=== PATIENT | male | born 1965 | race Caucasian/White ===

== ENCOUNTER 2019-11-14 09:09 | Observation (INO) | payer OTHER, SELFPAY ==
[2019-11-14] VITALS (15 sets, daily range): BP systolic 134–180; BP diastolic 82–140; PULSE 73–160; RESP 18–33; TEMP 36.5–36.7; O2SAT 91–98; BMI 35.5
--- NOTE | 2019-11-14 09:19 | W.ED.ARRPALP ---
HPI - Arrhythmia/Palpitations General: Chief Complaint: Arrhythmia/Palpitations Stated Complaint: POSS A-FIB Time Seen by Provider: 11/14/19 09:18 Source: patient Mode of arrival: ambulatory Limitations: no limitations History of Present Illness: HPI narrative: Patient comes in today for complaints of increased heart rate starting this weekend. Patient 1 month ago was at [facility] and was treated for pneumonia and at that time it was noted he had atrial fib. Patient was started on medication for atrial fib but had stopped taking it after a week due to running out of medicine and not getting a refill. Patient over the last 2 weeks has been on antibiotics again for complaints of congestion and cough. Patient reports this weekend he noted his heart racing again and felt more short of breath this morning. Patient came in for further evaluation. Patient does drink alcohol with his last drink on Thursday, patient was seen on Thursday and started on Levaquin due to his persistent cough. Review of Systems General: Reports: 10 or more systems reviewed and unremarkable except in HPI and below Resp: Reports: shortness of breath PFSH ED PFSH: Social History Smoking and tobacco status: current every day smoker Physical Exam Const: COMMON NORMALS: no apparent distress and oriented x3 GENERAL APPEARANCE: cooperative HENMT: COMMON NORMALS: normocephalic, TM's normal bilaterally and external nose normal HEAD & SCALP: normal to inspection and normocephalic NOSE: external nose normal TYMPANIC MEMBRANE: TM's normal bilaterally MOUTH: oral and palatal mucosa normal THROAT: posterior oropharynx normal Eye: GENERAL EYE: normal appearance of both eyes Neck/C-Spine: COMMON NORMALS: full ROM Lymph: LYMPHATIC: no lymphadenopathy noted Chest: COMMONS NORMALS: inspection of chest normal Resp: COMMON NORMALS: normal respiratory effort EFFORT & INSPECTION: Yes able to speak in complete sentences AUSCULTATION: rales Cardio: RATE: tachycardic GI: COMMON NORMALS: non-tender : COMMON NORMALS: Yes no CVA tenderness BLADDER/KIDNEY EXAM: Yes no CVA tenderness Back/Pelvis: COMMON NORMALS: no CVA tenderness and thoracic and lumbar spine normal to inspection Extremity: COMMON NORMALS: normal to inspection Neuro: COMMON NORMALS: oriented x3 and moves all extremities Psych: COMMON NORMALS: mental status grossly normal and cooperative Skin: COMMON NORMALS: no rashes or lesions noted GENERAL SKIN EXAM: no rashes or lesions noted Course ED course: 924, reviewed patient with Dr. Mock who assumed care of patient. 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
--- NOTE | 2019-11-14 09:25 | ECG_ITS ---
Measurements Intervals [place] Rate: 154 P: MA: 0 QRS: 84 QRSD: 83 T: 28 QT: 266 QTc: 426 ATRIAL FIBRILLATION WITH RAPID VENTRICULAR RESPONSE CRITICAL TEST RESULT Compared to ECG 09/08/2018 12:31:20 Sinus tachycardia no longer present Electronically Signed On 11-15-2019 17:48:37 CDT by Ronny Campos M.D. [id number] f
--- NOTE | 2019-11-14 09:26 | XR_ITS ---
WS: [id number] CHEST XRAY TECHNIQUE: Portable chest. CLINICAL INFORMATION: dyspnea/cough COMPARISON: September 08, 2018 FINDINGS: Heart: Cardiomegaly. Prominent left ventricle. Lungs: Chronic emphysematous changes. No acute pulmonary infiltrates. No focal pneumonia. Bones: Normal visualized bony structures. XR/XR chest 1V portable [id number] IMPRESSION: No acute chest findings
[2019-11-14 10:06] LABS: Basophils % 0.4 %; Eosinophils # 0.1 10^3/uL (0.0-0.8); Eosinophils % 1.9 %; Hemoglobin 16.6 g/dL (11.7-16.6); Lymphocytes # 2.4 10^3/uL (0.8-4.8); Lymphocytes % 32.1 %; Mean Corpuscular HGB Conc 32.5 g/dL (30.0-36.0); Mean Corpuscular Hemoglobin 31.2 pg (28.0-34.0); Mean Corpuscular Volume 95.9 fL (80-94); Mean Platelet Volume 11.2 fL (7.4-10.4); Monocytes % 12.6 %; Neutrophils % 52.6 %; Nucleated Red Blood Cells % 0 %; Platelet Count 129 10^3/cmm (130-400); Red Blood Count 5.32 10^6/uL (4.1-5.3); Red Cell Distribution Width 13.3 % (12.1-15.1); White Blood Count 7.5 10^3/uL (4.0-10.0)
[2019-11-14] MEDS: LORazepam 2 mg/mL INJ 1 mL 1 MG IVP (10:11)
[2019-11-14 10:16] LABS: INR 1.13 (0.8-1.2)
[2019-11-14 10:17] LABS: Partial Thromboplastin Time 26.3 SECONDS (23.9-36.7)
[2019-11-14] MEDS: metoprolol tartrate 50 mg Tablet PO ×2 (10:19→21:06)
[2019-11-14 10:20] LABS: D Dimer 0.62 ug/mIFEU (0-0.59)
[2019-11-14 10:25] LABS: Troponin(5th) Baseline 66 ng/mL (0-15)
[2019-11-14 10:36] LABS: Alanine Aminotransferase 59 U/L (0-41); Alkaline Phosphatase 72 IU/L (40-130); Anion Gap 16.2 (5-19); Aspartate Amino Transferase 50 U/L (0-40); Blood Urea Nitrogen 18 mg/dL (6-20); Calcium 9.8 mg/dL (8.5-10.5); Carbon Dioxide 26 mmol/L (22-29); Chloride 102 mmol/L (98-107); Glomerular Filtration Rate 52.6 mL/min (90-130); Glucose 118 mg/dL (65-115); Magnesium 1.1 mg/dL (1.7-2.3); NT Pro B Type Natriuretic Pept 1823 pg/mL (0-125); Osmolality Calculated 288 mOsm/kg (285-295); Potassium 4.2 mmol/L (3.5-5.1); Sodium 140 mmol/L (136-145); Thyroid Stimulating Hormone 1.01 uIU/mL (0.27-4.20); Total Bilirubin 0.8 mg/dL (0.15-1.2)
--- NOTE | 2019-11-14 10:58 | ED_ITS ---
HPI - Arrhythmia/Palpitations General: Chief Complaint: Arrhythmia/Palpitations Stated Complaint: POSS A-FIB Time Seen by Provider: 11/14/19 09:18 Source: patient Mode of arrival: ambulatory Limitations: no limitations History of Present Illness: HPI narrative: 54-year-old male presents emergency room with complaint of rapid heart rate and elevated blood pressure this started overnight. About a month and a half ago he was hospitalized for pneumonia Rebecca and at time of discharge he was sent home with metoprolol for atrial fibrillation that he had while he was an inpatient. He was on metoprolol 25 twice daily states he is been off that the last couple weeks because he ran out. He also admits to drinking half a pint of whiskey at least 3 times a week. His last drink was 3 days ago. Today when he presented he did not have any chest pain but was mildly short of breath. MD complaint: rapid heart beat, heart racing and atrial fibrillation Onset (ago): hour(s) Duration: constant Severity: moderate Context: occurred during rest Arrhythmia history: atrial fibrillation Associated symptoms: Reports no associated symptoms; Deny nausea or vomiting Review of Systems Const: Denies: fever, chills, body aches, change in appetite, fatigue or malaise ENMT: Denies: throat pain, ear pain, nasal discharge or nasal congestion Card: Denies: chest pain, edema, shortness of breath on exertion or shortness of breath when lying down Resp: Reports: shortness of breath; Denies: productive cough or non-productive cough GI: Denies: abdominal pain, nausea, vomiting, vomiting blood, coffee grounds in vomit, diarrhea, constipation, bloating, blood in stool or black tarry stool : Denies: flank pain, painful urination, urinary frequency or urinary urgency Skin/Breast: Denies: rash or itching PFSH ED PFSH: Medical History (Updated 11/14/19 @ 13:47 by Rayna Cody RN) Alcohol use Atrial fibrillation History of rheumatic fever Hypertension Tobacco abuse Family History (Updated 11/14/19 @ 11:55 by Debora Roy DO) Mother No problems noted. Father No problems noted. Social History Smoking and tobacco status: current every day smoker cigarettes Alcohol intake: current Alcohol intake frequency: few times a week Substance/Drug Use: never Household members: spouse Physical Exam Const: COMMON NORMALS: no apparent distress GENERAL APPEARANCE: cooperative and comfortable ORIENTATION/CONSCIOUSNESS: Yes awake, Yes oriented to person, Yes oriented to place and Yes oriented to time HENMT: COMMON NORMALS: normocephalic, head/scalp atraumatic, hearing grossly normal bilaterally, external ears normal, EAC's normal, TM's normal bilaterally, nasal mucous membranes and turbinates normal, moist oral mucous membranes and oropharynx normal HEAD & SCALP: normocephalic and atraumatic NOSE: nasal mucous membranes and turbinates normal EXTERNAL EAR: Yes external ears normal EXTERNAL AUDITORY CANAL: EAC's normal TYMPANIC MEMBRANE: TM's normal bilaterally Eye: COMMON NORMALS: PERRL, EOMs intact bilaterally, conjunctivae normal and no scleral icterus CONJUNCTIVA: Yes conjunctivae normal PUPIL: Yes PERRL Neck/C-Spine: COMMON NORMALS: full ROM, no lymphadenopathy, supple and no JVD Lymph: LYMPHATIC: no lymphadenopathy noted and no lymphedema noted Resp: COMMON NORMALS: normal respiratory effort, no retractions, no use of accessory muscles and clear to auscultation bilaterally AUSCULTATION: clear to auscultation bilaterally Cardio: COMMON NORMALS: no JVD, regular rate, regular rhythm and no murmurs RATE: regular rate and tachycardic RHYTHM: regular rhythm and abnormal rhythm irregularly irregular GI: COMMON NORMALS: soft to palpation and no hepatosplenomegaly AUSCULTATION: Yes normoactive bowel sounds PALPATION: Yes soft, No tender, No guarding and Yes no hepatosplenomegaly Extremity: COMMON NORMALS: normal to inspection, normal capillary refill, no clubbing, cyanosis or edema, no calf tenderness and no pedal edema Neuro: SENSORIUM/ORIENTATION: Yes oriented to person, Yes oriented to place and Yes oriented to time Skin: COMMON NORMALS: no rashes or lesions noted GENERAL SKIN EXAM: no rashes or lesions noted Course Vital Signs: Vital signs: Vital Signs Temperature 97.7 F 11/15/19 04:00 Pulse Rate 79 11/15/19 04:00 Respiratory Rate 16 11/15/19 04:00 Blood Pressure 184/122 11/15/19 05:03 Pulse Oximetry 93 11/15/19 04:00 MDM - Arrhythmia/Palpitations MDM Narrative: Medical decision making narrative: Patient converted on Cardizem is given p.o. metoprolol he is also very hypertensive. Recommend that he be placed on observation for medication adjustments also a little bit concerned about alcohol withdrawal discussed with the patient he is willing to stop drinking will place him on observation with Dr. Roy Lab Data: Labs: Lab Results 11/14/19 11/14/19 11/14/19 Range/Units 09:55 09:55 09:55 WBC 7.5 (4.0-10.0) 10^3/ uL RBC 5.32 H (4.1-5.3) 10^6/u L Hgb 16.6 (11.7-16.6) g/dL Hct 51.0 (42.0-52.0) % MCV 95.9 H (80-94) fL MCH 31.2 (28.0-34.0) pg MCHC 32.5 (30.0-36.0) g/dL RDW 13.3 (12.1-15.1) % Plt Count 129 L (130-400) 10^3/c mm MPV 11.2 H (7.4-10.4) fL Neut % (Auto) 52.6 % Lymph % (Auto) 32.1 % [place] % (Auto) 12.6 % Eos % (Auto) 1.9 % Baso % (Auto) 0.4 % Neut # (Auto) 4.0 (1.8-7.7) 10^3/u L Lymph # (Auto) 2.4 (0.8-4.8) 10^3/u L [place] # (Auto) 1.0 H (0.2-0.9) 10^3/u L Eos # (Auto) 0.1 (0.0-0.8) 10^3/u L Baso # (Auto) 0.0 (0.0-0.1) 10^3/u L Nucleated RBC % (a uto) 0 % Nucleated RBCs # 0.0 /100WBC PT 14.90 H (10.5-13.3) SECO NDS INR 1.13 (0.8-1.2) APTT 26.3 (23.9-36.7) SECO NDS D-Dimer 0.62 H (0-0.59) ug/mIFE U Sodium 140 (136-145) mmol/L Potassium 4.2 (3.5-5.1) mmol/L Chloride 102 (98-107) mmol/L Carbon Dioxide 26 (22-29) mmol/L Anion Gap 16.2 (5-19) BUN 18 (6-20) mg/dL Creatinine 1.4 H (0.7-1.2) mg/dL GFR Calculation 52.6 L (90-130) mL/min Glucose 118 H (65-115) mg/dL Calculated Osmolal ity 288 (285-295) mOsm/k g Calcium 9.8 (8.5-10.5) mg/dL Magnesium 1.1 L (1.7-2.3) mg/dL Total Bilirubin 0.8 (0.15-1.2) mg/dL AST 50 H (0-40) U/L ALT 59 H (0-41) U/L Alkaline Phosphata se 72 (40-130) IU/L Troponin T Baselin e (0-15) ng/mL NT-Pro-B Natriuret Pep 1823 H (0-125) pg/mL Total Protein 7.0 (6.6-8.7) g/dL Albumin 4.0 (3.5-5.2) g/dL Globulin 3.0 (1.3-4.6) g/dL TSH 1.01 (0.27-4.20) uIU/ mL Salicylates (3-10) mg/dL Acetaminophen (10-30) ug/mL Ethyl Alcohol (0-10) mg/dL 11/14/19 11/14/19 Range/Units 09:55 09:55 WBC (4.0-10.0) 10^3/ uL RBC (4.1-5.3) 10^6/u L Hgb (11.7-16.6) g/dL Hct (42.0-52.0) % MCV (80-94) fL MCH (28.0-34.0) pg MCHC (30.0-36.0) g/dL RDW (12.1-15.1) % Plt Count (130-400) 10^3/c mm MPV (7.4-10.4) fL Neut % (Auto) % Lymph % (Auto) % [place] % (Auto) % Eos % (Auto) % Baso % (Auto) % Neut # (Auto) (1.8-7.7) 10^3/u L Lymph # (Auto) (0.8-4.8) 10^3/u L [place] # (Auto) (0.2-0.9) 10^3/u L Eos # (Auto) (0.0-0.8) 10^3/u L Baso # (Auto) (0.0-0.1) 10^3/u L Nucleated RBC % (a uto) % Nucleated RBCs # /100WBC PT (10.5-13.3) SECO NDS INR (0.8-1.2) APTT (23.9-36.7) SECO NDS D-Dimer (0-0.59) ug/mIFE U Sodium (136-145) mmol/L Potassium (3.5-5.1) mmol/L Chloride (98-107) mmol/L Carbon Dioxide (22-29) mmol/L Anion Gap (5-19) BUN (6-20) mg/dL Creatinine (0.7-1.2) mg/dL GFR Calculation (90-130) mL/min Glucose (65-115) mg/dL Calculated Osmolal ity (285-295) mOsm/k g Calcium (8.5-10.5) mg/dL Magnesium (1.7-2.3) mg/dL Total Bilirubin (0.15-1.2) mg/dL AST (0-40) U/L ALT (0-41) U/L Alkaline Phosphata se (40-130) IU/L Troponin T Baselin e 66 H (0-15) ng/mL NT-Pro-B Natriuret Pep (0-125) pg/mL Total Protein (6.6-8.7) g/dL Albumin (3.5-5.2) g/dL Globulin (1.3-4.6) g/dL TSH (0.27-4.20) uIU/ mL Salicylates < 0.3 L (3-10) mg/dL Acetaminophen < 5.0 L (10-30) ug/mL Ethyl Alcohol < 10 (0-10) mg/dL Discharge Plan Discharge Patient Disposition: Placed in Observation Admit Provider: Debora Roy Clinical Impression: Atrial fibrillation with rapid ventricular response Condition: Stable Referrals: Jewel Mock DO [Emergency Provider] - Discharge Date/Time: 11/14/19 12:37 Coding Level of Care Code ED Set Off Press Operator for Chg Fwd Exam Comprehensive
--- NOTE | 2019-11-14 11:25 | ECG_ITS ---
Measurements Intervals [place] Rate: 81 P: 23 [place]: 137 QRS: 66 QRSD: 86 T: 35 QT: 357 QTc: 416 SINUS RHYTHM WITH OCCASIONAL VENTRICULAR PREMATURE COMPLEXES POSSIBLE LEFT ATRIAL ENLARGEMENT [-0.1mV P WAVE IN V1/V2] MODERATE T-WAVE ABNORMALITY, CONSIDER ANTERIOR ISCHEMIA [-0.1+ mV T WAVE IN V3 V3/V4] Compared to ECG 09/08/2018 12:31:20 Ventricular premature complex(es) now present T-wave abnormality now present Possible ischemia now present Sinus tachycardia no longer present Electronically Signed On 11-15-2019 18:12:44 CDT by Ronny Campos M.D. [id number] [email or web address]
--- NOTE | 2019-11-14 11:50 | P.HP_ITS ---
Providers/Chief Complaint Admitting Physician: Debora Roy DO Primary Care Provider: Dr. Jose Sims Chief Complaint: A-FIB WITH RVR History of Present Illness Filemon Wong is a 54 year old male with a past medical history of atrial fibrillation and hypertension that presented to the emergency department today for palpitations. He reported that the palpitations have been ongoing since July. He stated he was recently hospitalized in September with pneumonia and told that he had atrial fibrillation at that time. He was started on metoprolol and discharged to home. He reported that he was given a week supply of medication but did not have it refilled. Had failed to communicate with his primary care provider that he was diagnosed with atrial fibrillation. Patient presented to the hospital today for atrial fibrillation with RVR, started on a Cardizem drip and converted to sinus rhythm. When further information returned and patient reported that he had been on metoprolol but had not been taking the medication, he denies being placed on any anticoagulation during his previous hospital stay. He reports some cough with mild sputum production, no fevers, no sick contacts. Denies any contact with any persons under investigation, or confirmed positive cases of COVID-19. Patient reported that he has a chronic cough related to tobacco use, previously smoked 1 pack/day is now down to 4 cigarettes/day, denies any hemoptysis. Patient reports recently being started on antibiotics by a nurse practitioner at his primary care provider's office, has not had a recent chest x-ray, was feeling the same at that time but did not have repeat EKG performed. Patient was seen and evaluated in the emergency department noted to have concern for atrial fibrillation with RVR, started on Cardizem drip and converted to sinus rhythm. He was given oral metoprolol and Cardizem rate was decreased. Review of Systems Const: Denies: fever or chills Eyes: Denies: change in vision ENMT: Denies: nasal congestion Card: Reports: palpitations; Denies: chest pain or edema Resp: Reports: productive cough (Chronic); Denies: shortness of breath or coughing up blood GI: Reports: nausea; Denies: abdominal pain, vomiting, diarrhea, constipation, blood in stool or black tarry stool : Denies: painful urination or blood in urine Musc: Denies: extremity pain or muscle cramps Skin/Breast: Denies: rash or new lesion Neuro: Denies: headache or dizziness Psych: Denies: anxiety or depression Endo: Denies: excessive urination or hot flashes Jesus/Lymph: Denies: easy bruising or easy bleeding Medications/Allergies Home Medications Medication Instructions Recorded Confirmed Last Taken Type albuterol sulfate 1 puff INHALATION QID PRN 11/14/19 11/14/19 11/14/19 History albuterol sulfate 2.5 mg INHALATION Q6H PRN 11/14/19 11/14/19 Unknown History levofloxacin 750 mg PO DAILY 11/14/19 11/14/19 11/13/19 History metoprolol tartrate 25 mg PO BID 11/14/19 11/14/19 11/14/19 History Allergies Allergy/AdvReac Type Severity Reaction Status Date / Time Sulfa (Sulfonamide Allergy ALGY-Anaphy Verified 11/14/19 09:21 Antibiotics) laxis PFSH Acute PFSH: Medical History (Updated 11/14/19 @ 13:47 by Rayna Cody RN) Alcohol use Atrial fibrillation History of rheumatic fever Hypertension Tobacco abuse Family History (Updated 11/14/19 @ 11:55 by Debora Roy DO) Mother No problems noted. Father No problems noted. Social History Smoking and tobacco status: current every day smoker cigarettes Alcohol intake: current Alcohol intake frequency: few times a week Substance/Drug Use: never Household members: spouse Supplemental PFSH Information: Patient denies any family history of heart disease, diabetes, stroke. 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) Eye: COMMON NORMALS: PERRL PUPIL: Yes PERRL Neck/C-Spine: COMMON NORMALS: supple GENERAL: Yes normal visual inspection Resp: COMMON NORMALS: normal respiratory effort EFFORT & INSPECTION: Yes a ble to speak in complete sentences AUSCULTATION: clear to auscultation bi laterally, no rhonchi and wheezes expiratory wheezes Cardio: COMMON NORMALS: regular rate, regular rhythm and no murmurs RATE: regular rate RHYTHM: regular rhythm GI: COMMON NORMALS: soft to palpation and non-tender INSPECTION: No abdominal distension AUSCULTATION: Yes normoactive bowel sounds PALPATION: Yes soft : COMMON NORMALS: Yes no CVA tenderness BLADDER/KIDNEY EXAM: Yes no CVA tenderness Back/Pelvis: COMMON NORMALS: no CVA tenderness Extremity: COMMON NORMALS: no clubbing, cyanosis or edema and no calf tenderness Neuro: COMMON NORMALS: oriented x3, CN's II-XII intact bilaterally, moves all extremities and no focal motor deficits SENSORIUM/ORIENTATION: Yes alert, Yes oriented to person, Yes oriented to place and Yes oriented to time SPEECH: speech normal MOTOR EXAM: tremor bialteral upper extremity Psych: COMMON NORMALS: mental status grossly normal and cooperative Skin: COMMON NORMALS: no rashes or lesions noted GENERAL SKIN EXAM: no rashes or lesions noted Data : 11/14/19 09:55 11/14/19 09:55 CXR: I personally reviewed and interpreted this imaging study as follows: Radiologist's impression: FINDINGS: Heart: Cardiomegaly. Prominent left ventricle. Lungs: Chronic emphysematous changes. No acute pulmonary infiltrates. No focal pneumonia. Bones: Normal visualized bony structures. XR/XR chest 1V portable [id number] IMPRESSION: No acute chest findings A&P Assessment and plan (1) Atrial fibrillation with rapid ventricular response: Patient presented with atrial fibrillation with RVR Started on a Cardizem drip and converted to sinus rhythm while in the ED. Patient has not been taking metoprolol that was prescribed from his recent hospital discharge. Given metoprolol 50 mg in the ER, will wean off of Cardizem drip. We will continue with metoprolol 50 mg twice daily We will further evaluate with echocardiogram TSH within normal limits Patient does report alcohol use, reports last drink was Thursday CHADS2 VASc score: 1 due to hypertension, male gender and <64 years of age. Score of 1, 1.3% adjusted stroke risk per year will place on aspirin 81 mg daily at this time. Status: Acute (2) Hypertension: Patient is uncertain of his home medications, increased metoprolol to 50 mg twice daily, will obtain medication list from primary care provider Status: Acute (3) Alcohol use: Patient reports alcohol use, reports last drink was on Thursday, he appears tremulous and appears to be going through alcohol withdrawal, will check alcohol level at this time due to clinical concern for alcohol withdrawal and the concern that patient may drink more than he gives by HPI and social history based on exam findings Status: Acute (4) Tobacco abuse: Strongly encourage cessation, nicotine patch as needed Status: Acute Additional A&P Information Currently under treatment for what appears to be COPD exacerbation: We will continue with Levaquin at this time, hold off on steroids but consider if clinically indicated. Continue with respiratory therapy to assess and treat, oxygen per protocol. Patient reports that he is on 2 L of oxygen by nasal cannula at bedtime Question of underlying chronic kidney disease: Creatinine of 1.4, appears to be improved from prior labs in August at that time 2.3. We will continue with close monitoring Hypomagnesemia: Replace magnesium with a goal >2 DVT prophylaxis: Lovenox Diet: Cardiac CODE STATUS: Full code Attestations Medical Necessity Statement*: Observation placement due to atrial fibrillation with RVR with known atrial fibrillation and is been off of home medications. Expected stay less than 2 midnights Coding Level of Care Code Acute Medical Dosimetrist for [facility] Fwd Exam Comprehensive Diagnoses Atrial fibrillation with rapid ventricular response I48.91 Hypertension I10 Alcohol use Z72.89 Tobacco abuse Z72.0
[2019-11-14 12:36] LABS: Troponin 5 2HR 52.32 ng/mL (0-15)
[2019-11-14] MEDS: magnesium sulfate premix 2 GM/50 ML PIGGYBACK IV (12:37)
--- NOTE | 2019-11-14 12:47 | USCV_ITS ---
Filemon Wong Age: 54 Gender: M : 1965 Exam Date: 11/14/2019 14:49 Ordering Phys: Debora Roy DO Technologist: Vivian Can Exam Location: [facility] – [place] Indication: AFIB, BP: / HR: 85 Rhythm: Sinus Technical Quality: Poor because of body habitus MEASUREMENTS (Male / Female) Normal Values 2D ECHO LV Chamber Size 3.6 cm RV Chamber Size 3.9 cm LVOT Diameter 2.0 cm LA Width 2.6 cm LA Height 4.6 cm RA Width 2.8 cm RA Height 3.1 cm DOPPLER AV Peak Velocity 146.0 cm/s LVOT Peak Velocity 117.0 cm/s AV Area Cont Eq vti 2.3 cm squared AV Area Cont Eq pk 2.6 cm squared MV Area PHT 5.0 cm squared Mitral E to A Ratio 1.4 MV E' Velocity 10.0 cm/s Mitral E to MV E' Ratio 7.7 Mitral E to LV E' Lateral Ratio 7.7 Mitral E to LV E' Septal Ratio 7.8 TR Peak Velocity 212.0 cm/s TR Peak Gradient 17.9 mmHg TV Peak E Velocity 60.0 cm/s Right Atrial Pressure 3.0 mmHg Pulmonary Artery Systolic Pressu 21.0 mmHg FINDINGS Left Ventricle Normal left ventricular size and systolic function, EF 55%. No gross wall motion normalities. The study is of suboptimal quality because of the poor ultrasonic window. Right Ventricle Possibly of normal size Right Atrium Possibly of normal size Left Atrium Possibly of normal size Mitral Valve No gross abnormalities noted Aortic Valve No gross abnormalities noted Tricuspid Valve Trace to mild tricuspid valve regurgitation. Pulmonic Valve Pulmonic valve not well visualized. Pericardium No pericardial effusion Aorta The root appears to be of normal size CONCLUSIONS Normal left ventricular size and systolic function, EF 55%. No gross wall motion normalities. The other cardiac chambers appeared to be of normal size. No significant pericardial effusion. No significant stenotic or regurgitant lesions, based on the color flow Doppler examination Technically difficult study because of the poor ultrasonic window. Dr Ronny Campos MD FACC (Electronically Signed) Final Date: 14 November 2019 18:07 S
[2019-11-14 12:54] LABS: Troponin 5 2HR Delta -13.68 ABS# (0-10)
[2019-11-14] MEDS: aspirin 81 mg EC Tablet PO (14:13)
[2019-11-14] MEDS: multivitamin therapeutic Tablet 1 TAB PO (14:13)
[2019-11-14] MEDS: levoFLOXacin 750 mg Tablet PO (14:13)
[2019-11-14 14:24] LABS: Acetaminophen < 5.0 ug/mL (10-30); Alcohol Level < 10 mg/dL (0-10); Salicylate < 0.3 mg/dL (3-10)
[2019-11-14] MEDS: enoxaparin 40 mg/0.4 mL Syringe SUBCUT (17:46)
[2019-11-14 20:03] LABS: Troponin 5 6HR 57.39 ng/mL (0-15)
[2019-11-14 20:41] LABS: Troponin 5 6HR Delta -8.61 ng/L (0-12)
[2019-11-15] VITALS (12 sets, daily range): BP systolic 150–184; BP diastolic 91–122; PULSE 67–96; RESP 16–22; TEMP 36.5–36.8; O2SAT 90–98
[2019-11-15 00:15] LABS: Magnesium 1.6 mg/dL (1.7-2.3)
--- NOTE | 2019-11-15 00:39 | PC.NURSE ---
Patient arrived to the floor from ED. Patient is alert and oriented and is mildly weak when walking. Patient is not complaining of any pain or shortness of breath. VSS. Patient states he has had increased falls at home in the last couple months. Patient was educated to use his call light when he needs to go to the bathroom and a nurse will help him. Patient has been oriented to his room and has call light within reach.
[2019-11-15 04:10] LABS: Basophils % 0.7 %; Eosinophils # 0.2 10^3/uL (0.0-0.8); Eosinophils % 2.8 %; Hematocrit 45.8 % (42.0-52.0); Hemoglobin 14.9 g/dL (11.7-16.6); Lymphocytes # 2.1 10^3/uL (0.8-4.8); Lymphocytes % 39.2 %; Mean Corpuscular HGB Conc 32.5 g/dL (30.0-36.0); Mean Corpuscular Hemoglobin 31.9 pg (28.0-34.0); Mean Corpuscular Volume 98.1 fL (80-94); Monocytes # 0.9 10^3/uL (0.2-0.9); Monocytes % 16.1 %; Neutrophils # 2.2 10^3/uL (1.8-7.7); Nucleated Red Blood Cells % 0 %; Platelet Count 112 10^3/cmm (130-400); Red Blood Count 4.67 10^6/uL (4.1-5.3); Red Cell Distribution Width 13.6 % (12.1-15.1); White Blood Count 5.4 10^3/uL (4.0-10.0)
[2019-11-15 04:29] LABS: Alanine Aminotransferase 51 U/L (0-41); Albumin Level 3.8 g/dL (3.5-5.2); Alkaline Phosphatase 63 IU/L (40-130); Anion Gap 14.5 (5-19); Aspartate Amino Transferase 54 U/L (0-40); Blood Urea Nitrogen 18 mg/dL (6-20); Calcium 9.4 mg/dL (8.5-10.5); Carbon Dioxide 28 mmol/L (22-29); Chloride 101 mmol/L (98-107); Globulin 2.6 g/dL (1.3-4.6); Glomerular Filtration Rate 57.3 mL/min (90-130); Glucose 110 mg/dL (65-115); Osmolality Calculated 285 mOsm/kg (285-295); Potassium 4.5 mmol/L (3.5-5.1); Sodium 139 mmol/L (136-145); Total Bilirubin 0.7 mg/dL (0.15-1.2); Total Protein 6.4 g/dL (6.6-8.7)
--- NOTE | 2019-11-15 05:04 | PC.NURSE ---
Dr. Escalante notified of blood pressure 184/122.
[2019-11-15] MEDS: aspirin 81 mg EC Tablet PO (08:21)
[2019-11-15] MEDS: levoFLOXacin 750 mg Tablet PO (08:21)
[2019-11-15] MEDS: amlodipine 10 mg Tablet PO (08:21)
[2019-11-15] MEDS: folic acid 1 mg Tablet PO (08:21)
[2019-11-15] MEDS: thiamine 100 mg Tablet PO ×2 (08:21→09:30)
[2019-11-15] MEDS: multivitamin therapeutic Tablet 1 TAB PO ×2 (08:22→09:30)
--- NOTE | 2019-11-15 08:23 | PM.DCS ---
Discharge Providers Date of Admission: 11/14/19 10:50 Date of Discharge: November 15, 2019 Attending Provider at Admission: Debora Roy DO Attending Provider at Discharge: Debora Roy DO Primary Care Provider: Debora Roy DO Diagnoses at Discharge Discharge Diagnosis (1) Atrial fibrillation with rapid ventricular response: Status: Acute (2) Hypertension: Status: Acute (3) Alcohol use: Status: Acute (4) Tobacco abuse: Status: Acute Reason for Visit Reason for Visit: Reason For Visit: A-FIB WITH RVR Hospital Course Discharge Summary: Patient was seen and evaluated in the emergency department noted to have concern for atrial fibrillation with RVR. He reported that he had recently been hospitalized at [facility] in September diagnosed with atrial fibrillation at that time had complete cardiac work-up including cardiac cath and was discharged to home with medication adjustments. He reported that he ran out of the medication, metoprolol, and had not been taking this medication. He reports that he has been having palpitations off and on and this resolved once he converted to sinus rhythm while in the ED. He was started on a Cardizem drip and then after it was noted that he had not been taking the home metoprolol he was given oral metoprolol and weaned off the Cardizem drip. He remained in sinus rhythm and remained asymptomatic. Observed overnight on telemetry with no acute events. On date of discharge she denied any acute symptoms. Discussed with patient plan to continue on his home amlodipine 10 mg daily, continue on metoprolol 50 mg twice daily and to hold on his lisinopril at this time until monitored by his primary care provider to determine if it needs to be restarted. Discussed with patient the risk of stroke related to atrial fibrillation, current chads score is 1 therefore started on low-dose aspirin only at this time. Strongly encouraged tobacco cessation and encourage cessation from alcohol. On date of discharge discussed with patient at bedside and counseled him on tobacco cessation for 3 minutes. Discussed plan for discharge and medication changes and he verbalized understanding and agreed with plan. 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) Eye: COMMON NORMALS: PERRL PUPIL: Yes PERRL Neck/C-Spine: COMMON NORMALS: supple GENERAL: Yes normal visual inspection Resp: COMMON NORMALS: normal respiratory effort EFFORT & INSPECTION: Yes able to speak in complete sentences AUSCULTATION: no rhonchi OTHER: Very faint expiratory wheezing, improved Cardio: COMMON NORMALS: regular rate, regular rhythm and no murmurs RATE: regular rate RHYTHM: regular rhythm GI: COMMON NORMALS: soft to palpation and non-tender INSPECTION: No abdominal distension AUSCULTATION: Yes normoactive bowel sounds PALPATION: Yes soft : COMMON NORMALS: Yes no CVA tenderness BLADDER/KIDNEY EXAM: Yes no CVA tenderness Back/Pelvis: COMMON NORMALS: no CVA tenderness Extremity: COMMON NORMALS: no clubbing, cyanosis or edema and no calf tenderness Neuro: COMMON NORMALS: oriented x3, CN's II-XII intact bilaterally, moves all extremities and no focal motor deficits SENSORIUM/ORIENTATION: Yes alert, Yes oriented to person, Yes oriented to place and Yes oriented to time SPEECH: speech normal MOTOR EXAM: tremor Psych: COMMON NORMALS: mental status grossly normal and cooperative Skin: COMMON NORMALS: no rashes or lesions noted GENERAL SKIN EXAM: no rashes or lesions noted Discharge Data Data Completed and Pending: Completed Studies During Hospitalization Category Date Time Status XR chest 1V mallika ble [id number] Stat Exams 11/14/19 09:26 Completed CV echo complete* [id number] Routine Ultrasound 11/14/19 12:47 Completed Pending at discharge Category Date Time Status Blood Culture Sta t Lab 11/14/19 18:17 Results Labs from last 24 hours 11/15/19 11/15/19 11/14/19 03:40 03:40 18:17 WBC 5.4 RBC 4.67 Hgb 14.9 Hct 45.8 MCV 98.1 H MCH 31.9 MCHC 32.5 RDW 13.6 Plt Count 112 L MPV 11.0 H Neut % (Auto) 41.0 Lymph % (Auto) 39.2 [place] % (Auto) 16.1 Eos % (Auto) 2.8 Baso % (Auto) 0.7 Neut # (Auto) 2.2 Lymph # (Auto) 2.1 [place] # (Auto) 0.9 Eos # (Auto) 0.2 Baso # (Auto) 0.0 Nucleated RBC % (a uto) 0 Nucleated RBCs # 0.0 PT INR APTT D-Dimer Sodium 139 Potassium 4.5 Chloride 101 Carbon Dioxide 28 Anion Gap 14.5 BUN 18 Creatinine 1.3 H GFR Calculation 57.3 L Glucose 110 Calculated Osmolal ity 285 Calcium 9.4 Magnesium 1.6 L Total Bilirubin 0.7 AST 54 H ALT 51 H Alkaline Phosphata se 63 Troponin I 6 Hour Troponin I Hi Sens Del Troponin T Baselin e Troponin T 120 Min [place] Troponin T NT-Pro-B Natriuret Pep Total Protein 6.4 L Albumin 3.8 Globulin 2.6 TSH Salicylates Acetaminophen Ethyl Alcohol 11/14/19 11/14/19 11/14/19 18:17 12:13 09:55 WBC RBC Hgb Hct MCV MCH MCHC RDW Plt Count MPV Neut % (Auto) Lymph % (Auto) [place] % (Auto) Eos % (Auto) Baso % (Auto) Neut # (Auto) Lymph # (Auto) [place] # (Auto) Eos # (Auto) Baso # (Auto) Nucleated RBC % (a uto) Nucleated RBCs # PT INR APTT D-Dimer Sodium Potassium Chloride Carbon Dioxide Anion Gap BUN Creatinine GFR Calculation Glucose Calculated Osmolal ity Calcium Magnesium Total Bilirubin AST ALT Alkaline Phosphata se Troponin I 6 Hour 57.39 H Troponin I Hi Sens Del -8.61 L Troponin T Baselin e Troponin T 120 Min [place] 52.32 H Delta Troponin T -13.68 L NT-Pro-B Natriuret Pep Total Protein Albumin Globulin TSH Salicylates < 0.3 L Acetaminophen < 5.0 L Ethyl Alcohol < 10 11/14/19 11/14/19 11/14/19 09:55 09:55 09:55 WBC 7.5 RBC 5.32 H Hgb 16.6 Hct 51.0 MCV 95.9 H MCH 31.2 MCHC 32.5 RDW 13.3 Plt Count 129 L MPV 11.2 H Neut % (Auto) 52.6 Lymph % (Auto) 32.1 [place] % (Auto) 12.6 Eos % (Auto) 1.9 Baso % (Auto) 0.4 Neut # (Auto) 4.0 Lymph # (Auto) 2.4 [place] # (Auto) 1.0 H Eos # (Auto) 0.1 Baso # (Auto) 0.0 Nucleated RBC % (a uto) 0 Nucleated RBCs # 0.0 PT INR APTT D-Dimer Sodium 140 Potassium 4.2 Chloride 102 Carbon Dioxide 26 Anion Gap 16.2 BUN 18 Creatinine 1.4 H GFR Calculation 52.6 L Glucose 118 H Calculated Osmolal ity 288 Calcium 9.8 Magnesium 1.1 L Total Bilirubin 0.8 AST 50 H ALT 59 H Alkaline Phosphata se 72 Troponin I 6 Hour Troponin I Hi Sens Del Troponin T Baselin e 66 H Troponin T 120 Min [place] Troponin T NT-Pro-B Natriuret Pep 1823 H Total Protein 7.0 Albumin 4.0 Globulin 3.0 TSH 1.01 Salicylates Acetaminophen Ethyl Alcohol 11/14/19 09:55 WBC RBC Hgb Hct MCV MCH MCHC RDW Plt Count MPV Neut % (Auto) Lymph % (Auto) [place] % (Auto) Eos % (Auto) Baso % (Auto) Neut # (Auto) Lymph # (Auto) [place] # (Auto) Eos # (Auto) Baso # (Auto) Nucleated RBC % (a uto) Nucleated RBCs # PT 14.90 H INR 1.13 APTT 26.3 D-Dimer 0.62 H Sodium Potassium Chloride Carbon Dioxide Anion Gap BUN Creatinine GFR Calculation Glucose Calculated Osmolal ity Calcium Magnesium Total Bilirubin AST ALT Alkaline Phosphata se Troponin I 6 Hour Troponin I Hi Sens Del Troponin T Baselin e Troponin T 120 Min [place] Troponin T NT-Pro-B Natriuret Pep Total Protein Albumin Globulin TSH Salicylates Acetaminophen Ethyl Alcohol Vitals: Last Vital Signs Temp 98.0 F 11/15/19 08:00 Pulse 91 11/15/19 08:00 Resp 20 H 11/15/19 08:00 BP 168/119 11/15/19 08:00 Pulse Ox 90 11/15/19 08:00 Discharge Plan Discharge Patient Disposition: Home, Self-Care Condition: Stable Prescriptions: New aspirin 81 mg Tablet,Delayed Release (Dr/Ec) 81 mg PO DAILY 30 Days Qty: 30 RF: 0 metoprolol tartrate 50 mg Tablet 50 mg PO Q12H 30 Days Qty: 60 RF: 0 folic acid 1 mg Tablet 1 mg PO DAILY 3 Days Qty: 30 RF: 0 thiamine mononitrate (vit B1) [Vitamin B-1 (mononitrate)] 100 mg Tablet 100 mg PO DAILY 30 Days Qty: 30 RF: 0 Thera 400 mcg Tablet 1 tab PO DAILY 30 Days Qty: 30 RF: 0 Continued albuterol sulfate 2.5 mg /3 mL (0.083 %) solution for nebulization 2.5 mg inhalation Q6H PRN (Reason: Shortness Of Breath) RF: 0 levofloxacin 750 mg tablet 750 mg PO DAILY RF: 0 albuterol sulfate 90 mcg/actuation Hfa Aerosol Inhaler 1 puff INHALATION QID PRN (Reason: Shortness Of Breath) RF: 0 amlodipine 10 mg tablet 10 mg PO DAILY RF: 0 buspirone 10 mg tablet 10 mg PO BID RF: 0 albuterol sulfate 2.5 mg /3 mL (0.083 %) solution for nebulization 2.5 mg inhalation Q4H PRN (Reason: Shortness Of Breath Or Wheezing) RF: 0 Held lisinopril 20 mg tablet 20 mg PO BID RF: 0 Hold Instructions: Resume on 11/18/19. Hold until next appointment with Primary care provider. Resume at that time if they feel it is appropriate based on your blood pressure readings Discontinued metoprolol tartrate 25 mg Tablet 25 mg PO BID RF: 0 Discharge Orders: Discharge Order (Routine); Ordered 11/15/19 Ordered By: Debora Roy Referrals: Jose Sims MD [Staff Physician] - 1-3 days (Follow up with PCP by Thursday of this week to have hospital follow up and recheck of BP and HR) Discharge Diet: Cardiac Discharge Activity: Increase activity as tolerated and Return to work/school after cleared by PCP/Specialist Activity Restrictions/Additional Instructions: You were started back on metoprolol 50 mg, take this twice daily. You have been supplied with a 30-day prescription, this will need to be continued by your primary care provider as indicated in the future. Please do not return to work until cleared by your primary care provider. Recommend follow-up by the end of this week. Check your blood pressure each morning after resting for approximately 15 minutes and keep a blood pressure log to provide to your primary care provider Diagnosed with atrial fibrillation, improved with medication called metoprolol as noted above. Atrial fibrillation does place you at an increased risk of stroke, based on your elevated blood pressure you are at a low risk category at this time however would recommend continuing on aspirin 81 mg daily. Strongly encouraged tobacco cessation Strongly encourage alcohol cessation You were previously on 2 blood pressure medications amlodipine 10 mg daily and lisinopril 20 mg twice daily. Continue amlodipine 10 mg daily along with the metoprolol as noted above. Hold on the lisinopril until you follow-up with your primary care provider later this week to determine if it needs to be continued in combination with metoprolol and amlodipine. Do not wish for your blood pressures to decrease too much with the addition of the medication. Continue with your antibiotic coverage as previously prescribed, your chest x-ray does not show any acute pneumonia, continue with breathing treatments as needed. If you continue to have chest pain or shortness of breath please present to the emergency department. 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
[2019-11-15] MEDS: metoprolol tartrate 50 mg Tablet PO (11:35)
--- NOTE | 2019-11-15 11:47 | PC.CHAP ---
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 strapper visit [] Patient/Family/Request visit [] Outpatient visit [] Follow-up visit [] Physician referral [] Code/Alert [x] Routine visit [] Staff referral [] Actively dying [] Patient sleeping [] Family support [] [] Out of room [] Palliative care [] [x] Receiving care in room [] Pre-surgical visit [] Trauma [] Long length of stay [] ICU visit [] Other: Relational/Emotional Strength [x] Patient feels connected with others/family/visitors/staff [] Distress [] Loneliness/isolation [] Abandonment Spirituality of Patient [x] Person of Meg [] Attends Buddhism of their Meg [x] Believes in Prayer [] Reads Bible or Anabaptism materials [] There are Spiritual issues to be addressed Packaging Assembler Interventions [x] Prayer [x] Active listening [x] Non-anxious presence [x] Spiritual/emotional support [] Crisis/trauma care [x] Spiritual counseling [] Bereavement support [] Provided bereavement packet [] Provided Bible/devotional materials [] Provided toy/stuffed animal, coloring book to patient or family member [] Provided Communion [] Anointing/[place] [] Salvation [x] Completed spiritual assessment [] Other: Impact on Illness or Injury [] Angry [] Fearful [] Anxious [] Often cries [] Exhaustion [] Unable to work [] Unable to attend anabaptism [] Unable to walk/stand [] Unable to read [] Unable to drive [] Unable to eat/drink [] Unable to sleep [] Unable to be with family [] Patient intubated [] Other: Summary Feeling good going today Time spent with patient 10 mns
[2019-11-15] MEDS: lisinopril 20 mg Tablet PO (12:27)
== END 2019-11-15 14:35 | disposition home or self-care (01) ==
LOC: ER 11:02 → MEDSURG 11:41
PROVIDERS: Nurse Practitioner Family; Admitting Provider Family Medicine; Emergency Provider Family Medicine; Family Provider Family Medicine; PCP Family Medicine; Visit Provider Family Medicine
DX: I48.91 Unspecified atrial fibrillation (principal); I10 Essential (primary) hypertension; Z72.89 Other problems related to lifestyle; F17.210 Nicotine dependence, cigarettes, uncomplicated; E83.42 Hypomagnesemia
CPT/HCPCS: 12345; 36415; 71045; 80053; 80307; 83735; 83880; 84443; 84484; 85025; 85378; 85610; 85730; 87040; 93005; 93306; 94640; 96365; 96366; 96372; 96375; 99283; 99285; G0378; J1650; J2060; J3411; J3475; J3490; J7611

== ENCOUNTER 2020-04-29 18:05 | Inpatient (IN) | payer SELFPAY ==
[2020-04-29] VITALS (42 sets, daily range): BP systolic 80–160; BP diastolic 49–111; PULSE 98–134; RESP 13–34; TEMP 37.1; O2SAT 48–100; BMI 41.8
--- NOTE | 2020-04-29 18:09 | XRR_ITS ---
PROCEDURE INFORMATION: Exam: XR Chest, 1 View Exam date and time: 04/29/2020 6:11 PM Age: 54 years old Clinical indication: Shortness of breath; Additional info: SOB TECHNIQUE: Imaging protocol: XR of the chest Views: 1 view. COMPARISON: No relevant prior studies available. FINDINGS: Lungs: There are pulmonary parenchymal calcifications consistent with remote granulomatous organism exposure. Pleural space: Unremarkable. No pleural effusion. No pneumothorax. Heart/Mediastinum: Unremarkable. No cardiomegaly. Bones/joints: There are degenerative changes in the thoracic spine and across the acromioclavicular joints. Soft tissues: Heart size not optimally evaluated with a single AP view of the chest. XR/XR chest 1V portable [id number] IMPRESSION: No evidence for acute cardiopulmonary disease.
--- NOTE | 2020-04-29 18:09 | CTR_ITS ---
PROCEDURE INFORMATION: Exam: CT Angiography Chest With Contrast Exam date and time: 04/29/2020 6:13 PM Age: 54 years old Clinical indication: Dyspnea; Additional info: SOB TECHNIQUE: Imaging protocol: Computed tomographic angiography of the chest with intravenous contrast. 3D rendering (Not supervised by radiologist): MIP and/or 3D reconstructed images were created by the technologist. Radiation optimization: All CT scans at this facility use at least one of these dose optimization techniques: automated exposure control; mA and/or kV adjustment per patient size (includes targeted exams where dose is matched to clinical indication); or iterative reconstruction. Contrast material: OMNI 350; Contrast volume: 95 ml; Contrast route: INTRAVENOUS (IV); COMPARISON: CR (CHEST, ) 04/29/2020 6:14 PM RADIATION DOSE METRICS: Total DLP (mGy-cm): 1246.13 FINDINGS: Pulmonary arteries: Normal. No pulmonary emboli. Aorta: Unremarkable. No aortic aneurysm. No aortic dissection. Lungs: There are pulmonary parenchymal calcifications consistent with remote granulomatous organism exposure. There are streaky opacities at the lung bases and anteromedial aspect of the right middle lobe most consistent with scarring and/or atelectasis. Pneumonia cannot be excluded. Pleural space: Unremarkable. No pneumothorax. No pleural effusion. Heart: Unremarkable. No cardiomegaly. No pericardial effusion. Lymph nodes: Unremarkable. No enlarged lymph nodes. Diaphragm: There is elevation of the right hemidiaphragm. Gallbladder and bile ducts: The gallbladder is contracted. Bones/joints: Unremarkable. No acute fracture. Soft tissues: Unremarkable. Other findings: 2.3 cm sebaceous cyst midline upper thoracic region. CT/CT angio chest PE protcl [id number] IMPRESSION: 1. There are streaky opacities at the lung bases and anteromedial aspect of the right middle lobe most consistent with scarring and/or atelectasis. Pneumonia cannot be excluded. 2. The gallbladder is contracted. This may be due to a postprandial state versus chronic cholecystitis. If there is clinical concern for gallbladder disease, ultrasound of the right upper quadrant with the patient in a fasting state for a minimum of 6 hours is recommended. Radiation Dose CTDIVOL = (mGy): DLP = 1246.13 (mGy-cm)
--- NOTE | 2020-04-29 18:10 | ECG_ITS ---
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 Measurements Intervals [place] Rate: 109 P: 45 NH: 132 QRS: 108 QRSD: 92 T: 16 QT: 303 QTc: 408 Interpretive Statements SINUS TACHYCARDIA POSSIBLE LEFT ATRIAL ENLARGEMENT [-0.1mV P WAVE IN V1/V2] INCOMPLETE RIGHT BUNDLE BRANCH BLOCK [90+ ms QRS DURATION, TERMINAL R IN V1/V2, 40+ ms S IN I/aVL/V4/V5/V6] POSSIBLE RIGHT VENTRICULAR HYPERTROPHY [SOME/ALL OF: PROMINENT R IN V1, LATE TRANSITION, RAD, BHUMI, SSS] POSSIBLE ANTERIOR MYOCARDIAL INFARCTION , PROBABLY OLD [30 ms Q WAVE IN V3/V4, OR R < 0.2 mV IN V4] Compared to ECG 11/14/2019 12:23:07 Incomplete right bundle-branch block now present Myocardial infarct finding now present Ventricular premature complex(es) no longer present Possible ischemia no longer present Electronically Signed On 04-29-2020 20:10:32 CDT by Yoel Woodward M.D. [email or web address]
[2020-04-29 18:17] LABS: Basophils # 0.1 10^3/uL (0.0-0.1); Basophils % 0.5 %; Eosinophils % 0.4 %; Hematocrit 50.9 % (42.0-52.0); Hemoglobin 15.1 g/dL (11.7-16.6); Lymphocytes # 1.9 10^3/uL (0.8-4.8); Lymphocytes % 19.9 %; Mean Corpuscular HGB Conc 29.7 g/dL (30.0-36.0); Mean Corpuscular Hemoglobin 31.1 pg (28.0-34.0); Mean Corpuscular Volume 104.9 fL (80-94); Mean Platelet Volume 11.1 fL (7.4-10.4); Monocytes % 10.5 %; Neutrophils # 6.59 10^3/uL (1.8-7.7); Neutrophils % 68.3 %; Nucleated Red Blood Cells % 0.2 %; Platelet Count 229 10^3/cmm (130-400); Red Blood Count 4.85 10^6/uL (4.1-5.3); Red Cell Distribution Width 14.1 % (12.1-15.1); White Blood Count 9.7 10^3/uL (4.0-10.0)
[2020-04-29 18:30] LABS: Lactic Sepsis W/Reflex 2.4 mmol/L (0.5-2.2)
--- NOTE | 2020-04-29 18:33 | W.ED.SOB ---
HPI - SOB/Dyspnea General: Chief Complaint: Shortness of Breath/Dyspnea Stated Complaint: RESP DISTRESS Time Seen by Provider: 04/29/20 18:09 History of Present Illness: HPI Narrative: 54-year-old male with a history of lung disease presents with chest discomfort and severe shortness of breath. He says he has been sick since July, when he was hospitalized and not home, but that he became acutely incredibly short of breath 3 days or so ago. He was seen, had a COVID test, which was negative, and placed on Levaquin I believe. He has breathing treatments at home. None of these do seem to help. He presented by car in triage with a room air sat of 43%. He was awake and talking but confused. MD elicited complaint: shortness of breath Pertinent past history: COPD Onset (ago): day(s) Context: recent illness Timing: constant Severity: severe Exacerbating factors: exertion Relieving factors: nothing Known history of: COPD Associated symptoms: Reports chest congestion, chest pain, cough and diaphoresis; Deny dizziness, fever(s), nausea, rash or vomiting Treatment prior to arrival: none Review of Systems Const: Reports: diaphoresis; Denies: fever(s) Eyes: Denies: change in vision ENMT: Denies: odynophagia, swelling of lips/tongue or sinus pain Card: Reports: chest pain Resp: Reports: chest congestion GI: Denies: nausea or vomiting : Denies: difficulty urinating or hematuria Musc: Denies: neck pain or joint warmth Skin/Breast: Denies: rash or erythema Neuro: Denies: dizziness Psych: Denies: anxiety FORMERLY [facility], [facility] ED PFSH: Medical History (Updated 04/30/20 @ 02:01 by Luis Avalos DO) Alcohol use Aortic stenosis mild on echo at [facility] 09/2019, JOSE 1.6 cm2 Atrial fibrillation COPD (chronic obstructive pulmonary disease) with chronic hypercapnea with baseline pCO2 in the 60s History of bleeding peptic ulcer (~01/2017) from [facility] [place] Records History of rheumatic fever Hypertension Tobacco abuse Surgical History No pertinent past surgical history Family History Mother No problems noted. Father No problems noted. Social History Smoking and tobacco status: current every day smoker cigarettes Alcohol intake: current Alcohol intake frequency: few times a week Household members: spouse Physical Exam Const: GENERAL APPEARANCE: lethargic, ill appearing and diaphoretic ORIENTATION/CONSCIOUSNESS: Yes oriented to person, Yes oriented to place, Yes oriented to time and Yes lethargic HENMT: COMMON NORMALS: normocephalic, external ears normal and Normal external nose present HEAD & SCALP: normocephalic FACE & SINUS: normal facial exam NOSE: Normal external nose present and No nasal discharge present EXTERNAL EAR: Yes external ears normal Eye: COMMON NORMALS: Equal, round and reactive pupils present, EOMs intact bilaterally and conjunctivae normal EYELID: eyelids normal CONJUNCTIVA: Yes conjunctivae normal PUPIL: Yes Equal, round and reactive pupils present Neck/C-Spine: GENERAL: No tracheal deviation Chest: COMMONS NORMALS: normal inspection of the chest CHEST: No tenderness Resp: EFFORT & INSPECTION: No able to speak in complete sentences, No tachypneic, Yes respiratory distress, Yes decreased respiratory effort, No retractions, Yes uses accessory muscles and No tracheal deviation AUSCULTATION: no rhonchi, no wheezes and diminished lung sounds Cardio: COMMON NORMALS: regular rhythm RATE: tachycardic RHYTHM: regular rhythm HEART SOUNDS: no murmurs PERIPHERAL PULSES: radial pulses present GI: INSPECTION: No abdominal distension AUSCULTATION: No Hyperactive bowel sounds present and No Hypoactive bowel sounds present PALPATION: No Guarding due to palpation present (GI) and No Rigid due to palpation PERCUSSION: no dullness to percussion and no tympanic to percussion Neuro: SENSORIUM/ORIENTATION: Yes oriented to person, Yes oriented to place, Yes oriented to time and Yes lethargic Skin: COMMON NORMALS: no rashes or lesions noted GENERAL SKIN EXAM: no rashes or lesions noted Procedures Intubation Time out performed: No sedative: Etomidate Mg Given: 20 paralytic: Rocuronium Mg Given: 80 Laryngoscope: Luis Alberto ET Tube Size: 8 ET Tube Uncuffed: No Tube Secured Depth (cm): 25 Tube Secured Location: lips Tube Placement Confirmation: visualized tube passing through cords, equal breath sounds bilaterally and confirmation by capnometry Patient Tolerated Procedure: well and no complications Intubation Complications: none Course Consultations: Consultation #1: mu Vital Signs: Vital signs: Vital Signs Temperature 98.7 F 04/29/20 18:15 Pulse Rate 81 04/30/20 01:47 Respiratory Rate 14 04/30/20 01:47 Blood Pressure 117/68 04/30/20 01:47 Pulse Oximetry 98 04/30/20 01:47 MDM - SOB/Dyspnea MDM Narrative: Medical decision making narrative: 54-year-old male with a history of lung disease. He presents with a history of 3 to 4 days of worsening respiratory status. On arrival, he had a room air sat in the 40s. He does not use oxygen at home usually. He was tachycardic, and mildly hypertensive. He was placed on BiPAP on arrival, as he was still awake and talking. Despite the fact that he remained awake and oriented, his respiratory status continued to decline, with a decreasing pH, and increasing PCO2. He was intubated without complication. Next blood gas after being placed on the ventilator is pending. His potassium is 5.9. He did not have QRS widening. He did not have peak T waves. He is been given fluid without potassium. His BUN and creatinine are both elevated. His d-dimer was quite high, but CTA did not show pulmonary embolus. His COVID-19 rapid antigen was negative. He does have bilateral atelectasis versus infiltrate. His first troponin was elevated at 155, but did not elevate further. Because of continued hypoxia despite being on the ventilator, repeat blood gas was obtained, showing improvement in PCO2. Settings were changed. He is doing better now. His heart rate is 82, saturation is 97%. Sinus rhythm on the monitor. Normal blood pressure. He is sedated with fentanyl and propofol he is received Rocephin and Zithromax for the infiltrates. His potassium came up to some degree on his next blood gas, at 6.6. Because of this, insulin, glucose, and calcium gluconate were given. He has a COVID PCR pending. He will go to the ICU. Lab Data: Labs: Lab Results 04/29/20 04/29/20 04/29/20 Range/Units 18:02 18:02 18:02 WBC 9.7 (4.0-10.0) 10^3/ uL RBC 4.85 (4.1-5.3) 10^6/u L Hgb 15.1 (11.7-16.6) g/dL Hct 50.9 (42.0-52.0) % MCV 104.9 H (80-94) fL MCH 31.1 (28.0-34.0) pg MCHC 29.7 L (30.0-36.0) g/dL RDW 14.1 (12.1-15.1) % Plt Count 229 (130-400) 10^3/c mm MPV 11.1 H (7.4-10.4) fL Neut % (Auto) 68.3 % Lymph % (Auto) 19.9 % Norton % (Auto) 10.5 % Eos % (Auto) 0.4 % Baso % (Auto) 0.5 % Neut # (Auto) 6.59 (1.8-7.7) 10^3/u L Lymph # (Auto) 1.9 (0.8-4.8) 10^3/u L Norton # (Auto) 1.0 H (0.2-0.9) 10^3/u L Eos # (Auto) 0.0 (0.0-0.8) 10^3/u L Baso # (Auto) 0.1 (0.0-0.1) 10^3/u L Nucleated RBC % (a uto) 0.2 % Nucleated RBCs # 0.0 /100WBC PT (12.1-14.9) SECO NDS INR (0.8-1.2) APTT (23.9-36.7) SECO NDS Fibrinogen (174-498) mg/dL D-Dimer (0-0.59) ug/mIFE U Specimen Type Sample Site ABG pH (7.35-7.45) ABG pCO2 (35-45) mmHg ABG pO2 (80.0-100.0) mmH g ABG HCO3 (22-26) mmol/L ABG Base Excess (-2.0-2.0) mmol/ L James Test Hematocrit (42-52) % Hgb O2 Saturation (95-100) % Carboxyhemoglobin (0.4-20.1) %THgb Methemoglobin (0.4-1.5) % Total Hemoglobin (14-18) g/dL O2 Delivery Device FiO2 % Woods Superintendent ID Sodium 135 L (136-145) mmol/L Potassium 5.9 H (3.5-5.1) mmol/L Chloride 94 L (98-107) mmol/L Carbon Dioxide 28 (22-29) mmol/L Anion Gap 18.9 (5-19) BUN 51 H (6-20) mg/dL Creatinine 1.9 H (0.7-1.2) mg/dL GFR Calculation 37.0 L (90-130) mL/min Glucose 134 H (65-115) mg/dL Calculated Osmolal ity 296 H (285-295) mOsm/k g Lactic Acid 2.4 H (0.5-2.2) mmol/L Lactic Acid (Sepsi s) (0.5-2.2) mmol/L Calcium 9.3 (8.5-10.5) mg/dL Magnesium 2.2 (1.7-2.3) mg/dL Total Bilirubin 0.3 (0.15-1.2) mg/dL AST 49 H (0-40) U/L ALT 58 H (0-41) U/L Alkaline Phosphata se 87 (40-130) IU/L Lactate Dehydrogen ase (135-225) U/L Creatine Kinase (39-308) U/L Troponin T Baselin e (0-15) ng/L Troponin T 120 Min [place] (0-15) ng/L Delta Troponin T (0-10) ABS# C-Reactive Protein 45.3 H (0.0-4.9) mg/L NT-Pro-B Natriuret Pep 1930 H (0-125) pg/mL Total Protein 7.2 (6.6-8.7) g/dL Albumin 4.2 (3.5-5.2) g/dL Globulin 3.0 (1.3-4.6) g/dL Procalcitonin 0.48 (0-0.5) ng/mL Ethyl Alcohol (0-10) mg/dL SARS-CoV-2 Ag (Rap id) (Negative) 04/29/20 04/29/20 04/29/20 Range/Units 18:02 18:02 18:02 WBC (4.0-10.0) 10^3/ uL RBC (4.1-5.3) 10^6/u L Hgb (11.7-16.6) g/dL Hct (42.0-52.0) % MCV (80-94) fL MCH (28.0-34.0) pg MCHC (30.0-36.0) g/dL RDW (12.1-15.1) % Plt Count (130-400) 10^3/c mm MPV (7.4-10.4) fL Neut % (Auto) % Lymph % (Auto) % Norton % (Auto) % Eos % (Auto) % Baso % (Auto) % Neut # (Auto) (1.8-7.7) 10^3/u L Lymph # (Auto) (0.8-4.8) 10^3/u L Norton # (Auto) (0.2-0.9) 10^3/u L Eos # (Auto) (0.0-0.8) 10^3/u L Baso # (Auto) (0.0-0.1) 10^3/u L Nucleated RBC % (a uto) % Nucleated RBCs # /100WBC PT (12.1-14.9) SECO NDS INR (0.8-1.2) APTT (23.9-36.7) SECO NDS Fibrinogen 504 H (174-498) mg/dL D-Dimer 1.90 H (0-0.59) ug/mIFE U Specimen Type Sample Site ABG pH (7.35-7.45) ABG pCO2 (35-45) mmHg ABG pO2 (80.0-100.0) mmH g ABG HCO3 (22-26) mmol/L ABG Base Excess (-2.0-2.0) mmol/ L James Test Hematocrit (42-52) % Hgb O2 Saturation (95-100) % Carboxyhemoglobin (0.4-20.1) %THgb Methemoglobin (0.4-1.5) % Total Hemoglobin (14-18) g/dL O2 Delivery Device FiO2 % Woods Superintendent ID Sodium (136-145) mmol/L Potassium (3.5-5.1) mmol/L Chloride (98-107) mmol/L Carbon Dioxide (22-29) mmol/L Anion Gap (5-19) BUN (6-20) mg/dL Creatinine (0.7-1.2) mg/dL GFR Calculation (90-130) mL/min Glucose (65-115) mg/dL Calculated Osmolal ity (285-295) mOsm/k g Lactic Acid (0.5-2.2) mmol/L Lactic Acid (Sepsi s) (0.5-2.2) mmol/L Calcium (8.5-10.5) mg/dL Magnesium (1.7-2.3) mg/dL Total Bilirubin (0.15-1.2) mg/dL AST (0-40) U/L ALT (0-41) U/L Alkaline Phosphata se (40-130) IU/L Lactate Dehydrogen ase (135-225) U/L Creatine Kinase (39-308) U/L Troponin T Baselin e 155 H* (0-15) ng/L Troponin T 120 Min [place] (0-15) ng/L Delta Troponin T (0-10) ABS# C-Reactive Protein (0.0-4.9) mg/L NT-Pro-B Natriuret Pep (0-125) pg/mL Total Protein (6.6-8.7) g/dL Albumin (3.5-5.2) g/dL Globulin (1.3-4.6) g/dL Procalcitonin (0-0.5) ng/mL Ethyl Alcohol 35 H (0-10) mg/dL SARS-CoV-2 Ag (Rap id) (Negative) 04/29/20 04/29/20 04/29/20 Range/Units 18:40 19:40 20:13 WBC (4.0-10.0) 10^3/ uL RBC (4.1-5.3) 10^6/u L Hgb (11.7-16.6) g/dL Hct (42.0-52.0) % MCV (80-94) fL MCH (28.0-34.0) pg MCHC (30.0-36.0) g/dL RDW (12.1-15.1) % Plt Count (130-400) 10^3/c mm MPV (7.4-10.4) fL Neut % (Auto) % Lymph % (Auto) % Norton % (Auto) % Eos % (Auto) % Baso % (Auto) % Neut # (Auto) (1.8-7.7) 10^3/u L Lymph # (Auto) (0.8-4.8) 10^3/u L Norton # (Auto) (0.2-0.9) 10^3/u L Eos # (Auto) (0.0-0.8) 10^3/u L Baso # (Auto) (0.0-0.1) 10^3/u L Nucleated RBC % (a uto) % Nucleated RBCs # /100WBC PT (12.1-14.9) SECO NDS INR (0.8-1.2) APTT (23.9-36.7) SECO NDS Fibrinogen (174-498) mg/dL D-Dimer (0-0.59) ug/mIFE U Specimen Type Arterial Sample Site Radial, right ABG pH 7.18 L* (7.35-7.45) ABG pCO2 89.6 H* (35-45) mmHg ABG pO2 84.7 (80.0-100.0) mmH g ABG HCO3 33.4 H (22-26) mmol/L ABG Base Excess 1.5 (-2.0-2.0) mmol/ L James Test Pos Hematocrit 48.3 (42-52) % Hgb O2 Saturation 90.6 L (95-100) % Carboxyhemoglobin 3.6 (0.4-20.1) %THgb Methemoglobin 0.6 (0.4-1.5) % Total Hemoglobin 15.8 (14-18) g/dL O2 Delivery Device Bipap FiO2 60.0 % Woods Superintendent ID ellpe Sodium (136-145) mmol/L Potassium (3.5-5.1) mmol/L Chloride (98-107) mmol/L Carbon Dioxide (22-29) mmol/L Anion Gap (5-19) BUN (6-20) mg/dL Creatinine (0.7-1.2) mg/dL GFR Calculation (90-130) mL/min Glucose (65-115) mg/dL Calculated Osmolal ity (285-295) mOsm/k g Lactic Acid (0.5-2.2) mmol/L Lactic Acid (Sepsi s) (0.5-2.2) mmol/L Calcium (8.5-10.5) mg/dL Magnesium (1.7-2.3) mg/dL Total Bilirubin (0.15-1.2) mg/dL AST (0-40) U/L ALT (0-41) U/L Alkaline Phosphata se (40-130) IU/L Lactate Dehydrogen ase (135-225) U/L Creatine Kinase (39-308) U/L Troponin T Baselin e (0-15) ng/L Troponin T 120 Min [place] 116.5 H (0-15) ng/L Delta Troponin T -38.5 L (0-10) ABS# C-Reactive Protein (0.0-4.9) mg/L NT-Pro-B Natriuret Pep (0-125) pg/mL Total Protein (6.6-8.7) g/dL Albumin (3.5-5.2) g/dL Globulin (1.3-4.6) g/dL Procalcitonin (0-0.5) ng/mL Ethyl Alcohol (0-10) mg/dL SARS-CoV-2 Ag (Rap id) Negative (Negative) 04/29/20 04/29/20 04/29/20 Range/Units 20:13 23:10 23:55 WBC (4.0-10.0) 10^3/ uL RBC (4.1-5.3) 10^6/u L Hgb (11.7-16.6) g/dL Hct (42.0-52.0) % MCV (80-94) fL MCH (28.0-34.0) pg MCHC (30.0-36.0) g/dL RDW (12.1-15.1) % Plt Count (130-400) 10^3/c mm MPV (7.4-10.4) fL Neut % (Auto) % Lymph % (Auto) % Norton % (Auto) % Eos % (Auto) % Baso % (Auto) % Neut # (Auto) (1.8-7.7) 10^3/u L Lymph # (Auto) (0.8-4.8) 10^3/u L Norton # (Auto) (0.2-0.9) 10^3/u L Eos # (Auto) (0.0-0.8) 10^3/u L Baso # (Auto) (0.0-0.1) 10^3/u L Nucleated RBC % (a uto) % Nucleated RBCs # /100WBC PT 14.70 (12.1-14.9) SECO NDS INR 1.11 (0.8-1.2) APTT 27.7 (23.9-36.7) SECO NDS Fibrinogen (174-498) mg/dL D-Dimer (0-0.59) ug/mIFE U Specimen Type Arterial Sample Site Radial, left ABG pH 7.26 L (7.35-7.45) ABG pCO2 66.2 H* (35-45) mmHg ABG pO2 88.4 (80.0-100.0) mmH g ABG HCO3 29.8 H (22-26) mmol/L ABG Base Excess 0.7 (-2.0-2.0) mmol/ L James Test Pos Hematocrit 48.0 (42-52) % Hgb O2 Saturation (95-100) % Carboxyhemoglobin (0.4-20.1) %THgb Methemoglobin (0.4-1.5) % Total Hemoglobin (14-18) g/dL O2 Delivery Device Vent FiO2 100.0 % Woods Superintendent ID ellpe Sodium (136-145) mmol/L Potassium (3.5-5.1) mmol/L Chloride (98-107) mmol/L Carbon Dioxide (22-29) mmol/L Anion Gap (5-19) BUN (6-20) mg/dL Creatinine (0.7-1.2) mg/dL GFR Calculation (90-130) mL/min Glucose (65-115) mg/dL Calculated Osmolal ity (285-295) mOsm/k g Lactic Acid (0.5-2.2) mmol/L Lactic Acid (Sepsi s) 1.2 (0.5-2.2) mmol/L Calcium (8.5-10.5) mg/dL Magnesium (1.7-2.3) mg/dL Total Bilirubin (0.15-1.2) mg/dL AST (0-40) U/L ALT (0-41) U/L Alkaline Phosphata se (40-130) IU/L Lactate Dehydrogen ase (135-225) U/L Creatine Kinase (39-308) U/L Troponin T Baselin e (0-15) ng/L Troponin T 120 Min [place] (0-15) ng/L Delta Troponin T (0-10) ABS# C-Reactive Protein (0.0-4.9) mg/L NT-Pro-B Natriuret Pep (0-125) pg/mL Total Protein (6.6-8.7) g/dL Albumin (3.5-5.2) g/dL Globulin (1.3-4.6) g/dL Procalcitonin (0-0.5) ng/mL Ethyl Alcohol (0-10) mg/dL SARS-CoV-2 Ag (Rap id) (Negative) 04/29/20 Range/Units 23:55 WBC (4.0-10.0) 10^3/ uL RBC (4.1-5.3) 10^6/u L Hgb (11.7-16.6) g/dL Hct (42.0-52.0) % MCV (80-94) fL MCH (28.0-34.0) pg MCHC (30.0-36.0) g/dL RDW (12.1-15.1) % Plt Count (130-400) 10^3/c mm MPV (7.4-10.4) fL Neut % (Auto) % Lymph % (Auto) % Norton % (Auto) % Eos % (Auto) % Baso % (Auto) % Neut # (Auto) (1.8-7.7) 10^3/u L Lymph # (Auto) (0.8-4.8) 10^3/u L Norton # (Auto) (0.2-0.9) 10^3/u L Eos # (Auto) (0.0-0.8) 10^3/u L Baso # (Auto) (0.0-0.1) 10^3/u L Nucleated RBC % (a uto) % Nucleated RBCs # /100WBC PT (12.1-14.9) SECO NDS INR (0.8-1.2) APTT (23.9-36.7) SECO NDS Fibrinogen (174-498) mg/dL D-Dimer (0-0.59) ug/mIFE U Specimen Type Sample Site ABG pH (7.35-7.45) ABG pCO2 (35-45) mmHg ABG pO2 (80.0-100.0) mmH g ABG HCO3 (22-26) mmol/L ABG Base Excess (-2.0-2.0) mmol/ L James Test Hematocrit (42-52) % Hgb O2 Saturation (95-100) % Carboxyhemoglobin (0.4-20.1) %THgb Methemoglobin (0.4-1.5) % Total Hemoglobin (14-18) g/dL O2 Delivery Device FiO2 % Woods Superintendent ID Sodium (136-145) mmol/L Potassium (3.5-5.1) mmol/L Chloride (98-107) mmol/L Carbon Dioxide (22-29) mmol/L Anion Gap (5-19) BUN (6-20) mg/dL Creatinine (0.7-1.2) mg/dL GFR Calculation (90-130) mL/min Glucose (65-115) mg/dL Calculated Osmolal ity (285-295) mOsm/k g Lactic Acid (0.5-2.2) mmol/L Lactic Acid (Sepsi s) (0.5-2.2) mmol/L Calcium (8.5-10.5) mg/dL Magnesium 2.4 H (1.7-2.3) mg/dL Total Bilirubin (0.15-1.2) mg/dL AST (0-40) U/L ALT (0-41) U/L Alkaline Phosphata se (40-130) IU/L Lactate Dehydrogen ase 240 H (135-225) U/L Creatine Kinase 247 (39-308) U/L Troponin T Baselin e (0-15) ng/L Troponin T 120 Min [place] (0-15) ng/L Delta Troponin T (0-10) ABS# C-Reactive Protein (0.0-4.9) mg/L NT-Pro-B Natriuret Pep (0-125) pg/mL Total Protein (6.6-8.7) g/dL Albumin (3.5-5.2) g/dL Globulin (1.3-4.6) g/dL Procalcitonin (0-0.5) ng/mL Ethyl Alcohol (0-10) mg/dL SARS-CoV-2 Ag (Rap id) (Negative) Critical Care Time Critical Care Time: Critical Care Time: Yes Total Critical Care Time: 50 Attestation: This case had a high probability of a clinically significant, sudden, or life threatening deterioration of this patient's condition which required my full and direct attention, intervention and personal management. Discharge Plan Discharge Patient Disposition: Admitted As Inpatient Admit Provider: Alva Escalante Clinical Impression: Respiratory failure Qualifiers: Chronicity: acute Respiratory failure complication: hypoxia and hypercapnia Qualified Code(s): J96.01 - Acute respiratory failure with hypoxia Condition: Stable Interventions: ED Discharge Assessment Last Done: 04/30/20 01:47 ED Charges Last Done: 04/30/20 01:47 Coding Level of Care Code ED Bracelet Former for Maring Fwd Exam Comprehensive
[2020-04-29 18:34] LABS: Troponin(5th) Baseline 155 ng/L (0-15)
[2020-04-29 18:41] LABS: NT Pro B Type Natriuretic Pept 1930 pg/mL (0-125); Procalcitonin 0.48 ng/mL (0-0.5)
[2020-04-29 18:52] LABS: Alanine Aminotransferase 58 U/L (0-41); Albumin Level 4.2 g/dL (3.5-5.2); Alkaline Phosphatase 87 IU/L (40-130); Anion Gap 18.9 (5-19); Aspartate Amino Transferase 49 U/L (0-40); Blood Urea Nitrogen 51 mg/dL (6-20); C Reactive Protein 45.3 mg/L (0.0-4.9); Calcium 9.3 mg/dL (8.5-10.5); Carbon Dioxide 28 mmol/L (22-29); Chloride 94 mmol/L (98-107); Glucose 134 mg/dL (65-115); Magnesium 2.2 mg/dL (1.7-2.3); Osmolality Calculated 296 mOsm/kg (285-295); Potassium 5.9 mmol/L (3.5-5.1); Sodium 135 mmol/L (136-145); Total Bilirubin 0.3 mg/dL (0.15-1.2); Total Protein 7.2 g/dL (6.6-8.7)
[2020-04-29 19:03] LABS: Fibrinogen 504 mg/dL (174-498)
[2020-04-29 19:15] LABS: Alcohol Level 35 mg/dL (0-10)
[2020-04-29 19:25] LABS: SARS Covid-2 Antigen Negative (Negative)
[2020-04-29 19:45] LABS: Arterial Blood Gas Hematocrit 48.3 % (42-52); Base Excess ABG 1.5 mmol/L (-2.0-2.0); Blood Gas Allen Test Pos; Blood Gas Sample Site Radial, right; Blood Gas Sample Type Arterial; Carboxyhemoglobin 3.6 %THgb (0.4-20.1); HCO3 ABG 33.4 mmol/L (22-26); HGB O2 Sat 90.6 % (95-100); Methemoglobin 0.6 % (0.4-1.5); Oxygen Device BIPAP; PO2 ABG 84.7 mmHg (80.0-100.0); Total Hemoglobin 15.8 g/dL (14-18)
[2020-04-29 19:46] LABS: ABG PCO2 89.6 mmHg (35-45); ABG PH Result 7.18 (7.35-7.45)
[2020-04-29] MEDS: iodixanol 320 mg/mL 100mL Btl IV (19:51)
[2020-04-29 20:00] LABS: Reflex Lactate Order REFLEX LACTIC ORDERD
--- NOTE | 2020-04-29 20:10 | ECG_ITS ---
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 Measurements Intervals [place] Rate: 102 P: 46 CA: 138 QRS: 112 QRSD: 87 T: 9 QT: 312 QTc: 407 Interpretive Statements SINUS TACHYCARDIA LEFT ATRIAL ENLARGEMENT [-0.15mV P WAVE IN V1/V2] POSSIBLE RIGHT VENTRICULAR HYPERTROPHY [SOME/ALL OF: PROMINENT R IN V1, LATE TRANSITION, RAD, BHUMI, SSS] POSSIBLE ANTERIOR MYOCARDIAL INFARCTION , OF INDETERMINATE AGE [30 ms Q WAVE IN V3/V4, OR R < 0.2 mV IN V4] Compared to ECG 04/29/2020 18:04:55 Incomplete right bundle-branch block no longer present Myocardial infarct finding still present Electronically Signed On 04-30-2020 17:44:05 CDT by Yoel Woodward M.D. [id number]
[2020-04-29 20:49] LABS: Lactic Acid level (Lactate) 1.2 mmol/L (0.5-2.2)
[2020-04-29 20:53] LABS: Troponin 5 2HR 116.5 ng/L (0-15)
[2020-04-29] MEDS: cefTRIAXone 1,000 MG in sodium chloride 0.9% (plus) 50 ML 100 MG IV (21:03)
[2020-04-29] MEDS: rocuronium 10 mg/mL INJ 5mL 80 MG IV (21:20)
[2020-04-29] MEDS: midazolam 1 mg/mL INJ 2 mL 4 MG IVP (21:24)
--- NOTE | 2020-04-29 21:30 | XRR_ITS ---
PROCEDURE INFORMATION: Exam: XR Chest, 1 View Exam date and time: 04/29/2020 9:50 PM Age: 54 years old Clinical indication: Device placement; Other: Et and og placement; Additional info: Post intubation TECHNIQUE: Imaging protocol: XR of the chest Views: 1 view. COMPARISON: CR (CHEST, ) 04/29/2020 6:14 PM FINDINGS: Tubes, catheters and devices: Tip of the ET tube projects 2.5 cm superior to the nereida. The tip of the OG tube is not visualized. The distal fenestration of the OG tube is positioned in the left upper quadrant in the expected location of the stomach fundus. Lungs: Streaky densities at the lung bases are most consistent with scarring and/or atelectasis. Pleural space: Unremarkable. No pleural effusion. No pneumothorax. Heart/Mediastinum: Unremarkable. No cardiomegaly. Bones/joints: Unremarkable. XR/XR chest 1V [id number] IMPRESSION: 1. Tip of the ET tube projects 2.5 cm superior to the nereida. 2. The tip of the OG tube is not visualized. The distal fenestration of the OG tube is positioned in the left upper quadrant in the expected location of the stomach fundus.
[2020-04-29] MEDS: propofol 1,000 MG/100 ML INJ 4.1 MG IV (21:31)
[2020-04-29] MEDS: sodium chloride 0.9% 1,000 ML 999 ML IV (21:46)
[2020-04-29] MEDS: vecuronium 10 mg SDV IVP (22:16)
[2020-04-29] MEDS: azithromycin 500 MG in sodium chloride 0.9% 250 ML 250 MG IV (22:29)
--- NOTE | 2020-04-29 22:34 | PC.NURSE ---
D/t patient's ABG results the patient required intubation. Dr. Avalos, RT x 2, RN x 4 were present in the patient's room. Patient was medicated per the MAR. Xray confirmed placement of the 8 Bulgarian tube, 26 2 mouth. A 14 andorran OG was placed and confirmed via Xray. A 16 Bulgarian hernandez was placed, with positive urine return. Patient's HR was tachycardic, hypoxic, and became Hypertensive. Dr. Avalos notified immediately. Medication adjustments were made. Respiratory called for suctioning of the Vent. Patient's VS became stable at that point.
--- NOTE | 2020-04-29 23:07 | XR_ITS ---
WS: [id number] Portable AP semiupright chest, 04/29/2020, 2350 hours Clinical Data: hypoxia Comparison: Portable chest, 04/29/2020, 2139 hours Findings: The endotracheal tube remains above the nereida. The nasogastric tube probably ends within t he stomach. The pulmonary vascularity is not increased. No pneumonia or pneumothorax is seen. The hea rt is normal. Monitor leads on the chest wall. The aortic arch shows calcification and tortuosity. XR/XR chest 1V [id number] Impression: Satisfactory position of nasogastric tube and endotracheal tube.
--- NOTE | 2020-04-29 23:13 | PC.NURSE ---
Patient's O2 sat dropped to 83%. Dr. Avalos notified and respiratory called. Patient was suctioned with minimal effect. Vent settings were adjusted. Patient's O2 remains at 98-99% at this time. Will continue to monitor.
[2020-04-29 23:14] LABS: ABG PCO2 66.2 mmHg (35-45); ABG PH Result 7.26 (7.35-7.45); Base Excess ABG 0.7 mmol/L (-2.0-2.0); Blood Gas Allen Test Pos; Blood Gas Sample Site Radial, left; Blood Gas Sample Type Arterial; HCO3 ABG 29.8 mmol/L (22-26); Oxygen Device VENT; PO2 ABG 88.4 mmHg (80.0-100.0)
[2020-04-29] MEDS: insulin regular-human 100 units/1 mL 10 UNIT IVP (23:45)
--- NOTE | 2020-04-29 23:55 | P.HP_ITS ---
Providers/Chief Complaint Admitting Physician: Ava Primary Care Provider: Jose Sims MD Chief Complaint: RESP DISTRESS History of Present Illness Filemon Wong is a 54 year old male who presented to the emergency room with chief complaint of difficulty breathing. History is not able to be obtained from him as he ended up being intubated in the emergency room due to hypoxemia and persistent respiratory acidosis despite attempts at BiPAP therapy. Patient was documented as having an oxygen saturation of 43% in triage after presenting by private vehicle. He was treated with steroids, breathing treatment and oxygen therapy, ultimately BiPAP therapy after ABG was evaluated. No repeat ABG showed no improvement leading to intubation. According to the ER physician patient has had several days of being much more short of breath. This was associated with some chest discomfort as well. He stated that he had not felt well since earlier in the year. He was hospitalized at [place] in September. He had an acute COPD exacerbation. He was hospitalized here in October and had some chest pain and was found to have atrial fibrillation with rapid ventricular response that was transient in nature. There was some indication that he has been tested for COVID and received some outpatient antibiotics. Rapid COVID antigen in the emergency room was negative. Not too long after intubation despite being on 100% FiO2, patient's oxygen saturations continued to drop into the mid to low 80s. He was transiently paralyzed with some improvement but has continued to require 100% FiO2. He is being admitted for further evaluation and treatment. Records are obtained from review of previous available records, obtain records from [place] and the ER records tonight Review of Systems General: Reports: ROS unobtainable due to endotracheal tube Medications/Allergies Home Medications Medication Instructions Recorded Confirmed Last Taken Type albuterol sulfate 1 puff INHALATION QID PRN 11/14/19 11/14/19 11/14/19 History albuterol sulfate 2.5 mg INHALATION Q6H PRN 11/14/19 11/14/19 Unknown History levofloxacin 750 mg PO DAILY 11/14/19 11/14/19 11/13/19 History albuterol sulfate 2.5 mg INHALATION Q4H PRN 11/15/19 11/15/19 Unknown History amlodipine 10 mg PO DAILY 11/15/19 11/15/19 11/14/19 History buspirone 10 mg PO BID 11/15/19 11/15/19 Unknown History lisinopril 20 mg PO BID 11/15/19 11/15/19 Unknown History Allergies Allergy/AdvReac Type Severity Reaction Status Date / Time Sulfa (Sulfonamide Allergy ALGY-Anaphy Verified 11/14/19 09:21 Antibiotics) laxis PFSH Acute PFSH: Medical History (Updated 04/30/20 @ 06:37 by Alva Escalante MD) Alcohol use Aortic stenosis mild on echo at [place] 09/2019, JOSE 1.6 cm2 Atrial fibrillation Paroxysmal COPD (chronic obstructive pulmonary disease) with chronic hypercapnea with baseline pCO2 in the 60s History of bleeding peptic ulcer (~01/2017) from [place] Records History of rheumatic fever Hypertension Tobacco abuse Surgical History No pertinent past surgical history Family History Mother No problems noted. Father No problems noted. Social History Smoking and tobacco status: current every day smoker cigarettes Alcohol intake: current Alcohol intake frequency: few times a week Household members: spouse Supplemental PFSH Information: Secondary to currently being intubated and sed ated, unable to verify any past medical surgical family or social history. Information above has been previously obtained. Vitals/I&O/Wt Last Vital Signs Temp 98.7 F 04/29/20 18:15 Pulse 99 04/29/20 22:54 Resp 16 04/29/20 22:54 BP 149/80 04/29/20 22:54 Pulse Ox 93 04/29/20 22:54 04/29/20 04/29/20 04/30/20 14:59 22:59 06:59 Intake Total 50 / 50 Balance 50 / 50 Weight last 48 hrs Weight 136.078 kg Physical Exam Const: OTHER: Sedate, intubated HENMT: OTHER: Normocephalic atraumatic, face is flushed, slightly bulbous nose, mucous membranes are moist Eye: OTHER: Pupils equally round and reactive to light sclera injected Neck/C-Spine: OTHER: Large but supple Resp: OTHER: Clear to auscultation bilaterally, no rales, rhonchi or wheezes noted. Chest expansion is equal bilaterally Cardio: OTHER: Regular rhythm, no gallops or rubs, murmur noted GI: OTHER: Abdomen soft, rotund, positive bowel sounds : OTHER: Normal external genitalia with Vinson catheter in place Extremity: NARRATIVE EXTREMITY EXAM: Trace pitting edema, no clubbing no cyanosis, feet are warm Neuro: OTHER: Face symmetric, reflexes are equal in both upper extremities Skin: OTHER: Large bruise to left upper thigh, skin is dry, brisk capillary refill, no mottling Urinary Catheter Management^: Vinson: Cath Placed During This Visit: yes Urinary Catheter Date of Insertion: 04/29/20 Urinary Catheter Time of Insertion: 21:35 Data : 04/30/20 03:10 04/30/20 03:10 Other Labs: Laboratory Last Values WBC 9.7 10^3/uL (4.0-10.0) 04/29/20 18:02 RBC 4.85 10^6/uL (4.1-5.3) 04/29/20 18: Hgb 15.1 g/dL (11.7-16.6) 04/29/20 18: Hct 50.9 % (42.0-52.0) 04/29/20 18:02 MCV 104.9 fL (80-94) H 04/29/20 18:02 MCH 31.1 pg (28.0-34.0) 04/29/20 18:02 MCHC 29.7 g/dL (30.0-36.0) L 04/29/20 18:02 RDW 14.1 % (12.1-15.1) 04/29/20 18:02 Plt Count 229 10^3/cmm (130-400) 04/29/20 18:02 MPV 11.1 fL (7.4-10.4) H 04/29/20 18:02 Neut % (Auto) 68.3 % 04/29/20 18: Lymph % (Auto) 19.9 % 04/29/20 18:02 Bureau % (Auto) 10.5 % 04/29/20 18:02 Eos % (Auto) 0.4 % 04/29/20 18:02 Baso % (Auto) 0.5 % 04/29/20 18: Neut # (Auto) 6.59 10^3/uL (1.8-7.7) 04/29/20 18:02 Lymph # (Auto) 1.9 10^3/uL (0.8-4.8) 04/29/20 18:02 Bureau # (Auto) 1.0 10^3/uL (0.2-0.9) H 04/29/20 18:02 Eos # (Auto) 0.0 10^3/uL (0.0-0.8) 04/29/20 18:02 Baso # (Auto) 0.1 10^3/uL (0.0-0.1) 04/29/20 18:02 Nucleated RBC % (auto) 0.2 % 04/29/20 18:02 Nucleated RBCs # 0.0 /100WBC 04/29/20 18:02 Fibrinogen 504 mg/dL (174-498) H 04/29/20 18:02 D-Dimer 1.90 ug/mIFEU (0-0.59) H 04/29/20 18:02 Specimen Type Arterial 04/29/20 23:10 Sample Site Radial, left 04/29/20 23:10 ABG pH 7.26 (7.35-7.45) L 04/29/20 23:10 ABG pCO2 66.2 mmHg (35-45) H* 04/29/20 23:10 ABG pO2 88.4 mmHg (80.0-100.0) 04/29/20 23:10 ABG HCO3 29.8 mmol/L (22-26) H 04/29/20 23:10 ABG Base Excess 0.7 mmol/L (-2.0-2.0) 04/29/20 23:10 James Test Pos 04/29/20 23:10 Hematocrit 48.0 % (42-52) 04/29/20 23:10 Hgb O2 Saturation 90.6 % (95-100) L 04/29/20 19:40 Carboxyhemoglobin 3.6 %THgb (0.4-20.1) 04/29/20 19:40 Methemoglobin 0.6 % (0.4-1.5) 04/29/20 19:40 Total Hemoglobin 15.8 g/dL (14-18) 04/29/20 19:40 O2 Delivery Device Vent 04/29/20 23:10 FiO2 100.0 % 04/29/20 23:10 Lining Presser ID [email or web address] 04/29/20 23:10 Sodium 135 mmol/L (136-145) L 04/29/20 18:02 Potassium 5.9 mmol/L (3.5-5.1) H 04/29/20 18:02 Chloride 94 mmol/L (98-107) L 04/29/20 18:02 Carbon Dioxide 28 mmol/L (22-29) 04/29/20 18:02 Anion Gap 18.9 (5-19) 04/29/20 18:02 BUN 51 mg/dL (6-20) H 04/29/20 18:02 Creatinine 1.9 mg/dL (0.7-1.2) H 04/29/20 18:02 GFR Calculation 37.0 mL/min (90-130) L 04/29/20 18:02 Glucose 134 mg/dL (65-115) H 04/29/20 18:02 Calculated Osmolality 296 mOsm/kg (285-295) H 04/29/20 18:02 Lactic Acid 2.4 mmol/L (0.5-2.2) H 04/29/20 18:02 Lactic Acid (Sepsis) 1.2 mmol/L (0.5-2.2) 04/29/20 20:13 Calcium 9.3 mg/dL (8.5-10.5) 04/29/20 18:02 Magnesium 2.2 mg/dL (1.7-2.3) 04/29/20 18:02 Total Bilirubin 0.3 mg/dL (0.15-1.2) 04/29/20 18:02 AST 49 U/L (0-40) H 04/29/20 18:02 ALT 58 U/L (0-41) H 04/29/20 18:02 Alkaline Phosphatase 87 IU/L (40-130) 04/29/20 18:02 Troponin T Baseline 155 ng/L (0-15) H* 04/29/20 18:02 Troponin T 120 Minute 116.5 ng/L (0-15) H 04/29/20 20:13 Delta Troponin T -38.5 ABS# (0-10) L 04/29/20 20:13 C-Reactive Protein 45.3 mg/L (0.0-4.9) H 04/29/20 18:02 NT-Pro-B Natriuret Pep 1930 pg/mL (0-125) H 04/29/20 18:02 Total Protein 7.2 g/dL (6.6-8.7) 04/29/20 18:02 Albumin 4.2 g/dL (3.5-5.2) 04/29/20 18:02 Globulin 3.0 g/dL (1.3-4.6) 04/29/20 18:02 Procalcitonin 0.48 ng/mL (0-0.5) 04/29/20 18:02 Ethyl Alcohol 35 mg/dL (0-10) H 04/29/20 18:02 SARS-CoV-2 Ag (Rapid) Negative (Negative) 04/29/20 18:40 Micro: Microbiology 04/29/20 20:30 Blood Culture - Preliminary Blood SPECIMEN COLLECTED 04/29/20 18:02 Blood Culture - Preliminary Blood SPECIMEN COLLECTED CTA Chest: Radiologist's impression: FINDINGS: Pulmonary arteries: Normal. No pulmonary emboli. Aorta: Unremarkable. No aortic aneurysm. No aortic dissection. Lungs: There are pulmonary parenchymal calcifications consistent with remote granulomatous organism exposure. There are streaky opacities at the lung bases and anteromedial aspect of the right middle lobe most consistent with scarring and/or atelectasis. Pneumonia cannot be excluded. Pleural space: Unremarkable. No pneumothorax. No pleural effusion. Heart: Unremarkable. No cardiomegaly. No pericardial effusion. Lymph nodes: Unremarkable. No enlarged lymph nodes. Diaphragm: There is elevation of the right hemidiaphragm. Gallbladder and bile ducts: The gallbladder is contracted. Bones/joints: Unremarkable. No acute fracture. Soft tissues: Unremarkable. Other findings: 2.3 cm sebaceous cyst midline upper thoracic region. CT/CT angio chest PE protcl [id number] IMPRESSION: 1. There are streaky opacities at the lung bases and anteromedial aspect of the right middle lobe most consistent with scarring and/or atelectasis. Pneumonia cannot be excluded. 2. The gallbladder is contracted. This may be due to a postprandial state versus chronic cholecystitis. If there is clinical concern for gallbladder disease, ultrasound of the right upper quadrant with the patient in a fasting state for a minimum of 6 hours is recommended. A&P Assessment and plan (1) Acute respiratory failure with hypoxia and hypercapnia: Exact etiology of presentation tonight is not clear to me. He ultimately required intubation in the emergency room. Work-up in the emergency room invo lves CTA of the chest which not demonstrate any evidence of pulmonary emboli or significant pulmonary markings. Findings in the lower lobes might be associated with pneumonia but I have found evidence of similar abnormalities in the past as well. Additionally procalcitonin was normal. Patient does have COPD according to some available old records and I have found information that he has some ba seline hypercapnia and hypoxia with previous ABG from another facility showing approximately 7.39/60/50 at baseline. Not really demonstrating significant wheezing on examination by me or per the ER doctor. Obstructive sleep apnea component cannot be ruled out but to my knowledge he has never had a sleep study. Paperwork from that same outside facility indicated aortic stenosis on echocardiogram. It is possible that the aortic stenosis is getting more symptomatic. Patient complained of chest pain and severe shortness of breath. He indicated that he has been having trouble for quite some time. I believe he still smokes and alcohol level was positive suggesting ongoing alcohol use. He had profound hypoxemia initially with saturations into the 70s, improved with oxygen therapy but was found to evidence of acidosis on ABG. BiPAP was started though patient had clinical worsening. After intubation he was requiring 100% FiO2 and occasionally not maintaining appropriate saturations. There is no evidence of ventilator obstruction or improper set up, no significant peak pressures, no evidence of auto peeping. He was transiently paralyzed in the emergency room with only minimal improvement. He did not receive large volume of fluids in the emergency room. He had rapid COVID antigen testing in the emergency room which was negative but given the degree of hypoxemia, COVID infection does have to be considered as well. Status: Acute (2) Mixed acid base balance disorder: Status: Acute (3) Acute kidney injury: Status: Acute (4) Hyperkalemia: Status: Acute (5) COPD (chronic obstructive pulmonary disease): Status: Chronic Qualifiers: COPD type: COPD with acute exacerbation Qualified Code(s): J44.1 - Chronic obstructive pulmonary disease with (acute) exacerbation (6) Aortic stenosis: Status: Chronic Qualifiers: Cardiac valve disease etiology: rheumatic Qualified Code(s): I06.0 - R heumatic aortic stenosis (7) Alcohol use: Status: Chronic (8) Elevated troponin: Suspect type II process currently, does not have a known history of coronary artery disease Status: Acute Additional A&P Information Has had atrial fibrillation in the past during a respiratory illness Transient elevation in lactic acidosis which I believe is due to hypoxemia Elevation in several inflammatory markers of currently unclear significance adam menezes concerned about possibility of COVID Inpatient admission ICU care Send COVID PCR Isolation Continue ventilatory support currently Wean oxygen as able Pulmonary toilet We will go on and give dexamethasone empirically Breathing treatments Antibiotics currently with levaquin for suspected infection Check echocardiogram Continue serial cardiac enzymes Check coagulation studies Repeat ABG Patient received insulin, D50, calcium gluconate in the emergency room as well as IV fluids, twelve-lead EKG done Repeat potassium and hold any potassium containing or nephrotoxic medications Check urinalysis Vinson catheter for close monitoring of urine output Banana bag, monitor for signs of alcohol withdrawal PPI for GI prophylaxis Lovenox for DVT prophylaxis Sliding scale insulin due to hyperglycemia Supportive care otherwise Monitor response to treatment and overall condition and adjust treatment accordingly Full code Attestations Medical Necessity Statement*: Anticipate stay greater than 2 midnights in a patient who is required intubation and respiratory support along with hyperkalemia and acute kidney injury. Plans are as indicated. He is requiring ICU level care presently. Coding Level of Care Code Acute Sponge Packer for tammy Stephenson Diagnoses Acute respiratory failure with hypoxia and hypercapnia J96.01; J96.02 Mixed acid base balance disorder E87.4 Acute kidney injury N17.9 Hyperkalemia E87.5 COPD (chronic obstructive pulmonary disease) J44.1 COPD type: COPD with acute exacerbation Aortic stenosis I06.0 Cardiac valve disease etiology: rheumatic Alcohol use Z72.89 Elevated troponin R79.89
[2020-04-30] VITALS (111 sets, daily range): BP systolic 89–129; BP diastolic 53–85; PULSE 76–104; RESP 14–30; TEMP 36.9–37.6; O2SAT 88–99
[2020-04-30] MEDS: sodium chloride 0.9% 1,000 ML 200 ML IV (00:02)
--- NOTE | 2020-04-30 00:10 | ECG_ITS ---
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 Measurements Intervals [place] Rate: 103 P: 22 [place]: 135 QRS: 114 QRSD: 97 T: 19 QT: 309 QTc: 405 Interpretive Statements SINUS TACHYCARDIA POSSIBLE LEFT ATRIAL ENLARGEMENT [-0.1mV P WAVE IN V1/V2] POSSIBLE RIGHT VENTRICULAR HYPERTROPHY [SOME/ALL OF: PROMINENT R IN V1, LATE TRANSITION, RAD, BHUMI, SSS] POSSIBLE ANTERIOR MYOCARDIAL INFARCTION , OF INDETERMINATE AGE [30 ms Q WAVE IN V3/V4, OR R < 0.2 mV IN V4] Compared to ECG 04/29/2020 20:16:56 No significant changes Electronically Signed On 04-30-2020 17:44:26 CDT by Yoel Woodward M.D. [id number]
[2020-04-30] MEDS: calcium gluconate 0.1 gm/mL 10% SDV 10mL 1 GM IVP ×2 (00:22→05:29)
[2020-04-30] MEDS: dextrose 50% syringe 50 mL IVP ×2 (00:22→05:29)
[2020-04-30 00:30] LABS: INR 1.11 (0.8-1.2)
[2020-04-30 00:31] LABS: Partial Thromboplastin Time 27.7 SECONDS (23.9-36.7)
[2020-04-30 00:36] LABS: Creatine Phosphokinase 247 U/L (39-308); Magnesium 2.4 mg/dL (1.7-2.3)
[2020-04-30 00:37] LABS: Lactate Dehydrogenase 240 U/L (135-225)
--- NOTE | 2020-04-30 01:45 | USCV_ITS ---
Filemon Wong Age: 54 Gender: M : 1965 Exam Date: 04/30/2020 06:46 Ordering Phys: Alva Escalante MD Technologist: Shiraz Dougherty [place]am Location[place] [facility] [place] [facility] [place] Indication: ACUTE RESP FAILURE BP: 132 / 78 HR: 82 Rhythm: Sinus Technical Quality: Adequate MEASUREMENTS (Male / Female) Normal Values 2D ECHO LVOT Diameter 2.0 cm LA Diameter 3.4 cm LA Width 4.1 cm LA Height 5.7 cm RA Width 3.4 cm RA Height 5.4 cm Aorta at Sinotubular Diameter 1.3 cm M-MODE LV Diastolic Diameter MM 4.3 cm 4.2 - 5.9 / 3.9 - 5.3 cm LV Systolic Diameter MM 3.0 cm LV Ejection Fraction MM Teich 55.6 % IVS Diastolic Thickness MM 1.4 cm 0.6 - 1.0 / 0.6 - 0.9 cm IVS Systolic Thickness MM 1.7 cm LVPW Diastolic Thickness MM 1.4 cm 0.6 - 1.0 / 0.6 - 0.9 cm LVPW Systolic Thickness MM 1.7 cm RV Diastolic Diameter MM 4.2 cm Aortic Annulus Diameter 3.9 cm LA Ao Ratio MM 1.0 MV E Point Septal Separation 1.1 cm DOPPLER AV Peak Velocity 127.0 cm/s LVOT Peak Velocity 78.0 cm/s AV Area Cont Eq vti 2.4 cm squared AV Area Cont Eq pk 2.0 cm squared MV Area PHT 5.0 cm squared Mitral E to A Ratio 1.0 MV E' Velocity 30.5 cm/s Mitral E to MV E' Ratio 6.6 Mitral E to LV E' Lateral Ratio 6.4 Mitral E to LV E' Septal Ratio 6.8 TR Peak Velocity 229.3 cm/s TR Peak Gradient 21.0 mmHg TV Peak E Velocity 105.0 cm/s Right Atrial Pressure 3.0 mmHg Pulmonary Artery Systolic Pressu 24.0 mmHg FINDINGS Left Ventricle LV appears to be of normal size and ejection fraction. Segmental wall motion analysis difficult because of the poor ultrasonic window. Right Ventricle Right ventricle appears to be mildly dilated. Possibly normal ejection fraction. Right Atrium Possibly of normal size. Left Atrium Possibly of normal size Mitral Valve The morphology could not be elicited well. No gross abnormalities noted Aortic Valve The morphology could not be elicited well. No gross abnormalities noted Tricuspid Valve Tricuspid valve not well visualized. Pulmonic Valve Pulmonic valve not well visualized. Pericardium No pericardial effusion. Aorta Normal aortic annulus size. CONCLUSIONS LV appears to be of normal size and ejection fraction. Segmental wall motion analysis difficult because of the poor ultrasonic window. Right ventricle appears to be mildly dilated with possibly normal ejection fraction. No obvious chamber abnormalities noted. Aortic and mitral valve leaflets could not be visualized well. No gross abnormalities noted Technically difficult study because of the poor ultrasonic window. Dr Ronny Campos MD FACC (Electronically Signed) Final Date: 30 April 2020 09:51 S
--- NOTE | 2020-04-30 02:15 | PC.NURSE ---
287o ICU 5 via stretcher from ER. Moved to ICU bed with assist x 5. Placed on panel monitor, sat monitor and BP cuff. RT at bedside to monitor vent. Placed in hospital gown. Bed scale weight 287.7. Temp 98.8 AX.
[2020-04-30] MEDS: ipratropium-albuterol 3 mL Neb INHALATION ×4 (02:43→20:33)
[2020-04-30] MEDS: budesonide 0.5 mg/2 mL Neb INHALATION (02:43)
[2020-04-30] MEDS: folic acid 1 MG, multivitamin inj 10 ML, thiamine 100 MG in sodium chloride 0.9% 1,000 ML 252.8 MG IV (02:53)
--- NOTE | 2020-04-30 03:26 | PC.NURSE ---
Labs drawn by
--- NOTE | 2020-04-30 04:00 | XR_ITS ---
WS: [id number] Portable AP supine chest, 04/30/2020 Clinical Data: hypoxemia Comparison: Portable chest, yesterday Findings: The nasogastric tube and endotracheal tube remain in good position. No nodules, masses or e ffusions are seen. The heart is normal. The pulmonary vascularity is not increased. No pneumonia or p neumothorax is seen. The patient has a poor inspiratory effort. Monitor leads are on the chest wall. XR/XR chest 1V portable [id number] Impression: 1. Poor inspiratory effort. 2. No change in position of endotracheal tube and nasogastric tube.
[2020-04-30 04:12] LABS: Basophils % 0.1 %; Eosinophils % 0.1 %; Hematocrit 49.7 % (42.0-52.0); Hemoglobin 14.9 g/dL (11.7-16.6); Lymphocytes # 0.8 10^3/uL (0.8-4.8); Lymphocytes % 11.1 %; Mean Corpuscular Hemoglobin 31.5 pg (28.0-34.0); Mean Corpuscular Volume 105.1 fL (80-94); Mean Platelet Volume 11.5 fL (7.4-10.4); Monocytes # 0.1 10^3/uL (0.2-0.9); Monocytes % 1.8 %; Neutrophils # 5.89 10^3/uL (1.8-7.7); Neutrophils % 86.2 %; Nucleated Red Blood Cells % 0.3 %; Platelet Count 204 10^3/cmm (130-400); Red Blood Count 4.73 10^6/uL (4.1-5.3); Red Cell Distribution Width 14.3 % (12.1-15.1); White Blood Count 6.8 10^3/uL (4.0-10.0)
[2020-04-30 04:36] LABS: Alanine Aminotransferase 43 U/L (0-41); Albumin Level 3.4 g/dL (3.5-5.2); Alkaline Phosphatase 74 IU/L (40-130); Anion Gap 14.8 (5-19); Aspartate Amino Transferase 33 U/L (0-40); Blood Urea Nitrogen 50 mg/dL (6-20); Calcium 8.8 mg/dL (8.5-10.5); Carbon Dioxide 25 mmol/L (22-29); Chloride 99 mmol/L (98-107); Globulin 3.4 g/dL (1.3-4.6); Glomerular Filtration Rate 45.1 mL/min (90-130); Glucose 142 mg/dL (65-115); Magnesium 2.3 mg/dL (1.7-2.3); Osmolality Calculated 290 mOsm/kg (285-295); Sodium 132 mmol/L (136-145); Total Bilirubin 0.3 mg/dL (0.15-1.2); Total Protein 6.8 g/dL (6.6-8.7)
[2020-04-30 04:47] LABS: Potassium 6.8 mmol/L (3.5-5.1)
--- NOTE | 2020-04-30 04:55 | ECG_ITS ---
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 Measurements Intervals [place] Rate: 81 P: 36 [place]: 133 QRS: 102 QRSD: 98 T: 34 QT: 341 QTc: 398 Interpretive Statements SINUS RHYTHM POSSIBLE LEFT ATRIAL ENLARGEMENT [-0.1mV P WAVE IN V1/V2] POSSIBLE ANTERIOR MYOCARDIAL INFARCTION [30 ms Q WAVE IN V3/V4, OR R < 0.2 mV IN V4], OF INDETERMINATE AGE Compared to ECG 04/29/2020 23:43:20 Sinus tachycardia no longer present Myocardial infarct finding still present Electronically Signed On 04-30-2020 17:27:52 CDT by Yoel Woodward M.D. [email or web address] [email or web address]'s [id number]
[2020-04-30 05:15] LABS: Add Urine Microscopic? NO
[2020-04-30] MEDS: propofol 1,000 MG/100 ML INJ 20.4 MG IV ×3 (05:20→11:09)
[2020-04-30 05:25] LABS: Bilirubin Urine 1+ (Negative); Blood Urine Neg (Negative); Glucose Urine UA Norm (Normal); Ketones Urine 1+ (Negative); Leukocyte Esterase Urine Negative (Negative); Nitrate Urine Negative (Negative); Protein Urine Neg (Negative); Specific Gravity, Urine 1.015 (1.005-1.030); Urine Appearance Clear (CLEAR); Urine Color Yellow (Yellow); Urobilinogen Urine Norm (Negative); pH Urine 5 (5-7)
[2020-04-30 05:31] LABS: ABG PCO2 47.9 mmHg (35-45); ABG PH Result 7.37 (7.35-7.45); Arterial Blood Gas Hematocrit 47.5 % (42-52); Base Excess ABG 1.8 mmol/L (-2.0-2.0); Blood Gas Allen Test Pos; Blood Gas Operator Identificat JB; Blood Gas Sample Site Radial, right; Blood Gas Sample Type Arterial; Blood Gas Tidal Volume 0.55; HCO3 ABG 27.9 mmol/L (22-26); Oxygen Device VENT; PO2 ABG 83.3 mmHg (80.0-100.0)
[2020-04-30] MEDS: insulin regular-human 10 UNIT in SYRINGE 1 EACH IVP (05:31)
--- NOTE | 2020-04-30 05:45 | PC.NURSE ---
EKG done by RT
--- NOTE | 2020-04-30 07:10 | PM.CONSULT ---
Providers/Reason For Consult Consulting Physican/Specialty*: jose oneill md/ telenephrology Reason for Consult*: frankie, ckd stage 3, hyperkalemia Attending Physician: Alva Escalante MD Primary Care Provider: Jose Sims MD History of Present Illness History of Present Illness Filemon Wong is a 54 year old male admitted for SOB- intubated. found w/ cr 1.9 and k 5.9- given ivf and intubated for resp acidosis- repeat k 6.8 and cr 1.6- renal clled to consult. history includes a fib, htn, aortic stenosis- mild, q of recent covid-19 in ER- pt underwent CTA and neg PE Review of Systems General: Reports: ROS unobtainable due to medical condition Narrative: per notes sob- currently intubated Meds/Allergies Home Medications and Allergies Home Medications Medication Instructions Recorded Confirmed Last Taken Type albuterol sulfate 1 puff INHALATION QID PRN 11/14/19 11/14/19 11/14/19 History albuterol sulfate 2.5 mg INHALATION Q6H PRN 11/14/19 11/14/19 Unknown History levofloxacin 750 mg PO DAILY 11/14/19 11/14/19 11/13/19 History albuterol sulfate 2.5 mg INHALATION Q4H PRN 11/15/19 11/15/19 Unknown History amlodipine 10 mg PO DAILY 11/15/19 11/15/19 11/14/19 History buspirone 10 mg PO BID 11/15/19 11/15/19 Unknown History lisinopril 20 mg PO BID 11/15/19 11/15/19 Unknown History Allergies Allergy/AdvReac Type Severity Reaction Status Date / Time Sulfa (Sulfonamide Allergy ALGY-Anaphy Verified 11/14/19 09:21 Antibiotics) laxis Current Medications Current Medications Generic Name Dose Route Start Last Admin Trade Name Freq PRN Reason Stop Dose Admin Albuterol/Ipratropium 3 ml 04/30/20 03:00 04/30/20 02:43 Duoneb INHALATION 3 ml Q6H.RESPIRATORY DANDRE Administration Dexamethasone 6 mg 04/30/20 01:45 04/30/20 07:09 Decadron IVP Not Given Q24H DANDRE Enoxaparin Sodium 40 mg 04/30/20 01:45 04/30/20 07:09 Lovenox SUBCUT Not Given Q24H DANDRE Propofol 1,000 mg in 100 mls @ 0 mls/hr 04/29/20 21:15 04/30/20 05:20 Diprivan IV 25 mcg/kg/min .Q0M DANDRE 20.4 mls/hr Administration Protocol Per Protocol Fentanyl 1,000 mcg/ Sodium 100 mls @ 0 mls/hr 04/29/20 21:30 04/30/20 05:34 Chloride IV 75 mcg/hr .Q0M DANDRE 7.5 mls/hr Titration Protocol Per Protocol PFSH Acute PFSH: Medical History (Updated 04/30/20 @ 06:37 by Alva Escalante MD) Alcohol use Aortic stenosis mild on echo at [facility] 09/2019, JOSE 1.6 cm2 Atrial fibrillation Paroxysmal COPD (chronic obstructive pulmonary disease) with chronic hypercapnea with baseline pCO2 in the 60s History of bleeding peptic ulcer (~01/2017) from [facility] Records History of rheumatic fever Hypertension Tobacco abuse Surgical History No pertinent past surgical history Family History Mother No problems noted. Father No problems noted. Social History Smoking and tobacco status: current every day smoker cigarettes Alcohol intake: current Alcohol intake frequency: few times a week Household members: spouse Vitals/I&O/Wt Last Vital Signs Temp 98.8 F 04/30/20 04:45 Pulse 86 04/30/20 06:15 Resp 14 04/30/20 06:00 BP 103/68 04/30/20 05:15 Pulse Ox 92 04/30/20 06:15 04/29/20 04/30/20 04/30/20 22:59 06:59 14:59 Intake Total 50 / 50 1440.500 / 1490.500 Output Total 650 / 650 Balance 50 / 50 790.500 / 840.500 Weight last 48 hrs Weight 130.499 kg Weight 136.078 kg Physical Exam Narrative: EXAM NARRATIVE: intubated- AV/ fio2=50%, tv 550, rr 14, peep 10 heent- nc/at neck supple lung poor ir movement, crackles heart HSM, RRR abd soft ext 1+ b/l leg edema sedated Urinary Catheter Management^: Vinson: Cath Placed During This Visit: yes Urinary Catheter Date of Insertion: 04/29/20 Urinary Catheter Time of Insertion: 21:35 Data Micro: Micro: Microbiology 04/29/20 20:30 Blood Culture - Pr eliminary Blood SPECIMEN [facility] SPENSER 04/29/20 18:02 Blood Culture - Pr eliminary Blood SPECIMEN [facility] SPENSER A&P Additional A&P Information 54 yr old man COPD, p a fib. pt here w/ resp distress, frankie, hyperkalemia, resp acidosis 1. CKD- best cr was 1.3- had episodes- cr upto 2.7- stage not clear yet 2. frankie- likely prerenal and greer-i -renal us u/a noted- no significant proteinuri or hematuria -check serologies- gievn reps distress and renal disease -d/c lisinopril q if was on nsaid at home- please find out -check urine lytes 3. hyperkalemia- d/c lisinopril -repeat chemistries -tele 4. hypontremia- check ur lytes -check tsh check cortisol -likely prerenal, frankie, and pulm process 5. monitor hypermagnesemia 6. abx per medicine 7. resp cidosis- should cont to improve w/ vent Consult Attestations Medical Necessity Statement: vdrf, resp acidosis, frankie, hyperkalemia Time Spent in Patient Care: Greater than 35 minutes Coding Level of Care Code Acute Fixed Route Bus Operator for Rocio Stephenson
[2020-04-30] MEDS: sodium chloride 0.9% 1,000 ML 75 ML IV (07:13)
[2020-04-30] MEDS: levofloxacin-dextrose 5 % 750 MG/150 ML PREMIX 100 MG IV (07:13)
--- NOTE | 2020-04-30 07:20 | US_ITS ---
WS: [id number] RENAL ULTRASOUND REASON FOR EXAM: kidney failure TECHNIQUE: Grayscale and Doppler ultrasound examination of the kidneys. FINDINGS: Right kidney: Right kidney measures 10.6 cm x 5.7 cm x 5.0 cm. No renal mass, calculus, or hydronephr osis is identified. Normal renal cortex and echogenicity. Left kidney: Left kidney measures 11.4 cm x 5.6 cm x 5.4 cm. No mass, calculus, or hydronephrosis is identified. Normal renal cortex and echogenicity. No adjacent retroperitoneal abnormality is identified. US/US renal BI* [id number] IMPRESSION: No significant renal abnormality.
[2020-04-30 07:34] LABS: Glucose Point of Care 176 mg/dL (70-110)
[2020-04-30] MEDS: thiamine 100 mg Tablet PO (08:17)
[2020-04-30] MEDS: folic acid 1 mg Tablet PO (08:17)
[2020-04-30] MEDS: lactobacillus 1 Tablet 1 TAB PO ×2 (08:17→18:15)
[2020-04-30] MEDS: docusate sodium 100 mg Capsule PO ×2 (08:17→18:15)
[2020-04-30] MEDS: pantoprazole 40 mg SDV IVP (08:17)
--- NOTE | 2020-04-30 08:35 | PC.RESP ---
SMOKING CESSATION AND PULMONARY REHAB INFORMATION SENT TO PATIENT.
[2020-04-30 08:58] LABS: Alanine Aminotransferase 38 U/L (0-41); Albumin Level 3.3 g/dL (3.5-5.2); Alkaline Phosphatase 67 IU/L (40-130); Anion Gap 11.8 (5-19); Aspartate Amino Transferase 29 U/L (0-40); Blood Urea Nitrogen 48 mg/dL (6-20); Calcium 8.7 mg/dL (8.5-10.5); Carbon Dioxide 25 mmol/L (22-29); Chloride 102 mmol/L (98-107); Creatine Phosphokinase 120 U/L (39-308); Glomerular Filtration Rate 57.3 mL/min (90-130); Glucose 181 mg/dL (65-115); Osmolality Calculated 293 mOsm/kg (285-295); Potassium 5.8 mmol/L (3.5-5.1); Sodium 133 mmol/L (136-145); Thyroid Stimulating Hormone 0.53 uIU/mL (0.27-4.20); Total Bilirubin 0.3 mg/dL (0.15-1.2); Total Protein 6.3 g/dL (6.6-8.7)
[2020-04-30 10:56] LABS: Potassium, Radom Urine 27 mmol/L
[2020-04-30 11:00] LABS: Urine Random Chloride 12 mmol/L; Urine Random Sodium < 10 mmol/L
[2020-04-30] MEDS: acetaminophen 325 mg Tablet 650 MG PO (13:40)
[2020-04-30] MEDS: propofol 1,000 MG/100 ML INJ 32.7 MG IV ×3 (13:41→21:00)
[2020-04-30 14:10] LABS: Troponin T (5th) Once 57 ng/L (0-15)
--- NOTE | 2020-04-30 14:17 | PC.NURSE ---
call to nurse at approx. 1230 Verbal order from to clamp chest tube at this time. will come see patient after he is done with clinic and drain more fluid off of patient. Informed patient of this and granddaughter. Per patient, she is not up for visitors today. Granddaughter notified.
[2020-04-30] MEDS: LORazepam 2 mg/mL INJ 1 mL 1 MG IVP (14:56)
--- NOTE | 2020-04-30 16:08 | PC.NURSE ---
call to doctor Patient has increased oral secretions. patient responsive to stimuli while suctioning mouth and ett. nurse noted visible shaking in upper extremities and sweat beads on patients forehead. temperature checked, 99.0 axillary. Call to physician to get verbal order for CIWA protocol. verbal order to give patient 1MG ativan IV ONCE. and continue to monitor.
--- NOTE | 2020-04-30 16:17 | PC.NURSE ---
Update to called and spoke with nurse. Updated on vital sings, recent shaking noted, and COVID send out swab. Per , patient drink approximately 2 pints of vodka a day. Since getting sick last week, has not drank as much but is still drinking.
[2020-04-30 17:07] LABS: Glucose Point of Care 126 mg/dL (70-110)
[2020-04-30 17:07] LABS: Glucose Point of Care 111 mg/dL (70-110)
--- NOTE | 2020-04-30 18:45 | PC.NURSE ---
Received report on patient from Olya LANGSTON. Assumed care at this time.
[2020-04-30 19:42] LABS: Alanine Aminotransferase 31 U/L (0-41); Albumin Level 3.1 g/dL (3.5-5.2); Alkaline Phosphatase 63 IU/L (40-130); Anion Gap 14.9 (5-19); Aspartate Amino Transferase 28 U/L (0-40); Blood Urea Nitrogen 48 mg/dL (6-20); Calcium 9.4 mg/dL (8.5-10.5); Carbon Dioxide 23 mmol/L (22-29); Chloride 102 mmol/L (98-107); Globulin 3.1 g/dL (1.3-4.6); Glomerular Filtration Rate 48.6 mL/min (90-130); Glucose 155 mg/dL (65-115); Osmolality Calculated 294 mOsm/kg (285-295); Potassium 5.9 mmol/L (3.5-5.1); Sodium 134 mmol/L (136-145); Total Bilirubin 0.3 mg/dL (0.15-1.2); Total Protein 6.2 g/dL (6.6-8.7)
--- NOTE | 2020-04-30 19:51 | P.PN_ITS ---
Subjective Subjective: Interval history: He is intubated, sedated, earlier at night reportedly was restless. Continues on sedation currently. Prescription with RN during the day today noted to have some tremors/possible twitching. Prescription did not appear like seizure-like activity, although reported by his that he does drink probably about 2 bottles of liquor per day. Withdrawal is highly likely. His symptoms responded to Ativan. He is on propofol for sedation. CIWA protocol started for severe withdrawal. Vitals/I&O/Wt Last Vital Signs Temp 98.6 F 04/30/20 18:00 Pulse 84 04/30/20 18:00 Resp 14 04/30/20 18:00 BP 98/70 04/30/20 18:00 Pulse Ox 95 04/30/20 18:00 04/30/20 04/30/20 04/30/20 06:59 14:59 22:59 Intake Total 1440.500 / 1490.500 351.295 / 351.295 198.25 / 549.545 Output Total 650 / 650 1200 / 1200 500 / 1700 Balance 790.500 / 840.500 -848.705 / -848.705 -301.75 / -1150.455 Weight last 48 hrs Weight 130.499 kg Weight 136.078 kg Physical Exam Const: COMMON NORMALS: no acute distress and patient oriented x3 OTHER: Tremor on examination he is calm, although does occasionally shudder her like is startled/having a bad dream. HENMT: COMMON NORMALS: oropharynx normal Neck/C-Spine: COMMON NORMALS: no JVD Resp: COMMON NORMALS: normal respiratory effort and clear to auscultation bilaterally AUSCULTATION: clear to auscultation bilaterally Cardio: COMMON NORMALS: no JVD, regular rhythm, S1 normal heart sound present, S2 normal heart sound present and No murmurs present (Cardio) RHYTHM: regular rhythm HEART SOUNDS: S1 normal heart sound present and S2 normal heart sound present GI: COMMON NORMALS: Normal to inspection, nondistended, normoactive bowel sounds present, Soft to palpation and non-tender PALPATION: Yes Soft to palpation Extremity: COMMON NORMALS: no joint enlargement GENERAL: Yes edema (3+ bilateral below the knees.) Neuro: COMMON NORMALS: patient oriented x3 and moves all extremities Skin: COMMON NORMALS: no rashes or lesions noted GENERAL SKIN EXAM: no rashes or lesions noted Urinary Catheter Management^: Vinson: Cath Placed During This Visit: yes Reason for Continuing Indwelling Catheter: Accurate Measurement of Urinary Output in Critically Ill Patients Urinary Catheter Date of Insertion: 04/29/20 Urinary Catheter Time of Insertion: 21:35 Data : 04/30/20 03:10 04/30/20 18:50 Micro: Microbiology 04/29/20 18:02 Blood Culture - Preliminary Blood NEGATIVE TO DATE 04/29/20 20:30 Blood Culture - Preliminary Blood SPECIMEN COLLECTED A&P Assessment and plan (1) Acute respiratory failure with hypoxia and hypercapnia: Last night requiring FiO2 up to 100%. This did improve and eventually weaned down to 50 and 40%. Restless overnight. Continue sedation appears to be having severe withdrawal and per report of his does drink about 2 bottles of liquor per day. Cannot exclude aspiration, although chest x-ray without infiltrates. Poor inspiratory effort. Reported since, but are thin. For now new Levaquin for possibility of pneumonia. Does have lower extremity edema. BNP elevated on presentation, although in the setting of acute kidney injury. Troponin was elevated, but down to 57 today. Echocardiogram with poor ultrasonic window, LV appears to be normal size and ejection fraction. Right ventricle mildly dilated, possibly normal EF. Pending COVID-19 PCR. Rapid negative. Smoking. History of COPD. Possible LOPEZ. Status: Acute (2) Mixed acid base balance disorder: Respiratory acidosis with improvement. Status: Acute (3) Acute kidney injury: With improvement. Hyperkalemia with improvement. Monitor MAXX. Renal function. Blood pressures. Status: Acute (4) Hyperkalemia: Up as high as 6.8 this morning, but with improvement through the day, down to 5.9. HOld BERENICE inhibitor. Status: Acute (5) COPD (chronic obstructive pulmonary disease): No significant wheezing. Perhaps minimally managed lung sounds but otherwise did not hear rhonchi. Continue Decadron. DuoNeb. Levaquin. 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 Very restless. Requiring sedation. Started on CIWA protocol with Ativan, vitamin supplementation. Reassess mental status. Monitor. Status: Chronic (8) Elevated troponin: Suspect type II process currently, does not have a known history of coronary artery disease Suspected secondary to hypoxic respiratory for current presentation. Improvement in oxygenation troponin down to 57. Different from additional nonemergent evaluation for underlying coronary disease. Status: Acute Additional A&P Information Has had atrial fibrillation in the past during a respiratory illness Transient elevation in lactic acidosis suspect due to hypoxemia Elevation in several inflammatory markers of currently unclear significance though concerned about possibility of COVID Attestations Medical Necessity Statement*: Continue admission for assessment management of acute respite failure with hypoxia, pneumonia, acute kidney injury, hyperkalemia, severe alcohol withdrawal. Coding Level of Care Code Acute Karate Black Belt for [facility] Diagnoses Acute respiratory failure with hypoxia and hypercapnia J96.01; J96.02 Mixed acid base balance disorder E87.4 Acute kidney injury N17.9 Hyperkalemia E87.5 COPD (chronic obstructive pulmonary disease) J44.1 COPD type: COPD with acute exacerbation Aortic stenosis I06.0 Cardiac valve disease etiology: rheumatic Alcohol use Z72.89 Elevated troponin R79.89
[2020-04-30 21:14] LABS: Glucose Point of Care 133 mg/dL (70-110)
[2020-04-30] MEDS: LORazepam 2 mg/mL INJ 1 mL IVP (21:15)
[2020-04-30 21:48] LABS: Coronavirus Lab Test PTC Negative
[2020-05-01] VITALS (36 sets, daily range): BP systolic 80–128; BP diastolic 30–80; PULSE 67–118; RESP 14–17; TEMP 36.7–37.6; O2SAT 92–98
[2020-05-01] MEDS: propofol 1,000 MG/100 ML INJ 32.7 MG IV ×4 (00:07→12:41)
[2020-05-01] MEDS: dexamethasone 4 mg/mL INJ 6 MG IVP (01:27)
[2020-05-01] MEDS: enoxaparin 40 mg/0.4 mL Syringe SUBCUT (01:27)
[2020-05-01] MEDS: LORazepam 2 mg/mL INJ 1 mL IVP ×4 (01:52→22:15)
[2020-05-01] MEDS: ipratropium-albuterol 3 mL Neb INHALATION ×4 (03:10→20:00)
[2020-05-01 04:27] LABS: ABG PH Result 7.38 (7.35-7.45); Arterial Blood Gas Hematocrit 49.1 % (42-52); Base Excess ABG 1.6 mmol/L (-2.0-2.0); Blood Gas Allen Test Pos; Blood Gas Sample Site Radial, left; HCO3 ABG 27.3 mmol/L (22-26)
[2020-05-01 04:28] LABS: Blood Gas Tidal Volume 0.55; Oxygen Device VENT
[2020-05-01 04:55] LABS: Basophils % 0.1 %; Hematocrit 50.5 % (42.0-52.0); Hemoglobin 15.2 g/dL (11.7-16.6); Lymphocytes # 0.9 10^3/uL (0.8-4.8); Lymphocytes % 7.6 %; Mean Corpuscular HGB Conc 30.1 g/dL (30.0-36.0); Mean Corpuscular Hemoglobin 30.8 pg (28.0-34.0); Mean Corpuscular Volume 102.2 fL (80-94); Mean Platelet Volume 11.5 fL (7.4-10.4); Monocytes # 0.8 10^3/uL (0.2-0.9); Monocytes % 7.2 %; Neutrophils # 9.47 10^3/uL (1.8-7.7); Neutrophils % 84.6 %; Nucleated Red Blood Cells % 0 %; Platelet Count 221 10^3/cmm (130-400); Red Blood Count 4.94 10^6/uL (4.1-5.3); Red Cell Distribution Width 14.3 % (12.1-15.1); White Blood Count 11.2 10^3/uL (4.0-10.0)
[2020-05-01 05:23] LABS: Alanine Aminotransferase 33 U/L (0-41); Albumin Level 3.3 g/dL (3.5-5.2); Alkaline Phosphatase 67 IU/L (40-130); Anion Gap 17.6 (5-19); Aspartate Amino Transferase 38 U/L (0-40); Blood Urea Nitrogen 46 mg/dL (6-20); Calcium 9.9 mg/dL (8.5-10.5); Carbon Dioxide 23 mmol/L (22-29); Chloride 103 mmol/L (98-107); Globulin 3.2 g/dL (1.3-4.6); Glomerular Filtration Rate 52.6 mL/min (90-130); Glucose 146 mg/dL (65-115); Magnesium 2.3 mg/dL (1.7-2.3); Osmolality Calculated 301 mOsm/kg (285-295); Phosphorus 3.5 mg/dL (2.5-4.5); Potassium 5.6 mmol/L (3.5-5.1); Sodium 138 mmol/L (136-145); Total Bilirubin 0.3 mg/dL (0.15-1.2); Total Protein 6.5 g/dL (6.6-8.7)
[2020-05-01] MEDS: propofol 1,000 MG/100 ML INJ 24.5 MG IV (05:30)
--- NOTE | 2020-05-01 06:00 | XR_ITS ---
WS: [id number] CHEST XRAY TECHNIQUE: Portable chest. CLINICAL INFORMATION: Hypoxia COMPARISON: April 30, 2020 FINDINGS: Endotracheal tube with tip above the nereida. Enteric tube with tip below the diaphragm. Heart: Cardiomegaly. Lungs: Mild pulmonary vascular congestion. Shallow inspiration. Slightly left basilar atelectasis. Bones: Normal visualized bony structures. XR/XR chest 1V portable [id number] IMPRESSION: 1. Shallow inspiration. 2. Endotracheal tube with tip above the nereida. Enteric tube with tip below th e diaphragm. 3. No other significant changes.
[2020-05-01] MEDS: levofloxacin-dextrose 5 % 750 MG/150 ML PREMIX 100 MG IV (06:28)
--- NOTE | 2020-05-01 07:08 | P.PN_ITS ---
Subjective Subjective: Interval history: remains intubated. no pressers, not verbal Medications: Reviewed: Yes Medication Review Details: Current Medications Acetaminophen (Tylenol) 650 mg PO Q6H PRN PRN Reason: MILD PAIN Last Admin: 04/30/20 13:40 Dose: 650 mg Documented by: Albuterol/Ipratropium (Duoneb) 3 ml INHALATION Q6H.RESPIRATORY DANDRE Last Admin: 05/01/20 03:10 Dose: 3 ml Documented by: Dexamethasone (Decadron) 6 mg IVP Q24H DANDRE Last Admin: 05/01/20 01:27 Dose: 6 mg Documented by: Dextrose (D50w) 25 ml IVP ONCE PRN; Protocol PRN Reason: hypoglycemia protocol Dextrose (D50w) 50 ml IVP PRN PRN; Protocol PRN Reason: hypoglycemia protocol Docusate Sodium (Colace) 100 mg PO BID [facility] Last Admin: 04/30/20 18:15 Dose: 100 mg Documented by: Enoxaparin Sodium (Lovenox) 40 mg SUBCUT Q24H DANDRE Last Admin: 05/01/20 01:27 Dose: 40 mg Documented by: Folic Acid (Folic Acid) 1 mg PO DAILY DANDRE Last Admin: 04/30/20 08:17 Dose: 1 mg Documented by: Glucagon (Glucagen) 1 mg IM ONCE PRN; Protocol PRN Reason: Adult Acute Hypoglycemia Prot. Propofol (Diprivan) 1,000 mg in 100 mls @ 0 mls/hr IV .Q0M DANDRE; Protocol Last Admin: 05/01/20 05:30 Dose: 30 mcg/kg/min, 24.5 mls/hr Documented by: Fentanyl 1,000 mcg/ Sodium (Chloride) 100 mls @ 0 mls/hr IV .Q0M DANDRE; Protocol Last Admin: 04/30/20 18:40 Dose: 75 mcg/hr, 7.5 mls/hr Documented by: Dextrose (D5w) 500 mls @ 100 mls/hr IV ONCE PRN; Protocol PRN Reason: Adult Acute Hypoglycemia Prot Levofloxacin/Dextrose (Levaquin-D5w) 750 mg in 150 mls @ 100 mls/hr IV Q24H DANDRE; Protocol Last Admin: 05/01/20 06:28 Dose: 100 mls/hr Documented by: Insulin Aspart (Novolog) 0 unit SUBCUT BEDTIME DANDRE; Protocol Last Admin: 04/30/20 21:18 Dose: Not Given Documented by: Insulin Aspart (Novolog) 0 unit SUBCUT TIDWM [facility]; Protocol Last Admin: 04/30/20 17:07 Dose: Not Given Documented by: Lactobacillus Acidophilus (Floranex) 1 tab PO BID [facility] Last Admin: 04/30/20 18:15 Dose: 1 tab Documented by: Lorazepam (Ativan) 2 mg IM Q4H PRN; Protocol PRN Reason: ALCOWD Lorazepam (Ativan) 2 mg IVP PRN PRN; Protocol PRN Reason: WITHDRAWAL Last Admin: 05/01/20 01:52 Dose: 2 mg Documented by: Lorazepam (Ativan) 2 mg PO Q4H PRN; Protocol PRN Reason: WITHDRAWAL Metoprolol Tartrate (Metoprolol Tartrate) 5 mg IV Q4H PRN PRN Reason: HR staying > 120 if SBP >110 Multivitamins/Minerals (Thera M Plus) 1 tab PO DAILY [facility] Last Admin: 04/30/20 08:17 Dose: 1 tab Documented by: Pantoprazole Sodium (Protonix) 40 mg IVP DAILY [facility] Last Admin: 04/30/20 08:17 Dose: 40 mg Documented by: Thiamine Mononitrate (Vitamin B-1) 100 mg PO DAILY [facility] Last Admin: 04/30/20 08:17 Dose: 100 mg Documented by: Vitals/I&O/Wt Last Vital Signs Temp 98.0 F 05/01/20 05:00 Pulse 74 05/01/20 06:00 Resp 14 05/01/20 05:46 BP 110/72 05/01/20 06:00 Pulse Ox 96 05/01/20 06:00 04/30/20 05/01/20 05/01/20 22:59 06:59 14:59 Intake Total 275.095 / 626.390 276.035 / 902.425 Output Total 500 / 1700 825 / 2525 Balance -224.905 / -1073.610 -548.965 / -1622.575 Weight last 48 hrs Weight 132.903 kg Weight 130.499 kg Weight 136.078 kg Physical Exam Narrative: EXAM NARRATIVE: intubated- AV/ fio2=40%, tv 550, rr 14, peep 10 heent- nc/at neck supple lung - b/l crackles heart HSM, RRR abd soft ext 1+ b/l leg edema sedated Urinary Catheter Management^: Vinson: Cath Placed During This Visit: yes Reason for Continuing Indwelling Catheter: Accurate Measurement of Urinary Output in Critically Ill Patients Urinary Catheter Date of Insertion: 04/29/20 Urinary Catheter Time of Insertion: 21:35 Data : 05/01/20 04:50 05/01/20 04:50 Micro: Microbiology 04/29/20 20:30 Blood Culture - Preliminary Blood NEGATIVE TO DATE 04/29/20 18:02 Blood Culture - Preliminary Blood NEGATIVE TO DATE A&P Additional A&P Information 54 yr old man COPD, p a fib. pt here w/ resp distress, frankie, hyperkalemia, resp acidosis 1. CKD- best cr was 1.3- had episodes- cr upto 2.7- stage not clear yet 2. frankie- likely prerenal and greer-i -renal us- rt 10.6 cm, left 11.4 cm. no hydronephrosis u/a noted- no significant proteinuria or hematuria -check serologies- given resp distress and renal disease -d/c lisinopril q if was on nsaid at home- please find out -low ur na c/w prerenal - cr improving -d/c ivf 3. hyperkalemia- d/c lisinopril -repeat chemistries -telemetry -dm can contribute 4. hypontremia- low ur na -normal tsh -improvedl -likely prerenal, frankie, and pulm process 5. abx per medicine -consider dec dose w/ ckd stage 3 6. serologies pending 7. resp cidosis- vent management per medicine - fio2 40% -lasix 8. lft's improved 9. dm control Attestations Medical Necessity Statement*: vdrf, dm, pna, ckd stage 3, hyperkalemia Time Spent in Patient Care: 16 - 35 minutes Coding Level of Care Code Acute Windows Systems Admin for Rocio Stephenson
[2020-05-01] MEDS: pantoprazole 40 mg SDV IVP (07:29)
[2020-05-01] MEDS: FUROsemide 10 mg/mL SDV 4mL 40 MG IVP (07:29)
[2020-05-01] MEDS: thiamine 100 mg Tablet PO (07:30)
[2020-05-01] MEDS: lactobacillus 1 Tablet 1 TAB PO ×2 (07:30→17:33)
[2020-05-01] MEDS: docusate sodium 100 mg Capsule PO ×2 (07:31→17:33)
[2020-05-01] MEDS: folic acid 1 mg Tablet PO (07:31)
[2020-05-01 08:24] LABS: Glucose Point of Care 149 mg/dL (70-110)
--- NOTE | 2020-05-01 08:25 | PM.PN ---
Subjective Subjective: Interval history: Overnight concern for some repetitive movements with him moving his arms and hands off the bed surface up and down. This is reproducible. At the time of my visit he is resting with his eyes closed. When his name is called opens his eyes and at that time starts having some tremors/shaking-like activity in both arms, lifting off slightly off the bed surface. Appears anxious. During this time when asked to squeeze his hands does so on both sides. Then when falls back asleep less than half a minute later the shaking stops. Vitals/I&O/Wt Last Vital Signs Temp 98.0 F 05/01/20 05:00 Pulse 77 05/01/20 07:36 Resp 14 05/01/20 07:36 BP 110/72 05/01/20 06:00 Pulse Ox 96 05/01/20 07:36 04/30/20 05/01/20 05/01/20 22:59 06:59 14:59 Intake Total 275.095 / 626.390 276.035 / 902.425 55.942 / 55.942 Output Total 500 / 1700 825 / 2525 Balance -224.905 / -1073.610 -548.965 / -1622.575 55.942 / 55.942 Weight last 48 hrs Weight 132.903 kg Weight 130.499 kg Weight 136.078 kg Physical Exam Const: COMMON NORMALS: no acute distress OTHER: Arousable, but becomes anxious/restless with tremor/shakes in both arms. HENMT: COMMON NORMALS: oropharynx normal Neck/C-Spine: COMMON NORMALS: no JVD Resp: COMMON NORMALS: normal respiratory effort and clear to auscultation bilaterally AUSCULTATION: clear to auscultation bilaterally Cardio: COMMON NORMALS: no JVD, regular rhythm, S1 normal heart sound present, S2 normal heart sound present and No murmurs present (Cardio) RHYTHM: regular rhythm HEART SOUNDS: S1 normal heart sound present and S2 normal heart sound present GI: COMMON NORMALS: Normal to inspection, nondistended, normoactive bowel sounds present, Soft to palpation and non-tender PALPATION: Yes Soft to palpation Extremity: COMMON NORMALS: no joint enlargement GENERAL: Yes edema (3+ bilateral below the knees.) Neuro: COMMON NORMALS: moves all extremities Skin: COMMON NORMALS: no rashes or lesions noted GENERAL SKIN EXAM: no rashes or lesions noted Urinary Catheter Management^: Vinson: Cath Placed During This Visit: yes Reason for Continuing Indwelling Catheter: Accurate Measurement of Urinary Output in Critically Ill Patients Urinary Catheter Date of Insertion: 04/29/20 Urinary Catheter Time of Insertion: 21:35 Data : 05/01/20 04:50 05/01/20 04:50 Micro: Microbiology 04/29/20 20:30 Blood Culture - Preliminary Blood NEGATIVE TO DATE 04/29/20 18:02 Blood Culture - Preliminary Blood NEGATIVE TO DATE A&P Assessment and plan (1) Acute encephalopathy: Secondary to severe alcohol drawl. He is a very drinker at baseline. Continue Ativan as needed per [facility] protocol. To help control episodes of restlessness/agitation at this time continue with IV sedation. We will try to see if he may become more arousable later in the day, if possible to wean may consider transition from fentanyl drip to Precedex. Status: Acute (2) Acute respiratory failure with hypoxia and hypercapnia: FiO2 down at 40%. PEEP 10. Restless overnight. Continue sedation appears to be having severe withdrawal and per report of his does drink about 2 bottles of liquor per day. Cannot exclude aspiration, although chest x-ray without infiltrates. Poor inspiratory effort. Reported since, but are thin. For now new Levaquin for possibility of pneumonia. Does have lower extremity edema. BNP elevated on presentation, although in the setting of acute kidney injury. Troponin was elevated, but down to 57. Echocardiogram with poor ultrasonic window, LV appears to be normal size and ejection fraction. Right ventricle mildly dilated, possibly normal EF. Negative COVID-19 PCR. Rapid negative. Other conditions include smoking. History of COPD. Possible LOPEZ. Status: Acute (3) Mixed acid base balance disorder: Respiratory acidosis with improvement. Status: Acute (4) Acute kidney injury: JIMMY on CKD. With improvement. Hyperkalemia with improvement. Additional desiccation for renal pulmonary syndrome as per nephrology. Appreciate consultation. Monitor MAXX. Renal function. Blood pressures. Status: Acute (5) Hyperkalemia: Potassium improved. Continue to monitor. Hold BERENICE inhibitor. Status: Acute (6) COPD (chronic obstructive pulmonary disease): No significant wheezing. Minimally decreased lung sounds but otherwise did not hear rhonchi. Continue Decadron. DuoNeb. Levaquin. 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 Anxious, restless. Requiring sedation. For now continuation and IV sedatives. Started on CIWA protocol with Ativan, vitamin supplementation. Reassess mental status. Monitor. Episodes of shaking/tremor appears to be secondary to anxiety/restlessness as they are reproducible, and during the episode he is following commands. Status: Chronic (9) Elevated troponin: Suspect type II process currently, does not have a known history of coronary artery disease Suspected secondary to hypoxic respiratory for current presentation. Improvement in oxygenation troponin down to 57. Different from additional nonemergent evaluation for underlying coronary disease. Status: Acute Additional A&P Information Has had atrial fibrillation in the past during a respiratory illness Transient elevation in lactic acidosis suspect due to hypoxemia Elevation in several inflammatory markers: Pending additional investigation for autoimmune conditions Attestations Medical Necessity Statement*: Continue admission for assessment management of severe alcohol withdrawal, acute encephalopathy, acute respiratory failure, acute kidney injury. 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
[2020-05-01 10:17] LABS: Chloride 99 mmol/L (98-107)
[2020-05-01 11:10] LABS: Alanine Aminotransferase 37 U/L (0-41); Alkaline Phosphatase 62 IU/L (40-130); Aspartate Amino Transferase 47 U/L (0-40); Blood Urea Nitrogen 46 mg/dL (6-20); Calcium 9.7 mg/dL (8.5-10.5); Carbon Dioxide 20 mmol/L (22-29); Glomerular Filtration Rate 48.6 mL/min (90-130); Glucose 155 mg/dL (65-115); Total Bilirubin 0.3 mg/dL (0.15-1.2); Total Protein 6.6 g/dL (6.6-8.7)
[2020-05-01 11:59] LABS: Glucose Point of Care 141 mg/dL (70-110)
[2020-05-01 12:43] LABS: Anti-streptolysin O 128 IU/mL (<200)
[2020-05-01 12:56] LABS: Albumin Level 3.2 g/dL (3.5-5.2); Anion Gap 24.7 (5-19); Globulin 3.4 g/dL (1.3-4.6); Osmolality Calculated 301 mOsm/kg (285-295); Potassium 5.7 mmol/L (3.5-5.1); Sodium 138 mmol/L (136-145)
[2020-05-01 13:22] LABS: Blood Gas Operator Identificat Anonymous; Blood Gas Sample Type CalVer
[2020-05-01 13:34] LABS: ABG PCO2 37.3 mmHg (35-45)
[2020-05-01 14:17] LABS: Alanine Aminotransferase 37 U/L (0-41); Albumin Level 3.5 g/dL (3.5-5.2); Alkaline Phosphatase 69 IU/L (40-130); Blood Urea Nitrogen 47 mg/dL (6-20); Calcium 9.8 mg/dL (8.5-10.5); Carbon Dioxide 23 mmol/L (22-29); Chloride 102 mmol/L (98-107); Glomerular Filtration Rate 48.6 mL/min (90-130); Glucose 123 mg/dL (65-115); Osmolality Calculated 298 mOsm/kg (285-295); Sodium 137 mmol/L (136-145); Total Bilirubin 0.3 mg/dL (0.15-1.2); Total Protein 6.5 g/dL (6.6-8.7)
[2020-05-01 14:29] LABS: Anion Gap 18.1 (5-19); Aspartate Amino Transferase 51 U/L (0-40); Potassium 6.1 mmol/L (3.5-5.1)
[2020-05-01 14:41] LABS: Anti-Nuclear Antibody Screen NEGATIVE (NEGATIVE)
--- NOTE | 2020-05-01 14:44 | PC.NURSE ---
weaned sedation, patient has vigorous generalized shakes. Sedation back up, 2 mg IVP ativan given as well. Shaking subsided, patient resting comfortably.
[2020-05-01] MEDS: metoprolol tartrate 1 mg/1 mL SDV 5 mL 5 MG IV (15:37)
--- NOTE | 2020-05-01 16:08 | PC.NURSE ---
, Kelli, at bedside. Talking to workers' compensation mediator, Bernard.
[2020-05-01] MEDS: propofol 1,000 MG/100 ML INJ 40.8 MG IV ×3 (16:18→21:18)
--- NOTE | 2020-05-01 19:21 | PM.MISC ---
Miscellaneous Note Purpose of Documentation: EEG Note: ORDERING PHYSICIAN: Dr. Dunlap. REASON FOR STUDY: Tremulous with alcohol withdrawal and respiratory failure. STUDY: This was a 21 channel digital electroencephalogram performed using the 10-20 international system of electrode placement. This study was performed at the bedside in the intensive care unit. The patient is on multiple sedatives for alcohol withdrawal protocol. The patient was unresponsive. Photic stimulation was performed. FINDINGS: The background was of low voltage with mixed low voltage fast activity. Minimal slowing was seen and looks like Sweat artifact or other artifact. Some type of intravenous pump or electrical artifact was seen in the frontotemporal leads intermittently. There was nothing about this EEG that would suggest ongoing epileptic activity. There was no focal slowing. Photic stimulation did not produce any significant response in the occipital leads. IMPRESSION: Abnormal EEG because of diffuse low voltage background. This is nonspecific and can be associated with chronic alcohol use, previous head injury, metabolic encephalopathy or may be a normal variant. This patient was unresponsive but there was no sign of occult epileptiform activity to explain the unresponsive state. Duration of EE.1
[2020-05-01 20:03] LABS: Alanine Aminotransferase 34 U/L (0-41); Albumin Level 3.2 g/dL (3.5-5.2); Alkaline Phosphatase 56 IU/L (40-130); Anion Gap 14.2 (5-19); Aspartate Amino Transferase 44 U/L (0-40); Blood Urea Nitrogen 50 mg/dL (6-20); Calcium 9.3 mg/dL (8.5-10.5); Carbon Dioxide 24 mmol/L (22-29); Chloride 99 mmol/L (98-107); Globulin 2.8 g/dL (1.3-4.6); Glomerular Filtration Rate 52.6 mL/min (90-130); Glucose 112 mg/dL (65-115); Osmolality Calculated 288 mOsm/kg (285-295); Potassium 5.2 mmol/L (3.5-5.1); Sodium 132 mmol/L (136-145); Total Bilirubin 0.3 mg/dL (0.15-1.2)
[2020-05-02] VITALS (39 sets, daily range): BP systolic 100–136; BP diastolic 62–84; PULSE 63–93; RESP 14–16; TEMP 36.5–36.8; O2SAT 89–98
[2020-05-02] MEDS: propofol 1,000 MG/100 ML INJ 32.7 MG IV ×5 (00:05→23:27)
[2020-05-02] MEDS: dexamethasone 4 mg/mL INJ 6 MG IVP (01:49)
[2020-05-02] MEDS: enoxaparin 40 mg/0.4 mL Syringe SUBCUT (01:55)
[2020-05-02] MEDS: ipratropium-albuterol 3 mL Neb INHALATION ×4 (02:16→20:17)
[2020-05-02] MEDS: LORazepam 2 mg/mL INJ 1 mL IM (04:49)
[2020-05-02 06:01] LABS: Basophils % 0.1 %; Hematocrit 48.3 % (42.0-52.0); Hemoglobin 14.7 g/dL (11.7-16.6); Lymphocytes # 0.8 10^3/uL (0.8-4.8); Lymphocytes % 9.5 %; Mean Corpuscular HGB Conc 30.4 g/dL (30.0-36.0); Mean Corpuscular Hemoglobin 30.8 pg (28.0-34.0); Mean Corpuscular Volume 101.3 fL (80-94); Monocytes # 0.6 10^3/uL (0.2-0.9); Neutrophils # 7.33 10^3/uL (1.8-7.7); Neutrophils % 82.9 %; Nucleated Red Blood Cells % 0 %; Platelet Count 198 10^3/cmm (130-400); Red Blood Count 4.77 10^6/uL (4.1-5.3); Red Cell Distribution Width 14.4 % (12.1-15.1); White Blood Count 8.8 10^3/uL (4.0-10.0)
[2020-05-02] MEDS: LORazepam 2 mg/mL INJ 1 mL IVP ×4 (06:02→13:39)
[2020-05-02] MEDS: levofloxacin-dextrose 5 % 750 MG/150 ML PREMIX 100 MG IV (06:30)
[2020-05-02 06:53] LABS: Alanine Aminotransferase 47 U/L (0-41); Albumin Level 3.4 g/dL (3.5-5.2); Alkaline Phosphatase 63 IU/L (40-130); Anion Gap 16.2 (5-19); Aspartate Amino Transferase 63 U/L (0-40); Blood Urea Nitrogen 48 mg/dL (6-20); Calcium 9.6 mg/dL (8.5-10.5); Carbon Dioxide 25 mmol/L (22-29); Chloride 103 mmol/L (98-107); Creatinine Clr Calc Pharmacy 90.1294; Globulin 3.2 g/dL (1.3-4.6); Glomerular Filtration Rate 57.3 mL/min (90-130); Glucose 113 mg/dL (65-115); Osmolality Calculated 301 mOsm/kg (285-295); Phosphorus 5.3 mg/dL (2.5-4.5); Potassium 5.2 mmol/L (3.5-5.1); Sodium 139 mmol/L (136-145); Total Bilirubin 0.4 mg/dL (0.15-1.2); Total Protein 6.6 g/dL (6.6-8.7)
--- NOTE | 2020-05-02 06:57 | PM.PN ---
Subjective Subjective: Interval history: sedated on propofol, fentanyl, and ativn- intubated- unable to obtain a ROS. Medications: Reviewed: Yes Medication Review Details: Current Medications Acetaminophen (Tylenol) 650 mg PO Q6H PRN PRN Reason: MILD PAIN Last Admin: 04/30/20 13:40 Dose: 650 mg Documented by: Albuterol/Ipratropium (Duoneb) 3 ml INHALATION Q6H.RESPIRATORY DANDRE Last Admin: 05/02/20 02:16 Dose: 3 ml Documented by: Dexamethasone (Decadron) 6 mg IVP Q24H DANDRE Last Admin: 05/02/20 01:49 Dose: 6 mg Documented by: Dextrose (D50w) 25 ml IVP ONCE PRN; Protocol PRN Reason: hypoglycemia protocol Dextrose (D50w) 50 ml IVP PRN PRN; Protocol PRN Reason: hypoglycemia protocol Docusate Sodium (Colace) 100 mg PO BID [facility] Last Admin: 05/01/20 17:33 Dose: 100 mg Documented by: Enoxaparin Sodium (Lovenox) 40 mg SUBCUT Q24H DANDRE Last Admin: 05/02/20 01:55 Dose: 40 mg Documented by: Folic Acid (Folic Acid) 1 mg PO DAILY [facility] Last Admin: 05/01/20 07:31 Dose: 1 mg Documented by: Glucagon (Glucagen) 1 mg IM ONCE PRN; Protocol PRN Reason: Adult Acute Hypoglycemia Prot. Propofol (Diprivan) 1,000 mg in 100 mls @ 0 mls/hr IV .Q0M DANDRE; Protocol Last Admin: 05/02/20 06:05 Dose: 40 mcg/kg/min, 32.7 mls/hr Documented by: Fentanyl 1,000 mcg/ Sodium (Chloride) 100 mls @ 0 mls/hr IV .Q0M DANDRE; Protocol Last Admin: 05/02/20 00:05 Dose: 75 mcg/hr, 7.5 mls/hr Documented by: Dextrose (D5w) 500 mls @ 100 mls/hr IV ONCE PRN; Protocol PRN Reason: Adult Acute Hypoglycemia Prot Levofloxacin/Dextrose (Levaquin-D5w) 750 mg in 150 mls @ 100 mls/hr IV Q24H DANDRE; Protocol Last Admin: 05/02/20 06:30 Dose: 100 mls/hr Documented by: Insulin Aspart (Novolog) 0 unit SUBCUT BEDTIME [facility]; Protocol Last Admin: 05/01/20 21:15 Dose: Not Given Documented by: Insulin Aspart (Novolog) 0 unit SUBCUT TIDWM [facility]; Protocol Last Admin: 05/01/20 17:27 Dose: Not Given Documented by: Lactobacillus Acidophilus (Floranex) 1 tab PO BID [facility] Last Admin: 05/01/20 17:33 Dose: 1 tab Documented by: Lorazepam (Ativan) 2 mg IM Q4H PRN; Protocol PRN Reason: ALCOWD Last Admin: 05/02/20 04:49 Dose: 2 mg Documented by: Lorazepam (Ativan) 2 mg IVP PRN PRN; Protocol PRN Reason: WITHDRAWAL Last Admin: 05/02/20 06:02 Dose: 2 mg Documented by: Lorazepam (Ativan) 2 mg PO Q4H PRN; Protocol PRN Reason: WITHDRAWAL Metoprolol Tartrate (Metoprolol Tartrate) 5 mg IV Q4H PRN PRN Reason: HR staying > 120 if SBP >110 Last Admin: 05/01/20 15:37 Dose: 5 mg Documented by: Multivitamins/Minerals (Thera M Plus) 1 tab PO DAILY [facility] Last Admin: 05/01/20 07:30 Dose: 1 tab Documented by: Pantoprazole Sodium (Protonix) 40 mg IVP DAILY [facility] Last Admin: 05/01/20 07:29 Dose: 40 mg Documented by: Thiamine Mononitrate (Vitamin B-1) 100 mg PO DAILY [facility] Last Admin: 05/01/20 07:30 Dose: 100 mg Documented by: Vitals/I&O/Wt Last Vital Signs Temp 99.4 F 05/01/20 19:00 Pulse 82 05/02/20 06:00 Resp 14 05/02/20 04:35 BP 121/79 05/02/20 06:00 Pulse Ox 94 05/02/20 06:00 05/01/20 05/01/20 05/02/20 14:59 22:59 06:59 Intake Total 526.381 / 526.381 269.994 / 796.375 346.820 / 1143.195 Output Total 850 / 850 600 / 1450 950 / 2400 Balance -323.619 / -323.619 -330.006 / -653.625 -603.180 / -1256.805 Weight last 48 hrs Weight 135.171 kg Weight 132.903 kg Physical Exam Narrative: EXAM NARRATIVE: intubated- AV/ fio2=35%, tv 550, rr 14, peep 10 heent- nc/at neck supple lung - b/l diminished bases, otherwise clear heart HSM, RRR abd soft ext 1+ b/l leg edema sedated Urinary Catheter Management^: Vinson: Cath Placed During This Visit: yes Reason for Continuing Indwelling Catheter: Accurate Measurement of Urinary Output in Critically Ill Patients Urinary Catheter Date of Insertion: 04/29/20 Urinary Catheter Time of Insertion: 21:35 Data : 05/02/20 05:20 05/02/20 05:20 A&P Additional A&P Information 54 yr old man COPD, p a fib. pt here w/ resp distress, frankie, hyperkalemia, resp acidosis 1. CKD- best cr was 1.3- had episodes- cr upto 2.7- stage 3 2. frankie- likely prerenal and greer-i -renal us- rt 10.6 cm, left 11.4 cm. no hydronephrosis u/a noted- no significant proteinuria or hematuria -check serologies- given resp distress and renal disease -d/c lisinopril q if was on nsaid at home- please find out -low ur na c/w prerenal - cr improving -monitor uop and chem 7 3. hyperkalemia- d/c lisinopril -repeat chemistries -telemetry -dm can contribute 4. hypontremia- low ur na -normal tsh -improved -likely prerenal, frankie, and pulm process 5. abx per medicine -consider dec dose w/ ckd stage 3 6. serologies pending- shayne neg, ASO neg. unlikely vasculitis- based on ua 7. resp acidosis- vent management per medicine - fio2 40% -lasix 8. lft's improved 9. dm control 10. 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
--- NOTE | 2020-05-02 08:51 | P.PN_ITS ---
Subjective Subjective: Interval history: Appears calm with sedation. No abnormal movements. Vitals/I&O/Wt Last Vital Signs Temp 99.4 F 05/01/20 19:00 Pulse 82 05/02/20 06:00 Resp 14 05/02/20 07:28 BP 121/79 05/02/20 06:00 Pulse Ox 94 05/02/20 06:00 05/01/20 05/02/20 05/02/20 22:59 06:59 14:59 Intake Total 269.994 / 796.375 346.820 / 1143.195 Output Total 600 / 1450 950 / 2400 Balance -330.006 / -653.625 -603.180 / -1256.805 Weight last 48 hrs Weight 135.171 kg Weight 132.903 kg Physical Exam Const: COMMON NORMALS: no acute distress OTHER: Arousable, but becomes anxi ous/restless with tremor/shakes in both arms. HENMT: COMMON NORMALS: oropharynx normal Neck/C-Spine: COMMON NORMALS: no JVD Resp: COMMON NORMALS: normal respiratory effort and clear to auscultation bilaterally AUSCULTATION: clear to auscultation bilaterally Cardio: COMMON NORMALS: no JVD, regular rhythm, S1 normal heart sound present, S2 normal heart sound present and No murmurs present (Cardio) RHYTHM: regular rhythm HEART SOUNDS: S1 normal heart sound present and S2 normal heart sound present GI: COMMON NORMALS: Normal to inspection, nondistended, normoactive bowel sounds present, Soft to palpation and non-tender PALPATION: Yes Soft to palpation Extremity: COMMON NORMALS: no joint enlargement GENERAL: Yes edema (2+ bilateral below the knees.) Neuro: COMMON NORMALS: moves all extremities Skin: COMMON NORMALS: no rashes or lesions noted GENERAL SKIN EXAM: no rashes or lesions noted Urinary Catheter Management^: Vinson: Cath Placed During This Visit: yes Reason for Continuing Indwelling Catheter: Accurate Measurement of Urinary Output in Critically Ill Patients Urinary Catheter Date of Insertion: 04/29/20 Urinary Catheter Time of Insertion: 21:35 Data : 05/02/20 05:20 05/02/20 05:20 A&P Assessment and plan (1) Acute encephalopathy: EEG done yesterday without suggestion of seizure. Overnight attempted again to wean sedation, but becoming very restless, so it had to be restarted. Secondary to severe alcohol withdrawal. He is a heavy drinker at baseline. At this time continue supportive care, sedation and fusion, reassessments of mental status. Continue Ativan as needed per CIWA protocol. To help control episodes of restlessness/agitation at this time continue with IV sedation. Discussed with his . Status: Acute (2) Acute respiratory failure with hypoxia and hypercapnia: This appears to be gradually improving. FiO2 down at 35%. PEEP 10. For now new Levaquin for pneumonia. Does have lower extremity edema. Mild RV dilation is noted on echocardiogram. Discussed with his . This may be responsible for the peripheral edema we are seeing. This appears to be decreasing. Urine output is good. BNP elevated on presentation, although in the setting of acute kidney injury. Troponin was elevated, but down to 57. Echocardiogram with poor ultrasonic window, LV appears to be normal size and ejection fraction. Right ventricle mildly dilated, possibly normal EF. Discussed with his cannot exclude that does not have some underlying coronary disease, and would benefit from nonemergent stress test assessment after he recovers. We will add a low-dose aspirin. Hold off on statin due to transaminitis. Hold off on beta-subhash for now due to soft blood pressures. Negative COVID-19 PCR. Rapid negative. Other conditions include smoking. History of COPD. Possible LOPEZ. Status: Acute (3) Mixed acid base balance disorder: Respiratory acidosis with improvement. Status: Acute (4) Acute kidney injury: JIMMY on CKD. With improvement. Some persistent hyperkalemia with improvement. Additional evaluation for renal pulmonary syndrome as per nephrology. Appreciate consultation. Monitor I&O. Renal function. Blood pressures. Status: Acute (5) Hyperkalemia: Potassium improved. Continue to monitor. Hold BERENICE inhibitor. Status: Acute (6) COPD (chronic obstructive pulmonary disease): No significant wheezing. Minimally decreased lung sounds but otherwise did not hear rhonchi. Continue Decadron. DuoNeb. Levaquin. 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 For now continuation and IV sedatives. Started on CIWA protocol with Ativan, vitamin supplementation. Reassess mental status. Monitor. Episodes of shaking/tremor appears to be secondary to anxiety/restlessness as they are reproducible, and during the episode he is following commands. Status: Chronic (9) Elevated troponin: Suspect type II process currently, does not have a known history of coronary artery disease Suspected secondary to hypoxic respiratory for current presentation. I mprovement in oxygenation troponin down to 57. Would benefit from additional nonemergent evaluation for underlying coronary disease. Status: Acute Additional A&P Information Has had atrial fibrillation in the past during a respiratory illness Transient elevation in lactic acidosis suspect due to hypoxemia Elevation in several inflammatory markers: Pending additional investigation for autoimmune conditions. ALISA is negative. Attestations Medical Necessity Statement*: Continue admission for assessment management of persistent encephalopathy, severe alcohol withdrawal, respiratory failure, in a setting of renal failure, other comorbidities. 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
[2020-05-02] MEDS: pantoprazole 40 mg SDV IVP (09:08)
[2020-05-02] MEDS: lactobacillus 1 Tablet 1 TAB PO ×2 (09:09→19:02)
[2020-05-02] MEDS: thiamine 100 mg Tablet PO (09:09)
[2020-05-02] MEDS: folic acid 1 mg Tablet PO (09:09)
[2020-05-02] MEDS: docusate sodium 100 mg Capsule PO ×2 (09:09→19:02)
[2020-05-02] MEDS: aspirin 81 mg Chew Tablet PO (09:30)
[2020-05-02] MEDS: propofol 1,000 MG/100 ML INJ 40.8 MG IV ×2 (11:56→20:54)
[2020-05-02] MEDS: propofol 1,000 MG/100 ML INJ 49 MG IV ×3 (14:29→18:46)
[2020-05-02 19:59] LABS: Glucose Point of Care 105 mg/dL (70-110)
[2020-05-02 19:59] LABS: Glucose Point of Care 123 mg/dL (70-110)
[2020-05-02 19:59] LABS: Glucose Point of Care 96 mg/dL (70-110)
[2020-05-02 20:11] LABS: Glucose Point of Care 113 mg/dL (70-110)
[2020-05-02 20:11] LABS: Glucose Point of Care 117 mg/dL (70-110)
[2020-05-02 21:17] LABS: Glucose Point of Care 91 mg/dL (70-110)
[2020-05-03] VITALS (42 sets, daily range): BP systolic 117–184; BP diastolic 74–119; PULSE 67–98; RESP 14–26; TEMP 36.8–37.1; O2SAT 90–97
[2020-05-03] MEDS: dexamethasone 4 mg/mL INJ 6 MG IVP (01:21)
[2020-05-03] MEDS: enoxaparin 40 mg/0.4 mL Syringe SUBCUT (01:21)
[2020-05-03] MEDS: propofol 1,000 MG/100 ML INJ 32.7 MG IV ×4 (01:40→17:57)
[2020-05-03] MEDS: LORazepam 2 mg/mL INJ 1 mL IVP ×5 (01:41→22:56)
[2020-05-03] MEDS: ipratropium-albuterol 3 mL Neb INHALATION ×4 (03:20→20:00)
[2020-05-03 03:53] LABS: ABG PCO2 48.9 mmHg (35-45); ABG PH Result 7.38 (7.35-7.45); Arterial Blood Gas Hematocrit 46.9 % (42-52); Base Excess ABG 2.4 mmol/L (-2.0-2.0); Blood Gas Allen Test Pos; Blood Gas Sample Site Radial, left; Blood Gas Sample Type Arterial; HCO3 ABG 28.6 mmol/L (22-26); Oxygen Device VENT; PO2 ABG 69.7 mmHg (80.0-100.0)
[2020-05-03 04:28] LABS: Basophils % 0.1 %; Hematocrit 47.3 % (42.0-52.0); Hemoglobin 14.7 g/dL (11.7-16.6); Lymphocytes # 0.6 10^3/uL (0.8-4.8); Lymphocytes % 6.7 %; Mean Corpuscular HGB Conc 31.1 g/dL (30.0-36.0); Mean Corpuscular Hemoglobin 30.8 pg (28.0-34.0); Mean Platelet Volume 11.5 fL (7.4-10.4); Monocytes # 0.8 10^3/uL (0.2-0.9); Monocytes % 8.3 %; Neutrophils # 7.63 10^3/uL (1.8-7.7); Neutrophils % 84.6 %; Nucleated Red Blood Cells % 0 %; Platelet Count 206 10^3/cmm (130-400); Red Blood Count 4.78 10^6/uL (4.1-5.3); Red Cell Distribution Width 14.3 % (12.1-15.1)
[2020-05-03 05:07] LABS: Alanine Aminotransferase 57 U/L (0-41); Albumin Level 3.3 g/dL (3.5-5.2); Alkaline Phosphatase 59 IU/L (40-130); Anion Gap 12.8 (5-19); Aspartate Amino Transferase 67 U/L (0-40); Blood Urea Nitrogen 38 mg/dL (6-20); Calcium 9.5 mg/dL (8.5-10.5); Carbon Dioxide 25 mmol/L (22-29); Chloride 105 mmol/L (98-107); Globulin 3.3 g/dL (1.3-4.6); Glomerular Filtration Rate 77.6 mL/min (90-130); Glucose 101 mg/dL (65-115); Magnesium 1.9 mg/dL (1.7-2.3); Osmolality Calculated 295 mOsm/kg (285-295); Phosphorus 4.8 mg/dL (2.5-4.5); Potassium 4.8 mmol/L (3.5-5.1); Sodium 138 mmol/L (136-145); Total Bilirubin 0.6 mg/dL (0.15-1.2); Total Protein 6.6 g/dL (6.6-8.7)
[2020-05-03] MEDS: levofloxacin-dextrose 5 % 750 MG/150 ML PREMIX 100 MG IV (06:06)
--- NOTE | 2020-05-03 08:23 | CT_ITS ---
WS: [id number] CT HEAD TECHNIQUE: Noncontrast CT of the head obtained from the skullbase to the vertex. CLINICAL INFORMATION: AMS, alcohol withdrawal COMPARISON: None. DLP: 767.[address] scans at [facility] use at least one of these dose optimization techniques: automat ed exposure control; mA and/or kV adjustment per patient size (includes targeted exams where dose is matched to clinical indication); or iterative reconstruction. FINDINGS: No evidence of intracranial hemorrhage or mass effect. Ventricular system and basal cisterns are guajardo nt. Mild small vessel changes with mild parenchymal volume loss. Endotracheal tube. Bilateral mastoid effusions. Mild mucosal thickening in the ethmoid air cells. Fluid in the posterior nasopharynx. No extra-axial fluid collections. No evidence of mass or mass effect. Normal goetz-white differentiation. Paranasal sinuses and mastoid air cells are well aerated. .Normal visualized soft tissues. CT/CT head wo con* [id number] IMPRESSION: 1. No evidence of intracranial hemorrhage or mass effect. 2. Mild small vessel changes with mild parenchymal volume loss. 3. Bilateral mastoid effusions. Endotracheal tube. 4. No acute intracranial findings.
--- NOTE | 2020-05-03 08:30 | PM.PN ---
Subjective Subjective: Interval history: Still getting restless with attempts to wean sedation. Vitals/I&O/Wt Last Vital Signs Temp 97.7 F 05/02/20 19:00 Pulse 78 05/03/20 06:30 Resp 14 05/03/20 07:37 BP 132/78 05/03/20 06:30 Pulse Ox 96 05/03/20 06:30 05/02/20 05/03/20 05/03/20 22:59 06:59 14:59 Intake Total 349.567 / 893.839 312.560 / 1206.399 Output Total 1900 / 3100 600 / 3700 Balance -1550.433 / -2206.161 -287.440 / -2493.601 Weight last 48 hrs Weight 132.08 kg Weight 135.171 kg Physical Exam Const: COMMON NORMALS: no acute distress OTHER: Intubated, sedated. HENMT: COMMON NORMALS: oropharynx normal Neck/C-Spine: COMMON NORMALS: no JVD Resp: COMMON NORMALS: normal respiratory effort and clear to auscultation bilaterally AUSCULTATION: clear to auscultation bilaterally OTHER: Minimally diminished air entry. No rhonchi, wheezing, crackles. Cardio: COMMON NORMALS: no JVD, regular rhythm, S1 normal heart sound present, S2 normal heart sound present and No murmurs present (Cardio) RHYTHM: regular rhythm HEART SOUNDS: S1 normal heart sound present and S2 normal heart sound present GI: COMMON NORMALS: Normal to inspection, nondistended, normoactive bowel sounds present, Soft to palpation and non-tender PALPATION: Yes Soft to palpation Extremity: COMMON NORMALS: no joint enlargement GENERAL: Yes edema (Improving 2+ only below the ankles currently) Neuro: COMMON NORMALS: moves all extremities Skin: COMMON NORMALS: no rashes or lesions noted GENERAL SKIN EXAM: no rashes or lesions noted Urinary Catheter Management^: Vinson: Cath Placed During This Visit: yes Reason for Continuing Indwelling Catheter: Accurate Measurement of Urinary Output in Critically Ill Patients Urinary Catheter Date of Insertion: 04/29/20 Urinary Catheter Time of Insertion: 21:35 Data : 05/03/20 03:40 05/03/20 03:40 A&P Assessment and plan (1) Acute encephalopathy: Continues to become restless and tight sedation is weaned. With history alcoholism, encephalopathy will assess CT head. We will go ahead and for now continue Versed, titrated triglyceride level. Continue fentanyl. Due to difficulties with IV access will request placement of PICC line. EEG without suggestion of seizure. Secondary to severe alcohol withdrawal. He is a heavy drinker at baseline. Continue to reassess mental status, attempt to wean sedation. Continue Ativan as needed per [facility] protocol. Thiamine, folic acid, multivitamins. Taper down Decadron dose. Add trophic tube feeds. Status: Acute (2) Acute respiratory failure with hypoxia and hypercapnia: This appears to be gradually improving. FiO2 down at 45%. PEEP 10. For now continue Levaquin for pneumonia. Does have lower extremity edema. Mild RV dilation is noted on echocardiogram. Discussed with his . This may be responsible for the peripheral edema we are seeing. This appears to be decreasing. Urine output is good. BNP elevated on presentation, although in the setting of acute kidney injury. Troponin was elevated, but down to 57. Echocardiogram with poor ultrasonic window, LV appears to be normal size and ejection fraction. Right ventricle mildly dilated, possibly normal EF. Discussed with his cannot exclude that does not have some underlying coronary disease, and would benefit from nonemergent stress test assessment after he recovers. Low-dose aspirin. Hold off on statin due to transaminitis. Hold off on beta-subhash for now due to soft blood pressures. Negative COVID-19 PCR. Rapid negative. Other conditions include smoking. History of COPD. Possible LOPEZ. Status: Acute (3) Mixed acid base balance disorder: Respiratory acidosis with improvement. Status: Acute (4) Acute kidney injury: JIMMY on CKD resolving. Additional evaluation for renal pulmonary syndrome as per nephrology. Appreciate consultation. Monitor I&O. Renal function. Blood pressures. Status: Acute (5) Hyperkalemia: Potassium improved. Continue to monitor. Hold BERENICE inhibitor. Status: Acute (6) COPD (chronic obstructive pulmonary disease): Somewhat diminished air entry, but otherwise clear to auscultation. Decrease Decadron. DuoNeb. Levaquin. 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 Status: Chronic (9) Elevated troponin: Suspect type II process currently, does not have a known history of coronary artery disease Suspected secondary to hypoxic respiratory for current presentation. Improvement in oxygenation troponin down to 57. Would benefit from additional nonemergent evaluation for underlying coronary disease. Status: Acute Additional A&P Information Has had atrial fibrillation in the past during a respiratory illness Transient elevation in lactic acidosis suspect due to hypoxemia Elevation in several inflammatory markers: Pending additional investigation for autoimmune conditions. ALISA is negative. Attestations Medical Necessity Statement*: Continue admission for assessment and management of acute encephalopathy, severe alcohol withdrawal, mechanical ventilatory support and supportive care, treatment of pneumonia. Coding Level of Care Code Acute Motor Vehicle Licence Examiner for [facility] Fwd Diagnoses Acute encephalopathy G93.40 Acute respiratory failure with hypoxia and hypercapnia J96.01; J96.02 Mixed acid base balance disorder E87.4 Acute kidney injury N17.9 Hyperkalemia E87.5 COPD (chronic obstructive pulmonary disease) J44.1 COPD type: COPD with acute exacerbation Aortic stenosis I06.0 Cardiac valve disease etiology: rheumatic Alcohol use Z72.89 Elevated troponin R79.89
[2020-05-03 08:31] LABS: Glucose Point of Care 117 mg/dL (70-110)
[2020-05-03 08:49] LABS: Triglycerides 110 mg/dL (0-150)
[2020-05-03] MEDS: thiamine 100 mg Tablet PO (11:14)
[2020-05-03] MEDS: pantoprazole 40 mg SDV IVP (11:14)
[2020-05-03] MEDS: lactobacillus 1 Tablet 1 TAB PO ×2 (11:14→17:56)
[2020-05-03] MEDS: folic acid 1 mg Tablet PO (11:15)
[2020-05-03] MEDS: docusate sodium 100 mg Capsule PO ×2 (11:15→17:57)
[2020-05-03] MEDS: aspirin 81 mg Chew Tablet PO (11:16)
[2020-05-03] MEDS: propofol 1,000 MG/100 ML INJ 24.5 MG IV ×2 (11:24→14:52)
[2020-05-03 12:35] LABS: Glucose Point of Care 92 mg/dL (70-110)
--- NOTE | 2020-05-03 14:36 | PC.NURSE ---
UNSUCCESSFUL FOR PICC. PRIMARY NURSE NOTIFIED.
[2020-05-03] MEDS: LORazepam 2 mg/mL INJ 1 mL IM (14:50)
[2020-05-03 18:02] LABS: Glucose Point of Care 87 mg/dL (70-110)
--- NOTE | 2020-05-03 19:45 | PC.NURSE ---
Shift Summary: Pt remains intubated. Pt tremors become significantly increased with stimulation. Pt responds to pain. Pt sweats , fan provided, CIWAs done as ordered, unable to score correctly as pt is intubated and on sedation. Fentanyl infusing, Propofol and Versed infusing. IVs are iffy, needs frequent dress changes due to the sweating and tremors. Unable to access for PICC today, then left IV came out. Able to obtain another IV after several attempts, poor blood return but flushes easily. Dr Robertson notified of failed PICC attempt and poor IVs, no new orders. Tube feeding, Pulmocare started at 20ml/hr. Urine output 1575 dark yellow urine. , Kelli Wong, came to visit today.
[2020-05-03] MEDS: propofol 1,000 MG/100 ML INJ 40.8 MG IV ×2 (20:24→23:06)
[2020-05-03] MEDS: metoprolol tartrate 1 mg/1 mL SDV 5 mL 5 MG IV (22:57)
[2020-05-03] MEDS: haloperidol inj 5 mg/mL INJ 1 mL 4 MG IM (23:36)
[2020-05-04] VITALS (73 sets, daily range): BP systolic 121–200; BP diastolic 73–165; PULSE 57–130; RESP 14–18; TEMP 36.7–37.6; O2SAT 89–96; BMI 40.0
[2020-05-04] MEDS: enoxaparin 40 mg/0.4 mL Syringe SUBCUT (01:01)
[2020-05-04] MEDS: dexamethasone 4 mg/mL INJ 3 MG IVP (01:01)
[2020-05-04] MEDS: propofol 1,000 MG/100 ML INJ 40.8 MG IV (01:51)
[2020-05-04] MEDS: ipratropium-albuterol 3 mL Neb INHALATION ×5 (02:23→20:06)
[2020-05-04] MEDS: labetalol 5 mg/mL SDV 20mL 20 MG IVP (03:09)
[2020-05-04] MEDS: propofol 1,000 MG/100 ML INJ 32.7 MG IV ×4 (04:40→22:26)
[2020-05-04 05:14] LABS: Basophils % 0.1 %; Eosinophils % 0.3 %; Hematocrit 46.9 % (42.0-52.0); Hemoglobin 14.4 g/dL (11.7-16.6); Lymphocytes # 0.7 10^3/uL (0.8-4.8); Lymphocytes % 8.9 %; Mean Corpuscular HGB Conc 30.7 g/dL (30.0-36.0); Mean Corpuscular Hemoglobin 30.8 pg (28.0-34.0); Mean Corpuscular Volume 100.4 fL (80-94); Mean Platelet Volume 11.4 fL (7.4-10.4); Monocytes % 12.9 %; Neutrophils # 6.18 10^3/uL (1.8-7.7); Neutrophils % 77.5 %; Nucleated Red Blood Cells % 0 %; Platelet Count 210 10^3/cmm (130-400); Red Blood Count 4.67 10^6/uL (4.1-5.3); Red Cell Distribution Width 14.6 % (12.1-15.1)
[2020-05-04 05:28] LABS: Blood Gas Tidal Volume 0.55
[2020-05-04 05:45] LABS: Alanine Aminotransferase 111 U/L (0-41); Albumin Level 3.4 g/dL (3.5-5.2); Alkaline Phosphatase 54 IU/L (40-130); Anion Gap 13.2 (5-19); Aspartate Amino Transferase 121 U/L (0-40); Blood Urea Nitrogen 35 mg/dL (6-20); Calcium 9.6 mg/dL (8.5-10.5); Carbon Dioxide 26 mmol/L (22-29); Chloride 105 mmol/L (98-107); Globulin 3.1 g/dL (1.3-4.6); Glomerular Filtration Rate 100.4 mL/min (90-130); Glucose 106 mg/dL (65-115); Osmolality Calculated 298 mOsm/kg (285-295); Phosphorus 3.9 mg/dL (2.5-4.5); Potassium 4.2 mmol/L (3.5-5.1); Sodium 140 mmol/L (136-145); Total Bilirubin 0.8 mg/dL (0.15-1.2); Total Protein 6.5 g/dL (6.6-8.7)
[2020-05-04] MEDS: levofloxacin-dextrose 5 % 750 MG/150 ML PREMIX 100 MG IV (06:18)
[2020-05-04 07:54] LABS: Glucose Point of Care 107 mg/dL (70-110)
--- NOTE | 2020-05-04 08:58 | PC.RESP ---
Dr. arteaga. no SBT today
[2020-05-04] MEDS: thiamine 100 mg Tablet PO (09:17)
[2020-05-04] MEDS: folic acid 1 mg Tablet PO (09:17)
[2020-05-04] MEDS: pantoprazole 40 mg SDV IVP (09:17)
[2020-05-04] MEDS: docusate sodium 100 mg Capsule PO (09:17)
[2020-05-04 09:28] LABS: Hepatitis A Antibody IgM Non-Reactive (Nonreactive); Hepatitis B Core IgM Non-Reactive (Nonreactive); Hepatitis B Surface Antigen Non-Reactive (Nonreactive); Hepatitis C Virus Antibody Non-Reactive (Nonreactive)
--- NOTE | 2020-05-04 10:27 | PM.PN ---
Subjective Subjective: Interval history: He is intubated, sedated. Overnight again reportedly becoming restless. No tremors or seizure-like activity during my visit. Vitals/I&O/Wt Last Vital Signs Temp 98.1 F 05/04/20 07:45 Pulse 65 05/04/20 08:25 Resp 14 05/04/20 09:23 BP 134/93 05/04/20 08:15 Pulse Ox 95 05/04/20 08:17 05/03/20 05/04/20 05/04/20 22:59 06:59 14:59 Intake Total 4966.856 / 5475.256 200 / 5675.256 100 / 100 Output Total 1050 / 1050 Balance 4966.856 / 5475.256 -850 / 4625.256 100 / 100 Weight last 48 hrs Weight 130.317 kg Weight 132.08 kg Physical Exam Const: COMMON NORMALS: no acute distress OTHER: Intubated, sedated. HENMT: COMMON NORMALS: oropharynx normal Eye: COMMON NORMALS: Equal, round and reactive pupils present PUPIL: Yes Equal, round and reactive pupils present Neck/C-Spine: COMMON NORMALS: no JVD Resp: COMMON NORMALS: normal respiratory effort and clear to auscultation bilaterally AUSCULTATION: clear to auscultation bilaterally OTHER: Minimally diminished air entry. Cardio: COMMON NORMALS: no JVD, regular rhythm, S1 normal heart sound present, S2 normal heart sound present and No murmurs present (Cardio) RHYTHM: regular rhythm HEART SOUNDS: S1 normal heart sound present and S2 normal heart sound present GI: COMMON NORMALS: Normal to inspection, nondistended, normoactive bowel sounds present, Soft to palpation and non-tender PALPATION: Yes Soft to palpation Extremity: COMMON NORMALS: no joint enlargement GENERAL: Yes edema (Improving 2+ only below the ankles currently) Neuro: COMMON NORMALS: moves all extremities Skin: COMMON NORMALS: no rashes or lesions noted GENERAL SKIN EXAM: no rashes or lesions noted Urinary Catheter Management^: Vinson: Cath Placed During This Visit: yes Reason for Continuing Indwelling Catheter: Accurate Measurement of Urinary Output in Critically Ill Patients Urinary Catheter Date of Insertion: 04/29/20 Urinary Catheter Time of Insertion: 21:35 Data : 05/04/20 04:22 05/04/20 04:22 A&P Assessment and plan (1) Acute encephalopathy: CT head without bleeding. With noted bilateral mastoid effusions, also mild mucosal thickening in ethmoid air cells, fluid in posterior nasopharynx. does report he has had chronic sinusitis for a while. I do not see erythema, swelling on examination over mastoid processes. Doubt that there is an with infection, however, given persistent encephalopathy we will see if we can obtain a LP. Continues to become restless and tight sedation is weaned. With history alcoholism, encephalopathy will assess CT head. We will go ahead and for now continue Versed, titrated triglyceride level. Continue fentanyl. Due to difficulties with IV access, requested placement of PICC line. EEG without suggestion of seizure. Secondary to severe alcohol withdrawal. He is a heavy drinker at baseline. Continue to reassess mental status, attempt to wean sedation. Continue Ativan as needed per [facility] protocol. Thiamine, folic acid, multivitamins. Taper down Decadron dose if tolerating. Tolerating trophic tube feeds. Status: Acute (2) Acute respiratory failure with hypoxia and hypercapnia: Air entry somewhat diminished. Will increase neb frequency to every 4 hours. Otherwise does sound clear today. Continue Decadron at 3 mg for now as attempting to wean in case steroids contributing to encephalopathy. For now continue Levaquin for pneumonia. Improving lower extremity edema. Mild RV dilation is noted on echocardiogram. Discussed with his . This may be responsible for the peripheral edema we are seeing. This appears to be decreasing. Urine output is good. BNP elevated on presentation, although in the setting of acute kidney injury. Troponin was elevated, but down to 57. Echocardiogram with poor ultrasonic window, LV appears to be normal size and ejection fraction. Right ventricle mildly dilated, possibly normal EF. Discussed with his cannot exclude that does not have some underlying coronary disease, and would benefit from nonemergent stress test assessment after he recovers. Low-dose aspirin. Hold off on statin due to transaminitis. Heart rate low this morning. Received labetalol overnight. If heart rate improves add scheduled beta-subhash. Other conditions include smoking. History of COPD. Possible LOPEZ. Negative COVID-19 PCR. Rapid negative. While in ER was under care off RN who later tested positive for COVID-19. Per report all appropriate for PE was worn. Monitor for recurrence of any symptoms. This was discussed yesterday with his . She understands the risks to him, and also to her in case he contracted illness, however, prefers to continue visitation with a mask and precautions. She understands that the chance is small but not 0 of potentially herself being exposed through him resulting in either disability or . Status: Acute (3) Mixed acid base balance disorder: Respiratory acidosis with improvement. Status: Acute (4) Acute kidney injury: JIMMY on CKD resolving. ALISA negative. ASO negative. Monitor I&O. Renal function. Blood pressures. Status: Acute (5) Hyperkalemia: Potassium improved. Continue to monitor. Hold BERENICE inhibitor. Status: Acute (6) COPD (chronic obstructive pulmonary disease): Yesterday was having increased secretions, today sounds clear to me. Somewhat diminished air entry. Increase neb frequency to every 4 hours. Decrease Decadron. DuoNeb. Levaquin. 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 Status: Chronic (9) Elevated troponin: Suspect type II process currently, does not have a known history of coronary artery disease Suspected secondary to hypoxic respiratory for current presentation. Improvement in oxygenation troponin down to 57. Would benefit from additional nonemergent evaluation for underlying coronary disease. Status: Acute Additional A&P Information Has had atrial fibrillation in the past during a respiratory illness Transient elevation in lactic acidosis suspect due to hypoxemia Elevation in several inflammatory markers: Pending ANCA. ALISA is negative. ASO negative. Attestations Medical Necessity Statement*: Continue admission for cyst management of acute encephalopathy, severe alcohol withdrawal. Support with sedatives, mechanical ventilation. Coding Level of Care Code Acute Furnace Combination Analyst for [facility] Fwd Exam Comprehensive Diagnoses Acute encephalopathy G93.40 Acute respiratory failure with hypoxia and hypercapnia J96.01; J96.02 Mixed acid base balance disorder E87.4 Acute kidney injury N17.9 Hyperkalemia E87.5 COPD (chronic obstructive pulmonary disease) J44.1 COPD type: COPD with acute exacerbation Aortic stenosis I06.0 Cardiac valve disease etiology: rheumatic Alcohol use Z72.89 Elevated troponin R79.89
[2020-05-04 11:37] LABS: Glucose Point of Care 98 mg/dL (70-110)
[2020-05-04] MEDS: propofol 1,000 MG/100 ML INJ 16.3 MG IV (13:46)
--- NOTE | 2020-05-04 14:56 | PM.OP ---
Operative Report Date of procedure: May 04, 2020 INDICATION: Altered mental status rule out meningitis PROCEDURE ASSOCIATE [employer]: Oren Lucas MD CONSENT: Consent was obtained from prior to the procedure. Indications, risks, and benefits were explained at length. PROCEDURE SUMMARY: A time-out was performed. My hands were washed immediately prior to the procedure. I wore a surgical cap, mask with protective eyewear, sterile gown and sterile gloves throughout the procedure. The patient was placed in the _ position with help from the nursing staff. The area was cleansed and draped in usual sterile fashion using betadine scrub. Anesthesia was achieved with 1% lidocaine. A 20-gauge 3.5-inch spinal needle was placed in the L4-L5 lumbar interspace. Dry tap could not see the fluid. The patient had no immediate complications and tolerated the procedure well. Estimated blood loss was 5 cc.
[2020-05-04 17:31] LABS: Glucose Point of Care 69 mg/dL (70-110)
[2020-05-04] MEDS: dextrose 50% syringe 50 mL IVP (17:36)
[2020-05-04 17:43] LABS: ABG PCO2 43.1 mmHg (35-45); ABG PH Result 7.43 (7.35-7.45); Base Excess ABG 3.7 mmol/L (-2.0-2.0); Blood Gas Allen Test Pos; Blood Gas Tidal Volume 0.55; HCO3 ABG 28.6 mmol/L (22-26); Oxygen Device VENT; PO2 ABG 61.8 mmHg (80.0-100.0)
[2020-05-04] MEDS: propofol 1,000 MG/100 ML INJ 24.5 MG IV (17:43)
[2020-05-04 17:44] LABS: Arterial Blood Gas Hematocrit 45.7 % (42-52); Blood Gas Sample Site Radial, right; Blood Gas Sample Type Arterial
[2020-05-04 18:05] LABS: Glucose Point of Care 90 mg/dL (70-110)
[2020-05-04] MEDS: LORazepam 2 mg/mL INJ 1 mL IVP (18:59)
--- NOTE | 2020-05-04 20:01 | PC.NURSE ---
Sedation Pt awake, high respiratory rate on ventilator. Needing more adequate sedation. pt is maxed on versed, and fentanyl, and currently weaning off propofol as preferred by Dr. Robertson. Dr. Crook notified by phone and gave updates on sedation status and seizure today and received orders for haldol 4mg IV X 1.
[2020-05-04] MEDS: haloperidol inj 5 mg/mL INJ 1 mL 4 MG IVP (20:16)
[2020-05-04] MEDS: LORazepam 2 mg/mL INJ 1 mL IM (21:14)
[2020-05-04] MEDS: haloperidol inj 5 mg/mL INJ 1 mL 4 MG IM (21:38)
[2020-05-04 22:02] LABS: Glucose Point of Care 72 mg/dL (70-110)
[2020-05-04 22:02] LABS: Glucose Point of Care 87 mg/dL (70-110)
--- NOTE | 2020-05-04 22:35 | XRR_ITS ---
PROCEDURE INFORMATION: Exam: XR Chest, 1 View Exam date and time: 05/04/2020 10:47 PM Age: 54 years old Clinical indication: Device placement; Other: Central line placement; Patient HX: Et, og, central line TECHNIQUE: Imaging protocol: XR of the chest Views: 1 view. COMPARISON: CR XR chest 1V portable [id number] 05/01/2020 4:34 AM FINDINGS: Lungs: There is left basilar opacity compatible with airspace consolidation and/or atelectasis increasing compared to the prior exam. Pleural space: There is a small left pleural effusion. No pneumothorax. Heart/Mediastinum: There is an ET tube with tip at the clavicular heads, orogastric tube with tip in the stomach and a left subclavian central line with tip in the right atrium. The heart is enlarged. Bones/joints: No acute abnormality. XR/XR chest 1V portable [id number] IMPRESSION: 1. There is an ET tube with tip at the clavicular heads, orogastric tube with tip in the stomach and a left subclavian central line with tip in the right atrium. 2. There is left basilar opacity compatible with airspace consolidation and/or atelectasis increasing compared to the prior exam.
--- NOTE | 2020-05-04 22:53 | P.CONIM_ITS ---
Providers/Reason For Consult Consulting Physican/Specialty*: Dr Crook Reason for Consult*: Central venous access for IV therapy Attending Physician: Gregorio Robertson Primary Care Provider: Jose Sims MD History of Present Illness History of Present Illness Filemon Wong is a 54 year old male who is currently intubated for acute encephalopathy and has been agitated. Patient has a history of alcoholism. A PICC line was attempted earlier and was unsuccessful and multiple attempts by the nursing staff in ICU were unsuccessful in gaining adequate IV access and I was consulted for placement of central line. Review of Systems General: Reports: ROS unobtainable due to endotracheal tube Meds/Allergies Home Medications and Allergies Home Medications Medication Instructions Recorded Confirmed Last Taken Type albuterol sulfate 1 puff INHALATION QID PRN 11/14/19 11/14/19 11/14/19 History albuterol sulfate 2.5 mg INHALATION Q6H PRN 11/14/19 11/14/19 Unknown History levofloxacin 750 mg PO DAILY 11/14/19 11/14/19 11/13/19 History albuterol sulfate 2.5 mg INHALATION Q4H PRN 11/15/19 11/15/19 Unknown History amlodipine 10 mg PO DAILY 11/15/19 11/15/19 11/14/19 History buspirone 10 mg PO BID 11/15/19 11/15/19 Unknown History lisinopril 20 mg PO BID 11/15/19 11/15/19 Unknown History Allergies Allergy/AdvReac Type Severity Reaction Status Date / Time Sulfa (Sulfonamide Allergy ALGY-Anaphy Verified 11/14/19 09:21 Antibiotics) laxis Current Medications Current Medications Generic Name Dose Route Start Last Admin Trade Name Freq PRN Reason Stop Dose Admin Acetaminophen 650 mg 04/30/20 01:45 04/30/20 13:40 Tylenol PO 650 mg Q6H PRN Administration MILD PAIN Albuterol/Ipratropium 3 ml 05/04/20 12:00 05/04/20 20:06 Duoneb INHALATION 3 ml Q4H.RESPIRATORY DANDRE Administration Aspirin 81 mg 05/02/20 09:15 05/04/20 10:11 Aspirin Chewable PO Not Given DAILY DANDRE Dexamethasone 3 mg 05/04/20 01:30 05/04/20 01:01 Decadron IVP 3 mg Q24H DANDRE Administration Dextrose 50 ml 04/30/20 01:45 05/04/20 17:36 D50w IVP 50 ml PRN PRN Administration hypoglycemia protocol Protocol Docusate Sodium 100 mg 04/30/20 09:00 05/04/20 18:30 Colace PO Not Given BID DANDRE Enoxaparin Sodium 40 mg 04/30/20 01:45 05/04/20 01:01 Lovenox SUBCUT 40 mg Q24H DANDRE Administration Folic Acid 1 mg 04/30/20 09:00 05/04/20 09:17 Folic Acid PO 1 mg DAILY DANDRE Administration Propofol 1,000 mg in 100 mls @ 0 mls/hr 04/29/20 21:15 05/04/20 22:26 Diprivan IV 40 mcg/kg/min .Q0M DANDRE 32.7 mls/hr Administration Protocol Per Protocol Levofloxacin/Dextrose 750 mg in 150 mls @ 100 mls/hr 05/02/20 07:00 05/04/20 20:45 Levaquin-D5w IV Infused Q24H DANDRE Infusion Protocol Midazolam HCl 100 mg/ Sodium 100 mls @ 0 mls/hr 05/02/20 13:30 05/04/20 17:53 Chloride IV Infused .Q0M DANDRE Titration Protocol Per Protocol Fentanyl 1,000 mcg/ Sodium 100 mls @ 0 mls/hr 05/04/20 04:00 05/04/20 18:41 Chloride IV 100 mcg/hr .Q0M DANDRE 10 mls/hr Administration Protocol Per Protocol Insulin Aspart 0 unit 04/30/20 21:00 05/04/20 20:45 Novolog SUBCUT Not Given BEDTIME DANDRE Protocol Insulin Aspart 0 unit 04/30/20 08:00 05/04/20 17:30 Novolog SUBCUT Not Given TIDWM DANDRE Protocol Lactobacillus Acidophilus 1 tab 04/30/20 09:00 05/04/20 18:30 Floranex PO Not Given BID DANDRE Lorazepam 2 mg 04/30/20 14:51 05/04/20 21:14 Ativan IM 2 mg Q4H PRN Administration ALCOWD Protocol Lorazepam 2 mg 04/30/20 14:51 05/04/20 18:59 Ativan IVP 2 mg PRN PRN Administration WITHDRAWAL Protocol Metoprolol Tartrate 5 mg 04/30/20 01:45 05/03/20 22:57 Metoprolol Tartrate IV 5 mg Q4H PRN Administration HR staying > 120 if SBP >110 Multivitamins/Minerals 1 tab 04/30/20 09:00 05/04/20 10:11 Thera M Plus PO Not Given DAILY DANDRE Pantoprazole Sodium 40 mg 04/30/20 09:00 05/04/20 09:17 Protonix IVP 40 mg DAILY DANDRE Administration Thiamine Mononitrate 100 mg 04/30/20 09:00 05/04/20 09:17 Vitamin B-1 PO 100 mg DAILY DANDRE Administration PFSH Acute PFSH: Medical History Alcohol use Aortic stenosis mild on echo at [place] 09/2019, JOSE 1.6 cm2 Atrial fibrillation Paroxysmal COPD (chronic obstructive pulmonary disease) with chronic hypercapnea with baseline pCO2 in the 60s History of bleeding peptic ulcer (~01/2017) from [place] Records History of rheumatic fever Hypertension Tobacco abuse Surgical History No pertinent past surgical history Family History Mother No problems noted. Father No problems noted. Social History Smoking and tobacco status: current every day smoker cigarettes Alcohol intake: current Alcohol intake frequency: few times a week Household members: spouse Vitals/I&O/Wt Last Vital Signs Temp 98.1 F 05/04/20 15:15 Pulse 96 05/04/20 20:07 Resp 15 05/04/20 20:07 BP 164/120 05/04/20 20:00 Pulse Ox 92 05/04/20 20:07 05/04/20 05/04/20 05/04/20 06:59 14:59 22:59 Intake Total 200 / 5675.256 280.645 / 804.734 524.089 / 804.734 Output Total 1050 / 1050 800 / 1100 300 / 1100 Balance -850 / 4625.256 -519.355 / -295.266 224.089 / -295.266 Weight last 48 hrs Weight 287 lb 4.8 oz Weight 291 lb 3 oz Physical Exam Narrative: EXAM NARRATIVE: HEENT: Normocephalic Eye: Sclera /conjunctiva normal Respiratory and chest: Intubated on the ventilator Cardiovascular: Normal S1 and S2 heart sounds Abdomen: Soft to palpation Skin: Intact, no lesions appreciated on gross exam Urinary Catheter Management^: Vinson: Cath Placed During This Visit: yes Reason for Continuing Indwelling Catheter: Accurate Measurement of Urinary Output in Critically Ill Patients Urinary Catheter Date of Insertion: 04/29/20 Urinary Catheter Time of Insertion: 21:35 Data Micro: Micro: Microbiology 04/29/20 20:30 Blood Culture - Fi nal Blood NO GROWTH AFTER 5 DAYS 04/29/20 18:02 Blood Culture - Fi nal Blood NO GROWTH AFTER 5 DAYS A&P Assessment and plan (1) Acute encephalopathy: 53-year-old gentleman with acute encephalopathy intubated with currently agitated and required central venous access for IV therapy Plan for central venous access today Status: Acute Coding Level of Care Code Acute Business Objects Report Developer for [facility] Diagnoses Acute encephalopathy G93.40
--- NOTE | 2020-05-04 22:56 | P.PCN_ITS ---
Procedure/Consent Time out: Time Out Performed: Yes Consent: Consent for Procedure: Emergency procedure Procedure Narrative: Preoperative diagnosis: Poor IV access requiring central venous access for TPN and IV therapy Preoperative diagnosis: Poor IV access requiring central venous access for TPN and IV therapy Procedure: Placement of 7 [place] triple-lumen catheter in the left subclavian vein Anesthesia: Local Surgeon: Dr. Almeida Description of procedure: The patient's right chest was prepped and draped in a sterile manner. 10 mL of 1% lidocaine was infiltrated under the subclavian vein on the left side at the site of planned entry. An introducer needle was used to access the right subclavian vein, a guidewire passed through the introducer needle and the needle was removed. Using 11 blade, a skin incision was made at the guidewire entry site. Dilator was passed over the guidewire and a 7 [place] triple-lumen central venous catheter was passed over the guidewire and the guidewire was removed. The catheter was sutured to the skin at 20 cm. All 3 ports fahad blood and flushed easily. Postprocedure chest x-ray confirmed good position of the catheter. Acute Procedures Epistaxis Control: Time out performed: Yes
--- NOTE | 2020-05-04 23:28 | PC.NURSE ---
Event information Pt has had orders for a PICC line since 05-03-20. It is unclear exactly why the line was not placed before now. It was attempted, but unsuccessful. Pt has had two IVs that were questionable. At about 2130, the IV in the right AC began leaking and came out. 15 minutes later, the IV in the left AC also went bad. Ultrasound was used to attempt to get IV access. It was unsuccessful. Dr. Crook was notified of the intubated pt having no IV access. Kelvin bobo was also notified. Kelvin bobo stated ER physician was unable to come put in a central line because of a full ED. Dr. Crook told nurse to contact anesthesia receptionist nurse. First call did not answer the phone. Second call stated someone would be in . Anesthesia later called, and stated a central line was recommended.Dr. Crook contacted Dr. Almeida who agreed to come place a central line. Pt's next of kin (his ) was called. Nurse was unable to get in touch with pt's . Central line placed. Xray confirmed placement.
[2020-05-05] VITALS (76 sets, daily range): BP systolic 100–222; BP diastolic 65–129; PULSE 68–99; RESP 14–18; TEMP -12.1–38.3; O2SAT 81–97; BMI 40.0
[2020-05-05] MEDS: enoxaparin 40 mg/0.4 mL Syringe SUBCUT (01:12)
[2020-05-05] MEDS: dexamethasone 4 mg/mL INJ 3 MG IVP (01:12)
[2020-05-05] MEDS: propofol 1,000 MG/100 ML INJ 24.5 MG IV ×5 (02:01→17:58)
[2020-05-05] MEDS: ipratropium-albuterol 3 mL Neb INHALATION ×5 (03:49→20:52)
[2020-05-05] MEDS: FUROsemide 10 mg/mL SDV 4mL 40 MG IVP (04:57)
[2020-05-05 05:35] LABS: Basophils % 0.1 %; Eosinophils % 0.3 %; Hematocrit 46.1 % (42.0-52.0); Hemoglobin 13.9 g/dL (11.7-16.6); Lymphocytes # 1.3 10^3/uL (0.8-4.8); Lymphocytes % 10.6 %; Mean Corpuscular HGB Conc 30.2 g/dL (30.0-36.0); Mean Corpuscular Hemoglobin 30.4 pg (28.0-34.0); Mean Corpuscular Volume 100.9 fL (80-94); Mean Platelet Volume 11.2 fL (7.4-10.4); Monocytes # 1.3 10^3/uL (0.2-0.9); Monocytes % 10.9 %; Neutrophils # 9.31 10^3/uL (1.8-7.7); Neutrophils % 77.6 %; Nucleated Red Blood Cells % 0 %; Platelet Count 200 10^3/cmm (130-400); Red Blood Count 4.57 10^6/uL (4.1-5.3); Red Cell Distribution Width 14.7 % (12.1-15.1)
[2020-05-05 06:11] LABS: Alanine Aminotransferase 144 U/L (0-41); Albumin Level 3.2 g/dL (3.5-5.2); Alkaline Phosphatase 58 IU/L (40-130); Anion Gap 14.7 (5-19); Aspartate Amino Transferase 123 U/L (0-40); Blood Urea Nitrogen 33 mg/dL (6-20); Calcium 9.9 mg/dL (8.5-10.5); Carbon Dioxide 26 mmol/L (22-29); Chloride 103 mmol/L (98-107); Glomerular Filtration Rate 69.5 mL/min (90-130); Glucose 121 mg/dL (65-115); Osmolality Calculated 297 mOsm/kg (285-295); Potassium 4.7 mmol/L (3.5-5.1); Sodium 139 mmol/L (136-145); Total Bilirubin 0.6 mg/dL (0.15-1.2); Total Protein 6.2 g/dL (6.6-8.7)
[2020-05-05 06:18] LABS: NT Pro B Type Natriuretic Pept 433 pg/mL (0-125)
[2020-05-05] MEDS: levofloxacin-dextrose 5 % 750 MG/150 ML PREMIX 10 MG IV (06:33)
[2020-05-05 08:05] LABS: Glucose Point of Care 121 mg/dL (70-110)
--- NOTE | 2020-05-05 08:41 | XRR_ITS ---
PROCEDURE INFORMATION: Exam: XR Chest, 1 View Exam date and time: 05/05/2020 7:55 AM Age: 54 years old Clinical indication: Device placement; Ett placement (vent status); Shortness of breath; Additional info: SOB TECHNIQUE: Imaging protocol: XR of the chest Views: 1 view. COMPARISON: CR XR chest 1V portable [id number] 05/04/2020 10:33 PM FINDINGS: Tubes, catheters and devices: A nasogastric tube and left subclavian catheter projects in satisfactory position. An endotracheal tube is present with the tip at the T1-2 level. Lungs: The left base is opacified consistent with airspace consolidation or atelectasis. This has not changed since previous study. Mild atelectasis is present in the medial right base which is stable. Pleural space: There is a left pleural effusion. No pneumothorax is seen. Heart/Mediastinum: Unremarkable. No cardiomegaly. Bones/joints: Unremarkable. XR/XR chest 1V portable [id number] IMPRESSION: 1. The tip of the endotracheal tube is present at the T1-2 level. 2. Stable left basilar consolidation/atelectasis and pleural effusion.
[2020-05-05] MEDS: folic acid 1 mg Tablet PO (09:27)
[2020-05-05] MEDS: aspirin 81 mg Chew Tablet PO (09:27)
[2020-05-05] MEDS: pantoprazole 40 mg SDV IVP (09:27)
[2020-05-05] MEDS: docusate sodium 100 mg Capsule PO (09:27)
[2020-05-05] MEDS: thiamine 100 mg Tablet PO (09:27)
[2020-05-05 11:19] LABS: Glucose Point of Care 100 mg/dL (70-110)
--- NOTE | 2020-05-05 12:18 | PM.PN ---
Subjective Subjective: Interval history: Intubated, sedated. Vitals/I&O/Wt Last Vital Signs Temp 98.6 F 05/05/20 11:26 Pulse 69 05/05/20 11:19 Resp 18 05/05/20 11:18 BP 111/69 05/05/20 10:00 Pulse Ox 94 05/05/20 11:18 05/04/20 05/05/20 05/05/20 22:59 06:59 14:59 Intake Total 524.089 / 804.734 335.308 / 1140.042 255.400 / 255.400 Output Total 800 / 1600 400 / 2000 1650 / 1650 Balance -275.911 / -795.266 -64.692 / -859.958 -1394.600 / -1394.600 Weight last 48 hrs Weight 130.136 kg Weight 130.317 kg Physical Exam Const: COMMON NORMALS: no acute distress OTHER: Intubated, sedated. HENMT: COMMON NORMALS: oropharynx normal Eye: COMMON NORMALS: Equal, round and reactive pupils present PUPIL: Yes Equal, round and reactive pupils present Neck/C-Spine: COMMON NORMALS: no JVD Resp: COMMON NORMALS: normal respiratory effort and clear to auscultation bilaterally AUSCULTATION: clear to auscultation bilaterally OTHER: Minimally diminished air entry. Cardio: COMMON NORMALS: no JVD, regular rhythm, S1 normal heart sound present, S2 normal heart sound present and No murmurs present (Cardio) RHYTHM: regular rhythm HEART SOUNDS: S1 normal heart sound present and S2 normal heart sound present GI: COMMON NORMALS: Normal to inspection, nondistended, normoactive bowel sounds present, Soft to palpation and non-tender PALPATION: Yes Soft to palpation Extremity: COMMON NORMALS: no joint enlargement GENERAL: Yes edema (Improving 2+ only below the ankles currently) Neuro: COMMON NORMALS: moves all extremities Skin: COMMON NORMALS: no rashes or lesions noted GENERAL SKIN EXAM: no rashes or lesions noted Urinary Catheter Management^: Vinson: Cath Placed During This Visit: yes Reason for Continuing Indwelling Catheter: Accurate Measurement of Urinary Output in Critically Ill Patients Urinary Catheter Date of Insertion: 04/29/20 Urinary Catheter Time of Insertion: 21:35 Data : 05/05/20 04:54 05/05/20 04:54 Micro: Microbiology 10/04/20 20:30 Blood Culture - Final Blood NO GROWTH AFTER 5 DAYS 04/29/20 18:02 Blood Culture - Final Blood NO GROWTH AFTER 5 DAYS A&P Assessment and plan (1) Acute encephalopathy: Persistent, secondary to severe alcohol withdrawal. He has not been doing well with weaning sedation. Currently on propofol, fentanyl, Versed. Liver parameters did increase little bit, cannot tell a from injury secondary alcohol, or some of the medications. We will try to add Precedex, try to wean down propofol if possible. Triglyceride levels were okay. Per discussion with door to door sales representative we are trying also with some additional doses with phenobarbital as adjunctive therapy for severe alcohol withdrawal. Repeat [address] head without bleeding. With noted bilateral mastoid effusions, also mild mucosal thickening in ethmoid air cells, fluid in posterior nasopharynx. does report he has had chronic sinusitis for a while. I do not see erythema, swelling on examination over mastoid processes. Doubt that there is an with infection. LP unfortunately could not be obtained bedside due to body habitus. IR declined to attempt due to similar reasons. Continues to become restless and tight sedation is weaned. With history alcoholism, encephalopathy will assess CT head. We will go ahead and for now continue Versed, titrated triglyceride level. Continue fentanyl. Due to difficulties with IV access, requested placement of PICC line, but could not be obtained. Central line placed 05/04. EEG without suggestion of seizure. Secondary to severe alcohol withdrawal. He is a heavy drinker at baseline. Continue to reassess mental status, attempt to wean sedation. Continue Ativan as needed per CIWA protocol. Thiamine, folic acid, multivitamins. Decreased Decadron. Taper dose as tolerating. Tolerating tube feeds. Goal 60 ml/h. Prophy lovenox. Status: Acute (2) Acute respiratory failure with hypoxia and hypercapnia: Overnight oxygenation slightly worse. FiO2 up to 60. PEEP 8. Hold off on decraesing decadron further for now. Received a dose of lasix. In negative balance. FiO2 somewhat better down to 50%. For now continue Levaquin for pneumonia. Also left lower lung infiltrate noted on chest x-ray. WBC count up to 12. Monitor condition, if improvement stalls, or worsening will broaden antibiotic regimen. Sputum cultures. Improving lower extremity edema. Mild RV dilation is noted on echocardiogram. Discussed with his . This may be responsible for the peripheral edema we are seeing. This appears to be decreasing. Urine output is good. BNP elevated on presentation, although in the setting of acute kidney injury. Troponin was elevated, but down to 57. Echocardiogram with poor ultrasonic window, LV appears to be normal size and ejection fraction. Right ventricle mildly dilated, possibly normal EF. Discussed with his cannot exclude that does not have some underlying coronary disease, and would benefit from nonemergent stress test assessment after he recovers. Low-dose aspirin. Hold off on statin due to transaminitis. Heart rate low this morning. Received labetalol overnight. If heart rate improves add scheduled beta-subhash. Other conditions include smoking. History of COPD. Possible LOPEZ. Negative COVID-19 PCR. Rapid negative. While in ER was under care off RN who later tested positive for COVID-19. Per report all appropriate for PE was worn. Monitor for recurrence of any symptoms. This was discussed yesterday with his . She understands the risks to him, and also to her in case he contracted illness, however, prefers to continue visitation with a mask and precautions. Given progression of infiltrate on chest x-ray will assess rapid COVID-19 test. Status: Acute (3) Mixed acid base balance disorder: Respiratory acidosis with improvement. Status: Acute (4) Acute kidney injury: JIMMY on CKD resolving. ALISA negative. ASO negative. Monitor I&O. Renal function. Blood pressures. Status: Acute (5) Hyperkalemia: Potassium improved. Continue to monitor. Hold BERENICE inhibitor. Status: Acute (6) COPD (chronic obstructive pulmonary disease): Continue Levaquin, hold off on further decreasing Decadron for now due to worsening and hypoxia, continue nebs. Sputum culture. 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 Status: Chronic (9) Elevated troponin: Suspect type II process currently, does not have a known history of coronary artery disease Suspected secondary to hypoxic respiratory for current presentation. Improvement in oxygenation troponin down to 57. Would benefit from additional nonemergent evaluation for underlying coronary disease. Status: Acute Additional A&P Information Has had atrial fibrillation in the past during a respiratory illness Transient elevation in lactic acidosis suspect due to hypoxemia Elevation in several inflammatory markers: Pending ANCA. ALISA is negative. ASO negative. Attestations Medical Necessity Statement*: Continue admission for assessment and management of severe alcohol withdrawal with acute encephalopathy requiring IV sedation, mechanical ventilatory support. 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
[2020-05-05] MEDS: dexmedetomidine 400 MCG in sodium chloride 0.9% (100 ml) 100 ML IV (13:14)
[2020-05-05] MEDS: PHENobarbital 130 mg/mL SDV 1 mL IV (14:08)
[2020-05-05 14:15] LABS: SARS Covid-2 Antigen Negative (Negative)
--- NOTE | 2020-05-05 14:54 | PC.RESP ---
no SBT done per . NSG.
[2020-05-05] MEDS: LORazepam 2 mg/mL INJ 1 mL IVP ×2 (15:38→22:35)
[2020-05-05] MEDS: labetalol 5 mg/mL SDV 20mL 20 MG IVP (16:37)
[2020-05-05] MEDS: labetalol 5 mg/mL SDV 20mL 40 MG IVP (17:29)
[2020-05-05] MEDS: labetalol 5 mg/mL SDV 20mL 80 MG IVP (17:58)
[2020-05-05] MEDS: nicardipine 20 MG/200 ML PREMIX 50 MG IV ×2 (20:04→22:54)
[2020-05-05] MEDS: piperacillin-tazobactam 3.375 GM in sodium chloride 0.9% (plus) 50 ML IV (20:05)
[2020-05-05] MEDS: acetaminophen 325 mg Tablet 650 MG PO (20:33)
[2020-05-05] MEDS: haloperidol inj 5 mg/mL INJ 1 mL 4 MG IVP (21:53)
--- NOTE | 2020-05-05 22:38 | PC.NURSE ---
VERSED DOSE ORDER CHANGE Dr. Crook contacted about pt being maxed out on precedex, fentanyl, and versed. Dr. Robertson ordered propofol to be d/c based on AST/ALT. Dr. Crook changed versed max to 8. said to bump to 6 to start with and a new max of 8.
[2020-05-05] MEDS: dexmedetomidine 400 MCG in sodium chloride 0.9% (100 ml) 100 ML 16.9 MCG IV (22:58)
[2020-05-06] VITALS (92 sets, daily range): BP systolic 124–174; BP diastolic 79–102; PULSE 66–98; RESP 14–16; TEMP 36.5–37.4; O2SAT 87–96; BMI 39.3
[2020-05-06] MEDS: enoxaparin 40 mg/0.4 mL Syringe SUBCUT (00:53)
[2020-05-06] MEDS: dexamethasone 4 mg/mL INJ 3 MG IVP (00:53)
[2020-05-06] MEDS: ipratropium-albuterol 3 mL Neb INHALATION ×5 (00:59→20:04)
[2020-05-06] MEDS: haloperidol inj 5 mg/mL INJ 1 mL 2 MG IVP ×3 (01:02→17:12)
[2020-05-06] MEDS: nicardipine 20 MG/200 ML PREMIX 50 MG IV ×5 (02:47→17:57)
[2020-05-06] MEDS: OLANZapine 10 mg VIAL IM (02:59)
[2020-05-06] MEDS: dexmedetomidine 400 MCG in sodium chloride 0.9% (100 ml) 100 ML 23.7 MCG IV ×2 (03:39→13:48)
[2020-05-06] MEDS: piperacillin-tazobactam 3.375 GM in sodium chloride 0.9% (plus) 50 ML IV ×3 (03:39→19:55)
[2020-05-06 03:42] LABS: ABG PCO2 49.7 mmHg (35-45); ABG PH Result 7.37 (7.35-7.45); Alveolar-Arterial Oxygen Gradi 74.6 mmHg (5-10); Arterial Blood Gas Hematocrit 47.9 % (42-52); Blood Gas Allen Test Pos; Blood Gas Sample Site Radial, right; Blood Gas Sample Type Arterial; Carboxyhemoglobin 1.3 %THgb (0.4-20.1); HCO3 ABG 28.4 mmol/L (22-26); HGB O2 Sat 92.7 % (95-100); Ionized Calcium Level - ABG 1.3 mmol/L (1.1-1.4); Methemoglobin 0.6 % (0.4-1.5); Oxygen Device VENT; Oxygen Saturation ABG 94.6; PO2 ABG 74.5 mmHg (80.0-100.0); Potassium Level - ABG 4.1 mmol/L (3.5-5.0); Total Hemoglobin 15.6 g/dL (14-18)
[2020-05-06 04:13] LABS: Glucose Point of Care 120 mg/dL (70-110)
[2020-05-06 04:13] LABS: Glucose Point of Care 104 mg/dL (70-110)
[2020-05-06 05:34] LABS: Basophils % 0.3 %; Eosinophils # 0.1 10^3/uL (0.0-0.8); Eosinophils % 1.2 %; Hematocrit 50.5 % (42.0-52.0); Hemoglobin 15.1 g/dL (11.7-16.6); Lymphocytes # 0.9 10^3/uL (0.8-4.8); Mean Corpuscular HGB Conc 29.9 g/dL (30.0-36.0); Mean Corpuscular Hemoglobin 30.1 pg (28.0-34.0); Mean Corpuscular Volume 100.8 fL (80-94); Mean Platelet Volume 11.6 fL (7.4-10.4); Monocytes # 1.1 10^3/uL (0.2-0.9); Monocytes % 9.5 %; Neutrophils # 9.19 10^3/uL (1.8-7.7); Neutrophils % 80.4 %; Nucleated Red Blood Cells % 0 %; Platelet Count 208 10^3/cmm (130-400); Red Blood Count 5.01 10^6/uL (4.1-5.3); Red Cell Distribution Width 14.6 % (12.1-15.1); White Blood Count 11.5 10^3/uL (4.0-10.0)
[2020-05-06 05:55] LABS: Alanine Aminotransferase 121 U/L (0-41); Albumin Level 3.4 g/dL (3.5-5.2); Alkaline Phosphatase 65 IU/L (40-130); Aspartate Amino Transferase 85 U/L (0-40); Blood Urea Nitrogen 31 mg/dL (6-20); Calcium 9.6 mg/dL (8.5-10.5); Carbon Dioxide 26 mmol/L (22-29); Chloride 103 mmol/L (98-107); Globulin 3.4 g/dL (1.3-4.6); Glomerular Filtration Rate 100.4 mL/min (90-130); Glucose 135 mg/dL (65-115); Osmolality Calculated 299 mOsm/kg (285-295); Sodium 140 mmol/L (136-145); Total Bilirubin 0.7 mg/dL (0.15-1.2); Total Protein 6.8 g/dL (6.6-8.7)
[2020-05-06] MEDS: levofloxacin-dextrose 5 % 750 MG/150 ML PREMIX 100 MG IV (06:09)
--- NOTE | 2020-05-06 06:32 | XRR_ITS ---
PROCEDURE INFORMATION: Exam: XR Chest, 1 View Exam date and time: 05/06/2020 6:34 AM Age: 54 years old Clinical indication: Shortness of breath; Additional info: SOB TECHNIQUE: Imaging protocol: XR of the chest Views: 1 view. COMPARISON: CT chest abd pel w con* 05/06/2020 9:55 AM FINDINGS: Tubes, catheters and devices: An endotracheal tube and nasogastric tube projects in satisfactory position. A central venous catheter projects on the SVC. Lungs: The left lung base is opacified which is consistent with lower lobe atelectasis and pleural effusion. There is subsegmental atelectasis in the medial right lung base. The pulmonary findings are similar to old examination. Pleural space: Unremarkable. No pleural effusion. No pneumothorax. Heart/Mediastinum: Unremarkable. No cardiomegaly. Bones/joints: Unremarkable. XR/XR chest 1V portable [id number] IMPRESSION: 1. Satisfactory endotracheal tube position. 2. Left lower lobe atelectasis and subsegmental right basilar atelectasis unchanged.
--- NOTE | 2020-05-06 06:36 | CTR_ITS ---
PROCEDURE INFORMATION: Exam: CT Chest With Contrast Exam date and time: 05/06/2020 7:34 AM Age: 54 years old Clinical indication: Bloating; Shortness of breath; Additional info: Hypoxic respiratory failure R/O pe TECHNIQUE: Imaging protocol: Computed tomography of the chest with intravenous contrast. Radiation optimization: All CT scans at this facility use at least one of these dose optimization techniques: automated exposure control; mA and/or kV adjustment per patient size (includes targeted exams where dose is matched to clinical indication); or iterative reconstruction. Contrast material: OMNI 350; Contrast volume: 95 ml; Contrast route: INTRAVENOUS (IV); COMPARISON: No relevant prior studies available. RADIATION DOSE METRICS: Total DLP (mGy-cm): 3206.01 FINDINGS: Tubes, catheters and devices: A nasogastric tube is present in the stomach. An endotracheal tube and central venous catheter are present in satisfactory position. A nasogastric tube is present in the stomach Lungs: There is bilateral lower lobe atelectasis greater on the left side. Pleural space: Small bilateral pleural effusions are present. There is no pneumothorax. Heart: Unremarkable. No cardiomegaly. No pericardial effusion. Aorta: Unremarkable. No aortic aneurysm. Lymph nodes: Unremarkable. No enlarged lymph nodes. Bones/joints: DJD is present in the spine with joint space narrowing sclerosis and osteophyte formation. Soft tissues: Unremarkable. Other findings: There is a 2 cm sebaceous cyst near the midline of the back. IMPRESSION: 1. Prominent bibasilar atelectasis. 2. Small bilateral pleural effusions. PROCEDURE INFORMATION: Exam: CT Abdomen And Pelvis With Contrast Exam date and time: 05/06/2020 7:34 AM Age: 54 years old Clinical indication: Bloating; Shortness of breath; Additional info: Hypoxic respiratory failure R/O pe TECHNIQUE: Imaging protocol: Computed tomography of the abdomen and pelvis with intravenous contrast. Radiation optimization: All CT scans at this facility use at least one of these dose optimization techniques: automated exposure control; mA and/or kV adjustment per patient size (includes targeted exams where dose is matched to clinical indication); or iterative reconstruction. Contrast material: OMNI 350; Contrast volume: 95 ml; Contrast route: INTRAVENOUS (IV); COMPARISON: No relevant prior studies available. RADIATION DOSE METRICS: Total DLP (mGy-cm): 3206.01 FINDINGS: Tubes, catheters and devices: A nasogastric tube is present in the stomach. A Vinson catheter is present in the urinary bladder. Liver: There is a tiny less than 1 cm benign cyst in the right lobe of the liver. Otherwise the liver is unremarkable. Gallbladder and bile ducts: Normal. No calcified stones. No ductal dilation. Pancreas: Normal. No ductal dilation. Spleen: Normal. No splenomegaly. Adrenals: Normal. No mass. Kidneys and ureters: Normal. No hydronephrosis. Stomach and bowel: Unremarkable. No obstruction. No mucosal thickening. Appendix: No evidence of appendicitis. Intraperitoneal space: Unremarkable. No free air. No significant fluid collection. Vasculature: Unremarkable. No abdominal aortic aneurysm. Lymph nodes: Unremarkable. No enlarged lymph nodes. Urinary bladder: The bladder is collapsed around a Vinson catheter.. Reproductive: Unremarkable as visualized. Bones/joints: DJD is present in the spine with joint space narrowing sclerosis and osteophyte formation. Soft tissues: Unremarkable. CT/CT chest abd pel w con* IMPRESSION: 1. No acute abnormalities are seen in the abdomen and pelvis. Radiation Dose CTDIVOL = (mGy): DLP = 3206.01~3206.01 (mGy-cm)
--- NOTE | 2020-05-06 06:56 | CTR_ITS ---
PROCEDURE INFORMATION: Exam: CT Head Without Contrast Exam date and time: 05/06/2020 7:34 AM Age: 54 years old Clinical indication: Altered mental status/memory loss; Additional info: AMS TECHNIQUE: Imaging protocol: Computed tomography of the head without contrast. Radiation optimization: All CT scans at this facility use at least one of these dose optimization techniques: automated exposure control; mA and/or kV adjustment per patient size (includes targeted exams where dose is matched to clinical indication); or iterative reconstruction. COMPARISON: No relevant prior studies available. RADIATION DOSE METRICS: Total DLP (mGy-cm): 871.79 FINDINGS: Brain: Normal. No hemorrhage. Unremarkable white matter. No mass effect. Cerebral ventricles: No ventriculomegaly. Bones/joints: Unremarkable. No acute fracture. Paranasal sinuses: There is scattered mucosal thickening in the paranasal sinuses. Mastoid air cells: Fluid is present in the mastoid air cells greater on the left side. Soft tissues: Unremarkable. CT/CT head wo con* [id number] IMPRESSION: No acute abnormalities are seen in the brain. Radiation Dose CTDIVOL = (mGy): DLP = 871.79 (mGy-cm)
[2020-05-06] MEDS: iohexol 350 mg/mL 100 mL Btl IV (10:09)
[2020-05-06] MEDS: pantoprazole 40 mg SDV IVP (10:32)
--- NOTE | 2020-05-06 11:49 | P.PN_ITS ---
Subjective Subjective: Interval history: Intubated, sedated. Prescription with RN overnight he was actually although still restless, answering some questions to the nighttime nursing staff. This appears to be a change in good direction. Overnight also difficulties with oxygenation. Vitals/I&O/Wt Last Vital Signs Temp 97.9 F 05/06/20 08:00 Pulse 70 05/06/20 08:50 Resp 14 05/06/20 11:11 BP 146/85 05/06/20 08:45 Pulse Ox 93 05/06/20 08:45 05/05/20 05/06/20 05/06/20 22:59 06:59 14:59 Intake Total 1035.023 / 1344.233 633.170 / 1977.403 642.5 / 642.5 Output Total 400 / 2700 1950 / 4650 Balance 635.023 / -1355.767 -1316.830 / -2672.597 642.5 / 642.5 Weight last 48 hrs Weight 127.913 kg Weight 130.136 kg Physical Exam Const: COMMON NORMALS: no acute distress OTHER: Intubated, sedated. HENMT: COMMON NORMALS: oropharynx normal Eye: COMMON NORMALS: Equal, round and reactive pupils present PUPIL: Yes Eq ual, round and reactive pupils present Neck/C-Spine: COMMON NORMALS: no JVD Resp: COMMON NORMALS: normal respiratory effort and clear to auscultation bilaterally AUSCULTATION: clear to auscultation bilaterally OTHER: Diminished air entry. Cardio: COMMON NORMALS: no JVD, regular rhythm, S1 normal heart sound present, S2 normal heart sound present and No murmurs present (Cardio) RHYTHM: regular rhythm HEART SOUNDS: S1 normal heart sound present and S2 normal heart sound present GI: COMMON NORMALS: Normal to inspection, nondistended, normoactive bowel sounds present, Soft to palpation and non-tender PALPATION: Yes Soft to palpation Extremity: COMMON NORMALS: no joint enlargement GENERAL: Yes edema (Improving 2+ only below the ankles currently) Neuro: COMMON NORMALS: moves all extremities Skin: COMMON NORMALS: no rashes or lesions noted GENERAL SKIN EXAM: no rashes or lesions noted Urinary Catheter Management^: Vinson: Cath Placed During This Visit: yes Reason for Continuing Indwelling Catheter: Accurate Measurement of Urinary Output in Critically Ill Patients Urinary Catheter Date of Insertion: 04/29/20 Urinary Catheter Time of Insertion: 21:35 Data : 05/06/20 03:48 05/06/20 03:48 Micro: Microbiology 05/05/20 13:25 Gram Stain - Final Sputum - Endotracheal Tube Aspirate A&P Assessment and plan (1) Acute encephalopathy: Appears to have some improvement in mental status as was reported answering few questions overnight. Propofol had been weaned off. Subsequently restless again, so sedation was resumed. This is a good sign. Would attempt to avoid propofol. Triglycerides were okay, however, would rather avoid any risk of propofol infusion syndrome. Blood pressures are better, but still continues on nicardipine drip for now. No overnight difficulties with oxygenation. Some residuals noted with tube feedings, so these were held overnight. Abdominal thought to be distended by nursing staff this morning, was evaluated by CT abdomen pelvis to exclude possible obstruction or other issue, with CT AP without acute abnormality. Resume tube feeds at trophic feeds, and will slowly escalate again depending on how he tolerates. Persistent, secondary to severe alcohol withdrawal. He has not been doing well with weaning sedation. Currently on propofol, fentanyl, Versed. Liver parameters did increase little bit, cannot tell a from injury secondary alcohol, or some of the medications. Triglyceride levels were okay. Yesterday discussed with organ tuner electronic at [facility], recommended against transfer, continuation with broadened antibiotics, focus sedation on Versed, Precedex, fentanyl. Recommended also intensifying his steroid regimen somewhat with Solu- Medrol. Yesterday we also repeated phenobarbital dose. Continue to wean sedation daily reassess mental status. CT head without bleeding. With noted bilateral mastoid effusions, also mild mucosal thickening in ethmoid air cells, fluid in posterior nasopharynx. does report he has had chronic sinusitis for a while. I do not see erythema, swelling on examination over mastoid processes. Doubt that there is an with infection. LP unfortunately could not be obtained bedside due to body habitus. IR declined to attempt due to similar reasons. Cleaning Manager or at [facility] recommended to only broaden antibiotics at this time. EEG without suggestion of seizure. Central line placed 05/04. He is a heavy drinker at baseline. Continue Ativan as needed per [facility] protocol. Thiamine, folic acid, multivitamins. Prophy lovenox. Attempted to reach again for update but no answer. Status: Acute (2) Acute respiratory failure with hypoxia and hypercapnia: Overnight FiO2 up to 100%. PEEP is only at 8. Not exactly sure why, but I am being told concern was to avoid unilateral lung or overexpansion. I do not see a large unilateral effusion. He has some bilateral lower lobe atelectasis somewhat greater atelectasis on the left side. Will increase PEEP gradually see how he responds. Try to wean down FiO2. Requested check plateau pressure. Consider pulmonology consultation on Thursday once they are back. We recheck rapid COVID-19 test due to earlier exposure and this was negative. Antibiotic regimen broadened as recommended per organ tuner electronic at [facility]. We will also change steroids to Solu-Medrol every 12 hours as has persistently diminished air entry. Previously fluid overload, but not particularly swollen currently with overall improvement in edema, weight appears to be closer to his dry weight back in October. Monitor MAXX, volume status this may need some intermittent Lasix still due to all the infusions he is receiving. Troponin was elevated, but down to 57. Suspected due to demand ischemia. Echocardiogram with poor ultrasonic window, LV appears to be normal size and ejection fraction. Right ventricle mildly dilated, possibly normal EF. May have underlying coronary disease, and would benefit from nonemergent stress test assessment after he recovers. Low-dose aspirin. Hold off on statin due to transaminitis. Hold off on beta-subhash while requiring Precedex. Consider addition when weaning. Other conditions include smoking. History of COPD. Possible LOPEZ. Negative COVID-19 PCR. Rapid negative. While in ER was under care off RN who later tested positive for COVID-19. Per report all appropriate for PE was worn. Monitor for recurrence of any symptoms. This was discussed yesterday with his . She understands the risks to him, and also to her in case he contracted illness, however, prefers to continue visitation with a mask and precautions. Status: Acute (3) Mixed acid base balance disorder: Improved. Status: Acute (4) Acute kidney injury: JIMMY on CKD resolving. ALISA negative. ASO negative. Monitor I&O. Renal function. Blood pressures. Status: Acute (5) Hyperkalemia: Potassium improved. Continue to monitor. Hold BERENICE inhibitor. Status: Acute (6) COPD (chronic obstructive pulmonary disease): Continue Levaquin, hold off on further decreasing Decadron for now due to worsening and hypoxia, continue nebs. Sputum culture. 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 Status: Chronic (9) Elevated troponin: Suspect type II process currently, does not have a known history of coron di artery disease Suspected secondary to hypoxic respiratory for current presentation. Improvement in oxygenation troponin down to 57. Would benefit from additional nonemergent evaluation for underlying coronary disease. Status: Acute Additional A&P Information Has had atrial fibrillation in the past during a respiratory illness Transient elevation in lactic acidosis suspect due to hypoxemia Elevation in several inflammatory markers: Pending ANCA. ALISA is negative. ASO negative. Attestations Medical Necessity Statement*: Continue admission for assessment management of respiratory failure, acute encephalopathy with severe alcohol withdrawal, requiring IV sedation and mechanical ventilatory support. Coding Level of Care Code Acute Nail Sticker for [facility] Fwd Diagnoses Acute encephalopathy G93.40 Acute respiratory failure with hypoxia and hypercapnia J96.01; J96.02 Mixed acid base balance disorder E87.4 Acute kidney injury N17.9 Hyperkalemia E87.5 COPD (chronic obstructive pulmonary disease) J44.1 COPD type: COPD with acute exacerbation Aortic stenosis I06.0 Cardiac valve disease etiology: rheumatic Alcohol use Z72.89 Elevated troponin R79.89
[2020-05-06] MEDS: LORazepam 2 mg/mL INJ 1 mL IVP ×2 (15:16→20:31)
[2020-05-06] MEDS: PHENobarbital 130 mg/mL SDV 1 mL IV (15:43)
[2020-05-06 16:55] LABS: Glucose Point of Care 137 mg/dL (70-110)
[2020-05-06 16:55] LABS: Glucose Point of Care 152 mg/dL (70-110)
[2020-05-06 20:24] LABS: Glucose Point of Care 149 mg/dL (70-110)
[2020-05-06 20:52] LABS: Glucose Point of Care 133 mg/dL (70-110)
[2020-05-06] MEDS: nicardipine 20 MG/200 ML PREMIX 75 MG IV (22:05)
[2020-05-06] MEDS: nicardipine 20 MG/200 ML PREMIX 125 MG IV (23:51)
[2020-05-07] VITALS (110 sets, daily range): BP systolic 119–174; BP diastolic 67–116; PULSE 62–96; RESP 4–14; TEMP 36.7–37; O2SAT 89–100
[2020-05-07] MEDS: ipratropium-albuterol 3 mL Neb INHALATION ×7 (00:55→23:15)
[2020-05-07] MEDS: enoxaparin 40 mg/0.4 mL Syringe SUBCUT (01:05)
[2020-05-07] MEDS: dexmedetomidine 400 MCG in sodium chloride 0.9% (100 ml) 100 ML 23.7 MCG IV ×3 (01:39→10:04)
[2020-05-07] MEDS: LORazepam 2 mg/mL INJ 1 mL IM (04:01)
[2020-05-07] MEDS: piperacillin-tazobactam 3.375 GM in sodium chloride 0.9% (plus) 50 ML IV ×3 (04:01→19:47)
[2020-05-07 05:03] LABS: Basophils % 0.1 %; Hematocrit 48.3 % (42.0-52.0); Lymphocytes # 0.6 10^3/uL (0.8-4.8); Lymphocytes % 4.9 %; Mean Corpuscular HGB Conc 31.1 g/dL (30.0-36.0); Mean Corpuscular Hemoglobin 29.9 pg (28.0-34.0); Mean Corpuscular Volume 96.4 fL (80-94); Mean Platelet Volume 11.8 fL (7.4-10.4); Monocytes # 0.6 10^3/uL (0.2-0.9); Monocytes % 4.5 %; Neutrophils # 11.37 10^3/uL (1.8-7.7); Neutrophils % 89.6 %; Nucleated Red Blood Cells % 0 %; Platelet Count 228 10^3/cmm (130-400); Red Blood Count 5.01 10^6/uL (4.1-5.3); Red Cell Distribution Width 14.6 % (12.1-15.1); White Blood Count 12.7 10^3/uL (4.0-10.0)
[2020-05-07 05:16] LABS: Alanine Aminotransferase 78 U/L (0-41); Albumin Level 3.3 g/dL (3.5-5.2); Alkaline Phosphatase 61 IU/L (40-130); Anion Gap 17.2 (5-19); Aspartate Amino Transferase 34 U/L (0-40); Blood Urea Nitrogen 28 mg/dL (6-20); Calcium 9.8 mg/dL (8.5-10.5); Carbon Dioxide 23 mmol/L (22-29); Chloride 106 mmol/L (98-107); Globulin 3.4 g/dL (1.3-4.6); Glomerular Filtration Rate 100.4 mL/min (90-130); Glucose 157 mg/dL (65-115); Magnesium 1.9 mg/dL (1.7-2.3); Osmolality Calculated 303 mOsm/kg (285-295); Potassium 4.2 mmol/L (3.5-5.1); Sodium 142 mmol/L (136-145); Total Bilirubin 0.6 mg/dL (0.15-1.2); Total Protein 6.7 g/dL (6.6-8.7)
[2020-05-07 05:43] LABS: ABG PCO2 33.7 mmHg (35-45); ABG PH Result 7.48 (7.35-7.45); Base Excess ABG 2.3 mmol/L (-2.0-2.0); Blood Gas Sample Type Arterial; Blood Gas Tidal Volume 0.55; HCO3 ABG 25.2 mmol/L (22-26); Oxygen Device VENT; PO2 ABG 78.3 mmHg (80.0-100.0)
--- NOTE | 2020-05-07 06:00 | XR_ITS ---
WS: [id number] PORTABLE CHEST HISTORY: Hypoxia COMPARISON: 05/06/2020 Endotracheal tube ends 5 cm above the nereida. Nasogastric tube in good position with the tip below th e GE junction. Left-sided central line is along the LEFT side of the spine which is probably due to r otation. Central line was in good position on the CT from 05/06/2020. Lung volumes are decreased. Dense consolidation and obscuration of the diaphragm on the LEFT. Subsegm ental areas of atelectasis at the RIGHT lung base. Small LEFT pleural effusion. Cardiac size: Mildly enlarged cardiac silhouette. Mediastinum/Aorta: Atherosclerosis aorta. No osseous abnormality seen. XR/XR chest 1V portable [id number] IMPRESSION: 1. Endotracheal tube ends 5 cm above the nereida. 2. Nasogastric tube in good position. 3. Dense consolidation at the LEFT lung base probably combination of pneumonia , atelectasis and fluid. 4. Decreased lung volumes.
[2020-05-07 07:24] LABS: Glucose Point of Care 142 mg/dL (70-110)
[2020-05-07] MEDS: levofloxacin-dextrose 5 % 750 MG/150 ML PREMIX 100 MG IV (07:42)
[2020-05-07] MEDS: lactobacillus 1 Tablet 1 TAB PO (08:57)
[2020-05-07] MEDS: aspirin 81 mg Chew Tablet PO (08:57)
[2020-05-07] MEDS: thiamine 100 mg Tablet PO (08:57)
[2020-05-07] MEDS: pantoprazole 40 mg SDV IVP (08:57)
[2020-05-07] MEDS: folic acid 1 mg Tablet PO (08:57)
[2020-05-07] MEDS: docusate sodium 100 mg Capsule PO ×2 (08:57→17:44)
[2020-05-07] MEDS: LORazepam 2 mg/mL INJ 1 mL IVP (09:15)
--- NOTE | 2020-05-07 10:14 | PC.CHAP ---
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 shuttle car operator visit [] Patient/Family/Request visit [] Outpatient visit [] Follow-up visit [] Physician referral [] Code/Alert [] Routine visit [] Staff referral [] Actively dying [] Patient sleeping [] Family support [] [] Out of room [] Palliative care [] [] Receiving care in room [] Pre-surgical visit [] Trauma [] Long length of stay [] ICU visit [x] Other: ventilator Relational/Emotional Strength [] Patient feels connected with others/family/visitors/staff [] Distress [] Loneliness/isolation [] Abandonment Spirituality of Patient [] Person of Meg [] Attends Protestant of their Meg [] Believes in Prayer [] Reads Bible or Holiness materials [] There are Spiritual issues to be addressed Mediation Commissioner Interventions [x] Prayer [] Active listening [] Non-anxious presence [] Spiritual/emotional support [] Crisis/trauma care [] Spiritual counseling [] Bereavement support [] Provided bereavement packet [] Provided Bible/devotional materials [] Provided toy/stuffed animal, coloring book to patient or family member [] Provided Communion [] Anointing/[place] [] Salvation [x] Completed spiritual assessment [] Other: Impact on Illness or Injury [] Angry [] Fearful [] Anxious [] Often cries [] Exhaustion [] Unable to work [] Unable to attend holiness [] Unable to walk/stand [] Unable to read [] Unable to drive [] Unable to eat/drink [] Unable to sleep [] Unable to be with family [] Patient intubated [] Other: Summary Time spent with patient
[2020-05-07 11:23] LABS: Glucose Point of Care 132 mg/dL (70-110)
[2020-05-07] MEDS: nicardipine 20 MG/200 ML PREMIX 50 MG IV ×2 (11:27→16:32)
--- NOTE | 2020-05-07 11:27 | PM.PN ---
Subjective Subjective: Interval history: No acute overnight events. Leukocytosis of 12.7. Patient remains intubated and sedated currently on Precedex, Versed and fentanyl. Intermittently patient does wake up and needs doses of Ativan as well. Continues to require high FiO2 requirements of 80%. Medications: Reviewed: Yes Vitals/I&O/Wt Last Vital Signs Temp 98.6 F 05/07/20 07:00 Pulse 64 05/07/20 11:19 Resp 14 05/07/20 11:26 BP 128/68 05/07/20 10:00 Pulse Ox 96 05/07/20 11:19 05/06/20 05/07/20 05/07/20 22:59 06:59 14:59 Intake Total 938.167 / 2059.000 750.661 / 2809.661 106.083 / 106.083 Output Total 2100 / 3750 1150 / 4900 Balance -1161.833 / -1691.000 -399.339 / -2090.339 106.083 / 106.083 Weight last 48 hrs Weight 127.063 kg Weight 127.913 kg Physical Exam Narrative: EXAM NARRATIVE: GEN: Intubated, sedated CVS: S1S2 N RS: Reduced air entry right lower lobe Abd: Soft, nt/nd , bs+ PRESTRESSED CONCRETE LABORER: Unable to assess as intubated and sedated. Urinary Catheter Management^: Vinson: Cath Placed During This Visit: yes Reason for Continuing Indwelling Catheter: Accurate Measurement of Urinary Output in Critically Ill Patients Urinary Catheter Date of Insertion: 04/29/20 Urinary Catheter Time of Insertion: 21:35 Data : 05/07/20 03:47 05/07/20 03:47 Micro: Microbiology 05/05/20 13:25 Gram Stain - Final Sputum - Endotracheal Tube Aspirate Sputum Culture - Final A&P Assessment and plan (1) Acute respiratory failure with hypoxia and hypercapnia: Status: Acute (2) Delirium tremens: Status: Acute (3) Right lower lobe pneumonia: Status: Acute Qualifiers: Pneumonia type: aspiration pneumonia Aspiration pneumonia type: due to gastric secretions Qualified Code(s): J69.0 - Pneumonitis due to inhalation of food and vomit (4) COPD (chronic obstructive pulmonary disease): Status: Chronic Qualifiers: COPD type: COPD with acute exacerbation Qualified Code(s): J44.1 - Chronic obstructive pulmonary disease with (acute) exacerbation (5) Tobacco abuse: Status: Chronic (6) Hypertension: Status: Chronic Qualifiers: Hypertension type: essential hypertension Qualified Code(s): I10 - Essential (primary) hypertension (7) Acute encephalopathy: Status: Acute (8) Acute kidney injury: Status: Acute Additional A&P Information 54-year-old male brought to the emergency room on April 29 with chief complaint of dyspnea, found to have hypoxic hypercapnic respiratory failure on admission, failed BiPAP and admitted to be quickly intubated in the ER. He has remained intubated ever since. Hospital course is notable for delirium tremens for which she is currently getting treatment, need for high FiO2 requirements while remaining intubated and interval development of a right lower lobe pneumonia likely secondary to aspiration. #Alcohol withdrawal with delirium tremens. Patient is currently intubated and sedated with Precedex, Versed and fentanyl and intermittently requiring doses of Ativan. CT head on 05/06 without any acute intracranial abnormalities. Check serum ammonia levels, could potentially have hepatic encephalopathy contributing as well. Continue thiamine for possibility of Wernicke encephalopathy #Acute hypoxic and hypercapnic respiratory failure, likely to be multifactorial related to delirium tremens, underlying COPD, and interval development of right lower lobe pneumonia. CTA of the chest upon admission did not show any evidence of PE or pneumonia. Repeat CT of the chest from 05/06 did show interval development of a right lower lobe pneumonia which may be related to aspiration. Patient is currently on antibiotic coverage with Zosyn, levaquin and vancomycin Trach aspirate cx with normal respiratory amandeep, no MRSA identified. Discontinue Levaquin and vancomycin. Continue Zosyn for now. Aim for 5 days on the latter. Continue duo nebs every 4 hours scheduled. Optimize sedation. Critical care consult today to help with extubation and optimize sedation. Add nicotine patch COVID-19 PCR negative. #COPD, continue nebulization with DuoNeb as above. Hold off on any steroids for now. #Troponin elevation likely related to demand ischemia. #Aortic stenosis, last JOSE 1.6 cm? Full code DVT prophylaxis Lovenox Attestations Medical Necessity Statement*: Ongoing need for mechanical ventilation for acute respiratory failure, delirium tremens Coding Level of Care Code Acute Video Editing Internship for [facility] Diagnoses Acute respiratory failure with hypoxia and hypercapnia J96.01; J96.02 Delirium tremens F10.231 Right lower lobe pneumonia J69.0 Pneumonia type: aspiration pneumonia Aspiration pneumonia type: due to gastric secretions COPD (chronic obstructive pulmonary disease) J44.1 COPD type: COPD with acute exacerbation Tobacco abuse Z72.0 Hypertension I10 Hypertension type: essential hypertension Acute encephalopathy G93.40 Acute kidney injury N17.9
--- NOTE | 2020-05-07 12:38 | P.CONIM_ITS ---
Providers/Reason For Consult Consulting Physican/Specialty*: Pulmonary critical care medicine Reason for Consult*: Hypoxic respiratory failure requiring intubation in the setting of alcohol withdrawal Attending Physician: Maren Szymanski MD Primary Care Provider: Jose Sims MD History of Present Illness History of Present Illness Filemon Wong is a 54 year old male who presented to the hospital on April 29 with shortness of breath. According to the record, the patient was intubated in the emergency department. The patient was also noted to have desaturation on 100% oxygen post intubation. His initial arterial blood gas was 7.18, PCO2 of 90 and PO2 of 84 on BiPAP 60% o xygen. His alcohol level was 35 when initially presented to the hospital. The initial arterial blood gas is consistent with acute hypercapnic respiratory failure. The patient had a CT angiogram of the chest on admission which was negative for any pulmonary embolism. Since then the patient has remained intubated. Currently the patient is on Versed, fentanyl, Precedex. The patient has an extensive history of drinking. The patient has not had a bowel movement since he presented to the hospital. The patient was seen and examined today. He is heavily sedated. Not responsive at this point. The patient is on volume control mechanical ventilation. He had a CT scan of chest abdomen and pelvis on May 06 which revealed right lower lobe consolidation, left lower lobe atelectasis with bilateral small pleural effusion. No significant pulmonary infiltrate other than this was noted. His blood work today reveals mild leukocytosis. The patient was on Solu-Medrol. Arterial blood gas today reveals mild alkalosis. Electrolytes are normal. Chest x-ray obtained today showed small lung volumes with mediastinal shift to the left Review of Systems Narrative: Unable to obtain due to clinical condition Meds/Allergies Home Medications and Allergies Home Medications Medication Instructions Recorded Confirmed Last Taken Type albuterol sulfate 1 puff INHALATION QID PRN 11/14/19 11/14/19 11/14/19 History albuterol sulfate 2.5 mg INHALATION Q6H PRN 11/14/19 11/14/19 Unknown History levofloxacin 750 mg PO DAILY 11/14/19 11/14/19 11/13/19 History albuterol sulfate 2.5 mg INHALATION Q4H PRN 11/15/19 11/15/19 Unknown History amlodipine 10 mg PO DAILY 11/15/19 11/15/19 11/14/19 History buspirone 10 mg PO BID 11/15/19 11/15/19 Unknown History lisinopril 20 mg PO BID 11/15/19 11/15/19 Unknown History Allergies Allergy/AdvReac Type Severity Reaction Status Date / Time Sulfa (Sulfonamide Allergy ALGY-Anaphy Verified 11/14/19 09:21 Antibiotics) laxis Current Medications Current Medications Generic Name Dose Route Start Last Admin Trade Name Freq PRN Reason Stop Dose Admin Acetaminophen 650 mg 04/30/20 01:45 05/05/20 20:33 Tylenol PO 650 mg Q6H PRN Administration MILD PAIN Albuterol/Ipratropium 3 ml 05/04/20 12:00 05/07/20 08:27 Duoneb INHALATION 3 ml Q4H.RESPIRATORY DANDRE Administration Aspirin 81 mg 05/02/20 09:15 05/07/20 08:57 Aspirin Chewable PO 81 mg DAILY DANDRE Administration Dextrose 50 ml 04/30/20 01:45 05/04/20 17:36 D50w IVP 50 ml PRN PRN Administration hypoglycemia protocol Protocol Docusate Sodium 100 mg 04/30/20 09:00 05/07/20 08:57 Colace PO 100 mg BID DANDRE Administration Enoxaparin Sodium 40 mg 04/30/20 01:45 05/07/20 01:05 Lovenox SUBCUT 40 mg Q24H DANDRE Administration Folic Acid 1 mg 04/30/20 09:00 05/07/20 08:57 Folic Acid PO 1 mg DAILY DANDRE Administration Propofol 1,000 mg in 100 mls @ 0 mls/hr 04/29/20 21:15 05/05/20 22:08 Diprivan IV Infused .Q0M DANDRE Titration Protocol Per Protocol Levofloxacin/Dextrose 750 mg in 150 mls @ 100 mls/hr 05/02/20 07:00 05/07/20 11:39 Levaquin-D5w IV Infused Q24H DANDRE Infusion Protocol Fentanyl 1,000 mcg/ Sodium 100 mls @ 0 mls/hr 05/04/20 04:00 05/07/20 01:47 Chloride IV 100 mcg/hr .Q0M DANDRE 10 mls/hr Administration Protocol Per Protocol Dexmedetomidine HCl 400 mcg/ 104 mls @ 0 mls/hr 05/05/20 12:30 05/07/20 10:04 Sodium Chloride IV 0.7 mcg/kg/hr .Q0M DANDRE 23.7 mls/hr Administration Protocol Per Protocol Vancomycin HCl 1,500 mg/ 250 mls @ 166.667 mls/hr 05/05/20 20:30 05/07/20 11:39 Sodium Chloride IV Infused Q12H DANDRE Infusion Protocol As Directed Piperacillin Sod/Tazobactam 50 mls @ 12.5 mls/hr 05/05/20 20:00 05/07/20 11:35 Sod 3.375 gm/ Sodium Chloride IV 12.5 mls/hr Q8H DANDRE Administration Protocol As Directed Nicardipine/Sodium Chloride 20 mg in 200 mls @ 0 mls/hr 05/07/20 11:30 05/07/20 11:39 Cardene IV 10 mg/hr .Q0M DANDRE 100 mls/hr Titration Protocol Per Protocol Insulin Aspart 0 unit 04/30/20 21:00 05/06/20 20:34 Novolog SUBCUT Not Given BEDTIME DANDRE Protocol Insulin Aspart 0 unit 04/30/20 08:00 05/07/20 11:31 Novolog SUBCUT Not Given TIDWM DANDRE Protocol Lactobacillus Acidophilus 1 tab 04/30/20 09:00 05/07/20 08:57 Floranex PO 1 tab BID DANDRE Administration Lorazepam 2 mg 04/30/20 14:51 05/07/20 04:01 Ativan IM 2 mg Q4H PRN Administration ALCOWD Protocol Lorazepam 2 mg 04/30/20 14:51 05/07/20 09:15 Ativan IVP 2 mg PRN PRN Administration WITHDRAWAL Protocol Metoprolol Tartrate 5 mg 04/30/20 01:45 05/03/20 22:57 Metoprolol Tartrate IV 5 mg Q4H PRN Administration HR staying > 120 if SBP >110 Multivitamins/Minerals 1 tab 04/30/20 09:00 05/07/20 08:57 Thera M Plus PO 1 tab DAILY DANDRE Administration Pantoprazole Sodium 40 mg 04/30/20 09:00 05/07/20 08:57 Protonix IVP 40 mg DAILY DADNRE Administration Thiamine Mononitrate 100 mg 04/30/20 09:00 05/07/20 08:57 Vitamin B-1 PO 100 mg DAILY DANDRE Administration PFSH Acute PFSH: Medical History Alcohol use Aortic stenosis mild on echo at [place] 09/2019, JOSE 1.6 cm2 Atrial fibrillation Paroxysmal COPD (chronic obstructive pulmonary disease) with chronic hypercapnea with baseline pCO2 in the 60s History of bleeding peptic ulcer (~01/2017) from [place] Records History of rheumatic fever Hypertension Tobacco abuse Surgical History No pertinent past surgical history Family History Mother No problems noted. Father No problems noted. Social History Smoking and tobacco status: current every day smoker cigarettes Alcohol intake: current Alcohol intake frequency: few times a week Household members: spouse Vitals/I&O/Wt Last Vital Signs Temp 98.6 F 05/07/20 07:00 Pulse 64 05/07/20 11:19 Resp 14 05/07/20 11:26 BP 128/68 05/07/20 10:00 Pulse Ox 96 05/07/20 11:19 05/06/20 05/07/20 05/07/20 22:59 06:59 14:59 Intake Total 938.167 / 2059.000 750.661 / 2809.661 1264.000 / 1264.000 Output Total 2100 / 3750 1150 / 4900 Balance -1161.833 / -1691.000 -399.339 / -2090.339 1264.000 / 1264.000 Weight last 48 hrs Weight 280 lb 2 oz Weight 282 lb Physical Exam Narrative: EXAM NARRATIVE: General: The patient is intubated and sedated HEENT: Bilateral myopic pupil Neck: No JVD Respiratory: Auscultation: Reduced breath sound bilaterally at the posterior bases, occasional crackles Cardiovascular: Regular rate and rhythm, S1-S2 present, no murmur, no peripheral edema. Abdomen: Soft, distended, positive bowel sound Skin: No rash Neuro: Unable to assess due to sedation, the patient moves his extremities spontaneously. Urinary Catheter Management^: Vinson: Cath Placed During This Visit: yes Reason for Continuing Indwelling Catheter: Accurate Measurement of Urinary Output in Critically Ill Patients Urinary Catheter Date of Insertion: 04/29/20 Urinary Catheter Time of Insertion: 21:35 Data Micro: Micro: Microbiology 05/05/20 13:25 Gram Stain - Final Sputum - Endotrac heal Tube Aspirate Sputum Culture - F inal Other Data: Attestation for Other Data: I personally reviewed and interpreted the following: Other data: Reviewed the patient laboratory, microbiologic and radiologic data. Please see the HPI for details A&P Assessment and plan (1) Delirium tremens: The patient has a significant history of alcohol abuse. His encephalopathy is likely secondary to delirium tremens. Currently he is sedated with Versed, fentanyl and Precedex. I am going to start the patient on lorazepam drip which is longer acting than Versed. I am also starting the patient on chlordiazepoxide orally. The dose of Precedex can be increased up to 1.5. After that, the sedation needs to be titrated for the patient to be breathing comfortably. The patient needs enteral nutrition. He did not have any bowel movement since he came in. The patient would benefit from either lactulose or MiraLAX through the NG tube and once he has bowel movement he can be started on tube feed. Status: Acute (2) Acute respiratory failure with hypoxia: The patient likely has right lower lobe pneumonia, possibly from aspiratio n. Currently he is broadly covered with antibiotic which can be de-escalated. There is no evidence of MRSA infection. Based on the CT scan obtained on the the patient predominantly has left lo wer lobe atelectasis which is contributing to his hypoxia. I have put the patient on 10 of PEEP and titrate the oxygen down to 55%. Once his mental status improves, I believe the patient will be extubated without much difficulty. 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
[2020-05-07] MEDS: chlordiazePOXIDE 25 mg Capsule 50 MG PO ×2 (13:51→17:44)
[2020-05-07] MEDS: nicardipine 20 MG/200 ML PREMIX 75 MG IV (14:23)
[2020-05-07] MEDS: dexmedetomidine 400 MCG in sodium chloride 0.9% (100 ml) 100 ML 33.8 MCG IV (14:23)
[2020-05-07] MEDS: lactulose oral liq 20 gm/30 mL UDC PO ×2 (14:27→19:49)
[2020-05-07 16:34] LABS: Ammonia 29 umol/L (16-60)
[2020-05-07 16:51] LABS: Glucose Point of Care 149 mg/dL (70-110)
[2020-05-07] MEDS: dexmedetomidine 400 MCG in sodium chloride 0.9% (100 ml) 100 ML 50.8 MCG IV ×2 (17:18→19:48)
--- NOTE | 2020-05-07 18:27 | PC.NURSE ---
Belongings Pt's requested to take home belongs. took home clothes, wallet, medications, etc.
[2020-05-07 19:36] LABS: Procalcitonin 0.15 ng/mL (0-0.5)
[2020-05-07 20:10] LABS: Glucose Point of Care 144 mg/dL (70-110)
[2020-05-07 20:47] LABS: ANCA Interp Negative (Negative)
[2020-05-08] VITALS (91 sets, daily range): BP systolic 131–153; BP diastolic 76–91; PULSE 63–79; RESP 10–14; TEMP 36.7–36.8; O2SAT 91–96
[2020-05-08] MEDS: nicardipine 20 MG/200 ML PREMIX 50 MG IV (00:36)
[2020-05-08] MEDS: dexmedetomidine 400 MCG in sodium chloride 0.9% (100 ml) 100 ML 33.8 MCG IV ×3 (00:37→12:04)
[2020-05-08] MEDS: chlordiazePOXIDE 25 mg Capsule 50 MG PO ×4 (00:37→18:52)
[2020-05-08] MEDS: lactulose oral liq 20 gm/30 mL UDC PO ×4 (01:53→20:11)
[2020-05-08] MEDS: enoxaparin 40 mg/0.4 mL Syringe SUBCUT (01:54)
[2020-05-08 03:33] LABS: Basophils % 0.1 %; Hematocrit 48.8 % (42.0-52.0); Lymphocytes # 0.8 10^3/uL (0.8-4.8); Lymphocytes % 6.6 %; Mean Corpuscular HGB Conc 30.7 g/dL (30.0-36.0); Mean Corpuscular Hemoglobin 30.4 pg (28.0-34.0); Mean Platelet Volume 11.4 fL (7.4-10.4); Neutrophils # 10.68 10^3/uL (1.8-7.7); Neutrophils % 84.4 %; Nucleated Red Blood Cells % 0 %; Platelet Count 236 10^3/cmm (130-400); Red Blood Count 4.93 10^6/uL (4.1-5.3); Red Cell Distribution Width 14.8 % (12.1-15.1); White Blood Count 12.6 10^3/uL (4.0-10.0)
[2020-05-08 04:07] LABS: Alanine Aminotransferase 59 U/L (0-41); Albumin Level 3.1 g/dL (3.5-5.2); Alkaline Phosphatase 61 IU/L (40-130); Anion Gap 16.2 (5-19); Aspartate Amino Transferase 24 U/L (0-40); Blood Urea Nitrogen 33 mg/dL (6-20); Calcium 9.8 mg/dL (8.5-10.5); Carbon Dioxide 21 mmol/L (22-29); Chloride 110 mmol/L (98-107); Globulin 3.5 g/dL (1.3-4.6); Glomerular Filtration Rate 87.6 mL/min (90-130); Glucose 156 mg/dL (65-115); Osmolality Calculated 306 mOsm/kg (285-295); Potassium 4.2 mmol/L (3.5-5.1); Sodium 143 mmol/L (136-145); Total Bilirubin 0.6 mg/dL (0.15-1.2); Total Protein 6.6 g/dL (6.6-8.7)
[2020-05-08] MEDS: ipratropium-albuterol 3 mL Neb INHALATION ×5 (04:15→19:47)
[2020-05-08] MEDS: piperacillin-tazobactam 3.375 GM in sodium chloride 0.9% (plus) 50 ML IV ×3 (04:31→20:11)
[2020-05-08] MEDS: nicardipine 20 MG/200 ML PREMIX 30 MG IV ×2 (05:26→05:53)
[2020-05-08] MEDS: dexmedetomidine 400 MCG in sodium chloride 0.9% (100 ml) 100 ML 40.6 MCG IV ×2 (05:52→08:32)
[2020-05-08] MEDS: aspirin 81 mg Chew Tablet PO (08:31)
[2020-05-08] MEDS: docusate sodium 100 mg Capsule PO ×2 (08:31→18:53)
[2020-05-08] MEDS: pantoprazole 40 mg SDV IVP (08:31)
[2020-05-08] MEDS: nicotine 14 mg Patch 1 PATCH TRANSDERMA (08:31)
[2020-05-08] MEDS: folic acid 1 mg Tablet PO (08:31)
[2020-05-08] MEDS: thiamine 100 mg Tablet PO (08:31)
--- NOTE | 2020-05-08 08:35 | PC.CHAP ---
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 field crew chief visit [] Patient/Family/Request visit [] Outpatient visit [] Follow-up visit [] Physician referral [] Code/Alert [] Routine visit [] Staff referral [] Actively dying [] Patient sleeping [] Family support [] [] Out of room [] Palliative care [] [] Receiving care in room [] Pre-surgical visit [] Trauma [] Long length of stay [] ICU visit [x] Other: ventilator Relational/Emotional Strength [] Patient feels connected with others/family/visitors/staff [] Distress [] Loneliness/isolation [] Abandonment Spirituality of Patient [] Person of Meg [] Attends Bahai of their Meg [] Believes in Prayer [] Reads Bible or Advent materials [] There are Spiritual issues to be addressed 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 [x] Prayer [] Active listening [] Non-anxious presence [] Spiritual/emotional support [] Crisis/trauma care [] Spiritual counseling [] Bereavement support [] Provided bereavement packet [] Provided Bible/devotional materials [] Provided toy/stuffed animal, coloring book to patient or family member [] Provided Communion [] Anointing/Matthews [] Salvation [x] Completed spiritual assessment [] Other: Impact on Illness or Injury [] Angry [] Fearful [] Anxious [] Often cries [] Exhaustion [] Unable to work [] Unable to attend yarsanism [] Unable to walk/stand [] Unable to read [] Unable to drive [] Unable to eat/drink [] Unable to sleep [] Unable to be with family [] Patient intubated [] Other: Summary Time spent with patient
[2020-05-08 09:38] LABS: Glucose Point of Care 113 mg/dL (70-110)
[2020-05-08 11:14] LABS: Glucose Point of Care 115 mg/dL (70-110)
[2020-05-08] MEDS: nicardipine 20 MG/200 ML PREMIX 25 MG IV (12:20)
--- NOTE | 2020-05-08 15:23 | PM.PN ---
Subjective Subjective: Interval history: continues to be intubated and sedated requiring fentanyl, ativan and precedex, continues on nicardipine drip. Fi02 weaned down to 45% today Medications: Reviewed: Yes Medication Review Details: Current Medications Acetaminophen (Tylenol) 650 mg PO Q6H PRN PRN Reason: MILD PAIN Last Admin: 04/30/20 13:40 Dose: 650 mg Documented by: Albuterol/Ipratropium (Duoneb) 3 ml INHALATION Q6H.RESPIRATORY DANDRE Last Admin: 05/02/20 02:16 Dose: 3 ml Documented by: Dexamethasone (Decadron) 6 mg IVP Q24H DANDRE Last Admin: 05/02/20 01:49 Dose: 6 mg Documented by: Dextrose (D50w) 25 ml IVP ONCE PRN; Protocol PRN Reason: hypoglycemia protocol Dextrose (D50w) 50 ml IVP PRN PRN; Protocol PRN Reason: hypoglycemia protocol Docusate Sodium (Colace) 100 mg PO BID [facility] Last Admin: 05/01/20 17:33 Dose: 100 mg Documented by: Enoxaparin Sodium (Lovenox) 40 mg SUBCUT Q24H DANDRE Last Admin: 05/02/20 01:55 Dose: 40 mg Documented by: Folic Acid (Folic Acid) 1 mg PO DAILY DANDRE Last Admin: 05/01/20 07:31 Dose: 1 mg Documented by: Glucagon (Glucagen) 1 mg IM ONCE PRN; Protocol PRN Reason: Adult Acute Hypoglycemia Prot. Propofol (Diprivan) 1,000 mg in 100 mls @ 0 mls/hr IV .Q0M DANDRE; Protocol Last Admin: 05/02/20 06:05 Dose: 40 mcg/kg/min, 32.7 mls/hr Documented by: Fentanyl 1,000 mcg/ Sodium (Chloride) 100 mls @ 0 mls/hr IV .Q0M DANDRE; Protocol Last Admin: 05/02/20 00:05 Dose: 75 mcg/hr, 7.5 mls/hr Documented by: Dextrose (D5w) 500 mls @ 100 mls/hr IV ONCE PRN; Protocol PRN Reason: Adult Acute Hypoglycemia Prot Levofloxacin/Dextrose (Levaquin-D5w) 750 mg in 150 mls @ 100 mls/hr IV Q24H DANDRE; Protocol Last Admin: 05/02/20 06:30 Dose: 100 mls/hr Documented by: Insulin Aspart (Novolog) 0 unit SUBCUT BEDTIME [facility]; Protocol Last Admin: 05/01/20 21:15 Dose: Not Given Documented by: Insulin Aspart (Novolog) 0 unit SUBCUT TIDWM [facility]; Protocol Last Admin: 05/01/20 17:27 Dose: Not Given Documented by: Lactobacillus Acidophilus (Floranex) 1 tab PO BID [facility] Last Admin: 05/01/20 17:33 Dose: 1 tab Documented by: Lorazepam (Ativan) 2 mg IM Q4H PRN; Protocol PRN Reason: ALCOWD Last Admin: 05/02/20 04:49 Dose: 2 mg Documented by: Lorazepam (Ativan) 2 mg IVP PRN PRN; Protocol PRN Reason: WITHDRAWAL Last Admin: 05/02/20 06:02 Dose: 2 mg Documented by: Lorazepam (Ativan) 2 mg PO Q4H PRN; Protocol PRN Reason: WITHDRAWAL Metoprolol Tartrate (Metoprolol Tartrate) 5 mg IV Q4H PRN PRN Reason: HR staying > 120 if SBP >110 Last Admin: 05/01/20 15:37 Dose: 5 mg Documented by: Multivitamins/Minerals (Thera M Plus) 1 tab PO DAILY [facility] Last Admin: 05/01/20 07:30 Dose: 1 tab Documented by: Pantoprazole Sodium (Protonix) 40 mg IVP DAILY [facility] Last Admin: 05/01/20 07:29 Dose: 40 mg Documented by: Thiamine Mononitrate (Vitamin B-1) 100 mg PO DAILY [facility] Last Admin: 05/01/20 07:30 Dose: 100 mg Documented by: Vitals/I&O/Wt Last Vital Signs Temp 98.2 F 05/08/20 00:00 Pulse 72 05/08/20 13:30 Resp 10 L 05/08/20 13:35 BP 147/85 05/08/20 13:30 Pulse Ox 91 05/08/20 13:30 05/08/20 05/08/20 05/08/20 06:59 14:59 22:59 Intake Total 639.870 / 3365.353 706.406 / 706.406 Output Total 1000 / 2100 Balance -360.130 / 1265.353 706.406 / 706.406 Weight last 48 hrs Weight 127.006 kg Weight 127.063 kg Physical Exam Narrative: EXAM NARRATIVE: GEN: Intubated, sedated CVS: S1S2 N RS: Reduced air entry right lower lobe Abd: Soft, nt/nd , bs+ 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 Urinary Catheter Management^: Vinson: Cath Placed During This Visit: yes Reason for Continuing Indwelling Catheter: Accurate Measurement of Urinary Output in Critically Ill Patients Urinary Catheter Date of Insertion: 04/29/20 Urinary Catheter Time of Insertion: 21:35 Data : 05/08/20 03:00 05/08/20 03:00 Micro: Microbiology 05/05/20 13:25 Gram Stain - Final Sputum - Endotracheal Tube Aspirate Sputum Culture - Final A&P Assessment and plan (1) Acute respiratory failure with hypoxia and hypercapnia: Status: Acute (2) Delirium tremens: Status: Acute (3) Right lower lobe pneumonia: Status: Acute Qualifiers: Pneumonia type: aspiration pneumonia Aspiration pneumonia type: due to gastric secretions Qualified Code(s): J69.0 - Pneumonitis due to inhalation of food and vomit (4) COPD (chronic obstructive pulmonary disease): Status: Chronic Qualifiers: COPD type: COPD with acute exacerbation Qualified Code(s): J44.1 - Chronic obstructive pulmonary disease with (acute) exacerbation (5) Tobacco abuse: Status: Chronic (6) Hypertension: Status: Chronic Qualifiers: Hypertension type: essential hypertension Qualified Code(s): I10 - Essential (primary) hypertension (7) Acute encephalopathy: Status: Acute (8) Acute kidney injury: Status: Acute Additional A&P Information 54-year-old male brought to the emergency room on April 29 with chief complaint of dyspnea, found to have hypoxic hypercapnic respiratory failure on admission, failed BiPAP and admitted to be quickly intubated in the ER. He has remained intubated ever since. Hospital course is notable for delirium tremens for which she is currently getting treatment, need for high FiO2 requirements while remaining intubated and interval development of a right lower lobe pneumonia likely secondary to aspiration. #Alcohol withdrawal with delirium tremens. Patient is currently intubated and sedated with Precedex, ativan drip and fentanyl . CT head on 05/06 without any acute intracranial abnormalities. Ammonia normal Continue thiamine for possibility of Wernicke encephalopathy #Acute hypoxic and hypercapnic respiratory failure, likely to be multifactorial related to delirium tremens, underlying COPD, and interval development of right lower lobe pneumonia. CTA of the chest upon admission did not show any evidence of PE or pneumonia. Repeat CT of the chest from 05/06 did show interval development of a right lower lobe pneumonia which may be related to aspiration. Patient is currently on antibiotic coverage with Zosyn. Aim for 5 days on the latter. Continue duo nebs every 4 hours scheduled. Optimize sedation. Critical care consult today to help with extubation and optimize sedation. Appreciate recommendations COVID-19 PCR negative. #COPD, continue nebulization with DuoNeb as above. Hold off on any steroids for now. #Troponin elevation likely related to demand ischemia. #Aortic stenosis, last JOSE 1.6 cm? 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
[2020-05-08] MEDS: dexmedetomidine 400 MCG in sodium chloride 0.9% (100 ml) 100 ML 27.1 MCG IV (16:01)
--- NOTE | 2020-05-08 17:36 | PM.PN ---
Subjective Subjective: Interval history: The patient was seen and examined. He is comfortably sedated with Ativan, fentanyl and Precedex. His oxygen requirement has come down to 40%. Patient is on de-escalating antibiotic therapy at this point. Medications: Reviewed: Yes Vitals/I&O/Wt Last Vital Signs Temp 98.2 F 05/08/20 00:00 Pulse 67 05/08/20 16:00 Resp 10 L 05/08/20 16:00 BP 136/81 05/08/20 16:00 Pulse Ox 93 05/08/20 16:00 05/08/20 05/08/20 05/08/20 06:59 14:59 22:59 Intake Total 639.870 / 3365.353 706.406 / 706.406 138.799 / 845.205 Output Total 1000 / 2100 1350 / 1350 Balance -360.130 / 1265.353 706.406 / 706.406 -1211.201 / -504.795 Weight last 48 hrs Weight 280 lb Weight 280 lb 2 oz Physical Exam Narrative: EXAM NARRATIVE: General: The patient is intubated and sedated HEENT: Bilateral myopic pupil Neck: No JVD Respiratory: Auscultation: Reduced breath sound bilaterally at the posterior bases, occasional crackles Cardiovascular: Regular rate and rhythm, S1-S2 present, no murmur, no peripheral edema. Abdomen: Soft, distended, positive bowel sound Skin: No rash Neuro: Unable to assess due to sedation Urinary Catheter Management^: Vinson: Cath Placed During This Visit: yes Reason for Continuing Indwelling Catheter: Accurate Measurement of Urinary Output in Critically Ill Patients Urinary Catheter Date of Insertion: 04/29/20 Urinary Catheter Time of Insertion: 21:35 Data : 05/08/20 03:00 05/08/20 03:00 Attestation for Other Data: I personally reviewed and interpreted the following: Other data: I have reviewed the patient laboratory, radiologic and microbiologic data. A&P Assessment and plan (1) Delirium tremens: The patient is comfortable with the current sedation protocol however he is too sedated. The recommendation is going to be cutting down the dose of Ativan and fentanyl. The patient has been receiving chlordiazepoxide which should be helping him with the delirium tremens as well. Status: Acute (2) Acute respiratory failure with hypoxia: Once the patient is more awake and responsive he can be put on pressure support ventilation. If the mental status is better I expect to extubate him in the near future. Status: Acute (3) Right lower lobe pneumonia: The patient is receiving antibiotic therapy. I will evaluate the patient and hoping to extubate him in the next 48 hours. Status: Acute Qualifiers: Pneumonia type: aspiration pneumonia Aspiration pneumonia type: due to gastric secretions Qualified Code(s): J69.0 - Pneumonitis due to inhalation of food and vomit Attestations Medical Necessity Statement*: Will defer to the primary team Coding Level of Care Code Acute Director Of Digital Technology for [facility] Fwd Diagnoses Delirium tremens F10.231 Acute respiratory failure with hypoxia J96.01 Right lower lobe pneumonia J69.0 Pneumonia type: aspiration pneumonia Aspiration pneumonia type: due to gastric secretions
[2020-05-08 17:43] LABS: Glucose Point of Care 112 mg/dL (70-110)
[2020-05-08] MEDS: dexmedetomidine 400 MCG in sodium chloride 0.9% (100 ml) 100 ML 23.7 MCG IV (20:10)
[2020-05-08 20:11] LABS: Glucose Point of Care 99 mg/dL (70-110)
[2020-05-09] VITALS (36 sets, daily range): BP systolic 104–156; BP diastolic 78–111; PULSE 59–108; RESP 11–27; TEMP 36.7–37.8; O2SAT 81–99; BMI 39.0
[2020-05-09] MEDS: dexmedetomidine 400 MCG in sodium chloride 0.9% (100 ml) 100 ML 23.7 MCG IV ×3 (01:00→12:22)
[2020-05-09] MEDS: lactulose oral liq 20 gm/30 mL UDC PO ×4 (03:04→19:42)
[2020-05-09] MEDS: piperacillin-tazobactam 3.375 GM in sodium chloride 0.9% (plus) 50 ML IV ×3 (03:04→19:42)
[2020-05-09] MEDS: enoxaparin 40 mg/0.4 mL Syringe SUBCUT (03:04)
[2020-05-09] MEDS: chlordiazePOXIDE 25 mg Capsule 50 MG PO ×3 (03:05→12:06)
[2020-05-09 03:41] LABS: Basophils % 0.1 %; Eosinophils % 0.4 %; Hematocrit 49.9 % (42.0-52.0); Hemoglobin 14.8 g/dL (11.7-16.6); Lymphocytes # 1.9 10^3/uL (0.8-4.8); Lymphocytes % 20.1 %; Mean Corpuscular HGB Conc 29.7 g/dL (30.0-36.0); Mean Corpuscular Hemoglobin 29.8 pg (28.0-34.0); Mean Corpuscular Volume 100.6 fL (80-94); Mean Platelet Volume 11.2 fL (7.4-10.4); Monocytes # 1.5 10^3/uL (0.2-0.9); Monocytes % 16.1 %; Neutrophils # 5.99 10^3/uL (1.8-7.7); Neutrophils % 62.6 %; Nucleated Red Blood Cells % 0 %; Platelet Count 221 10^3/cmm (130-400); Red Blood Count 4.96 10^6/uL (4.1-5.3); Red Cell Distribution Width 14.8 % (12.1-15.1); White Blood Count 9.6 10^3/uL (4.0-10.0)
[2020-05-09 04:05] LABS: Alanine Aminotransferase 93 U/L (0-41); Albumin Level 3.2 g/dL (3.5-5.2); Alkaline Phosphatase 59 IU/L (40-130); Anion Gap 13.9 (5-19); Aspartate Amino Transferase 61 U/L (0-40); Blood Urea Nitrogen 34 mg/dL (6-20); Calcium 9.7 mg/dL (8.5-10.5); Carbon Dioxide 23 mmol/L (22-29); Chloride 113 mmol/L (98-107); Globulin 3.1 g/dL (1.3-4.6); Glomerular Filtration Rate 100.4 mL/min (90-130); Glucose 106 mg/dL (65-115); Osmolality Calculated 310 mOsm/kg (285-295); Potassium 3.9 mmol/L (3.5-5.1); Sodium 146 mmol/L (136-145); Total Bilirubin 0.9 mg/dL (0.15-1.2); Total Protein 6.3 g/dL (6.6-8.7)
[2020-05-09 05:03] LABS: ABG PCO2 38.3 mmHg (35-45); Arterial Blood Gas Hematocrit 48.1 % (42-52); Base Excess ABG -0.9 mmol/L (-2.0-2.0); Blood Gas Allen Test Pos; Blood Gas Operator Identificat Anonymous; Blood Gas Sample Site Radial, right; Blood Gas Sample Type Arterial; HCO3 ABG 23.7 mmol/L (22-26); Oxygen Device VENT; PO2 ABG 63.3 mmHg (80.0-100.0)
[2020-05-09] MEDS: ipratropium-albuterol 3 mL Neb INHALATION ×7 (05:16→23:20)
[2020-05-09] MEDS: thiamine 100 mg Tablet PO (09:22)
[2020-05-09] MEDS: pantoprazole 40 mg SDV IVP (09:22)
[2020-05-09] MEDS: docusate sodium 100 mg Capsule PO ×2 (09:22→17:30)
[2020-05-09] MEDS: aspirin 81 mg Chew Tablet PO (09:22)
[2020-05-09] MEDS: folic acid 1 mg Tablet PO (09:22)
[2020-05-09] MEDS: nicotine 14 mg Patch 1 PATCH TRANSDERMA (09:23)
--- NOTE | 2020-05-09 10:15 | PC.NURSE ---
Dr Szymanski, at bedside, turn off Ativan ggt and decrease Fentanyl. Keep Precedex infusing. We will try to wean and extubate.
[2020-05-09 12:17] LABS: Glucose Point of Care 87 mg/dL (70-110)
--- NOTE | 2020-05-09 12:23 | P.PN_ITS ---
Subjective Subjective: Interval history: no acute overnight events, remains intubated and sedated. plans for stopping ativamn today and vent weaning. This am with fi02 at 30%, ABG with p02 66. On attmpting to turn in bed, episodsi desaturation noted down to 80s. Medications: Reviewed: Yes Vitals/I&O/Wt Last Vital Signs Temp 99.2 F 05/09/20 12:00 Pulse 81 05/09/20 12:00 Resp 12 05/09/20 12:00 BP 137/97 05/09/20 12:00 Pulse Ox 88 L 05/09/20 12:00 05/08/20 05/09/20 05/09/20 22:59 06:59 14:59 Intake Total 302.019 / 1058.842 425.934 / 1484.776 351.684 / 351.684 Output Total 1350 / 1350 1200 / 2550 Balance -1047.981 / -291.158 -774.066 / -1065.224 351.684 / 351.684 Weight last 48 hrs Weight 127.006 kg Weight 127.006 kg Physical Exam Narrative: EXAM NARRATIVE: GEN: Follows commands when sedation is weaned. 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: no focal neuro deficits Urinary Catheter Management^: Vinson: Cath Placed During This Visit: yes Reason for Continuing Indwelling Catheter: Accurate Measurement of Urinary Output in Critically Ill Patients Urinary Catheter Date of Insertion: 04/29/20 Urinary Catheter Time of Insertion: 21:35 Data : 05/09/20 03:00 05/09/20 03:00 A&P Assessment and plan (1) Acute respiratory failure with hypoxia and hypercapnia: Status: Acute (2) Delirium tremens: Status: Acute (3) Right lower lobe pneumonia: Status: Acute Qualifiers: Pneumonia type: aspiration pneumonia Aspiration pneumonia type: due to gastric secretions Qualified Code(s): J69.0 - Pneumonitis due to inhalation of food and vomit (4) COPD (chronic obstructive pulmonary disease): Status: Chronic Qualifiers: COPD type: COPD with acute exacerbation Qualified Code(s): J44.1 - Chronic obstructive pulmonary disease with (acute) exacerbation (5) Tobacco abuse: Status: Chronic (6) Hypertension: Status: Chronic Qualifiers: Hypertension type: essential hypertension Qualified Code(s): I10 - Essential (primary) hypertension (7) Acute encephalopathy: Status: Acute (8) Acute kidney injury: Status: Acute Additional A&P Information 54-year-old male brought to the emergency room on April 29 with chief complaint of dyspnea, found to have hypoxic hypercapnic respiratory failure on admission, failed BiPAP and admitted to be quickly intubated in the ER. He has remained intubated ever since. Hospital course is notable for delirium tremens for which she is currently getting treatment, need for high FiO2 requirements while remaining intubated and interval development of a right lower lobe pneumonia likely secondary to aspiration. #Alcohol withdrawal with delirium tremens. Patient is currently intubated and sedated with Precedex, ativan drip and fentanyl . weaning trial today, drop sedation, stop ativan, trial of pressure support CT head on 05/06 without any acute intracranial abnormalities. Ammonia normal Continue thiamine for possibility of Wernicke encephalopathy #Acute hypoxic and hypercapnic respiratory failure, likely to be multifactorial related to delirium tremens, underlying COPD, and interval development of right lower lobe pneumonia. echocardiogram withotu acute abnormalities. normal LVEF CTA of the chest upon admission did not show any evidence of PE or pneumonia. Repeat CT of the chest from 05/06 did show interval development of a right lower lobe pneumonia which may be related to aspiration. Patient is currently on antibiotic coverage with Zosyn. Aim for 5 days on the latter. Continue duo nebs every 4 hours scheduled. Optimize sedation. appreciate critical care recommendations COVID-19 PCR negative. #COPD, continue nebulization with DuoNeb as above. Hold off on any steroids for now. #Troponin elevation likely related to demand ischemia. #Aortic stenosis, last JOSE 1.6 cm? Full code DVT prophylaxis Lovenox Attestations Medical Necessity Statement*: remains intubated, sedated needing vent support, attempting weaning Coding Level of Care Code Acute Admissions Manager Rn for [facility] Diagnoses Acute respiratory failure with hypoxia and hypercapnia J96.01; J96.02 Delirium tremens F10.231 Right lower lobe pneumonia J69.0 Pneumonia type: aspiration pneumonia Aspiration pneumonia type: due to gastric secretions COPD (chronic obstructive pulmonary disease) J44.1 COPD type: COPD with acute exacerbation Tobacco abuse Z72.0 Hypertension I10 Hypertension type: essential hypertension Acute encephalopathy G93.40 Acute kidney injury N17.9
--- NOTE | 2020-05-09 16:31 | P.PN_ITS ---
Subjective Subjective: Interval history: The patient was seen and examined. The patient was sedated comfortably however he was arousable and followed commands. This morning the patient was tried on pressure support ventilation however he had episodes of desaturation and currently the patient is on volume control mechanical ventilation. The patient is currently on 50 mcg of fentanyl and 0.8 of Precedex. The Ativan was discontinued. Apparently, the patient did not have any episode of bowel movement since he was hospitalized even though he has been has been receiving lactulose. The patient has developed overall puffiness. Medications: Reviewed: Yes Vitals/I&O/Wt Last Vital Signs Temp 100 F H 05/09/20 14:00 Pulse 84 05/09/20 16:00 Resp 14 05/09/20 15:44 BP 130/88 05/09/20 16:00 Pulse Ox 95 05/09/20 16:00 05/09/20 05/09/20 05/09/20 06:59 14:59 22:59 Intake Total 425.934 / 1484.776 351.684 / 351.684 Output Total 1200 / 2550 Balance -774.066 / -1065.224 351.684 / 351.684 Weight last 48 hrs Weight 280 lb Weight 280 lb Physical Exam Narrative: EXAM NARRATIVE: General: The patient is intubated and sedated. He is arousable and following commands HEENT: Bilateral myopic pupil Neck: No JVD Respiratory: Auscultation: Reduced breath sound bilaterally at the posterior bases, occasional crackles Cardiovascular: Regular rate and rhythm, S1-S2 present, no murmur, mild peripheral edema Abdomen: Soft, distended, positive bowel sound Skin: No rash Neuro: The patient is following commands and moving all extremities Urinary Catheter Management^: Vinson: Cath Placed During This Visit: yes Reason for Continuing Indwelling Catheter: Accurate Measurement of Urinary Output in Critically Ill Patients Urinary Catheter Date of Insertion: 04/29/20 Urinary Catheter Time of Insertion: 21:35 Data : 05/09/20 03:00 05/09/20 03:00 Attestation for Other Data: I personally reviewed and interpreted the following: Other data: I have reviewed the patient's laboratory microbiologic and radiologic data. The white blood cell count is coming down. The patient has borderline hyponatremia. A&P Assessment and plan (1) Delirium tremens: There is remarkable improvement of the mental status of the patient. Currently he is only on 50 mcg of fentanyl and 0.8 Precedex. We are going to cut down the fentanyl further and try to maintain the patient with the Precedex only. I have also cut down the dose of Librium. Status: Acute (2) Acute respiratory failure with hypoxia: Once the patient is able to initiate breaths I think the patient can be on pressure support ventilation. It would be okay if he is requiring 40% of oxygen. I do not foresee any oxygenation problem following extubation. The patient will likely be ready for extubation tomorrow. Status: Acute (3) Right lower lobe pneumonia: The patient is improving with antibiotic therapy. I am hoping to extubate the patient tomorrow. 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
[2020-05-09] MEDS: Fleet Enema 133 mL Enema PR (17:31)
[2020-05-09] MEDS: FUROsemide 10 mg/mL SDV 10mL 40 MG IVP (17:31)
[2020-05-09 17:32] LABS: Glucose Point of Care 70 mg/dL (70-110)
[2020-05-09 17:53] LABS: Glucose Point of Care 71 mg/dL (70-110)
--- NOTE | 2020-05-09 18:07 | PC.NURSE ---
Addendum entered by Dawn Breen RN 05/09/20 19:25: Fentanyl and Ativan infusions are currently stopped but still hanging, with extra bags hanging but not spiked. Informed oncoming nurses, Orlando and Ilya. Original Note: Extubation planned for tomorrow per Dr. Gilbert. Tube feeds restarted per physician at ordered rate. Goal is to wean down sedation to where pt is on Precedex only. Fentanyl weaned off this afternoon, and Ativan infusion off since this nurse presumed care of this patient at around 13:30; Precedex currently infusing at 0.5mcg/kg/min. Pt lightly sedated but is following commands. Short periods of restlessness in bed observed, which so far resolves spontaneously. Fleet enema given x1 and Lasix 40mg IV given x1 per orders. No BM as of yet. Family updated at bedside; all questions answered.
--- NOTE | 2020-05-09 19:11 | PC.NURSE ---
CIWA score 2, unable to complete full assessment due to intubation and sedation
[2020-05-09 19:39] LABS: Glucose Point of Care 70 mg/dL (70-110)
[2020-05-09] MEDS: chlordiazePOXIDE 25 mg Capsule PO (19:42)
[2020-05-09] MEDS: LORazepam 2 mg/mL INJ 1 mL IM (20:05)
--- NOTE | 2020-05-09 20:17 | PC.NURSE ---
restless and fidgeting, PRN IV Ativan administered, ax temp 100.1 ice packs applied to auxiliary and groin
--- NOTE | 2020-05-09 21:08 | PC.NURSE ---
Addendum entered by Orlando Randall RN 05/09/20 21:10: Verified that 77ml of Ativan wasted. Other full bag that was not spiked sent back to [facility] with 100ml Ativan. Original Note: Wasted 77 ml IV Ativan from IV bag due to DC order
[2020-05-09] MEDS: LORazepam 2 mg/mL INJ 1 mL IVP (23:35)
[2020-05-10] VITALS (33 sets, daily range): BP systolic 105–179; BP diastolic 65–103; PULSE 65–141; RESP 13–35; TEMP 37–37.9; O2SAT 90–100
[2020-05-10] MEDS: dexmedetomidine 400 MCG in sodium chloride 0.9% (100 ml) 100 ML 23.7 MCG IV ×2 (00:23→05:32)
[2020-05-10] MEDS: enoxaparin 40 mg/0.4 mL Syringe SUBCUT (01:49)
[2020-05-10] MEDS: chlordiazePOXIDE 25 mg Capsule PO ×3 (02:51→13:58)
[2020-05-10] MEDS: lactulose oral liq 20 gm/30 mL UDC PO (02:51)
[2020-05-10] MEDS: ipratropium-albuterol 3 mL Neb INHALATION ×6 (03:20→23:33)
[2020-05-10] MEDS: piperacillin-tazobactam 3.375 GM in sodium chloride 0.9% (plus) 50 ML IV ×3 (04:10→19:28)
[2020-05-10] MEDS: LORazepam 2 mg/mL INJ 1 mL IVP (04:25)
--- NOTE | 2020-05-10 04:49 | PC.NURSE ---
Addendum entered by Orlando Randall RN 05/10/20 04:53: Verified 5ml IV fentanyl wasted. Remaining full bag 100ml fentanyl sent to [facility] in Pharmacy. Original Note: Wasted 5ml of IV Fentanyl which was DC, remaining full 100 ml bag of Fentanyl sent with Bo from in pt pharmacy
[2020-05-10] MEDS: dextrose 50% syringe 50 mL IVP (07:17)
[2020-05-10 07:39] LABS: Glucose Point of Care 69 mg/dL (70-110)
[2020-05-10] MEDS: thiamine 100 mg Tablet PO (09:47)
[2020-05-10] MEDS: folic acid 1 mg Tablet PO (09:47)
[2020-05-10] MEDS: pantoprazole 40 mg SDV IVP (09:47)
[2020-05-10] MEDS: aspirin 81 mg Chew Tablet PO (09:47)
[2020-05-10] MEDS: nicotine 14 mg Patch 1 PATCH TRANSDERMA (09:48)
[2020-05-10] MEDS: dextrose 50% syringe 50 mL 25 ML IVP (10:54)
[2020-05-10 10:56] LABS: Glucose Point of Care 66 mg/dL (70-110)
[2020-05-10 10:56] LABS: Glucose Point of Care 68 mg/dL (70-110)
--- NOTE | 2020-05-10 11:10 | PC.NURSE ---
Patient alert, following commands, precedex at 0.1 mcg/kg/hr (3.3 ml/hr) no other sedation. Patient ready for extubation.
--- NOTE | 2020-05-10 11:50 | PC.NURSE ---
Extubated at 1121 Patient awake but confused not following safety commands, trying to get out of bed. Reoriented patient to current situation, place, location, length of stay, and current safety concerns. Patient desaturated to low 80s, nasal canula applied. Patient placed then placed on BiPap per Dr. Szymanski verbal order. Restraints left on due to safety concerns (central line, needing bipap on). Patient now resting in bed, moves all extremities equally, no verbal response yet but does mouth words.
[2020-05-10] MEDS: metoprolol tartrate 1 mg/1 mL SDV 5 mL 5 MG IV ×2 (12:10→15:18)
[2020-05-10] MEDS: dextrose 5% 1,000 ML 50 ML IV (12:10)
[2020-05-10 13:15] LABS: Glucose Point of Care 53 mg/dL (70-110)
--- NOTE | 2020-05-10 13:45 | PC.NURSE ---
called and updated on status (extubated). No further questions. Will visit during visiting hours.
--- NOTE | 2020-05-10 14:13 | P.PN_ITS ---
Subjective Subjective: Interval history: No acute overnight events. All sedation was weaned off this morning and patient was successfully extubated to BiPAP. Off of BiPAP he still has episodes of desaturation down to the 70s with currently doing well if he keeps the machine on. Mental status appears to be improving, however patient is somnolent. This could be related to the extended Ativan infusion that he received few days prior to extubation. T max 100.2F . Hypoglycemic overnight. Multiple episodes of diarrhea for which lactulose was held. Medications: Reviewed: Yes Vitals/I&O/Wt Last Vital Signs Temp 98.6 F 05/10/20 14:00 Pulse 121 H 05/10/20 14:00 Resp 28 H 05/10/20 14:00 BP 179/103 05/10/20 14:00 Pulse Ox 95 05/10/20 14:00 05/09/20 05/10/20 05/10/20 22:59 06:59 14:59 Intake Total 185.166 / 536.850 154 / 690.850 204.000 / 204.000 Output Total 750 / 750 1250 / 2000 500 / 500 Balance -564.834 / -213.150 -1096 / -1309.150 -296.000 / -296.000 Weight last 48 hrs Weight 121.608 kg Weight 127.006 kg Physical Exam Narrative: EXAM NARRATIVE: GEN: somnolent however able to follow simple commands HEENT: Seen after extubation on Bipap CVS: S1S2 N RS: CTA B/L Abd: Soft, nt/nd , bs+ 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 neuro 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, moves all extremities in bed Urinary Catheter Management^: Vinson: Cath Placed During This Visit: yes Reason for Continuing Indwelling Catheter: Accurate Measurement of Urinary Output in Critically Ill Patients Urinary Catheter Date of Insertion: 04/29/20 Urinary Catheter Time of Insertion: 21:35 Data : 05/09/20 03:00 05/09/20 03:00 A&P Assessment and plan (1) Acute respiratory failure with hypoxia and hypercapnia: Status: Acute (2) Delirium tremens: Status: Acute (3) Right lower lobe pneumonia: Status: Acute Qualifiers: Pneumonia type: aspiration pneumonia Aspiration pneumonia type: due to gastric secretions Qualified Code(s): J69.0 - Pneumonitis due to inhalation of food and vomit (4) COPD (chronic obstructive pulmonary disease): Status: Chronic Qualifiers: COPD type: COPD with acute exacerbation Qualified Code(s): J44.1 - Chronic obstructive pulmonary disease with (acute) exacerbation (5) Tobacco abuse: Status: Chronic (6) Hypertension: Status: Chronic Qualifiers: Hypertension type: essential hypertension Qualified Code(s): I10 - Essential (primary) hypertension (7) Acute encephalopathy: Status: Acute (8) Acute kidney injury: Status: Acute Additional A&P Information 54-year-old male brought to the emergency room on April 29 with chief complaint of dyspnea, found to have hypoxic hypercapnic respiratory failure on admission, failed BiPAP and admitted to be quickly intubated in the ER. He has remained intubated ever since. Hospital course is notable for delirium tremens for which she is currently getting treatment, need for high FiO2 requirements while remaining intubated and interval development of a right lower lobe pneumonia likely secondary to aspiration. Now devloping fever up to 100.4F # fever check blood cx, CXR to follow up on evolution, d/c Vinson catheter Continue zosyn, if worsening pneumonia, will add vancomycin #Alcohol withdrawal with delirium tremens. Extubated this afternoon to Bipap, tolerating so far CT head on 05/06 without any acute intracranial abnormalities. Ammonia normal Continue thiamine for possibility of Wernicke encephalopathy #Acute hypoxic and hypercapnic respiratory failure, likely to be multifactorial related to delirium tremens, underlying COPD, and interval development of right lower lobe pneumonia. echocardiogram withotu acute abnormalities. normal LVEF. S/p lasix yesetrday # hypoglycemia, s/ D50 x 2 today, hold all insulin , start D5 at 50 cc/hr # CTA of the chest upon admission did not show any evidence of PE or pneumonia. Repeat CT of the chest from 05/06 did show interval development of a right lower lobe pneumonia which may be related to aspiration. Patient is currently on antibiotic coverage with Zosyn. Aim for 5 days on the latter. Continue duo nebs every 4 hours scheduled. Optimize sedation. Appreciate critical care recommendations COVID-19 PCR negative. #COPD, continue nebulization with DuoNeb as above. Hold off on any steroids for now. #Troponin elevation likely related to demand ischemia. #Aortic stenosis, last JOSE 1.6 cm? Full code DVT prophylaxis Lovenox Attestations Medical Necessity Statement*: extubated today to bipap, monitor resp status closely Coding Level of Care Code Acute Tissue Recovery Technician for [facility] Diagnoses Acute respiratory failure with hypoxia and hypercapnia J96.01; J96.02 Delirium tremens F10.231 Right lower lobe pneumonia J69.0 Pneumonia type: aspiration pneumonia Aspiration pneumonia type: due to gastric secretions COPD (chronic obstructive pulmonary disease) J44.1 COPD type: COPD with acute exacerbation Tobacco abuse Z72.0 Hypertension I10 Hypertension type: essential hypertension Acute encephalopathy G93.40 Acute kidney injury N17.9
--- NOTE | 2020-05-10 14:17 | XR_ITS ---
WS: [id number] Portable AP upright chest, 05/10/2020 Clinical Data: follow up on pneumonia Comparison study: Portable chest 05/07/2020. Findings: The endotracheal tube has been removed. The left central venous catheter remains in positio n ending in the superior vena cava. There is atelectasis at the right cardiophrenic angle. There is a telectasis and/or consolidation in the retrocardiac region along with a left pleural effusion. Heart is enlarged. XR/XR chest 1V portable [id number] Impression: 1. Removal of endotracheal tube. 2. Cardiomegaly. 3. Left pleural effusion and/or consolidation and atelectasis in the retrocardi ac region.
[2020-05-10] MEDS: amlodipine 5 mg Tablet PO (14:34)
[2020-05-10] MEDS: metoprolol succinate ER (24 HR) 25 mg Tablet PO (14:34)
--- NOTE | 2020-05-10 15:27 | PC.NURSE ---
Bipap [facility], did well for a few hours, but placed back on Bipap due to sats in low 90s and HR 140s.
[2020-05-10 16:03] LABS: Glucose Point of Care 68 mg/dL (70-110)
[2020-05-10] MEDS: dexmedetomidine 400 MCG in sodium chloride 0.9% (100 ml) 100 ML 13.5 MCG IV (17:37)
[2020-05-10] MEDS: dextrose 10% 1,000 ML 75 ML IV (19:29)
[2020-05-10 20:06] LABS: Glucose Point of Care 69 mg/dL (70-110)
[2020-05-10 20:13] LABS: Glucose Point of Care 95 mg/dL (70-110)
--- NOTE | 2020-05-10 20:59 | PC.NURSE ---
NEW ORDERS: MD Stephon phoned to update on decreased reported BG numbers. Verbal orders for D10 to begin admin at 75mL/hr, and to pause D5NS. Orders for accu check assessment changed to Q3HR. If pt able to tolerate PO fluids on swallow assessment, a liquid diet can be given with aspiration precautions taken into consideration. To address pt's continued agitation, v/o given to raise precedex to 1.4mcg/min as needed PRN. (See MAR flowsheet) V/O to hold Librium dose
[2020-05-10] MEDS: dexmedetomidine 400 MCG in sodium chloride 0.9% (100 ml) 100 ML 30.5 MCG IV (22:21)
--- NOTE | 2020-05-10 23:18 | PC.NURSE ---
New Orders: V/O from MD Maicol-physician call center operations manager for placement of Indwelling Hernandez. Patient continent, and had not had an incidence of voiding since removal of previous hernandez catheter at 1430 05/10. Bladder scanner was used, with 600mL of urine inside of bladder found. Notified physician call center operations manager, and received V/O for Hernandez to be placed. A total of 625mL dark elda urine out immediately with placement of hernandez catheter. Pt tolerated well.
[2020-05-10 23:21] LABS: Glucose Point of Care 106 mg/dL (70-110)
[2020-05-11] VITALS (64 sets, daily range): BP systolic 115–171; BP diastolic 76–115; PULSE 59–129; RESP 13–38; TEMP 36.7–36.8; O2SAT 89–100
[2020-05-11 00:28] LABS: Glucose Point of Care 92 mg/dL (70-110)
--- NOTE | 2020-05-11 00:50 | PC.NURSE ---
Bipap removed and patient placed on 5L NC. Performed swallow assessment. Patient was able to safely swallow small amounts of water when slowly given, with minimal coughing noted. Nurse asked patient if he was in any pain, to which he responded by shaking head no . Patient has some emotional instances to which he begins sobbing and attempting to take off leads/BP. He has been unable to verbalize any sort of response since shift began, but can answer yes/no questions by responding with nodding his head accordingly. Bipap was placed back on patient after about 15 mins of it being removed. Patient dropped from about 95% to 89-90% when on 5L NC, and returned to 94% with Bipap placement.
[2020-05-11] MEDS: dexmedetomidine 400 MCG in sodium chloride 0.9% (100 ml) 100 ML 30.5 MCG IV (01:54)
[2020-05-11] MEDS: enoxaparin 40 mg/0.4 mL Syringe SUBCUT (01:54)
[2020-05-11 03:22] LABS: Glucose Point of Care 124 mg/dL (70-110)
[2020-05-11 03:49] LABS: Basophils % 0.4 %; Eosinophils # 0.3 10^3/uL (0.0-0.8); Eosinophils % 3.8 %; Hematocrit 45.9 % (42.0-52.0); Hemoglobin 13.5 g/dL (11.7-16.6); Lymphocytes # 1.7 10^3/uL (0.8-4.8); Lymphocytes % 21.1 %; Mean Corpuscular HGB Conc 29.4 g/dL (30.0-36.0); Mean Corpuscular Hemoglobin 30.4 pg (28.0-34.0); Mean Corpuscular Volume 103.4 fL (80-94); Mean Platelet Volume 11.9 fL (7.4-10.4); Monocytes % 11.7 %; Neutrophils # 5.15 10^3/uL (1.8-7.7); Neutrophils % 62.4 %; Nucleated Red Blood Cells % 0 %; Platelet Count 177 10^3/cmm (130-400); Red Blood Count 4.44 10^6/uL (4.1-5.3); Red Cell Distribution Width 14.6 % (12.1-15.1); White Blood Count 8.2 10^3/uL (4.0-10.0)
[2020-05-11] MEDS: piperacillin-tazobactam 3.375 GM in sodium chloride 0.9% (plus) 50 ML IV ×3 (04:18→19:35)
[2020-05-11 04:25] LABS: Alanine Aminotransferase 111 U/L (0-41); Albumin Level 3.1 g/dL (3.5-5.2); Alkaline Phosphatase 58 IU/L (40-130); Anion Gap 11.5 (5-19); Aspartate Amino Transferase 52 U/L (0-40); Blood Urea Nitrogen 19 mg/dL (6-20); Calcium 9.4 mg/dL (8.5-10.5); Carbon Dioxide 24 mmol/L (22-29); Chloride 108 mmol/L (98-107); Globulin 3.1 g/dL (1.3-4.6); Glomerular Filtration Rate 117.1 mL/min (90-130); Glucose 163 mg/dL (65-115); Osmolality Calculated 296 mOsm/kg (285-295); Potassium 3.5 mmol/L (3.5-5.1); Sodium 140 mmol/L (136-145); Total Bilirubin 0.9 mg/dL (0.15-1.2); Total Protein 6.2 g/dL (6.6-8.7)
[2020-05-11] MEDS: ipratropium-albuterol 3 mL Neb INHALATION ×5 (05:09→20:02)
[2020-05-11 06:36] LABS: Glucose Point of Care 108 mg/dL (70-110)
[2020-05-11] MEDS: dexmedetomidine 400 MCG in sodium chloride 0.9% (100 ml) 100 ML 16.9 MCG IV (06:47)
--- NOTE | 2020-05-11 06:54 | PC.NURSE ---
Shift Summary: Patient now resting more comfortably. Titrated pt precedex down this AM. See mar flowsheet for precedex titrations. 975 u/o Precedex 0.5mcg/min D10 75mL/hr Zosyn 12.5mL/hr Most recent BG taken at 0600 was 106. Report given to margarita melgar RN.
[2020-05-11] MEDS: dextrose 10% 1,000 ML 75 ML IV ×2 (08:22→21:02)
[2020-05-11 08:24] LABS: Glucose Point of Care 108 mg/dL (70-110)
[2020-05-11] MEDS: pantoprazole 40 mg SDV IVP (09:22)
[2020-05-11] MEDS: nicotine 14 mg Patch 1 PATCH TRANSDERMA (09:22)
--- NOTE | 2020-05-11 10:05 | USCV_ITS ---
Filemon Wong Age: 54 Gender: M : 1965 Exam Date: 05/11/2020 11:37 Ordering Phys: Maren Szymanski MD Technologist: Filiberto Rosa [place] [facility] [place]: LEG, SWELLING, FEVER PROCEDURES: Venous duplex imaging was performed in bilateral lower extremities. The following venous structures were evaluated: common femoral vein, profunda vein, proximal portion of the greater saphenous vein, superficial femoral vein, and the popliteal vein. In addition, the posterior tibial and peroneal trunk were evaluated. Serial compression, augmentation maneuvers, and spectral Doppler flow evaluation were performed. FINDINGS: Normal 2-D Doppler and augmentation and compressibility throughout the lower extremity venous structures. Additional imaging through the proximal calf veins also reveals no thrombus. Limited evaluation of the greater saphenous vein is patent with no thrombus. CONCLUSIONS No DVT bilateral lower extremities. Dr. Cyn Harris DO (Electronically Signed) Final Date: 11 May 2020 13:18 S
--- NOTE | 2020-05-11 11:25 | PM.PN ---
Subjective Subjective: Interval history: Extubated yesterday. Remained on bipap for most of the day yesetrday, now intermittent, more awakee and alert today, attempting to participate in conversation, however still weak. Librium has been placed on hold to minimize sedation, precedex being weaned down now. Temperature curve better, no new chamnges on CXR, however poor imaging due to patient positioning,. Yesterday evening patient was very agitated, this am seems to be a bit better. Swallow eval perfromed- to start Gi Soft today. remained hypoglycemic until last evening for which he was started on d10 infusion with improvement in blood sugars. Starting PT/OT today. Appears significantly deconditioined. Medications: Reviewed: Yes Vitals/I&O/Wt Last Vital Signs Temp 98.1 F 05/11/20 07:00 Pulse 90 05/11/20 11:24 Resp 31 H 05/11/20 11:24 BP 136/91 05/11/20 07:00 Pulse Ox 94 05/11/20 11:24 05/10/20 05/11/20 05/11/20 22:59 06:59 14:59 Intake Total 527.333 / 731.333 383.000 / 0008.113 7224.25 / 1016.25 Output Total 625 / 1125 350 / 1475 Balance -97.667 / -393.667 33.000 / -109.191 0667.25 / 1016.25 Weight last 48 hrs Weight 123.349 kg Weight 121.608 kg Physical Exam Narrative: EXAM NARRATIVE: GEN: Awake, alert and oriented, however significantly deconditioned from critical illness. CVS: S1S2 N RS: CTA B/L anteriorly. Abd: Soft, nt/nd , bs+ [employer] SUPPORT: no focal neuro deficits, moves B/L upper and lower extremities while in bed Urinary Catheter Management^: Vinson: Cath Placed During This Visit: yes, but has since been removed by the nurse Reason for Continuing Indwelling Catheter: Accurate Measurement of Urinary Output in Critically Ill Patients Urinary Catheter Date of Insertion: 05/10/20 Urinary Catheter Time of Insertion: 23:28 Date Urinary Catheter Removed: 05/10/20 Time Urinary Catheter Discontinued: 14:30 Data : 05/11/20 03:06 05/11/20 03:06 Micro: Microbiology 05/10/20 16:50 Blood Culture - Preliminary Blood SPECIMEN COLLECTED 05/10/20 14:45 Blood Culture - Preliminary Blood SPECIMEN COLLECTED A&P Assessment and plan (1) Acute respiratory failure with hypoxia and hypercapnia: Status: Acute (2) Delirium tremens: Status: Acute (3) Right lower lobe pneumonia: Status: Acute Qualifiers: Pneumonia type: aspiration pneumonia Aspiration pneumonia type: due to gastric secretions Qualified Code(s): J69.0 - Pneumonitis due to inhalation of food and vomit (4) COPD (chronic obstructive pulmonary disease): Status: Chronic Qualifiers: COPD type: COPD with acute exacerbation Qualified Code(s): J44.1 - Chronic obstructive pulmonary disease with (acute) exacerbation (5) Tobacco abuse: Status: Chronic (6) Hypertension: Status: Chronic Qualifiers: Hypertension type: essential hypertension Qualified Code(s): I10 - Essential (primary) hypertension (7) Acute encephalopathy: Status: Acute (8) Acute kidney injury: Status: Acute Additional A&P Information 54-year-old male brought to the emergency room on April 29 with chief complaint of dyspnea, found to have hypoxic hypercapnic respiratory failure on admission, failed BiPAP and admitted to be quickly intubated in the ER. Extubated on 05/10. Hospital course is notable for delirium tremens, hypoxic hypercapneic respiratory failure,interval development of a right lower lobe pneumonia likely secondary to aspiration and critical illness myopathy. # fever Temperature curve improving No apparent worsening of lung infiltrates Currently on zosyn since 05/05, will complete 7 day course for aspiration pnuemonia today and then stop #Alcohol withdrawal with delirium tremens. Extubated yesetrday evening, intermittently needs bipap to maintain 02 saturation Add incentive spirometer Overall appears to be deconditioined with poor inspiratory effort and hypoventilation from pneumonia, atelactasis, obbesity and deconditioing. CT head on 05/06 without any acute intracranial abnormalities. Ammonia normal Continue thiamine for possibility of Wernicke encephalopathy holding Librium and ativan to minimize sedation, attempting to wean down precedex, phil use haldol prn for agittaion instead #Acute hypoxic and hypercapnic respiratory failure, likely to be multifactorial related to delirium tremens, underlying COPD, and interval development of right lower lobe pneumonia. echocardiogram withotu acute abnormalities. normal LVEF. # hypoglycemia, continue d10 for now until consistently able to tolerate po intake. Started on Gi soft diet today # CTA of the chest upon admission did not show any evidence of PE or pneumonia. Repeat CT of the chest from 05/06 did show interval development of a right lower lobe pneumonia which may be related to aspiration. Patient is currently on antibiotic coverage with Zosyn. Aim for 7 days on the latter. Continue duo nebs every 4 hours scheduled. Appreciate critical care recommendations COVID-19 PCR negative. #COPD, continue nebulization with DuoNeb as above. Hold off on any steroids for now. #Troponin elevation likely related to demand ischemia. #Aortic stenosis, last JOSE 1.6 cm? 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
[2020-05-11 12:39] LABS: Glucose Point of Care 84 mg/dL (70-110)
[2020-05-11 15:21] LABS: Glucose Point of Care 97 mg/dL (70-110)
[2020-05-11] MEDS: haloperidol inj 5 mg/mL INJ 1 mL IVP (15:48)
[2020-05-11 16:59] LABS: Glucose Point of Care 94 mg/dL (70-110)
[2020-05-11] MEDS: docusate sodium 100 mg Capsule PO (17:40)
[2020-05-11] MEDS: dexmedetomidine 400 MCG in sodium chloride 0.9% (100 ml) 100 ML IV (17:40)
--- NOTE | 2020-05-11 18:52 | PC.NURSE ---
Pt did fairly well today. He is oriented to self and location only. His voice is very hoarse and quiet, so it is very difficult to understand what he is saying. He still requires BiPAP treatment, but was able to take several breaks from the mask (usually 30-60min at a time) throughout the day with a nasal cannula at 5L/min. He is still confused, and this afternoon was having active visual hallucinations. He frequently scoots himself down in bed and dangles his legs over the side. He pulls on his hernandez catheter at times. He received a full bed bath and bed change today; no BM during this shift. He did well with speech therapy and was advanced to a GI soft diet. He was spoon fed some bites of mashed potatoes and sips of water at dinner time, and did not display any signs of aspiration. Physical Therapy assisted pt to sit on the side of the bed. Pt required assistance with sitting upright, but otherwise did well. He is very uncoordinated with his hand movements. Unable to wean the Precedex infusion today due to increased restlessness as the infusion rate was decreased; Dr. Szymanski authorized the Precedex infusion to be reordered. Pt has scored as high as 15 on the CIWA scale this afternoon; physician informed, and she entered more PRN orders.
[2020-05-11] MEDS: LORazepam 2 mg/mL INJ 1 mL 1 MG IVP (19:36)
[2020-05-11 20:16] LABS: Glucose Point of Care 111 mg/dL (70-110)
[2020-05-11 23:14] LABS: Glucose Point of Care 95 mg/dL (70-110)
[2020-05-11] MEDS: OLANZapine 5 mg ODT 2.5 MG PO (23:39)
[2020-05-12] VITALS (92 sets, daily range): BP systolic 95–163; BP diastolic 67–99; PULSE 62–128; RESP 17–49; TEMP 36.6–36.8; O2SAT 86–98; BMI 37.0
[2020-05-12] MEDS: ipratropium-albuterol 3 mL Neb INHALATION ×7 (00:22→23:57)
[2020-05-12] MEDS: enoxaparin 40 mg/0.4 mL Syringe SUBCUT (00:46)
[2020-05-12] MEDS: ziprasidone 20 mg/mL SDV 10 MG IM (00:54)
[2020-05-12] MEDS: dexmedetomidine 400 MCG in sodium chloride 0.9% (100 ml) 100 ML 32.1 MCG IV (01:38)
[2020-05-12] MEDS: haloperidol inj 5 mg/mL INJ 1 mL IM (01:49)
[2020-05-12 03:00] LABS: Glucose Point of Care 130 mg/dL (70-110)
[2020-05-12] MEDS: piperacillin-tazobactam 3.375 GM in sodium chloride 0.9% (plus) 50 ML IV (04:42)
[2020-05-12 04:50] LABS: Basophils % 0.3 %; Eosinophils # 0.4 10^3/uL (0.0-0.8); Eosinophils % 4.3 %; Hematocrit 43.6 % (42.0-52.0); Hemoglobin 13.1 g/dL (11.7-16.6); Lymphocytes # 2.3 10^3/uL (0.8-4.8); Lymphocytes % 24.4 %; Mean Corpuscular Hemoglobin 29.9 pg (28.0-34.0); Mean Corpuscular Volume 99.5 fL (80-94); Mean Platelet Volume 11.4 fL (7.4-10.4); Monocytes # 0.9 10^3/uL (0.2-0.9); Monocytes % 9.7 %; Neutrophils # 5.65 10^3/uL (1.8-7.7); Neutrophils % 60.9 %; Nucleated Red Blood Cells % 0 %; Platelet Count 191 10^3/cmm (130-400); Red Blood Count 4.38 10^6/uL (4.1-5.3); Red Cell Distribution Width 14.2 % (12.1-15.1); White Blood Count 9.3 10^3/uL (4.0-10.0)
[2020-05-12 05:14] LABS: Alanine Aminotransferase 95 U/L (0-41); Albumin Level 3.1 g/dL (3.5-5.2); Alkaline Phosphatase 57 IU/L (40-130); Anion Gap 10.4 (5-19); Aspartate Amino Transferase 43 U/L (0-40); Blood Urea Nitrogen 10 mg/dL (6-20); Calcium 9.6 mg/dL (8.5-10.5); Carbon Dioxide 27 mmol/L (22-29); Chloride 107 mmol/L (98-107); Glomerular Filtration Rate 117.1 mL/min (90-130); Glucose 172 mg/dL (65-115); Osmolality Calculated 295 mOsm/kg (285-295); Potassium 3.4 mmol/L (3.5-5.1); Sodium 141 mmol/L (136-145); Total Bilirubin 0.8 mg/dL (0.15-1.2); Total Protein 6.1 g/dL (6.6-8.7)
[2020-05-12 05:19] LABS: Creatine Phosphokinase 45 U/L (39-308)
[2020-05-12 05:29] LABS: Glucose Point of Care 138 mg/dL (70-110)
[2020-05-12] MEDS: dexmedetomidine 400 MCG in sodium chloride 0.9% (100 ml) 100 ML 25.7 MCG IV (05:44)
[2020-05-12 07:22] LABS: Glucose Point of Care 138 mg/dL (70-110)
[2020-05-12] MEDS: pantoprazole 40 mg SDV IVP (09:24)
--- NOTE | 2020-05-12 09:28 | PC.OT ---
Unable to see this date per nursing request. Not following commands. Will follow.
[2020-05-12] MEDS: folic acid 1 mg Tablet PO (09:37)
[2020-05-12] MEDS: metoprolol succinate ER (24 HR) 25 mg Tablet PO (09:37)
[2020-05-12] MEDS: docusate sodium 100 mg Capsule PO ×2 (09:37→17:51)
[2020-05-12] MEDS: thiamine 100 mg Tablet PO (09:37)
[2020-05-12] MEDS: aspirin 81 mg Chew Tablet PO (09:38)
[2020-05-12] MEDS: nicotine 14 mg Patch 1 PATCH TRANSDERMA (09:38)
[2020-05-12] MEDS: amlodipine 5 mg Tablet PO (09:40)
[2020-05-12 11:15] LABS: Glucose Point of Care 115 mg/dL (70-110)
[2020-05-12] MEDS: dextrose 10% 1,000 ML 75 ML IV (11:48)
--- NOTE | 2020-05-12 16:08 | P.PN_ITS ---
Subjective Subjective: Interval history: seen and examined at ~8Am this morning. Overnight patient was agitated, needed ani and im haldol. He attempts to get out of bed and also physcially aggressive towards staff. Intermittenlty noted to be tachycardic, diaphoretic and restless. Currently on Bipap, needing it at night. Fever resolved Medications: Reviewed: Yes Vitals/I&O/Wt Last Vital Signs Temp 98.3 F 05/12/20 07:00 Pulse 101 H 05/12/20 15:36 Resp 32 H 05/12/20 15:35 BP 142/79 05/12/20 15:30 Pulse Ox 93 05/12/20 15:35 05/12/20 05/12/20 05/12/20 06:59 14:59 22:59 Intake Total 241.067 / 2418.250 1206.178 / 1206.178 Output Total 2425 / 3575 Balance -2183.933 / -4541.102 4288.178 / 1206.178 Weight last 48 hrs Weight 120.4 kg Weight 123.349 kg Physical Exam Narrative: EXAM NARRATIVE: GEN: Asleep, on bipap when first seen, wakes up to calling name CVS: S1S2 N RS: CTA B/L except crackles over RLL Abd: Soft, nt/nd , bs+ Urinary Catheter Management^: Vinson: Cath Placed During This Visit: yes, but has since been removed by the nurse Reason for Continuing Indwelling Catheter: Acute Urinary Retention or Obstruction Urinary Catheter Date of Insertion: 05/10/20 Urinary Catheter Time of Insertion: 23:28 Date Urinary Catheter Removed: 05/10/20 Time Urinary Catheter Discontinued: 14:30 Data : 05/12/20 04:11 05/12/20 04:11 Micro: Microbiology 05/10/20 16:50 Blood Culture - Preliminary Blood NEGATIVE TO DATE 05/10/20 14:45 Blood Culture - Preliminary Blood NEGATIVE TO DATE A&P Assessment and plan (1) Acute respiratory failure with hypoxia and hypercapnia: Status: Acute (2) Delirium tremens: Status: Acute (3) Right lower lobe pneumonia: Status: Acute Qualifiers: Pneumonia type: aspiration pneumonia Aspiration pneumonia type: due to gastric secretions Qualified Code(s): J69.0 - Pneumonitis due to inhalation of food and vomit (4) COPD (chronic obstructive pulmonary disease): Status: Chronic Qualifiers: COPD type: COPD with acute exacerbation Qualified Code(s): J44.1 - Chronic obstructive pulmonary disease with (acute) exacerbation (5) Tobacco abuse: Status: Chronic (6) Hypertension: Status: Chronic Qualifiers: Hypertension type: essential hypertension Qualified Code(s): I10 - Essential (primary) hypertension (7) Acute encephalopathy: Status: Acute (8) Acute kidney injury: Status: Acute Additional A&P Information 54-year-old male brought to the emergency room on April 29 with chief complaint of dyspnea, found to have hypoxic hypercapnic respiratory failure on admission, failed BiPAP and admitted to be quickly intubated in the ER. Extubated on 05/10. Hospital course is notable for delirium tremens, hypoxic hypercapneic respiratory failure,interval development of a right lower lobe pneumonia likely secondary to aspiration and critical illness myopathy. # fever now resolved , blood culture negative to date No apparent worsening of lung infiltrates Currently on zosyn since 05/05, will discontiue today as completed 7 day course #Alcohol withdrawal with delirium tremens. prolonged intubation 04/29-05/09, intermittently needs bipap to maintain 02 saturation continue incentive spirometer Overall appears to be significantly deconditioined with poor inspiratory effort and hypoventilation from pneumonia, atelactasis, obesity and deconditioing. Patient extubated, has been admited since 04/29 therefore would not expect alcohol withdrawal to still be contributing. HE was on prolonged versed and then ativan infusion along with po librium, possibly that benzodiazepene withdrawal may be contributing now. Patient wakes up, is oriented, able to swallow a modified diet mostly during the day but still with intermittent tachycardia, agitation and diaphoresis which has precluded taking off Precedex altogether. For today, plan to attempt to wean down precedex, use haldol prn for agitation and hallucinations CT head on 05/06 without any acute intracranial abnormalities. Ammonia normal Continue thiamine for possibility of Wernicke encephalopathy #Acute hypoxic and hypercapnic respiratory failure, likely to be multifactorial related to delirium tremens, underlying COPD, and interval development of right lower lobe pneumonia. echocardiogram withotu acute abnormalities. normal LVEF. # hypoglycemia, continue d10 for now until consistently able to tolerate po intake. Started on Gi soft diet # CTA of the chest upon admission did not show any evidence of PE or pneumonia. Repeat CT of the chest from 05/06 did show interval development of a right lower lobe pneumonia which may be related to aspiration. Patient completed antibiotic coverage with Zosyn x 7 days Continue duo nebs every 4 hours scheduled. Appreciate critical care recommendations COVID-19 PCR negative. #COPD, continue nebulization with DuoNeb as above. Hold off on any steroids for now. #Troponin elevation likely related to demand ischemia. #Aortic stenosis, last JOSE 1.6 cm? 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
[2020-05-12 16:55] LABS: Glucose Point of Care 102 mg/dL (70-110)
[2020-05-12 17:26] LABS: ABG PH Result 7.43 (7.35-7.45); Base Excess ABG -1.3 mmol/L (-2.0-2.0); HCO3 ABG 22.1 mmol/L (22-26)
[2020-05-12 17:27] LABS: Blood Gas Allen Test POS; Oxygen Device VENT
[2020-05-12 17:28] LABS: Arterial Blood Gas Hematocrit 48.5 % (42-52); Blood Gas Sample Site rr; Blood Gas Sample Type Arterial
[2020-05-12] MEDS: LORazepam 2 mg/mL INJ 1 mL 1 MG IVP (18:12)
--- NOTE | 2020-05-12 18:59 | PC.NURSE ---
Pt had a fairly uneventful day. He is eating 25-50% of meals with total assistance from staff. He is still BiPAP dependent, but able to take breaks from the mask by wearing a nasal cannula at 5L/min. He does not tolerate much activity or lying flat without becoming dyspneic, cyanotic, and SpO2 also drops as well (as low as 70% while he worked with PT today). He is still showing signs of DT's and/or delirium as evidenced by tremors, hallucinations, restlessness, and confusion. His lung sounds have been clear, but he has a very loose cough. He is starting to produce some sputum, which is suctioned with the yaunker. It is pale yellow and thick. He had a full bath, linen change, and teeth brushed this afternoon. came to visit, and she was updated at bedside.
[2020-05-12] MEDS: dexmedetomidine 400 MCG in sodium chloride 0.9% (100 ml) 100 ML 12.8 MCG IV (19:30)
[2020-05-12 20:10] LABS: Glucose Point of Care 99 mg/dL (70-110)
[2020-05-12 20:10] LABS: Glucose Point of Care 116 mg/dL (70-110)
[2020-05-12 23:27] LABS: Glucose Point of Care 111 mg/dL (70-110)
[2020-05-13] VITALS (60 sets, daily range): BP systolic 93–187; BP diastolic 47–127; PULSE 65–100; RESP 20–35; TEMP 36.5–37.4; O2SAT 90–99; BMI 37.3
[2020-05-13] MEDS: haloperidol inj 5 mg/mL INJ 1 mL IM (00:07)
[2020-05-13] MEDS: dextrose 10% 1,000 ML 75 ML IV ×2 (00:51→15:08)
[2020-05-13] MEDS: dexmedetomidine 400 MCG in sodium chloride 0.9% (100 ml) 100 ML 38.5 MCG IV (00:51)
[2020-05-13] MEDS: enoxaparin 40 mg/0.4 mL Syringe SUBCUT (01:28)
[2020-05-13] MEDS: dexmedetomidine 400 MCG in sodium chloride 0.9% (100 ml) 100 ML 35.3 MCG IV (02:55)
[2020-05-13 03:14] LABS: Glucose Point of Care 137 mg/dL (70-110)
[2020-05-13] MEDS: ipratropium-albuterol 3 mL Neb INHALATION ×6 (04:27→23:36)
[2020-05-13] MEDS: dexmedetomidine 400 MCG in sodium chloride 0.9% (100 ml) 100 ML 25.7 MCG IV ×3 (05:55→13:34)
--- NOTE | 2020-05-13 07:42 | P.PN_ITS ---
Subjective Subjective: Interval history: continues to be on Bipap this morning, however notes to be more awake than yesterday, able to have a conversation today, though voice remains very weak. alert and oriented this morning, moving all limbs in bed, takes extra time to work against gravity. Able to hold both lower limbs against gravity when raised passively. Moves upper extremities well. Medications: Reviewed: Yes Vitals/I&O/Wt Last Vital Signs Temp 99.0 F 05/13/20 03:33 Pulse 65 05/13/20 06:01 Resp 23 H 05/13/20 06:00 BP 159/89 05/13/20 06:00 Pulse Ox 94 05/13/20 06:01 05/12/20 05/13/20 05/13/20 22:59 06:59 14:59 Intake Total 120 / 0540.853 2207.804 / 2826.804 41.977 / 41.977 Output Total 1600 / 1600 650 / 2250 Balance -1480 / -16.000 592.804 / 576.804 41.977 / 41.977 Weight last 48 hrs Weight 121.427 kg Weight 120.4 kg Physical Exam Narrative: EXAM NARRATIVE: GEN: Awake, alert and oriented, appears more alert compares to yesterday. Able to hold his legs up when raised passively. Moves upper extremities unassisted. 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 REPAIRER: no focal neuro deficits Urinary Catheter Management^: Vinson: Cath Placed During This Visit: yes, but has since been removed by the nurse Reason for Continuing Indwelling Catheter: Accurate Measurement of Urinary Output in Critically Ill Patients Urinary Catheter Date of Insertion: 05/10/20 Urinary Catheter Time of Insertion: 23:28 Date Urinary Catheter Removed: 05/10/20 Time Urinary Catheter Discontinued: 14:30 Data : 05/13/20 08:32 05/13/20 08:32 A&P Assessment and plan (1) Acute respiratory failure with hypoxia and hypercapnia: Status: Acute (2) Delirium tremens: Status: Acute (3) Right lower lobe pneumonia: Status: Acute Qualifiers: Pneumonia type: aspiration pneumonia Aspiration pneumonia type: due to gastric secretions Qualified Code(s): J69.0 - Pneumonitis due to inhalation of food and vomit (4) COPD (chronic obstructive pulmonary disease): Status: Chronic Qualifiers: COPD type: COPD with acute exacerbation Qualified Code(s): J44.1 - Chronic obstructive pulmonary disease with (acute) exacerbation (5) Tobacco abuse: Status: Chronic (6) Hypertension: Status: Chronic Qualifiers: Hypertension type: essential hypertension Qualified Code(s): I10 - Essential (primary) hypertension (7) Acute encephalopathy: Status: Acute (8) Acute kidney injury: Status: Acute Additional A&P Information 54-year-old male brought to the emergency room on April 29 with chief complaint of dyspnea, found to have hypoxic hypercapnic respiratory failure on admission, failed BiPAP and admitted to be quickly intubated in the ER. Extubated on 05/10. Hospital course is notable for delirium tremens, hypoxic hypercapneic respiratory failure,interval development of a right lower lobe pneumonia likely secondary to aspiration and critical illness myopathy. # fever now resolved , blood culture negative to date No apparent worsening of lung infiltrates Currently on zosyn since 05/05, had discontinued on 05/12 but resumed today as noted to be aspirating with thin liquids today #Alcohol withdrawal with delirium tremens. prolonged intubation 04/29-05/09, intermittently needs bipap to maintain 02 saturation. Will attempt to wean to HFNC today. continue incentive spirometer Overall appears to be significantly deconditioined with poor inspiratory effort and hypoventilation from pneumonia, atelactasis, obesity and deconditioing. Patient extubated, has been admitted since 04/29 therefore would not expect alcohol withdrawal to still be contributing. HE was on prolonged versed and then ativan infusion along with po librium, possibly that benzodiazepene withdrawal may be contributing now. Patient wakes up, is oriented, able to swallow a modified diet mostly during the day but still with intermittent tachycardia, agitation and diaphoresis which has precluded taking off Precedex altogether. For today, plan to attempt to wean down precedex, use haldol prn for agitation and hallucinations. Appears to be more alert today. CT head on 05/06 without any acute intracranial abnormalities. Ammonia normal Continue thiamine for possibility of Wernicke encephalopathy #Acute hypoxic and hypercapnic respiratory failure, likely to be multifactorial related to delirium tremens, underlying COPD, and interval development of right lower lobe pneumonia. echocardiogram withotu acute abnormalities. normal LVEF. repeat CT chest to follow up on interval evolution as still needing Bipap support # hypoglycemia, continue d10 for now until consistently able to tolerate po intake. Started on Gi soft diet, however today note dto be aspirating with thin liquids # CTA of the chest upon admission did not show any evidence of PE or pneumonia. Repeat CT of the chest from 05/06 did show interval development of a right lower lobe pneumonia which may be related to aspiration. Patient completed antibiotic coverage with Zosyn x 7 days on05/12, resumed today due to aspiration Continue duo nebs every 4 hours scheduled. Appreciate critical care recommendations COVID-19 PCR negative. #COPD, continue nebulization with DuoNeb as above. Hold off on any steroids for now. #Troponin elevation likely related to demand ischemia. #Aortic stenosis, last JOSE 1.6 cm? 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
[2020-05-13 08:04] LABS: Glucose Point of Care 134 mg/dL (70-110)
[2020-05-13 08:45] LABS: Basophils % 0.4 %; Eosinophils # 0.4 10^3/uL (0.0-0.8); Eosinophils % 4.3 %; Hematocrit 45.9 % (42.0-52.0); Hemoglobin 13.5 g/dL (11.7-16.6); Lymphocytes # 2.3 10^3/uL (0.8-4.8); Lymphocytes % 25.1 %; Mean Corpuscular HGB Conc 29.4 g/dL (30.0-36.0); Mean Corpuscular Hemoglobin 29.8 pg (28.0-34.0); Mean Corpuscular Volume 101.3 fL (80-94); Mean Platelet Volume 11.7 fL (7.4-10.4); Monocytes % 11.3 %; Neutrophils # 5.37 10^3/uL (1.8-7.7); Neutrophils % 58.6 %; Nucleated Red Blood Cells % 0 %; Platelet Count 204 10^3/cmm (130-400); Red Blood Count 4.53 10^6/uL (4.1-5.3); Red Cell Distribution Width 14.3 % (12.1-15.1); White Blood Count 9.2 10^3/uL (4.0-10.0)
[2020-05-13 09:10] LABS: Alanine Aminotransferase 85 U/L (0-41); Albumin Level 3.1 g/dL (3.5-5.2); Alkaline Phosphatase 59 IU/L (40-130); Anion Gap 12.3 (5-19); Aspartate Amino Transferase 38 U/L (0-40); Blood Urea Nitrogen 7 mg/dL (6-20); Calcium 9.5 mg/dL (8.5-10.5); Carbon Dioxide 27 mmol/L (22-29); Chloride 107 mmol/L (98-107); Globulin 3.3 g/dL (1.3-4.6); Glomerular Filtration Rate 100.4 mL/min (90-130); Glucose 194 mg/dL (65-115); Osmolality Calculated 299 mOsm/kg (285-295); Potassium 3.3 mmol/L (3.5-5.1); Sodium 143 mmol/L (136-145); Total Bilirubin 0.6 mg/dL (0.15-1.2); Total Protein 6.4 g/dL (6.6-8.7)
[2020-05-13 09:13] LABS: Glucose Point of Care 139 mg/dL (70-110)
[2020-05-13] MEDS: folic acid 1 mg Tablet PO (09:20)
[2020-05-13] MEDS: amlodipine 10 mg Tablet PO (09:20)
[2020-05-13] MEDS: aspirin 81 mg Chew Tablet PO (09:20)
[2020-05-13] MEDS: nicotine 14 mg Patch 1 PATCH TRANSDERMA (09:20)
[2020-05-13] MEDS: docusate sodium 100 mg Capsule PO ×2 (09:20→18:08)
[2020-05-13] MEDS: metoprolol succinate ER (24 HR) 25 mg Tablet PO (09:20)
[2020-05-13] MEDS: thiamine 100 mg Tablet PO (09:21)
[2020-05-13] MEDS: pantoprazole 40 mg SDV IVP (09:21)
[2020-05-13 11:21] LABS: Glucose Point of Care 116 mg/dL (70-110)
[2020-05-13] MEDS: metoprolol tartrate 1 mg/1 mL SDV 5 mL 5 MG IV (12:10)
[2020-05-13 17:54] LABS: Glucose Point of Care 138 mg/dL (70-110)
[2020-05-13] MEDS: dexmedetomidine 400 MCG in sodium chloride 0.9% (100 ml) 100 ML 19.2 MCG IV (19:30)
[2020-05-13 20:11] LABS: Glucose Point of Care 107 mg/dL (70-110)
[2020-05-13] MEDS: piperacillin-tazobactam 3.375 GM in sodium chloride 0.9% (plus) 50 ML IV (21:36)
[2020-05-13 23:19] LABS: Glucose Point of Care 133 mg/dL (70-110)
[2020-05-14] VITALS (33 sets, daily range): BP systolic 93–165; BP diastolic 57–102; PULSE 64–98; RESP 13–34; TEMP 37.1–37.6; O2SAT 80–96
[2020-05-14] MEDS: dexmedetomidine 400 MCG in sodium chloride 0.9% (100 ml) 100 ML 19.2 MCG IV ×2 (01:33→07:23)
[2020-05-14] MEDS: enoxaparin 40 mg/0.4 mL Syringe SUBCUT (02:24)
[2020-05-14] MEDS: ipratropium-albuterol 3 mL Neb INHALATION ×6 (04:10→23:37)
[2020-05-14] MEDS: dextrose 10% 1,000 ML 75 ML IV (04:39)
[2020-05-14] MEDS: piperacillin-tazobactam 3.375 GM in sodium chloride 0.9% (plus) 50 ML IV ×3 (04:45→21:12)
[2020-05-14] MEDS: LORazepam 2 mg/mL INJ 1 mL 1 MG IVP (04:52)
[2020-05-14 04:55] LABS: Basophils # 0.1 10^3/uL (0.0-0.1); Basophils % 0.7 %; Eosinophils # 0.5 10^3/uL (0.0-0.8); Eosinophils % 5.3 %; Hematocrit 44.1 % (42.0-52.0); Hemoglobin 13.1 g/dL (11.7-16.6); Lymphocytes # 1.7 10^3/uL (0.8-4.8); Lymphocytes % 18.7 %; Mean Corpuscular HGB Conc 29.7 g/dL (30.0-36.0); Mean Corpuscular Hemoglobin 29.7 pg (28.0-34.0); Mean Platelet Volume 11.5 fL (7.4-10.4); Monocytes % 10.7 %; Neutrophils % 64.1 %; Nucleated Red Blood Cells % 0 %; Platelet Count 206 10^3/cmm (130-400); Red Blood Count 4.41 10^6/uL (4.1-5.3); Red Cell Distribution Width 14.5 % (12.1-15.1); White Blood Count 8.9 10^3/uL (4.0-10.0)
[2020-05-14 05:08] LABS: Glucose Point of Care 134 mg/dL (70-110)
[2020-05-14 05:25] LABS: Alanine Aminotransferase 75 U/L (0-41); Albumin Level 2.9 g/dL (3.5-5.2); Alkaline Phosphatase 60 IU/L (40-130); Anion Gap 10.2 (5-19); Aspartate Amino Transferase 38 U/L (0-40); Blood Urea Nitrogen 5 mg/dL (6-20); Calcium 9.5 mg/dL (8.5-10.5); Carbon Dioxide 28 mmol/L (22-29); Chloride 106 mmol/L (98-107); Globulin 3.4 g/dL (1.3-4.6); Glomerular Filtration Rate 117.1 mL/min (90-130); Glucose 163 mg/dL (65-115); Osmolality Calculated 293 mOsm/kg (285-295); Potassium 3.2 mmol/L (3.5-5.1); Sodium 141 mmol/L (136-145); Total Bilirubin 0.5 mg/dL (0.15-1.2); Total Protein 6.3 g/dL (6.6-8.7)
--- NOTE | 2020-05-14 06:18 | PC.NURSE ---
Shift Events: Patient resting quietly in bed. Precedex remains at 0.6mcg/kg/hr. Patient has been calm and cooperative. D10 infusing at 75 and with accuchecks every 3 hours. No complaints of pain. Afebrile. VSS.
--- NOTE | 2020-05-14 07:00 | CT_ITS ---
WS: [id number] CT CHEST TECHNIQUE: Noncontrast CT of the chest with coronal and sagittal reformatted images. CLINICAL INFORMATION: follow up on pneumonia COMPARISON: CT chest 2019 DLP: 1178.[address] scans at [facility] use at least one of these dose optimization techniques: automat ed exposure control; mA and/or kV adjustment per patient size (includes targeted exams where dose is matched to clinical indication); or iterative reconstruction. FINDINGS: Shallow inspiration. Small loculated left pleural effusion with consolidative atelectasis involving t he left lower lobe and lingula. Recommend correlation for pneumonia. Tiny right pleural effusion with atelectasis right lower lobe and right lower lobe medially. Bilateral air bronchograms. Cardiomegaly. Small amount of secretions in the trachea. Aortic calcification. Left central venous ca theter tip in the SVC. Tiny right hepatic cyst. Normal GE junction. Ankylosis mid and lower thoracic spine. CT/CT chest wo con [id number] IMPRESSION: 1. Small left pleural effusion similar to the prior examination with consolida tive atelectasis left lower lobe and lingula with air bronchograms. This does n ot appear significantly changed to 2019. 2. Tiny right pleural effusion with compressive atelectasis and air bronchogra ms in the right lower lobe and right lower lobe medially appears unchanged. 3. Stable cardiomegaly. 4. No mediastinal or hilar lymphadenopathy.
[2020-05-14 07:45] LABS: Glucose Point of Care 122 mg/dL (70-110)
[2020-05-14 08:58] LABS: Glucose Point of Care 116 mg/dL (70-110)
--- NOTE | 2020-05-14 09:38 | PC.CHAP ---
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 platen press feeder visit [] Patient/Family/Request visit [] Outpatient visit [] Follow-up visit [] Physician referral [] Code/Alert [] Routine visit [] Staff referral [] Actively dying [] Patient sleeping [] Family support [] [] Out of room [] Palliative care [] [] Receiving care in room [] Pre-surgical visit [] Trauma [] Long length of stay [] ICU visit [x] Other: off ventilator Relational/Emotional Strength [] Patient feels connected with others/family/visitors/staff [] Distress [] Loneliness/isolation [] Abandonment Spirituality of Patient [] Person of Meg [] Attends Cheondoism of their Meg [] Believes in Prayer [] Reads Bible or Rastafari materials [] There are Spiritual issues to be addressed Poison Information Specialist Interventions [x Prayer [] Active listening [] Non-anxious presence [] Spiritual/emotional support [] Crisis/trauma care [] Spiritual counseling [] Bereavement support [] Provided bereavement packet [] Provided Bible/devotional materials [] Provided toy/stuffed animal, coloring book to patient or family member [] Provided Communion [] Anointing/[place] [] Salvation [x] Completed spiritual assessment [] Other: Impact on Illness or Injury [] Angry [] Fearful [] Anxious [] Often cries [] Exhaustion [] Unable to work [] Unable to attend episcopal [] Unable to walk/stand [] Unable to read [] Unable to drive [] Unable to eat/drink [] Unable to sleep [] Unable to be with family [] Patient intubated [] Other: Summary Time spent with patient
[2020-05-14] MEDS: metoprolol succinate ER (24 HR) 25 mg Tablet PO (09:50)
[2020-05-14] MEDS: pantoprazole 40 mg SDV IVP (09:50)
[2020-05-14] MEDS: aspirin 81 mg Chew Tablet PO (09:50)
[2020-05-14] MEDS: amlodipine 10 mg Tablet PO (09:51)
[2020-05-14] MEDS: bisacodyl 10 mg Supp PR (09:51)
[2020-05-14] MEDS: folic acid 1 mg Tablet PO (09:51)
[2020-05-14] MEDS: nicotine 14 mg Patch 1 PATCH TRANSDERMA (09:51)
[2020-05-14] MEDS: docusate sodium 100 mg Capsule PO ×2 (09:51→18:04)
[2020-05-14] MEDS: thiamine 100 mg Tablet PO (09:51)
--- NOTE | 2020-05-14 10:00 | PM.PN ---
Subjective Subjective: Interval history: He is awake and alert, says he is feeling better. Denies any discomfort. Denies any chest pain or pressure. Currently subjectively is not short of breath. On high flow cannula. During transit to CT scanner noted desaturating. Vitals/I&O/Wt Last Vital Signs Temp 99.1 F 05/14/20 08:00 Pulse 91 05/14/20 09:00 Resp 28 H 05/14/20 09:00 BP 165/99 05/14/20 09:00 Pulse Ox 86 L 05/14/20 09:00 05/13/20 05/14/20 05/14/20 22:59 06:59 14:59 Intake Total 99.288 / 0713.861 2772 / 2655.094 50 / 50 Output Total 970 / 970 605 / 1575 Balance -870.712 / 427.094 653 / 1080.094 50 / 50 Weight last 48 hrs Weight 121.472 kg Weight 121.427 kg Physical Exam Const: COMMON NORMALS: no acute distress and patient oriented x3 EXAM LIMITATIONS: physical limitations (Dysphonia.) NUTRITIONAL APPEARANCE: obese OTHER: Generally weak, but otherwise awake, alert, lucid. HENMT: COMMON NORMALS: oropharynx normal Eye: COMMON NORMALS: Equal, round and reactive pupils present PUPIL: Yes Equal, round and reactive pupils present Neck/C-Spine: COMMON NORMALS: no JVD Resp: COMMON NORMALS: normal respiratory effort and clear to auscultation bilaterally AUSCULTATION: clear to auscultation bilaterally Cardio: COMMON NORMALS: no JVD, regular rhythm, S1 normal heart sound present, S2 normal heart sound present and No murmurs present (Cardio) RHYTHM: regular rhythm HEART SOUNDS: S1 normal heart sound present and S2 normal heart sound present GI: COMMON NORMALS: Normal to inspection, nondistended, normoactive bowel sounds present, Soft to palpation and non-tender PALPATION: Yes Soft to palpation Extremity: COMMON NORMALS: no joint enlargement GENERAL: Yes edema (Improving 1+ only below the ankles currently) Neuro: COMMON NORMALS: patient oriented x3 and moves all extremities Skin: COMMON NORMALS: no rashes or lesions noted GENERAL SKIN EXAM: no rashes or lesions noted Urinary Catheter Management^: Vinson: Cath Placed During This Visit: yes, but has since been removed by the nurse Reason for Continuing Indwelling Catheter: Accurate Measurement of Urinary Output in Critically Ill Patients Urinary Catheter Date of Insertion: 05/10/20 Urinary Catheter Time of Insertion: 23:28 Date Urinary Catheter Removed: 05/10/20 Time Urinary Catheter Discontinued: 14:30 Data : 05/14/20 04:13 05/14/20 04:13 A&P Assessment and plan (1) Acute respiratory failure with hypoxia and hypercapnia: On BiPAP overnight, during transport to CT scan changed over to high flow cannula, with noted desaturation down to 86%. On noncontrast CT noted to have persistence of left lower lobe consolidation, with possible ongoing pneumonia. He does say that he is coughing. Does not bring up a whole lot of sputum. He denies chest pain or pressure. Denies presyncope. Continue Zosyn at this time. Attempt to wean off oxygen as tolerating. Breathing treatments for COPD. Has been weaned off steroids. Edema has improved. His weight has improved. Currently down to 121 kg Troponin was elevated, but down to 57. Suspected due to demand ischemia. Echocardiogram with poor ultrasonic window, LV appears to be normal size and ejection fraction. Right ventricle mildly dilated, possibly normal EF. May have underlying coronary disease, and would benefit from nonemergent stress test assessment after he recovers. Low-dose aspirin. B subhash. Hold off on statin due to transaminitis. Other conditions include smoking. History of COPD. Possible LOPEZ. Negative COVID-19 PCR. Rapid negative. While in ER was under care off RN who later tested positive for COVID-19. Per report all appropriate for PE was worn. Monitor for recurrence of any symptoms. This was discussed yesterday with his . She understands the risks to him, and also to her in case he contracted illness, however, prefers to continue visitation with a mask and precautions. Status: Acute (2) Delirium tremens: Wean off precedex. Status: Acute (3) Right lower lobe pneumonia: Status: Acute Qualifiers: Aspiration pneumonia type: due to gastric secretions Pneumonia type: aspiration pneumonia Qualified Code(s): J69.0 - Pneumonitis due to inhalation of food and vomit (4) COPD (chronic obstructive pulmonary disease): Zosyn for pneumonia. Has been weaned off steroids. Continue nebs. Sputum culture unremarkable. Status: Chronic Qualifiers: COPD type: COPD with acute exacerbation Qualified Code(s): J44.1 - Chronic obstructive pulmonary disease with (acute) exacerbation (5) Tobacco abuse: Status: Chronic (6) Hypertension: Status: Chronic Qualifiers: Hypertension type: essential hypertension Qualified Code(s): I10 - Essential (primary) hypertension (7) Acute encephalopathy: With significant improvement. Wean off Precedex slowly. Severe alcohol withdrawal. He has not been doing well with weaning sedation. CT head without bleeding. With noted bilateral mastoid effusions, also mild mucosal thickening in ethmoid air cells, fluid in posterior nasopharynx. does report he has had chronic sinusitis for a while. I do not see erythema, swelling on examination over mastoid processes. Doubt that there is an with infection. LP unfortunately could not be obtained bedside due to body habitus. IR declined to attempt due to similar reasons. Occupational Health Physiotherapist or at [facility] recommended to only broaden antibiotics at this time. EEG without suggestion of seizure. Central line placed 05/04. He is a heavy drinker at baseline. Continue Ativan as needed per [facility] protocol. Thiamine, folic acid, multivitamins. Prophy lovenox. Attempted to reach again for update but no answer. Status: Acute (8) Acute kidney injury: JIMMY on CKD resolving. ALISA negative. ASO negative. Monitor I&O. Renal function. Blood pressures. Status: Acute Additional A&P Information Pneumonia: Appears to have persistent consolidation in left lower lobe on CT scan. Continue Zosyn. No signs of sepsis. Subjectively he appears to be doing well. Obstipation: I still do not see his had a bowel movement. Will give Dulcolax suppository. If no success, milk and molasses enema. # fever now resolved , blood culture negative to date Currently on zosyn since 05/05, had discontinued on 05/12 but resumed today as noted to be aspirating with thin liquids. Currently on GI soft diet. Continue speech assessments. # hypoglycemia resolved, cutdown D10 rate. Wean off as tolerated. Continue oral diet. #Troponin elevation likely related to demand ischemia. #Aortic stenosis, last JOSE 1.6 cm? # significant deconditioining likely due to prolonged admission, encourage PT/OT/ambulation Full code DVT prophylaxis Lovenox Attestations Medical Necessity Statement*: Continue admission for assessment of management of acute respiratory failure with hypoxia, improving acute encephalopathy, severe alcohol withdrawal. Coding Level of Care Code Acute [facility] Specialist for [facility] Fwd Exam Comprehensive Diagnoses Acute respiratory failure with hypoxia and hypercapnia J96.01; J96.02 Delirium tremens F10.231 Right lower lobe pneumonia J69.0 Aspiration pneumonia type: due to gastric secretions Pneumonia type: aspiration pneumonia COPD (chronic obstructive pulmonary disease) J44.1 COPD type: COPD with acute exacerbation Tobacco abuse Z72.0 Hypertension I10 Hypertension type: essential hypertension Acute encephalopathy G93.40 Acute kidney injury N17.9
[2020-05-14 11:23] LABS: Glucose Point of Care 143 mg/dL (70-110)
--- NOTE | 2020-05-14 11:31 | PC.NURSE ---
UP IN CHAIR @ BEDSIDE
--- NOTE | 2020-05-14 14:23 | PC.NURSE ---
PT WAS UP IN CHAIR FOR AFTERNOON. UP TO BSC WITH MINIMAL ASSIST,BACK TO CHAIR. WHEN ATTEMPTING TO TRANSFER BACK TO BED, PT STOOD UP THEN LEANED OVER TO HIS RIGHT DRAPING HIMSELF ACROSS THE BED BELLY DOWN. REQUIRED X3 NURSES TO REPOSITION PT BACK INTO BED. NO INJURIES NOTED. PRIOR TO TRANSFER PT ASKED WHERE WE WERE AT FROM [place]. SEVERAL ATTEMPTS MADE TO REORIENT PT TO CURRENT LOCATION. BIPAP PLACED ON PT AFTER GETTING HIM SITUATED IN BED.
[2020-05-14 15:45] LABS: Glucose Point of Care 116 mg/dL (70-110)
[2020-05-14 17:06] LABS: Glucose Point of Care 95 mg/dL (70-110)
--- NOTE | 2020-05-14 17:58 | PC.NURSE ---
RESTING IN BED. CAME TO VISIT. PT PLEASANTLY CONFUSED AT TIMES.
[2020-05-14 20:45] LABS: Glucose Point of Care 118 mg/dL (70-110)
[2020-05-14] MEDS: dextrose 10% 1,000 ML 30 ML IV (21:30)
[2020-05-14 23:51] LABS: Glucose Point of Care 116 mg/dL (70-110)
[2020-05-15] VITALS (25 sets, daily range): BP systolic 90–155; BP diastolic 47–93; PULSE 68–126; RESP 18–55; TEMP 36.8–37.9; O2SAT 82–93
[2020-05-15] MEDS: LORazepam 2 mg/mL INJ 1 mL 1 MG IVP (00:42)
[2020-05-15] MEDS: enoxaparin 40 mg/0.4 mL Syringe SUBCUT (01:34)
[2020-05-15] MEDS: ipratropium-albuterol 3 mL Neb INHALATION ×5 (03:08→19:47)
[2020-05-15 04:19] LABS: Basophils % 0.5 %; Eosinophils # 0.4 10^3/uL (0.0-0.8); Eosinophils % 4.5 %; Hematocrit 41.3 % (42.0-52.0); Hemoglobin 12.4 g/dL (11.7-16.6); Lymphocytes # 2.3 10^3/uL (0.8-4.8); Lymphocytes % 27.6 %; Mean Corpuscular Hemoglobin 29.9 pg (28.0-34.0); Mean Corpuscular Volume 99.5 fL (80-94); Mean Platelet Volume 11.9 fL (7.4-10.4); Monocytes # 0.9 10^3/uL (0.2-0.9); Monocytes % 11.2 %; Neutrophils # 4.54 10^3/uL (1.8-7.7); Neutrophils % 55.8 %; Nucleated Red Blood Cells % 0 %; Platelet Count 208 10^3/cmm (130-400); Red Blood Count 4.15 10^6/uL (4.1-5.3); Red Cell Distribution Width 14.6 % (12.1-15.1); White Blood Count 8.1 10^3/uL (4.0-10.0)
[2020-05-15] MEDS: piperacillin-tazobactam 3.375 GM in sodium chloride 0.9% (plus) 50 ML IV ×3 (04:34→20:24)
[2020-05-15] MEDS: dexmedetomidine 400 MCG in sodium chloride 0.9% (100 ml) 100 ML 6.4 MCG IV (04:43)
[2020-05-15 04:54] LABS: Magnesium 1.3 mg/dL (1.7-2.3)
[2020-05-15 04:56] LABS: Alanine Aminotransferase 56 U/L (0-41); Albumin Level 3.1 g/dL (3.5-5.2); Alkaline Phosphatase 57 IU/L (40-130); Anion Gap 12.1 (5-19); Aspartate Amino Transferase 30 U/L (0-40); Blood Urea Nitrogen 7 mg/dL (6-20); Carbon Dioxide 29 mmol/L (22-29); Chloride 107 mmol/L (98-107); Creatinine Clr Calc Pharmacy 138.3741; Glomerular Filtration Rate 100.4 mL/min (90-130); Glucose 135 mg/dL (65-115); Osmolality Calculated 300 mOsm/kg (285-295); Potassium 3.1 mmol/L (3.5-5.1); Sodium 145 mmol/L (136-145); Total Bilirubin 0.5 mg/dL (0.15-1.2); Total Protein 6.1 g/dL (6.6-8.7)
[2020-05-15 05:04] LABS: Glucose Point of Care 113 mg/dL (70-110)
[2020-05-15] MEDS: potassium chloride ER 10 mEq Tablet 40 MEQ PO (06:00)
--- NOTE | 2020-05-15 06:13 | PC.NURSE ---
Shift Events: Patient has been more alert today and less confused. Has rested quietly throughout the night. Remains on Precedex at 0.2mcg and D10 at 30. Accuchecks every 3 hours. Bath completed with linen change. Potassium low at 3.1 and has been replaced with 40mEq PO. No c/o pain. VSS.
[2020-05-15 07:44] LABS: Glucose Point of Care 115 mg/dL (70-110)
[2020-05-15] MEDS: potassium chloride ER 10 mEq Tablet 20 MEQ PO (08:53)
[2020-05-15] MEDS: nicotine 14 mg Patch 1 PATCH TRANSDERMA (08:53)
[2020-05-15] MEDS: folic acid 1 mg Tablet PO (08:54)
[2020-05-15] MEDS: thiamine 100 mg Tablet PO (08:54)
[2020-05-15] MEDS: magnesium sulfate premix 2 GM/50 ML PIGGYBACK IV (08:54)
[2020-05-15] MEDS: amlodipine 10 mg Tablet PO (08:54)
[2020-05-15] MEDS: aspirin 81 mg Chew Tablet PO (08:54)
[2020-05-15] MEDS: metoprolol succinate ER (24 HR) 25 mg Tablet PO (08:54)
[2020-05-15] MEDS: pantoprazole 40 mg SDV IVP (08:54)
[2020-05-15] MEDS: docusate sodium 100 mg Capsule PO ×2 (08:54→17:45)
--- NOTE | 2020-05-15 09:40 | PC.CHAP ---
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 wool puller visit [] Patient/Family/Request visit [] Outpatient visit [] Follow-up visit [] Physician referral [] Code/Alert [] Routine visit [] Staff referral [] Actively dying [] Patient sleeping [] Family support [] [] Out of room [] Palliative care [] [x] Receiving care in room [] Pre-surgical visit [] Trauma [] Long length of stay [] ICU visit [] Other: Relational/Emotional Strength [] Patient feels connected with others/family/visitors/staff [] Distress [] Loneliness/isolation [] Abandonment Spirituality of Patient [] Person of Meg [] Attends Moravian of their Meg [] Believes in Prayer [] Reads Bible or Anabaptist materials [] There are Spiritual issues to be addressed Box Office Clerk Interventions [x] Prayer [] Active listening [] Non-anxious presence [] Spiritual/emotional support [] Crisis/trauma care [] Spiritual counseling [] Bereavement support [] Provided bereavement packet [] Provided Bible/devotional materials [] Provided toy/stuffed animal, coloring book to patient or family member [] Provided Communion [] Anointing/[place] [] Salvation [x] Completed spiritual assessment [] Other: Impact on Illness or Injury [] Angry [] Fearful [] Anxious [] Often cries [] Exhaustion [] Unable to work [] Unable to attend rastafari [] Unable to walk/stand [] Unable to read [] Unable to drive [] Unable to eat/drink [] Unable to sleep [] Unable to be with family [] Patient intubated [] Other: Summary Time spent with patient
[2020-05-15 11:04] LABS: Glucose Point of Care 97 mg/dL (70-110)
--- NOTE | 2020-05-15 12:53 | PM.PN ---
Subjective Subjective: Interval history: He is doing somewhat better. He is coughing. Says that he is coughing up phlegm. Denies chest pain or pressure. Yesterday got very tired working with PT, but did walk a short distance. Vitals/I&O/Wt Last Vital Signs Temp 98.9 F 05/15/20 04:00 Pulse 99 05/15/20 12:00 Resp 24 H 05/15/20 12:00 BP 128/93 05/15/20 12:00 Pulse Ox 93 05/15/20 12:00 05/14/20 05/15/20 05/15/20 22:59 06:59 14:59 Intake Total 638.46 / 2254.50 490 / 2744.50 364.213 / 364.213 Output Total 1240 / 1240 525 / 1765 Balance -601.54 / 1014.50 -35 / 979.50 364.213 / 364.213 Weight last 48 hrs Weight 122.697 kg Weight 121.472 kg Physical Exam Const: COMMON NORMALS: no acute distress and patient oriented x3 EXAM LIMITATIONS: physical limitations (Dysphonia.) NUTRITIONAL APPEARANCE: obese OTHER: Generally weak, but awake, alert, lucid. Comfortable. HENMT: COMMON NORMALS: oropharynx normal Eye: COMMON NORMALS: Equal, round and reactive pupils present PUPIL: Yes Equal, round and reactive pupils present Neck/C-Spine: COMMON NORMALS: no JVD Resp: COMMON NORMALS: normal respiratory effort and clear to auscultation bilaterally AUSCULTATION: clear to auscultation bilaterally OTHER: Diminished air entry. Cardio: COMMON NORMALS: no JVD, regular rhythm, S1 normal heart sound present, S2 normal heart sound present and No murmurs present (Cardio) RHYTHM: regular rhythm HEART SOUNDS: S1 normal heart sound present and S2 normal heart sound present GI: COMMON NORMALS: Normal to inspection, nondistended, normoactive bowel sounds present, Soft to palpation and non-tender PALPATION: Yes Soft to palpation Extremity: COMMON NORMALS: no joint enlargement GENERAL: Yes edema (Improving 1+ only below the ankles currently) Neuro: COMMON NORMALS: patient oriented x3 and moves all extremities Skin: COMMON NORMALS: no rashes or lesions noted GENERAL SKIN EXAM: no rashes or lesions noted Urinary Catheter Management^: Vinson: Cath Placed During This Visit: yes, but has since been removed by the nurse Reason for Continuing Indwelling Catheter: Accurate Measurement of Urinary Output in Critically Ill Patients Urinary Catheter Date of Insertion: 05/10/20 Urinary Catheter Time of Insertion: 23:28 Date Urinary Catheter Removed: 05/10/20 Time Urinary Catheter Discontinued: 14:30 Data : 05/15/20 03:46 05/15/20 03:46 Micro: Microbiology 05/14/20 13:20 C.difficile Toxin B Gene (PCR) - Final Stool Routine Collection A&P Assessment and plan (1) Acute respiratory failure with hypoxia and hypercapnia: This morning still hypoxic. 70% high flow cannula. Reports productive cough. Low-grade temp 100.3. On noncontrast CT noted to have persistence of left lower lobe consolidation, with possible ongoing pneumonia. He does say that he is coughing. Does not bring up a whole lot of sputum. He denies chest pain or pressure. Denies presyncope. Touched base with pulmonology today, he is expected to have a slow recovery in terms of hypoxia. Recommended trial of Oxymizer pendant. Continue Zosyn at this time. Attempt to wean off oxygen as tolerating. Breathing treatments for COPD. Has been weaned off steroids. Add flutter valve. Continue follow-up with speech therapy. Edema has improved. His weight has improved. Currently down to 122 kg Troponin was elevated, but down to 57. Suspected due to demand ischemia. Echocardiogram with poor ultrasonic window, LV appears to be normal size and ejection fraction. Right ventricle mildly dilated, possibly normal EF. May have underlying coronary disease, and would benefit from nonemergent stress test assessment after he recovers. Low-dose aspirin. B subhash. Hold off on statin due to transaminitis. Other conditions include smoking. History of COPD. Possible LOPEZ. Negative COVID-19 PCR. Rapid negative. While in ER was under care off RN who later tested positive for COVID-19. Per report all appropriate for PE was worn. Monitor for recurrence of any symptoms. This was discussed with his . She understands the risks to him, and also to her in case he contracted illness, however, prefers to continue visitation with a mask and precautions. Status: Acute (2) Delirium tremens: Slowly weaning off Precedex. Down to 0.1 currently. Continue through today, and may be will discontinue tomorrow. Status: Acute (3) Right lower lobe pneumonia: Status: Acute Qualifiers: Pneumonia type: aspiration pneumonia Aspiration pneumonia type: due to gastric secretions Qualified Code(s): J69.0 - Pneumonitis due to inhalation of food and vomit (4) COPD (chronic obstructive pulmonary disease): Zosyn for pneumonia. Has been weaned off steroids. Continue nebs. Sputum culture unremarkable. Status: Chronic Qualifiers: COPD type: COPD with acute exacerbation Qualified Code(s): J44.1 - Chronic obstructive pulmonary disease with (acute) exacerbation (5) Tobacco abuse: Status: Chronic (6) Hypertension: Status: Chronic Qualifiers: Hypertension type: essential hypertension Qualified Code(s): I10 - Essential (primary) hypertension (7) Acute encephalopathy: With significant improvement. Wean off Precedex slowly. If continues to do well may be able to discontinue tomorrow. Discussed this condition with his yesterday. She notes that for the most part he is definitely much better. Yesterday she noticed sometimes he was making confused statements, speaking about a daughter who was shot, which does not appear to be associated with reality. We discussed regarding potential residual effects of prolonged delirium, slow recovery. For now continue Precedex and wean off slowly. Mental status appears to be progressively improving. Severe alcohol withdrawal. He has not been doing well with weaning sedation. CT head without bleeding. Noted bilateral mastoid effusions, also mild mucosal thickening in ethmoid air cells, fluid in posterior nasopharynx. These appear to be associated with his chronic sinusitis. EEG without suggestion of seizure. Central line placed 05/04. He is a heavy drinker at baseline. Continue Ativan as needed per CIWA protocol. Thiamine, folic acid, multivitamins. Prophylactic lovenox. Status: Acute (8) Acute kidney injury: JIMMY on CKD resolved. ALISA negative. ASO negative. Monitor I&O. Renal function. Blood pressures. Status: Acute Additional A&P Information Pneumonia: Appears to have persistent consolidation in left lower lobe on CT scan. Continue Zosyn. Spiking low-grade fever, up to 100.3 Fahrenheit. Productive cough. Will request for new sputum culture. Obstipation: Improved. He finally had a large bowel movement today. Continue bowel regimen. # fever: again low-grade fever. Up to 100.3 on 05/15. Will request repeat sputum culture. Blood culture. Previously noted some aspiration with thin liquids. Continues with dysphonia, although this appears to be improving. Continue follow-up with speech therapy. Aspiration precautions. Currently on GI soft diet. # hypoglycemia improving, D10 was reduced down to 30 mL/h. However, blood glucose still normal despite infusion of D10. Encourage oral nutrition. #Troponin elevation likely related to demand ischemia. #Aortic stenosis, last JOSE 1.6 cm? # significant deconditioining likely due to prolonged admission, mobilize with PT/OT Full code DVT prophylaxis Lovenox Attestations Medical Necessity Statement*: Continue admission for assessment management of improving encephalopathy secondary to severe alcohol withdrawal, gradual withdrawal of sedation support, treatment of pneumonia, hypoglycemia, additional assessment of fever episodes. 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
[2020-05-15 14:57] LABS: Glucose Point of Care 117 mg/dL (70-110)
--- NOTE | 2020-05-15 20:00 | PC.NURSE ---
Shift Events: Upon shift assessment, patient is satting at 83% on 5L. Encouraged patient to cough and deep breathe, per RT, put patient in high fowlers with some improvement in SpO2. However, was notified by RT that indoor landscaper/gardener gave verbal orders to day team that we are to keep his SpO2 greater than 80% and to not increase him from 5L via oxygen pendant. No orders in chart so I notified Ailyn. He gave verbal orders to keep patient at 84% and above on the 5L oxygen pendant . Also received orders to start patient on CPT every 4 hours and prn. Will continue to monitor patient closely.
[2020-05-15] MEDS: LORazepam 2 mg/mL INJ 1 mL IVP (20:57)
[2020-05-16] VITALS (42 sets, daily range): BP systolic 97–154; BP diastolic 56–96; PULSE 74–115; RESP 16–48; TEMP 36.6–38.3; O2SAT 83–96
[2020-05-16] MEDS: ipratropium-albuterol 3 mL Neb INHALATION ×6 (00:06→23:04)
[2020-05-16 00:31] LABS: Glucose Point of Care 122 mg/dL (70-110)
[2020-05-16] MEDS: dexmedetomidine 400 MCG in sodium chloride 0.9% (100 ml) 100 ML 12.8 MCG IV (00:31)
[2020-05-16] MEDS: acetaminophen 325 mg Tablet 650 MG PO (00:49)
[2020-05-16] MEDS: LORazepam 2 mg/mL INJ 1 mL IVP ×2 (00:54→04:56)
[2020-05-16] MEDS: enoxaparin 40 mg/0.4 mL Syringe SUBCUT (00:55)
--- NOTE | 2020-05-16 01:15 | PC.NURSE ---
Patient in apparent respiratory distress, is tachypneic with a rate of 53 breaths per minute and an SpO2 of 82%. Patient is currently on the pendulant O2 nasal cannula. Patient is anxious and restless and states that he is short of breath. Encouraged patient to turn, cough, and deep breath. Cough is weak and sounds loose, but patient is unable to cough anything up. Also encouraged patient to try and remember to breathe through his nose instead of his mouth. Patient sat at the edge of the bed and was put into a tripod position with the bedside table. Patient also used his acapella and his incentive spirometer. None of these interventions increased patient's SpO2 or decreased his rate of breathing. Notified Dr. Milian and received orders to place patient on BiPap. RT notified of orders. Patient placed on BiPap.
--- NOTE | 2020-05-16 01:24 | PC.RESP ---
nurse spoke with overnight hospitalist about pt increased work of breathing high resp. rate and decreased o2 saturations, hospitalist requested pt back on BIPAP
[2020-05-16 03:58] LABS: Basophils # 0.1 10^3/uL (0.0-0.1); Basophils % 0.4 %; Eosinophils # 0.2 10^3/uL (0.0-0.8); Eosinophils % 1.6 %; Hematocrit 42.6 % (42.0-52.0); Hemoglobin 12.1 g/dL (11.7-16.6); Lymphocytes # 1.7 10^3/uL (0.8-4.8); Lymphocytes % 12.7 %; Mean Corpuscular HGB Conc 28.4 g/dL (30.0-36.0); Mean Corpuscular Hemoglobin 29.8 pg (28.0-34.0); Mean Corpuscular Volume 104.9 fL (80-94); Mean Platelet Volume 11.2 fL (7.4-10.4); Monocytes # 1.3 10^3/uL (0.2-0.9); Monocytes % 9.8 %; Neutrophils # 9.83 10^3/uL (1.8-7.7); Nucleated Red Blood Cells % 0 %; Platelet Count 218 10^3/cmm (130-400); Red Blood Count 4.06 10^6/uL (4.1-5.3); Red Cell Distribution Width 14.8 % (12.1-15.1); White Blood Count 13.1 10^3/uL (4.0-10.0)
[2020-05-16] MEDS: acetylcysteine 200 mg/mL SDV 4 mL 100 MG INHALATION ×6 (04:08→23:04)
[2020-05-16 04:32] LABS: Alanine Aminotransferase 49 U/L (0-41); Albumin Level 3.1 g/dL (3.5-5.2); Alkaline Phosphatase 61 IU/L (40-130); Anion Gap 9.9 (5-19); Aspartate Amino Transferase 28 U/L (0-40); Blood Urea Nitrogen 5 mg/dL (6-20); Calcium 9.4 mg/dL (8.5-10.5); Carbon Dioxide 30 mmol/L (22-29); Chloride 104 mmol/L (98-107); Globulin 3.3 g/dL (1.3-4.6); Glomerular Filtration Rate 87.6 mL/min (90-130); Glucose 140 mg/dL (65-115); Osmolality Calculated 290 mOsm/kg (285-295); Potassium 3.9 mmol/L (3.5-5.1); Sodium 140 mmol/L (136-145); Total Bilirubin 0.4 mg/dL (0.15-1.2); Total Protein 6.4 g/dL (6.6-8.7)
[2020-05-16] MEDS: piperacillin-tazobactam 3.375 GM in sodium chloride 0.9% (plus) 50 ML IV ×3 (04:56→21:01)
[2020-05-16] MEDS: dextrose 10% 1,000 ML 30 ML IV (05:18)
[2020-05-16] MEDS: morphine 4 mg/mL SDV 1 mL 2 MG IVP (05:30)
--- NOTE | 2020-05-16 06:31 | PC.NURSE ---
Shift Events: Patient with increased work of breathing this shift. Switched patient from Pendulant O2 nasal cannula to BiPap to help decrease work of breathing. At this time, patient is back on the pendulant O2 and is satting 88% with a RR of 33. Patient appears to be resting comfortably. Patient placed back on Precedex at 0.4mcg in an effort to reduce his work of breathing. Also continued CIWA as patient became very restless, anxious and started hallucinating. Patient stated that he was seeing people outside the window. Reassured patient that it was just the 2 of us in the room and that no one was outside. Patient did have a small bowel movement and was able to transfer to the bedside commode from the bed with 2-3 assist. Recommend putting him on the heated high flow while transferring. Remains on D10 at 30mL/hr. Blood glucose within parameters. No c/o pain.
--- NOTE | 2020-05-16 07:37 | PC.NURSE ---
oxygen desaturation Nurse entered room and patient oxygen saturation was 74% with good wave form. patient breathing 35 times a minute. oxygen increased to 6L, boosted patient in bed and sat at a 90 degree angle, had patient deep breath and cough/ attempted to suction patient with no return of phlegm. Call to RT. RT at bedside. RT instructed to cough and deep breath, repositioned in bed again. oxygen increased to 86%. will continue to monitor.
[2020-05-16 08:10] LABS: Glucose Point of Care 123 mg/dL (70-110)
--- NOTE | 2020-05-16 08:31 | P.PN_ITS ---
Subjective Subjective: Interval history: He is rather weak this morning. Says his mouth feels dry. He had a rough night yesterday, with tachypnea, somewhat increased work of breathing, actually transitioned back to high flow cannula, then required BiPAP support until early this morning. Says subjectively currently feeling a little bit better. Vitals/I&O/Wt Last Vital Signs Temp 99.7 F H 05/16/20 04:00 Pulse 87 05/16/20 08:02 Resp 16 05/16/20 07:49 BP 97/56 05/16/20 06:00 Pulse Ox 88 L 05/16/20 07:49 05/15/20 05/16/20 05/16/20 22:59 06:59 14:59 Intake Total 287.12 / 233.511 5587.667 / 1698.000 96.960 / 96.960 Output Total 950 / 950 175 / 1125 Balance -662.88 / -298.667 871.667 / 573.000 96.960 / 96.960 Weight last 48 hrs Weight 121.109 kg Weight 122.697 kg Physical Exam Const: COMMON NORMALS: no acute distress and patient oriented x3 EXAM LIMITATIONS: physical limitations (Dysphonia.) NUTRITIONAL APPEARANCE: obese OTHER: Generally weak, but awake, alert, lucid. HENMT: COMMON NORMALS: oropharynx normal Eye: COMMON NORMALS: Equal, round and reactive pupils present PUPIL: Yes Equal, round and reactive pupils present Neck/C-Spine: COMMON NORMALS: no JVD Resp: COMMON NORMALS: normal respiratory effort and clear to auscultation bilaterally AUSCULTATION: clear to auscultation bilaterally OTHER: Sounds mostly clear, somewhat diminished left base. Somewhat difficult to auscultate due to body habitus. Cardio: COMMON NORMALS: no JVD, regular rhythm, S1 normal heart sound present, S2 normal heart sound present and No murmurs present (Cardio) RHYTHM: regular rhythm HEART SOUNDS: S1 normal heart sound present and S2 normal heart sound present GI: COMMON NORMALS: Normal to inspection, nondistended, normoactive bowel sounds present, Soft to palpation and non-tender PALPATION: Yes Soft to palpation Extremity: COMMON NORMALS: no joint enlargement GENERAL: Yes edema (1+ only below the ankles) Neuro: COMMON NORMALS: patient oriented x3 and moves all extremities Skin: COMMON NORMALS: no rashes or lesions noted GENERAL SKIN EXAM: no rashes or lesions noted Urinary Catheter Management^: Vinson: Cath Placed During This Visit: yes, but has since been removed by the nurse Reason for Continuing Indwelling Catheter: Accurate Measurement of Urinary Output in Critically Ill Patients Urinary Catheter Date of Insertion: 05/10/20 Urinary Catheter Time of Insertion: 23:28 Date Urinary Catheter Removed: 05/10/20 Time Urinary Catheter Discontinued: 14:30 Data : 05/16/20 03:30 05/16/20 03:30 Micro: Microbiology 05/10/20 16:50 Blood Culture - Final Blood NO GROWTH AFTER 5 DAYS 05/10/20 14:45 Blood Culture - Final Blood NO GROWTH AFTER 5 DAYS 05/15/20 14:34 Blood Culture - Preliminary Blood SPECIMEN COLLECTED 05/15/20 14:31 Blood Culture - Preliminary Blood SPECIMEN COLLECTED A&P Assessment and plan (1) Acute respiratory failure with hypoxia and hypercapnia: Last night he had a rough night, required overnight BiPAP support until early this morning. Bleed back to Oxymizer pendant at 5 L, saturating 88%. Generally weak. Subjectively this morning is feeling a little bit better. I am concerned that he is growing weaker. For now we will change him to n.p.o. Until we can assess modified barium swallow. He says that he has noticed some cough with food or drink. Again low-grade temp 100.9. Repeat sputum culture has been requested. On noncontrast CT noted to have persistence of left lower lobe consolidation, with possible ongoing pneumonia. Possible sepsis with fever this morning 100.9, leukocytosis 13. Repeat blood culture. Continue Zosyn at this time. Breathing treatments for COPD. Has been weaned off steroids. Flutter valve. IS Continue follow-up with speech therapy. Edema has improved. His weight has improved. Currently down to 121 kg Troponin was elevated on admission, but trended down to 57. Suspected due to demand ischemia. Is having no chest pain. Echocardiogram with poor ultrasonic window, LV appears to be normal size and ejection fraction. Right ventricle mildly dilated, possibly normal EF. May have underlying coronary disease, and would benefit from nonemergent stress test assessment after he recovers. Low-dose aspirin. B subhash. Hold off on statin due to transaminitis. Other conditions include smoking. History of COPD. Possible LOPEZ. Negative COVID-19 PCR. Rapid negative. While in ER was under care off RN who later tested positive for COVID-19. Per report all appropriate for PE was worn. Monitor for recurrence of any symptoms. This was discussed with his . She understands the risks to him, and also to her in case he contracted illness, however, prefers to continue visitation with a mask and precautions. Status: Acute (2) Delirium tremens: Had resolved. Subsequently required slow weaning of set of this. Weaned off Precedex this morning. Status: Acute (3) Right lower lobe pneumonia: This appears to resolve. Repeat CT 05/14 with left lower lobe concern for date of atelectasis consistent with pneumonia. Status: Acute Qualifiers: Pneumonia type: aspiration pneumonia Aspiration pneumonia type: due to gastric secretions Qualified Code(s): J69.0 - Pneumonitis due to inhalation of food and vomit (4) COPD (chronic obstructive pulmonary disease): Zosyn for pneumonia. Has been weaned off steroids. Continue nebs. Sputum culture unremarkable. We will repeat due to some worsening his respiratory condition. Status: Chronic Qualifiers: COPD type: COPD with acute exacerbation Qualified Code(s): J44.1 - Chronic obstructive pulmonary disease with (acute) exacerbation (5) Tobacco abuse: Status: Chronic (6) Hypertension: Status: Chronic Qualifiers: Hypertension type: essential hypertension Qualified Code(s): I10 - Essential (primary) hypertension (7) Acute encephalopathy: Improving. Weaned off Precedex entirely today. Severe alcohol withdrawal resolved. CT head without bleeding. Noted bilateral mastoid effusions, also mild mucosal thickening in ethmoid air cells, fluid in posterior nasopharynx. These appear to be associated with his chronic sinusitis. EEG without suggestion of seizure. Central line placed 05/04. He is a heavy drinker at baseline. Continue Ativan as needed per CIWA protocol. Thiamine, folic acid, multivitamins. Prophylactic lovenox. Status: Acute (8) Acute kidney injury: JIMMY on CKD resolved. ALISA negative. ASO negative. Monitor I&O. Renal function. Blood pressures. Status: Acute Additional A&P Information Pneumonia: Appears to have persistent consolidation in left lower lobe on CT scan. Continue Zosyn. Spiking low-grade fever, up to 100.9 Fahrenheit. Productive cough. Requested for new sputum culture. Obstipation: Improved. Continue bowel regimen. # fever: again low-grade fever. Up to 100.9 on 05/15. Will request repeat sputum culture. Blood culture. Previously noted some aspiration with thin liquids. Dysphonia. Continue follow-up with speech therapy. Aspiration precautions. N.p.o. for now. MBS due to concern of recurrent low-grade aspiration. Has also mastoid effusions, although these appear to be more a chronic problem. Keep on differential for now. # hypoglycemia improving, D10 was reduced down to 15 mL/h. N.p.o. for now for additional swallowing assessment. #Troponin elevation likely related to demand ischemia. #Aortic stenosis, last JOSE 1.6 cm? # significant deconditioining likely due to prolonged admission, mobilize with PT/OT Full code DVT prophylaxis Lovenox Attestations Medical Necessity Statement*: Continue admission for assessment management of respiratory failure with hypoxia, pneumonia. 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
--- NOTE | 2020-05-16 09:24 | PC.RESP ---
wanted pt. on bipap tit 90%. sats.
[2020-05-16] MEDS: nicotine 14 mg Patch 1 PATCH TRANSDERMA (09:34)
[2020-05-16] MEDS: pantoprazole 40 mg SDV IVP (09:34)
[2020-05-16] MEDS: aspirin 300 mg Supp PR (09:35)
[2020-05-16 10:01] LABS: Magnesium 1.6 mg/dL (1.7-2.3)
[2020-05-16 10:02] LABS: Lactate (Lactic Acid level) 0.5 mmol/L (0.5-2.2)
[2020-05-16] MEDS: magnesium sulfate premix 2 GM/50 ML PIGGYBACK IV (10:43)
[2020-05-16 11:22] LABS: Glucose Point of Care 116 mg/dL (70-110)
--- NOTE | 2020-05-16 12:25 | P.PN_ITS ---
Subjective Subjective: Interval history: The patient was seen and examined. The patient was sleeping but easily arousable and able to follow commands and answer simple questions without any difficulty. Overnight the patient had an episode of tachypnea, desaturation and altered mental status requiring him to be on BiPAP. Currently patient is only on 40% oxygen and looking completely comfortable. I had performed a bedside ultrasound. The patient has very small left-sided pleural effusion. There is no definitive consolidation in the left lower lobe. Medications: Reviewed: Yes Vitals/I&O/Wt Last Vital Signs Temp 99.1 F 05/16/20 11:26 Pulse 88 05/16/20 11:37 Resp 27 H 05/16/20 11:37 BP 125/71 05/16/20 10:00 Pulse Ox 91 05/16/20 11:37 05/15/20 05/16/20 05/16/20 22:59 06:59 14:59 Intake Total 287.12 / 949.987 3602.667 / 1698.000 146.960 / 146.960 Output Total 950 / 950 175 / 1125 100 / 100 Balance -662.88 / -298.667 871.667 / 573.000 46.960 / 46.960 Weight last 48 hrs Weight 267 lb Weight 270 lb 8 oz Physical Exam Narrative: EXAM NARRATIVE: General: Patient appears weak and tired but easily arousable and follows all commands. Neck: No JVD Respiratory: Auscultation: Reduced breath sound at bilateral lung bases, no crackles wheezing or rhonchi Cardiovascular: Regular rate and rhythm, S1-S2 present, no murmur, no peripheral edema. Abdomen: Soft, nontender, distended from obesity, positive bowel sound Skin: No rash Neuro: Patient is able to follow all commands and is moving all extremities, no gross motor deficit. Urinary Catheter Management^: Vinson: Cath Placed During This Visit: yes, but has since been removed by the nurse Reason for Continuing Indwelling Catheter: Accurate Measurement of Urinary Output in Critically Ill Patients Urinary Catheter Date of Insertion: 05/10/20 Urinary Catheter Time of Insertion: 23:28 Date Urinary Catheter Removed: 05/10/20 Time Urinary Catheter Discontinued: 14:30 Data : 05/16/20 03:30 05/16/20 03:30 Micro: Microbiology 10/21/20 09:35 Blood Culture - Preliminary Blood SPECIMEN COLLECTED 05/16/20 09:29 Blood Culture - Preliminary Blood SPECIMEN COLLECTED 05/10/20 16:50 Blood Culture - Final Blood NO GROWTH AFTER 5 DAYS 05/10/20 14:45 Blood Culture - Final Blood NO GROWTH AFTER 5 DAYS 05/15/20 14:34 Blood Culture - Preliminary Blood SPECIMEN COLLECTED 05/15/20 14:31 Blood Culture - Preliminary Blood SPECIMEN COLLECTED Attestation for Other Data: I personally reviewed and interpreted the following: Other data: I have reviewed the patient's laboratory, microbiologic and radiologic data. A&P Assessment and plan (1) Acute respiratory failure with hypoxia: The patient's respiratory failure is significantly contributed by his mental status. I believe that the delirium that the patient is experiencing f rom time to time is secondary to benzodiazepines. I would recommend discontinuing all benzodiazepines at this time. The patient does not have any evidence to be in alcohol withdrawal at this point. If necessary, the patient can be treated with intramuscular haloperidol for delirium. Altered mental status is likely causing aspiration as well as difficulty with airway clearance. Mucous plugs are likely responsible for this patient's intermittent episodes of acute decompensation. Currently the patient has good mental status and is only on 40% oxygen. The patient will benefit from aggressive chest physical therapy. He needs to get out of bed sitting in chair and work with physical therapy. The patient can be given DuoNeb and Mucomyst with chest vest which will help with clearance of the mucus from the airway. The patient can walk with ox dependent if oxygenation is a problem. There is no definitive evidence of worsening pneumonia on the CT scan from . The patient is not volume overloaded either. The cardiac function was good on bedside echocardiogram. Status: Acute (2) Acute encephalopathy: Supportive therapy only with nonbenzodiazepine medications. The patient will benefit from a rehab facility. 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
--- NOTE | 2020-05-16 14:29 | PC.OT ---
Per Doctors orders pt will be on hold for today. Will attempt treatment again tomorrow. Co-sign: JUAN Bruce/Luisana
[2020-05-16 17:31] LABS: Glucose Point of Care 97 mg/dL (70-110)
[2020-05-17] VITALS (34 sets, daily range): BP systolic 116–172; BP diastolic 69–125; PULSE 79–111; RESP 16–50; TEMP 36.8–38; O2SAT 74–97
[2020-05-17 00:03] LABS: Glucose Point of Care 91 mg/dL (70-110)
[2020-05-17] MEDS: enoxaparin 40 mg/0.4 mL Syringe SUBCUT (02:11)
[2020-05-17] MEDS: ipratropium-albuterol 3 mL Neb INHALATION ×5 (03:12→20:32)
[2020-05-17] MEDS: acetylcysteine 200 mg/mL SDV 4 mL 100 MG INHALATION ×3 (03:12→13:17)
[2020-05-17 04:19] LABS: Basophils % 0.6 %; Eosinophils # 0.4 10^3/uL (0.0-0.8); Eosinophils % 5.2 %; Hematocrit 39.2 % (42.0-52.0); Hemoglobin 11.4 g/dL (11.7-16.6); Lymphocytes # 1.8 10^3/uL (0.8-4.8); Lymphocytes % 25.2 %; Mean Corpuscular HGB Conc 29.1 g/dL (30.0-36.0); Mean Corpuscular Hemoglobin 29.9 pg (28.0-34.0); Mean Corpuscular Volume 102.9 fL (80-94); Mean Platelet Volume 11.6 fL (7.4-10.4); Monocytes # 0.7 10^3/uL (0.2-0.9); Monocytes % 10.1 %; Neutrophils # 4.27 10^3/uL (1.8-7.7); Neutrophils % 58.8 %; Nucleated Red Blood Cells % 0 %; Platelet Count 218 10^3/cmm (130-400); Red Blood Count 3.81 10^6/uL (4.1-5.3); Red Cell Distribution Width 14.8 % (12.1-15.1); White Blood Count 7.3 10^3/uL (4.0-10.0)
[2020-05-17] MEDS: piperacillin-tazobactam 3.375 GM in sodium chloride 0.9% (plus) 50 ML IV ×3 (04:30→20:42)
[2020-05-17 04:51] LABS: Alanine Aminotransferase 38 U/L (0-41); Albumin Level 2.8 g/dL (3.5-5.2); Alkaline Phosphatase 53 IU/L (40-130); Anion Gap 9.5 (5-19); Aspartate Amino Transferase 22 U/L (0-40); Blood Urea Nitrogen 5 mg/dL (6-20); Calcium 9.1 mg/dL (8.5-10.5); Carbon Dioxide 31 mmol/L (22-29); Chloride 104 mmol/L (98-107); Globulin 3.2 g/dL (1.3-4.6); Glomerular Filtration Rate 100.4 mL/min (90-130); Glucose 101 mg/dL (65-115); Osmolality Calculated 289 mOsm/kg (285-295); Potassium 3.5 mmol/L (3.5-5.1); Sodium 141 mmol/L (136-145); Total Bilirubin 0.3 mg/dL (0.15-1.2)
--- NOTE | 2020-05-17 06:32 | PC.NURSE ---
Shift Events: Patient on placed back on BiPap. Precedex remained off. Rested comfortably throughout the night. Oriented x 4. States that he is depressed because he misses his family. Will coordinate with day shift to see if facetime can be used. All other VSS.
--- NOTE | 2020-05-17 07:00 | FL_ITS ---
WS: [id number] MODIFIED BARIUM SWALLOW TECHNIQUE: Modified barium swallow with speech therapy using multiple consistencies. FLUOROSCOPY TIME: 2.2 minutes. CLINICAL INFORMATION: Oropharyngeal dysphagia COMPARISON: None. FINDINGS: Multiple consistencies utilized. Slightly delayed oropharyngeal phase with pooling in the vallecula. This cleared with additional swallows. No difficulties with barium tablet. Small amount of penetratio n with thin liquids. No aspiration. FL/FL barium swallow modifd [id number] IMPRESSION: Small amount of penetration with thin liquids. No naomi aspiration.
[2020-05-17 08:01] LABS: Glucose Point of Care 89 mg/dL (70-110)
--- NOTE | 2020-05-17 08:30 | PC.NURSE ---
BiPap off Oximizer pendant at 6lpm,
[2020-05-17] MEDS: pantoprazole 40 mg SDV IVP (09:55)
[2020-05-17] MEDS: thiamine 100 mg Tablet PO (09:56)
[2020-05-17] MEDS: folic acid 1 mg Tablet PO (09:56)
--- NOTE | 2020-05-17 13:29 | P.PN_ITS ---
Subjective Subjective: Interval history: Last night from Oxymizer pendant he went back to BiPAP. This morning he is doing well with OxyContin with saturations in low 90s, however, has felt somewhat more secure wearing the BiPAP. Vitals/I&O/Wt Last Vital Signs Temp 99.7 F H 05/17/20 04:00 Pulse 88 05/17/20 12:12 Resp 22 H 05/17/20 12:11 BP 135/85 05/17/20 06:00 Pulse Ox 91 05/17/20 12:11 05/16/20 05/17/20 05/17/20 22:59 06:59 14:59 Intake Total 150 / 296.960 50 / 346.960 50 / 50 Output Total 740 / 840 225 / 1065 Balance -590 / -543.040 -175 / -718.040 50 / 50 Weight last 48 hrs Weight 122.651 kg Weight 121.109 kg Physical Exam Const: COMMON NORMALS: no acute distress, patient oriented x3 and alert EXAM LIMITATIONS: physical limitations (Dysphonia.) GENERAL APPEARANCE: cooperative NUTRITIONAL APPEARANCE: obese ORIENTATION/CONSCIOUSNESS: Yes awake OTHER: Generally weak, but awake, alert, lucid. HENMT: COMMON NORMALS: oropharynx normal Eye: COMMON NORMALS: Equal, round and reactive pupils present PUPIL: Yes Equal, round and reactive pupils present Neck/C-Spine: COMMON NORMALS: no JVD Resp: COMMON NORMALS: normal respiratory effort AUSCULTATION: rales (faint) on the right at the base Cardio: COMMON NORMALS: no JVD, regular rhythm, S1 normal heart sound present, S2 normal heart sound present and No murmurs present (Cardio) RHYTHM: regular rhythm HEART SOUNDS: S1 normal heart sound present and S2 normal heart sound present GI: COMMON NORMALS: Normal to inspection, nondistended, normoactive bowel sounds present, Soft to palpation and non-tender PALPATION: Yes Soft to palpation Extremity: COMMON NORMALS: no joint enlargement and no pedal edema GENERAL: No edema Neuro: COMMON NORMALS: patient oriented x3 and moves all extremities SENSORIUM/ORIENTATION: Yes alert Skin: COMMON NORMALS: no rashes or lesions noted GENERAL SKIN EXAM: no rashes or lesions noted Urinary Catheter Management^: Vinson: Cath Placed During This Visit: yes, but has since been removed by the nurse Reason for Continuing Indwelling Catheter: Accurate Measurement of Urinary Output in Critically Ill Patients Urinary Catheter Date of Insertion: 05/10/20 Urinary Catheter Time of Insertion: 23:28 Date Urinary Catheter Removed: 05/10/20 Time Urinary Catheter Discontinued: 14:30 Data : 05/17/20 03:30 05/17/20 03:30 Micro: Microbiology 05/16/20 09:35 Blood Culture - Preliminary Blood NEGATIVE TO DATE 05/16/20 09:29 Blood Culture - Preliminary Blood NEGATIVE TO DATE 05/15/20 14:31 Blood Culture - Preliminary Blood NEGATIVE TO DATE 05/15/20 14:34 Blood Culture - Preliminary Blood NEGATIVE TO DATE A&P Assessment and plan (1) Acute respiratory failure with hypoxia and hypercapnia: Last night again needed to transition to BiPAP. This morning is doing better. Tolerating Oxymizer pendant. Modified barium swallow performed today showing some penetration with thin liquids, no naomi aspiration. Concern as expressed by pulmonology, appreciate reevaluation, that perhaps with episodes of mental status changes possibly due to medications contributing to recurrent episodes of aspiration. Avoid benzodiazepines. His dysphonia is actually getting better. Discussed with him his oropharyngeal muscles are probably recovering after prolonged disuse. Does appear to have slightly delayed oropharyngeal phase with pooling in the vallecula. For now as discussed with him will change to dysphagia diet, nectar thick liquids. Continue speech therapy. Continue to encourage mobilization with PT and OT. He appears to be getting somewhat anxious without BiPAP. Continue to reassure. Discussed with his . On noncontrast CT noted to have persistence of left lower lobe consolidation, with possible ongoing pneumonia. Possible sepsis with fever this morning 100.9, leukocytosis 13. Repeat blood culture. Continue Zosyn at this time. Breathing treatments for COPD. Has been weaned off steroids. Flutter valve. IS Continue follow-up with speech therapy. Edema has improved. His weight has improved. Currently down to 121 kg Troponin was elevated on admission, but trended down to 57. Suspected due to demand ischemia. Is having no chest pain. Echocardiogram with poor ultrasonic window, LV appears to be normal size and ejection fraction. Right ventricle mildly dilated, possibly normal EF. May have underlying coronary disease, and would benefit from nonemergent stress test assessment after he recovers. Low-dose aspirin. B subhash. Hold off on statin due to transaminitis. Other conditions include smoking. History of COPD. Possible LOPEZ. Negative COVID-19 PCR. Rapid negative. While in ER was under care off RN who later tested positive for COVID-19. Per report all appropriate for PE was worn. Monitor for recurrence of any symptoms. This was discussed with his . She understands the risks to him, and also to her in case he contracted illness, however, prefers to continue visitation with a mask and precautions. Status: Acute (2) Delirium tremens: Had resolved. Subsequently required slow weaning of set of this. Weaned off Precedex. Avoid benzodiazepines as per pulmonology recommendations. If episodes of delirium occur use Haldol. Status: Acute (3) Right lower lobe pneumonia: This appears to resolve. Repeat CT 05/14 with left lower lobe concern for date of atelectasis consistent with pneumonia. Status: Acute Qualifiers: Pneumonia type: aspiration pneumonia Aspiration pneumonia type: due to gastric secretions Qualified Code(s): J69.0 - Pneumonitis due to inhalation of food and vomit (4) COPD (chronic obstructive pulmonary disease): Zosyn for pneumonia. Has been weaned off steroids. Continue nebs. Sputum culture unremarkable. We will repeat due to some worsening his respiratory condition. Status: Chronic Qualifiers: COPD type: COPD with acute exacerbation Qualified Code(s): J44.1 - Chronic obstructive pulmonary disease with (acute) exacerbation (5) Tobacco abuse: Status: Chronic (6) Hypertension: Status: Chronic Qualifiers: Hypertension type: essential hypertension Qualified Code(s): I10 - Essential (primary) hypertension (7) Acute encephalopathy: Improving. Weaned off Precedex entirely today. Severe alcohol withdrawal resolved. CT head without bleeding. Noted bilateral mastoid effusions, also mild mucosal thickening in ethmoid air cells, fluid in posterior nasopharynx. These appear to be associated with his chronic sinusitis. EEG without suggestion of seizure. Central line placed 05/04. He is a heavy drinker at baseline. Continue Ativan as needed per CIWA protocol. Thiamine, folic acid, multiv itamins. Prophylactic lovenox. Status: Acute (8) Acute kidney injury: JIMMY on CKD resolved. ALISA negative. ASO negative. Monitor I&O. Renal function. Blood pressures. Status: Acute Additional A&P Information Pneumonia: Appears to have persistent consolidation in left lower lobe on CT scan. Continue Zosyn. Change to dysphagia diet. Some penetration noted on MBS. Aspiration precautions. Avoid benzos. Continue speech therapy. Obstipation: Improved. Continue bowel regimen. # fever: again low-grade fever. Up to 100.9 on 05/15. Will request repeat sputum culture. Blood culture. Previously noted some aspiration with thin liquids. Dysphonia. Continue follow-up with speech therapy. Aspiration precautions. N.p.o. for now. MBS due to concern of recurrent low-grade aspiration. Has also mastoid effusions, although these appear to be more a chronic problem. Keep on differential for now. # hypoglycemia improving, D10 was reduced down to 15 mL/h. N.p.o. for now for additional swallowing assessment. #Troponin elevation likely related to demand ischemia. #Aortic stenosis, last JOSE 1.6 cm? # significant deconditioining likely due to prolonged admission, mobilize with PT/OT Full code DVT prophylaxis Lovenox Attestations Medical Necessity Statement*: Continue admission for assessment management of respiratory failure, pneumonia, possible reaspiration, after prolonged intubation and encephalopathy due to severe alcohol withdrawal. Weaning off BiPAP support. Continue to mobilize. Disposition planning. Coding Level of Care Code Acute Inside Wirer for [facility] Diagnoses Acute respiratory failure with hypoxia and hypercapnia J96.01; J96.02 Delirium tremens F10.231 Right lower lobe pneumonia J69.0 Pneumonia type: aspiration pneumonia Aspiration pneumonia type: due to gastric secretions COPD (chronic obstructive pulmonary disease) J44.1 COPD type: COPD with acute exacerbation Tobacco abuse Z72.0 Hypertension I10 Hypertension type: essential hypertension Acute encephalopathy G93.40 Acute kidney injury N17.9
[2020-05-17] MEDS: metoprolol tartrate 1 mg/1 mL SDV 5 mL 5 MG IV (14:10)
[2020-05-17 15:08] LABS: Add Urine Microscopic? YES; Bilirubin Urine Neg (Negative); Blood Urine 3+ (Negative); Glucose Urine UA Norm (Normal); Ketones Urine Negative (Negative); Leukocyte Esterase Urine Negative (Negative); Nitrate Urine Negative (Negative); Protein Urine Neg (Negative); Urine Appearance Hazy (CLEAR); Urine Color Yellow (Yellow); Urobilinogen Urine Norm (Negative); pH Urine 5 (5-7)
[2020-05-17 15:12] LABS: Bacteria Urine TRACE /hpf; RBC Urine 15-25 /hpf (0-2)
[2020-05-17 15:13] LABS: Add Urine Culture? Yes
[2020-05-17 17:36] LABS: Glucose Point of Care 92 mg/dL (70-110)
[2020-05-17 17:36] LABS: Glucose Point of Care 87 mg/dL (70-110)
[2020-05-17] MEDS: dextrose 10% 1,000 ML 30 ML IV (18:52)
--- NOTE | 2020-05-17 19:02 | PC.NURSE ---
Shift summary: Pt alert and oriented. Lung sounds diminished bilat.. Pt has been using oxymizer pendant at 6lpm all day, his O2 Sats have been greater than 87% all day. Pt has been resting in bed and sitting on side of bed, he repositions himself frequently. Modified barium swallow test done. Pt started on Dysphagia diet and nectar thickened liquids. His blood sugars WNL,. He still has d!0 infusing at 30ml/hr. Pt has c/o about hernandez cath several times today, UA done, trace bacteria noted. 850ml output. Pt has had 2 bowel movements today. His came to visit this evening. Still waiting on [facility] to confirm brien swing bed.
--- NOTE | 2020-05-17 20:10 | PC.NURSE ---
Report gven to [facility].
[2020-05-18] VITALS (35 sets, daily range): BP systolic 99–158; BP diastolic 57–99; PULSE 72–113; RESP 15–45; TEMP 36.7–37.2; O2SAT 87–98; BMI 37.7
[2020-05-18] MEDS: ipratropium-albuterol 3 mL Neb INHALATION ×7 (00:21→23:00)
[2020-05-18] MEDS: enoxaparin 40 mg/0.4 mL Syringe SUBCUT (02:00)
[2020-05-18 04:05] LABS: Basophils # 0.1 10^3/uL (0.0-0.1); Basophils % 0.9 %; Eosinophils # 0.4 10^3/uL (0.0-0.8); Eosinophils % 5.6 %; Hemoglobin 11.5 g/dL (11.7-16.6); Lymphocytes # 1.8 10^3/uL (0.8-4.8); Lymphocytes % 26.5 %; Mean Corpuscular HGB Conc 29.5 g/dL (30.0-36.0); Mean Corpuscular Volume 101.8 fL (80-94); Mean Platelet Volume 11.3 fL (7.4-10.4); Monocytes # 0.8 10^3/uL (0.2-0.9); Monocytes % 12.2 %; Neutrophils # 3.71 10^3/uL (1.8-7.7); Neutrophils % 54.4 %; Nucleated Red Blood Cells % 0 %; Platelet Count 246 10^3/cmm (130-400); Red Blood Count 3.83 10^6/uL (4.1-5.3); Red Cell Distribution Width 14.6 % (12.1-15.1); White Blood Count 6.8 10^3/uL (4.0-10.0)
[2020-05-18] MEDS: piperacillin-tazobactam 3.375 GM in sodium chloride 0.9% (plus) 50 ML IV ×3 (04:22→20:43)
[2020-05-18 04:36] LABS: Alanine Aminotransferase 35 U/L (0-41); Alkaline Phosphatase 55 IU/L (40-130); Anion Gap 9.3 (5-19); Aspartate Amino Transferase 21 U/L (0-40); Blood Urea Nitrogen 4 mg/dL (6-20); Calcium 9.3 mg/dL (8.5-10.5); Carbon Dioxide 32 mmol/L (22-29); Chloride 104 mmol/L (98-107); Globulin 3.1 g/dL (1.3-4.6); Glomerular Filtration Rate 100.4 mL/min (90-130); Glucose 103 mg/dL (65-115); Osmolality Calculated 291 mOsm/kg (285-295); Potassium 3.3 mmol/L (3.5-5.1); Sodium 142 mmol/L (136-145); Total Bilirubin 0.3 mg/dL (0.15-1.2); Total Protein 6.1 g/dL (6.6-8.7)
[2020-05-18] MEDS: acetylcysteine 200 mg/mL SDV 4 mL 100 MG INHALATION ×6 (05:46→23:00)
[2020-05-18 07:19] LABS: Glucose Point of Care 96 mg/dL (70-110)
--- NOTE | 2020-05-18 09:05 | PC.CHAP ---
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 plumbing installer visit [] Patient/Family/Request visit [] Outpatient visit [] Follow-up visit [] Physician referral [] Code/Alert [] Routine visit [] Staff referral [] Actively dying [] Patient sleeping [] Family support [] [] Out of room [] Palliative care [] [x] Receiving care in room [] Pre-surgical visit [] Trauma [] Long length of stay [] ICU visit [x] Other: several staff members working with patient Relational/Emotional Strength [] Patient feels connected with others/family/visitors/staff [] Distress [] Loneliness/isolation [] Abandonment Spirituality of Patient [] Person of Meg [] Attends Anabaptism of their Meg [] Believes in Prayer [] Reads Bible or Buddhism materials [] There are Spiritual issues to be addressed Bond Underwriter Interventions [x] Prayer [] Active listening [] Non-anxious presence [] Spiritual/emotional support [] Crisis/trauma care [] Spiritual counseling [] Bereavement support [] Provided bereavement packet [] Provided Bible/devotional materials [] Provided toy/stuffed animal, coloring book to patient or family member [] Provided Communion [] Anointing/[place] [] Salvation [x] Completed spiritual assessment [] Other: Impact on Illness or Injury [] Angry [] Fearful [] Anxious [] Often cries [] Exhaustion [] Unable to work [] Unable to attend zoroastrianism [] Unable to walk/stand [] Unable to read [] Unable to drive [] Unable to eat/drink [] Unable to sleep [] Unable to be with family [] Patient intubated [] Other: Summary Time spent with patient
[2020-05-18] MEDS: pantoprazole DR 40 mg Tablet PO (09:16)
[2020-05-18] MEDS: aspirin 81 mg Chew Tablet PO (09:16)
[2020-05-18] MEDS: thiamine 100 mg Tablet PO (09:16)
[2020-05-18] MEDS: folic acid 1 mg Tablet PO (09:16)
[2020-05-18 11:55] LABS: Glucose Point of Care 94 mg/dL (70-110)
--- NOTE | 2020-05-18 14:21 | P.PN_ITS ---
Subjective Subjective: Interval history: Today he says he is doing all right. Denies any new pain. Denies any more shortness of breath. No appetite, however. Vitals/I&O/Wt Last Vital Signs Temp 98.1 F 05/18/20 13:28 Pulse 105 H 05/18/20 12:45 Resp 30 H 05/18/20 12:38 BP 138/99 05/18/20 12:00 Pulse Ox 91 05/18/20 12:38 05/17/20 05/18/20 05/18/20 22:59 06:59 14:59 Intake Total 600 / 1650 50 / 1700 290 / 290 Output Total 850 / 850 650 / 1500 175 / 175 Balance -250 / 800 -600 / 200 115 / 115 Weight last 48 hrs Weight 124.466 kg Weight 122.651 kg Weight 122.651 kg Physical Exam Const: COMMON NORMALS: no acute distress, patient oriented x3 and alert EXAM LIMITATIONS: physical limitations (Dysphonia.) GENERAL APPEARANCE: cooperative NUTRITIONAL APPEARANCE: obese ORIENTATION/CONSCIOUSNESS: Yes awake OTHER: Gradually getting somewhat stronger. Sitting at the edge of the bed, trying to eat breakfast, but chewing slowly to catch his breath between bites. HENMT: COMMON NORMALS: oropharynx normal Eye: COMMON NORMALS: Equal, round and reactive pupils present PUPIL: Yes Equal, round and reactive pupils present Neck/C-Spine: COMMON NORMALS: no JVD Resp: COMMON NORMALS: normal respiratory effort AUSCULTATION: rales (faint) on the right at the base OTHER: Mostly clear. Difficult to auscultate due to body habitus. Cardio: COMMON NORMALS: no JVD, regular rhythm, S1 normal heart sound present, S2 normal heart sound present and No murmurs present (Cardio) RHYTHM: regular rhythm HEART SOUNDS: S1 normal heart sound present and S2 normal heart sound present GI: COMMON NORMALS: Normal to inspection, nondistended, normoactive bowel s ounds present, Soft to palpation and non-tender PALPATION: Yes Soft to palpation Extremity: COMMON NORMALS: no joint enlargement and no pedal edema GENERAL: No edema Neuro: COMMON NORMALS: patient oriented x3 and moves all extremities SENSORIUM/ORIENTATION: Yes alert Skin: COMMON NORMALS: no rashes or lesions noted GENERAL SKIN EXAM: no rashes or lesions noted Urinary Catheter Management^: Vinson: Cath Placed During This Visit: yes, but has since been removed by the nurse Reason for Continuing Indwelling Catheter: Accurate Measurement of Urinary Output in Critically Ill Patients Urinary Catheter Date of Insertion: 05/10/20 Urinary Catheter Time of Insertion: 23:28 Date Urinary Catheter Removed: 05/18/20 Time Urinary Catheter Discontinued: 13:22 Data : 05/18/20 03:30 05/18/20 03:30 Micro: Microbiology 05/16/20 09:35 Blood Culture - Preliminary Blood NEGATIVE TO DATE 05/16/20 09:29 Blood Culture - Preliminary Blood NEGATIVE TO DATE A&P Assessment and plan (1) Acute respiratory failure with hypoxia and hypercapnia: Gradually improving. Continues to attempt to wean down to Oxymizer pe ndant cannula. He has been motivated and trying to sit up to eat. Trying to work with PT and OT. Encouraged to continue same. Continue attempts to wean off intermittent BiPAP. Did fairly well with speech therapy. Diet changed to GI soft, thin liquids. On noncontrast CT 05/14 noted to have persistence of left lower lobe consolidation, with possible ongoing pneumonia. Leukocytosis resolved. Fever appears resolved, last on 05/17 midnight. Continue Zosyn at this time. Breathing treatments for COPD. Has been weaned off steroids. Flutter valve. IS. Continue follow-up with speech therapy. Transfer to medical floor. Edema has improved. His weight has improved. Troponin was elevated on admission, but trended down to 57. Suspected due to demand ischemia. Is having no chest pain. Echocardiogram with poor ultrasonic window, LV appears to be normal size and ejection fraction. Right ventricle mildly dilated, possibly normal EF. May have underlying coronary disease, and would benefit from nonemergent stress test assessment after he recovers. Low-dose aspirin. B subhash. Hold off on statin. If liver function remains good, may add. Other conditions include smoking. History of COPD. Possible LOPEZ. Will need sleep study. Negative COVID-19 PCR. Rapid negative. Some exposure to Covid positive staph noted on presentation, but with appropriate PPE. Status: Acute (2) Delirium tremens: Had resolved. Subsequently required slow weaning of set of this. Weaned off Precedex. Avoid benzodiazepines as per pulmonology recommendations. If episodes of delirium occur use Haldol. Status: Acute (3) Right lower lobe pneumonia: This appears to resolve. Repeat CT 05/14 with left lower lobe concern for date of atelectasis consistent with pneumonia. Status: Acute Qualifiers: Pneumonia type: aspiration pneumonia Aspiration pneumonia type: due to gastric secretions Qualified Code(s): J69.0 - Pneumonitis due to inhalation of food and vomit (4) COPD (chronic obstructive pulmonary disease): Zosyn for pneumonia. Has been weaned off steroids. Continue nebs. Sputum culture unremarkable. We will repeat due to some worsening his respiratory condition. Status: Chronic Qualifiers: COPD type: COPD with acute exacerbation Qualified Code(s): J44.1 - Chronic obstructive pulmonary disease with (acute) exacerbation (5) Tobacco abuse: Status: Chronic (6) Hypertension: Status: Chronic Qualifiers: Hypertension type: essential hypertension Qualified Code(s): I10 - Essential (primary) hypertension (7) Acute encephalopathy: Improving. Weaned off all IV sedative infusions. Severe alcohol withdrawal resolved. CT head without bleeding. Noted bilateral mastoid effusions, also mild mucosal thickening in ethmoid air cells, fluid in posterior nasopharynx. These appear to be associated with his chronic sinusitis. EEG without suggestion of seizure. Central line placed 05/04. He is a heavy drinker at baseline. Continue Ativan as needed per [facility] protocol. Thiamine, folic acid, multivitam ins. Prophylactic lovenox. Status: Acute (8) Acute kidney injury: JIMMY on CKD resolved. ALISA negative. ASO negative. Monitor I&O. Renal function. Blood pressures. Status: Acute Additional A&P Information Pneumonia: Appears to have persistent consolidation in left lower lobe on CT scan. Continue Zosyn. Change to dysphagia diet. Some penetration noted on MBS. Aspiration precautions. Avoid benzos. Continue speech therapy. Obstipation: Improved. Continue bowel regimen. # fever: Improved. Last on 05/17 midnight. Continue aspiration precautions. Previously noted some aspiration with thin liquids. Dysphonia. Continue follow-up with speech therapy. Aspiration precautions. MBS with small amount of penetration with thin liquids, no aspiration. Has been doing well with speech. Advanced to GI soft diet with thin liquids. Has also mastoid effusions, although these appear to be more a chronic problem. Keep on differential for now. # hypoglycemia: Continue D10 30 mL/h currently. Appetite is poor. Encourage oral intake. He says will try protein Jell-O or ice cream with meals as otherwise not eating very much. Ordered. #Troponin elevation likely related to demand ischemia. #Aortic stenosis, last JOSE 1.6 cm? # significant deconditioining likely due to prolonged admission, mobilize with PT/OT Full code DVT prophylaxis Lovenox Attestations Medical Necessity Statement*: Continue admission for assessment management of respiratory failure with slow improvement, pneumonia. Coding Level of Care Code Acute Superintendent Menagerie for [facility] Diagnoses Acute respiratory failure with hypoxia and hypercapnia J96.01; J96.02 Delirium tremens F10.231 Right lower lobe pneumonia J69.0 Pneumonia type: aspiration pneumonia Aspiration pneumonia type: due to gastric secretions COPD (chronic obstructive pulmonary disease) J44.1 COPD type: COPD with acute exacerbation Tobacco abuse Z72.0 Hypertension I10 Hypertension type: essential hypertension Acute encephalopathy G93.40 Acute kidney injury N17.9
--- NOTE | 2020-05-18 15:00 | PC.NURSE ---
Report faxed to [employer] [employer].
[2020-05-18] MEDS: potassium chloride ER 10 mEq Tablet 20 MEQ PO (15:10)
--- NOTE | 2020-05-18 15:35 | PC.NURSE ---
Report called to [facility] and given to Talisha. , Kelli notified via telephone of impending transfer. Pt transferred to [facility] via W/C. . Explanatin of oximizer pendant given to SHALOM.
[2020-05-18 17:05] LABS: Glucose Point of Care 108 mg/dL (70-110)
[2020-05-18 21:35] LABS: Glucose Point of Care 85 mg/dL (70-110)
[2020-05-19] VITALS (15 sets, daily range): BP systolic 131–153; BP diastolic 80–93; PULSE 88–109; RESP 16–24; TEMP 36.3–37.5; O2SAT 4–96
[2020-05-19] MEDS: enoxaparin 40 mg/0.4 mL Syringe SUBCUT (00:51)
[2020-05-19] MEDS: ipratropium-albuterol 3 mL Neb INHALATION ×5 (03:15→21:19)
[2020-05-19] MEDS: acetylcysteine 200 mg/mL SDV 4 mL 100 MG INHALATION ×3 (03:15→21:20)
[2020-05-19] MEDS: piperacillin-tazobactam 3.375 GM in sodium chloride 0.9% (plus) 50 ML IV ×3 (03:35→20:53)
[2020-05-19] MEDS: dextrose 10% 1,000 ML 30 ML IV (03:41)
[2020-05-19 04:49] LABS: Basophils % 0.5 %; Eosinophils # 0.4 10^3/uL (0.0-0.8); Eosinophils % 6.8 %; Hemoglobin 11.9 g/dL (11.7-16.6); Lymphocytes # 1.7 10^3/uL (0.8-4.8); Lymphocytes % 26.5 %; Mean Corpuscular HGB Conc 29.8 g/dL (30.0-36.0); Mean Corpuscular Hemoglobin 29.7 pg (28.0-34.0); Mean Corpuscular Volume 99.8 fL (80-94); Mean Platelet Volume 11.2 fL (7.4-10.4); Monocytes # 0.9 10^3/uL (0.2-0.9); Monocytes % 13.9 %; Neutrophils # 3.38 10^3/uL (1.8-7.7); Neutrophils % 52.1 %; Nucleated Red Blood Cells % 0 %; Platelet Count 262 10^3/cmm (130-400); Red Blood Count 4.01 10^6/uL (4.1-5.3); Red Cell Distribution Width 14.6 % (12.1-15.1); White Blood Count 6.5 10^3/uL (4.0-10.0)
[2020-05-19 05:20] LABS: Alanine Aminotransferase 34 U/L (0-41); Albumin Level 3.1 g/dL (3.5-5.2); Alkaline Phosphatase 57 IU/L (40-130); Anion Gap 11.5 (5-19); Aspartate Amino Transferase 26 U/L (0-40); Blood Urea Nitrogen 4 mg/dL (6-20); Calcium 9.3 mg/dL (8.5-10.5); Carbon Dioxide 31 mmol/L (22-29); Chloride 101 mmol/L (98-107); Globulin 3.4 g/dL (1.3-4.6); Glomerular Filtration Rate 100.4 mL/min (90-130); Glucose 118 mg/dL (65-115); Osmolality Calculated 288 mOsm/kg (285-295); Potassium 3.5 mmol/L (3.5-5.1); Sodium 140 mmol/L (136-145); Total Bilirubin 0.4 mg/dL (0.15-1.2); Total Protein 6.5 g/dL (6.6-8.7)
--- NOTE | 2020-05-19 05:36 | PC.NURSE ---
pt rested well tonight. pt has voided post hernandez discontinuation. pt lung sounds were diminished in the bases.
[2020-05-19 06:54] LABS: Glucose Point of Care 108 mg/dL (70-110)
[2020-05-19] MEDS: pantoprazole DR 40 mg Tablet PO (09:10)
[2020-05-19] MEDS: thiamine 100 mg Tablet PO (09:10)
[2020-05-19] MEDS: folic acid 1 mg Tablet PO (09:11)
[2020-05-19] MEDS: aspirin 81 mg Chew Tablet PO (09:11)
[2020-05-19 12:00] LABS: Glucose Point of Care 104 mg/dL (70-110)
[2020-05-19] MEDS: FUROsemide 10 mg/mL SDV 2mL 20 MG IVP (13:44)
[2020-05-19 17:07] LABS: Glucose Point of Care 82 mg/dL (70-110)
--- NOTE | 2020-05-19 17:16 | PC.NURSE ---
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
--- NOTE | 2020-05-19 19:24 | PM.PN ---
Subjective Subjective: Interval history: Today he reported he is feeling much better. Request to return home. Reports he has been working with PT. Has also walked with a walker. Reports that at home he has a CPAP machine he is inherited from a relative who had , and he says he had set it up with fresh hoses. Says that he has a family member who can provide him with a walker. Says that at home his would be there at least part of the day, as well as his daughter would come over to stay with him for a while. Also says that in the back of the house has only 2 steps in case needed to get out. Vitals/I&O/Wt Last Vital Signs Temp 97.8 F 05/19/20 16:00 Pulse 109 H 05/19/20 16:16 Resp 18 05/19/20 16:16 BP 134/84 05/19/20 16:00 Pulse Ox 85 L 05/19/20 16:19 05/19/20 05/19/20 05/19/20 06:59 14:59 22:59 Intake Total 1034.5 / 2094.5 850 / 850 Output Total 200 / 525 700 / 700 1200 / 1900 Balance 834.5 / 1569.5 150 / 150 -1200 / -1050 Weight last 48 hrs Weight 127.119 kg Weight 124.466 kg Weight 122.651 kg Physical Exam Const: COMMON NORMALS: no acute distress, patient oriented x3 and alert EXAM LIMITATIONS: physical limitations (Dysphonia.) GENERAL APPEARANCE: cooperative NUTRITIONAL APPEARANCE: obese ORIENTATION/CONSCIOUSNESS: Yes awake OTHER: Today is looking much more comfortable. Sitting up in the chair. Pleasant. Speaks in full sentences. HENMT: COMMON NORMALS: oropharynx normal Eye: COMMON NORMALS: Equal, round and reactive pupils present PUPIL: Yes Equal, round and reactive pupils present Neck/C-Spine: COMMON NORMALS: no JVD Resp: COMMON NORMALS: normal respiratory effort AUSCULTATION: rales (faint) on the right at the base OTHER: Mostly clear. Difficult to auscultate due to body habitus. Cardio: COMMON NORMALS: no JVD, regular rhythm, S1 normal heart sound present, S2 normal heart sound present and No murmurs present (Cardio) RHYTHM: regular rhythm HEART SOUNDS: S1 normal heart sound present and S2 normal heart sound present GI: COMMON NORMALS: Normal to inspection, nondistended, normoactive bowel sounds present, Soft to palpation and non-tender PALPATION: Yes Soft to palpation Extremity: COMMON NORMALS: no joint enlargement GENERAL: Yes edema (2+) Neuro: COMMON NORMALS: patient oriented x3 and moves all extremities SENSORIUM/ORIENTATION: Yes alert Skin: COMMON NORMALS: no rashes or lesions noted GENERAL SKIN EXAM: no rashes or lesions noted Urinary Catheter Management^: Vinson: Cath Placed During This Visit: yes, but has since been removed by the nurse Reason for Continuing Indwelling Catheter: Accurate Measurement of Urinary Output in Critically Ill Patients Urinary Catheter Date of Insertion: 05/10/20 Urinary Catheter Time of Insertion: 23:28 Date Urinary Catheter Removed: 05/18/20 Time Urinary Catheter Discontinued: 13:22 Data : 05/19/20 04:27 05/19/20 04:27 Micro: Microbiology 05/17/20 14:21 Urine Culture - Preliminary Urine,Clean Catch A&P Assessment and plan (1) Acute respiratory failure with hypoxia and hypercapnia: Respiratory failure is improving. He is still was on BiPAP at night. He request to return home today. Discussed both with him as well as on the phone with his . Concern is she is still been using noninvasive ventilation at night. However, he states he has a CPAP at home that he could use. He says it is not he is, but he inherited from relative and set it up with new hoses. Discussed with his will bring it in tonight, and will request with RT to try to set it up for him instead of our machine pain. Otherwise we will attempt to wean oxygen. He says he is walked a little bit with a walker here, and says that there is a family member who can provide a walker for him. This will need to be delivered. Home O2 evaluation done, and he was for oxygen, this will need to be ordered for him prior to discharge. Also noted still on D10 infusion. Labs normal lower extremity edema. Will discontinue D10 monitor blood glucose to make sure he is no longer getting hypoglycemic. Encouraged oral intake. Will give 1 dose of 20 mg IV Lasix due to overload. If he is doing well, and we are able to set up all discharge arrangements for him, potentially could return home tomorrow. Did fairly well with speech therapy. Diet changed to GI soft, thin liquids. On noncontrast CT 05/14 noted to have persistence of left lower lobe consolidation, with possible ongoing pneumonia. Leukocytosis resolved. Fever appears resolved, last on 05/17 midnight. Continue Zosyn at this time. Breathing treatments for COPD. Has been weaned off steroids. Flutter valve. IS. Continue follow-up with speech therapy. Transfer to medical floor. Edema has improved. His weight has improved. Troponin was elevated on admission, but trended down to 57. Suspected due to demand ischemia. Is having no chest pain. Echocardiogram with poor ultrasonic window, LV appears to be normal size and ejection fraction. Right ventricle mildly dilated, possibly normal EF. May have underlying coronary disease, and would benefit from nonemergent stress test assessment after he recovers. Low-dose aspirin. B subhash. Hold off on statin. If liver function remains good, may add. Other conditions include smoking. History of COPD. Possible LOPEZ. Will need sleep study. Negative COVID-19 PCR. Rapid negative. Some exposure to Covid positive staph noted on presentation, but with appropriate PPE. Status: Acute (2) Delirium tremens: Had resolved. Has been doing well. Subsequently required slow weaning of set of this. Weaned off Precedex. Avoid benzodiazepines as per pulmonology recommendations. If episodes of delirium occur use Haldol. Status: Acute (3) Right lower lobe pneumonia: This appears to resolve. Repeat CT 05/14 with left lower lobe concern for date of atelectasis consistent with pneumonia. Status: Acute Qualifiers: Pneumonia type: aspiration pneumonia Aspiration pneumonia type: due to gastric secretions Qualified Code(s): J69.0 - Pneumonitis due to inhalation of food and vomit (4) COPD (chronic obstructive pulmonary disease): Zosyn for pneumonia. Has been weaned off steroids. Continue nebs. Sputum culture unremarkable. We will repeat due to some worsening his respiratory condition. Status: Chronic Qualifiers: COPD type: COPD with acute exacerbation Qualified Code(s): J44.1 - Chronic obstructive pulmonary disease with (acute) exacerbation (5) Tobacco abuse: Status: Chronic (6) Hypertension: Status: Chronic Qualifiers: Hypertension type: essential hypertension Qualified Code(s): I10 - Essential (primary) hypertension (7) Acute encephalopathy: Improving. Weaned off all IV sedative infusions. Severe alcohol withdrawal resolved. CT head without bleeding. Noted bilateral mastoid effusions, also mild mucosal thickening in ethmoid air cells, fluid in posterior nasopharynx. These appear to be associated with his chronic sinusitis. EEG without suggestion of seizure. Central line placed 10/. DC prior to discharge. He is a heavy drinker at baseline. Continue Ativan as needed per [facility] protocol. Thiamine, folic acid, multivitamins. Prophylactic lovenox. Status: Acute (8) Acute kidney injury: JIMMY on CKD resolved. ALISA negative. ASO negative. Monitor I&O. Renal function. Blood pressures. Status: Acute Additional A&P Information Pneumonia: Appears to have persistent consolidation in left lower lobe on CT scan. Continue Zosyn. Change to dysphagia diet. Some penetration noted on MBS. Aspiration precautions. Avoid benzos. Obstipation: Improved. Continue bowel regimen. # fever: Improved. Last on 05/17 midnight. Continue aspiration precautions. Previously noted some aspiration with thin liquids. Dysphonia. Continue follow-up with speech therapy. Aspiration precautions. MBS with small amount of penetration with thin liquids, no aspiration. Has been doing well with speech. Advanced to GI soft diet with thin liquids. Has also mastoid effusions, although these appear to be more a chronic problem. Keep on differential for now. # hypoglycemia: Glucose has been normal, however, has been on 30 mL of D10. Discussed with him his . He is agreeable to stay additionally tonight to make sure this is not going to be a barrier to his discharge. We discontinued D10 earlier in the day. Monitor glucose overnight. Discussed we will prescribe him a glucometer so he can continue to monitor at home and avoid hypoglycemia. Instructed to take sugary snacks and recheck glucose in 15-minute intervals after hypoglycemia, call an ambulance in case not improving. So far glucose is doing well. Will need to follow-up with his PCP to make sure he is doing well. If not resolving may need additional evaluation. #Troponin elevation likely related to demand ischemia. #Aortic stenosis, last JOSE 1.6 cm? # significant deconditioining likely due to prolonged admission, mobilize with PT/OT Full code DVT prophylaxis Lovenox Attestations Medical Necessity Statement*: Continue admission for discharge planning, optimization of respiratory failure care, oxygen arrangements, monitoring of glucose, weaning of D10, treatment of fluid overload. Coding Level of Care Code Acute Adjunct Phlebotomy Instructor for [facility] Diagnoses Acute respiratory failure with hypoxia and hypercapnia J96.01; J96.02 Delirium tremens F10.231 Right lower lobe pneumonia J69.0 Pneumonia type: aspiration pneumonia Aspiration pneumonia type: due to gastric secretions COPD (chronic obstructive pulmonary disease) J44.1 COPD type: COPD with acute exacerbation Tobacco abuse Z72.0 Hypertension I10 Hypertension type: essential hypertension Acute encephalopathy G93.40 Acute kidney injury N17.9
[2020-05-19 20:39] LABS: Glucose Point of Care 120 mg/dL (70-110)
[2020-05-20] VITALS (11 sets, daily range): BP systolic 114–158; BP diastolic 73–100; PULSE 92–110; RESP 18–36; TEMP 36.6–37; O2SAT 87–100
[2020-05-20] MEDS: ipratropium-albuterol 3 mL Neb INHALATION ×3 (00:17→09:03)
[2020-05-20] MEDS: acetylcysteine 200 mg/mL SDV 4 mL 100 MG INHALATION ×3 (00:17→09:06)
[2020-05-20 00:39] LABS: Glucose Point of Care 97 mg/dL (70-110)
[2020-05-20] MEDS: enoxaparin 40 mg/0.4 mL Syringe SUBCUT (01:18)
[2020-05-20 03:14] LABS: Basophils % 0.7 %; Eosinophils # 0.5 10^3/uL (0.0-0.8); Eosinophils % 8.4 %; Hematocrit 39.5 % (42.0-52.0); Hemoglobin 11.8 g/dL (11.7-16.6); Lymphocytes % 34.2 %; Mean Corpuscular HGB Conc 29.9 g/dL (30.0-36.0); Mean Corpuscular Hemoglobin 29.9 pg (28.0-34.0); Mean Platelet Volume 11.3 fL (7.4-10.4); Monocytes # 0.9 10^3/uL (0.2-0.9); Monocytes % 15.1 %; Neutrophils # 2.36 10^3/uL (1.8-7.7); Neutrophils % 41.4 %; Nucleated Red Blood Cells % 0 %; Platelet Count 241 10^3/cmm (130-400); Red Blood Count 3.95 10^6/uL (4.1-5.3); Red Cell Distribution Width 14.6 % (12.1-15.1); White Blood Count 5.7 10^3/uL (4.0-10.0)
[2020-05-20 03:39] LABS: Alanine Aminotransferase 34 U/L (0-41); Albumin Level 3.1 g/dL (3.5-5.2); Alkaline Phosphatase 60 IU/L (40-130); Anion Gap 12.2 (5-19); Aspartate Amino Transferase 28 U/L (0-40); Blood Urea Nitrogen 3 mg/dL (6-20); Calcium 9.6 mg/dL (8.5-10.5); Carbon Dioxide 33 mmol/L (22-29); Chloride 101 mmol/L (98-107); Globulin 3.3 g/dL (1.3-4.6); Glomerular Filtration Rate 69.5 mL/min (90-130); Glucose 107 mg/dL (65-115); Osmolality Calculated 293 mOsm/kg (285-295); Potassium 3.2 mmol/L (3.5-5.1); Sodium 143 mmol/L (136-145); Total Bilirubin 0.3 mg/dL (0.15-1.2); Total Protein 6.4 g/dL (6.6-8.7)
[2020-05-20] MEDS: piperacillin-tazobactam 3.375 GM in sodium chloride 0.9% (plus) 50 ML IV (04:25)
[2020-05-20 05:07] LABS: Glucose Point of Care 96 mg/dL (70-110)
--- NOTE | 2020-05-20 05:20 | PC.NURSE ---
SHIFT SUMMARY Pt has done well tonight. Thought he was going to sleep up in chair but actually layed down in bed when CPAP was placed by RT last pm. Says he was able to get some sleep. Up in chair this am and back on NC. RT placed on Cont O2 sat during night for close monitoring of sat. Did desat into mid 80's occ but then back up to 90-91%. Does well with sats while up in chair. Is very pleasant and is hoping to go home today. Discussed need for keeping HOB elevated and talked with him about probable need for sleep study at some point
[2020-05-20] MEDS: thiamine 100 mg Tablet PO (08:57)
[2020-05-20] MEDS: folic acid 1 mg Tablet PO (08:57)
[2020-05-20] MEDS: aspirin 81 mg Chew Tablet PO (08:57)
[2020-05-20] MEDS: pantoprazole DR 40 mg Tablet PO (08:57)
[2020-05-20 10:49] LABS: Glucose Point of Care 114 mg/dL (70-110)
--- NOTE | 2020-05-20 15:18 | PM.DCS ---
Discharge Providers Date of Admission: 04/30/20 00:33 Date of Discharge: May 20, 2020 Attending Provider at Admission: Alva Escalante MD Attending Provider at Discharge: Gregorio Robertson Primary Care Provider: Jose Sims MD Diagnoses at Discharge Discharge Diagnosis (1) Acute respiratory failure with hypoxia and hypercapnia: Status: Acute (2) Delirium tremens: Status: Acute (3) Right lower lobe pneumonia: Status: Acute Qualifiers: Aspiration pneumonia type: due to gastric secretions Pneumonia type: aspiration pneumonia Qualified Code(s): J69.0 - Pneumonitis due to inhalation of food and vomit (4) COPD (chronic obstructive pulmonary disease): Status: Chronic Problem details: with chronic hypercapnea with baseline pCO2 in the 60s Qualifiers: COPD type: COPD with acute exacerbation Qualified Code(s): J44.1 - Chronic obstructive pulmonary disease with (acute) exacerbation (5) Tobacco abuse: Status: Chronic (6) Hypertension: Status: Chronic Qualifiers: Hypertension type: essential hypertension Qualified Code(s): I10 - Essential (primary) hypertension (7) Acute encephalopathy: Status: Acute (8) Acute kidney injury: Status: Acute Reason for Visit Reason for Visit: RESP DISTRESS Hospital Course Discharge Summary: 54-year-old gentleman initially presented on 04/29 with chief complaint of difficulty breathing, ended up promptly intubated in ER due to hypoxemia, persistent respiratory acidosis despite attempts at BiPAP therapy. Oxygen saturation documented as low as 43%. After intubation noted having desaturations on 100% oxygen. Initial ABG consistent with acute hypercapnic respiratory failure. Alcohol level was [address] angiogram showed no PE. Not long after admission also developed severe alcohol withdrawal, restlessness despite multiple IV sedation agents, tremors, although no seizures noted on EEG. Received antibiotic treatment for noted pneumonia in right lower lobe, suspected aspiration. He is also a current smoker. With other conditions suspected to contribute including COPD and LOPEZ. Received treatment with steroids. His mental status gradually improved. COVID-19 testing on presentation was negative, was noted with exposure to and employee later found positive for COVID-19, and rapid testing was repeated and again negative. Acute kidney injury on presentation resolved. Encephalopathy persisted and was rather severe. In addition to propofol, Precedex, Versed, also received intermittent treatments with phenobarbital. CT of the head incidentally found fluid in the mastoid air cells greater on the left side. No signs of invasive mastoiditis noted on exam. reported some recurrent allergic rhinitis, and changes are suspected chronic. LP was attempted, however, spinal fluid could not be obtained due to body habitus. His encephalopathy eventually improved. He was extubated. Still noted hypoxic, and underwent repeat imaging with chest CT. This revealed subsequently left lower lobe consolidation suspicious of pneumonia, suspected again of aspiration. Was assessed by speech therapy. Underwent MBS which showed some thin liquid penetration, no naomi aspiration. Subsequently did well with speech therapy and was progressed on diet to mechanical soft with thin liquids. Hypoxia continue to gradually improve. Initially on high flow cannula with intermittent BiPAP support. Subsequently progressed well to Oxymizer pendant. Then regular nasal cannula. Has had some BiPAP support at night. He continued working with physical therapy and mobilizing well. As oxygenation and other issues continue to improve he requested to return home, stating that he is feeling much better, and is getting stronger. On home oxygen evaluation he is found requiring 2 L at rest and 4 L with exertion. As he is still been receiving some nighttime BiPAP support we discussed this with him. He stated that he has a CPAP machine at home, and this was brought in, however, could not be titrated by respiratory therapy. He was additionally assessed with recommendation overnight to maintain for now 6 L of oxygen over the next several days. He is referred for sleep study for evaluation and titration of CPAP. He is referred for follow-up with pulmonology. He states he has a nebulizer. During hospitalization also received infusion of D10 intermittently due to noted hypoglycemia. This was weaned off yesterday. Glucose has been good. He is educated on how to measure his glucose at home and will continue to monitor. Please follow-up on this. After receiving D10 developed some lower extremity edema although without any worsening of oxygenation. Was given a dose of IV Lasix for fluid overload, and on discharge home Lasix are continued. Please follow-up on volume status. On presentation troponin was also noted moderately elevated. Trended down to as low as 57. He has had no chest pain. He does have risk factors of coronary disease, so is referred for additional assessment by stress testing as discussed with him. Please follow-up on the results and refer for additional assessment or management as appropriate. He was counseled extensively on cessation of alcohol intake and smoking stating he fully intends not to drink anymore, and that he will be trying to quit smoking. He was agreeable for nicotine replacement therapy with patches and lozenges. Please follow-up again and reinforce and assist in abstinence from both. Discharge plans were discussed in detail also with his . She will be at home to assist him and continue to monitor his progress. Although she will not be there at all times, and so he states his daughter will be coming to stay with him as well for a while. He will be getting a walker from one of his other family members. Please see full diagnostic studies and progress notes and mgmt consultant notes for full details of this long hospitalization. Please do not hesitate to call with any questions. Physical Exam Const: COMMON NORMALS: no acute distress, patient oriented x3 and alert EXAM LIMITATIONS: physical limitations (Dysphonia.) GENERAL APPEARANCE: cooperative NUTRITIONAL APPEARANCE: obese ORIENTATION/CONSCIOUSNESS: Yes awake OTHER: Today is looking much more comfortable. Sitting up in the chair. Pleasant. Conversant. Speaks in full sentences. In good spirits. HENMT: COMMON NORMALS: oropharynx normal Eye: COMMON NORMALS: Equal, round and reactive pupils present PUPIL: Yes Equal, round and reactive pupils present Neck/C-Spine: COMMON NORMALS: no JVD Resp: COMMON NORMALS: normal respiratory effort AUSCULTATION: rales (faint) on the right at the base OTHER: Mostly clear. Difficult to auscultate due to body habitus. Cardio: COMMON NORMALS: no JVD, regular rhythm, S1 normal heart sound present, S2 normal heart sound present and No murmurs present (Cardio) RHYTHM: regular rhythm HEART SOUNDS: S1 normal heart sound present and S2 normal heart sound present GI: COMMON NORMALS: Normal to inspection, nondistended, normoactive bowel sounds present, Soft to palpation and non-tender PALPATION: Yes Soft to palpation Extremity: COMMON NORMALS: no joint enlargement GENERAL: Yes edema (2+) Neuro: COMMON NORMALS: patient oriented x3 and moves all extremities SENSORIUM/ORIENTATION: Yes alert Skin: COMMON NORMALS: no rashes or lesions noted GENERAL SKIN EXAM: no rashes or lesions noted Urinary Catheter Management^: Vinson: Cath Placed During This Visit: yes, but has since been removed by the nurse Reason for Continuing Indwelling Catheter: Accurate Measurement of Urinary Output in Critically Ill Patients Urinary Catheter Date of Insertion: 05/10/20 Urinary Catheter Time of Insertion: 23:28 Date Urinary Catheter Removed: 05/18/20 Time Urinary Catheter Discontinued: 13:22 Discharge Data Data Completed and Pending: Completed Studies During Hospitalization Category Date Time Status CT angio chest PE protcl [id number] Urge nt Cat Scan 04/29/20 18:[address] chest abd pel w con* Routine Cat Scan 05/06/20 06:[address] chest wo con 7 1250 Routine Cat Scan 05/14/20 07:[address] head wo con* 7 0450 Routine Cat Scan 05/03/20 08:[address] head wo con* 7 0450 Routine Cat Scan 05/06/20 06:56 Completed CXRP [XR chest 1V portable [id number]] S tat Exams 05/04/20 22:35 Completed FL barium swallow modifd [id number] Rout ine Exams 05/17/20 07:00 Completed XR chest 1V 20939 Stat Exams 04/29/20 21:30 Completed XR chest 1V 06771 Stat Exams 04/29/20 23:07 Completed XR chest 1V mallika ble [id number] AM LABS Exams 04/30/20 04:00 Completed XR chest 1V mallika ble [id number] Routine Exams 05/01/20 06:00 Completed XR chest 1V mallika ble [id number] Routine Exams 05/05/20 08:41 Completed XR chest 1V mallika ble 52165 Routine Exams 05/06/20 06:32 Completed XR chest 1V mallika ble 55222 Routine Exams 05/07/20 06:00 Completed XR chest 1V mallika ble 18901 Routine Exams 05/10/20 14:17 Completed XR chest 1V mallika ble [id number] Urgent Exams 04/29/20 18:09 Completed CV echo complete* 06107 Routine Ultrasound 04/30/20 01:45 [place] [id number] Routin e Ultrasound 05/11/20 10:05 Completed US kidney bilater al [US renal BI* 7 6770] Routine Ultrasound 04/30/20 07:20 Completed Pending at discharge Category Date Time Status ABG ONLY [Arteria l Blood Gas W/O Co ox] Routine Lab 05/02/20 05:33 Received Blood Culture Sta t Lab 05/16/20 09:35 Results Labs from last 24 hours 10/25/20 10/25/20 10/25/20 10:44 05:03 02:50 WBC RBC Hgb Hct MCV MCH MCHC RDW Plt Count MPV Neut % (Auto) Lymph % (Auto) [place] % (Auto) Eos % (Auto) Baso % (Auto) Neut # (Auto) Lymph # (Auto) [place] # (Auto) Eos # (Auto) Baso # (Auto) Nucleated RBC % (a uto) Nucleated RBCs # Sodium 143 Potassium 3.2 L Chloride 101 Carbon Dioxide 33 H Anion Gap 12.2 BUN 3 L Creatinine 1.1 GFR Calculation 69.5 L Glucose 107 POC Glucose 114 96 Calculated Osmolal ity 293 Calcium 9.6 Total Bilirubin 0.3 AST 28 ALT 34 Alkaline Phosphata se 60 Total Protein 6.4 L Albumin 3.1 L Globulin 3.3 05/20/20 05/20/20 05/19/20 02:50 00:35 20:34 WBC 5.7 RBC 3.95 L Hgb 11.8 Hct 39.5 L MCV 100.0 H MCH 29.9 MCHC 29.9 L RDW 14.6 Plt Count 241 MPV 11.3 H Neut % (Auto) 41.4 Lymph % (Auto) 34.2 [place] % (Auto) 15.1 Eos % (Auto) 8.4 Baso % (Auto) 0.7 Neut # (Auto) 2.36 Lymph # (Auto) 2.0 [place] # (Auto) 0.9 Eos # (Auto) 0.5 Baso # (Auto) 0.0 Nucleated RBC % (a uto) 0 Nucleated RBCs # 0.0 Sodium Potassium Chloride Carbon Dioxide Anion Gap BUN Creatinine GFR Calculation Glucose POC Glucose 97 120 Calculated Osmolal ity Calcium Total Bilirubin AST ALT Alkaline Phosphata se Total Protein Albumin Globulin 05/19/20 17:00 WBC RBC Hgb Hct MCV MCH MCHC RDW Plt Count MPV Neut % (Auto) Lymph % (Auto) [place] % (Auto) Eos % (Auto) Baso % (Auto) Neut # (Auto) Lymph # (Auto) [place] # (Auto) Eos # (Auto) Baso # (Auto) Nucleated RBC % (a uto) Nucleated RBCs # Sodium Potassium Chloride Carbon Dioxide Anion Gap BUN Creatinine GFR Calculation Glucose POC Glucose 82 Calculated Osmolal ity Calcium Total Bilirubin AST ALT Alkaline Phosphata se Total Protein Albumin Globulin Vitals: Last Vital Signs Temp 98.3 F 05/20/20 12:57 Pulse 92 05/20/20 12:57 Resp 20 H 05/20/20 12:57 BP 158/100 05/20/20 12:57 Pulse Ox 100 05/20/20 12:57 Discharge Plan Discharge Patient Disposition: Home Condition: Stable Prescriptions: New Vitamin B-1 (mononitrate) 100 mg Tablet 100 mg PO DAILY Qty: 30 RF: 0 Augmentin 875-125 mg tablet 1 tab PO BID Qty: 6 RF: 0 ipratropium-albuterol 0.5 mg-3 mg(2.5 mg base)/3 mL Solution For Nebulization 3 ml inhalation Q6H Qty: 180 RF: 0 nicotine 14 mg/24 hr Patch 24 Hour 1 patch transdermal DAILY Qty: 30 RF: 0 nicotine (polacrilex) 2 mg lozenge 2 mg BUCCAL Q1H PRN (Reason: nicotine cravings) Qty: 81 RF: 0 lactulose 10 gram packet 10 gm PO DAILY Qty: 30 RF: 0 (DME) diabetic supplies, miscellan. Misc See Rx Instructions .ROUTE .MEDSUPPLY Qty: 1 RF: 0 Spiriva Respimat 2.5 mcg/actuation mist 2 inh INHALATION DAILY Qty: 4 RF: 0 Continued aspirin 81 mg Tablet,Delayed Release (Dr/Ec) 81 mg PO DAILY RF: 0 furosemide 20 mg tablet 20 mg PO DAILY RF: 0 folic acid 1 mg tablet 1 mg PO DAILY Qty: 30 RF: 0 albuterol sulfate 90 mcg/actuation Hfa Aerosol Inhaler 2 puff INHALATION QID PRN (Reason: Shortness Of Breath) Qty: 8.5 RF: 0 buspirone 10 mg tablet 10 mg PO BID RF: 0 Changed lisinopril 20 mg tablet 10 mg PO DAILY Qty: 0 RF: 0 amlodipine 10 mg tablet 5 mg PO DAILY Qty: 0 RF: 0 metoprolol tartrate 50 mg tablet 25 mg PO BID Qty: 0 RF: 0 Discontinued albuterol sulfate 2.5 mg /3 mL (0.083 %) solution for nebulization 2.5 mg inhalation Q4H PRN (Reason: Shortness Of Breath Or Wheezing) RF: 0 Discharge Orders: Discharge Order (Routine); Ordered 05/20/20 Ordered By: Gregorio Robertson Other Ambulatory Orders: Sestamibi Stress Test Request (Routine) Timeframe: 1 Week Facility: [facility] - Location: Cardiac Diagnostic Laboratory Ordered By: Gregorio Robertson DME: Oxygen (Order) Location: None Selected Ordered By: Gregorio Robertson Sleep Study/Titration (Routine) Timeframe: 1 Week Location: None Selected Ordered By: Gregorio Robertson Referrals: [employer] [Outside] (This is the company that is providing your home oxygen. If you have any questions or concerns or need to order additional oxygen tanks, please call them at the phone number provided. ) Harry Gilbert MD [Physician] - 1 month (Please call [facility] on Thursday to schedule a follow up appoitnment with Dr. Gilbert to be seen in one month.) Jose Sims MD [Primary Care Provider] - 4-7 days (Please call [facility] on Thursday to schedule an appointment to be seen by Dr. Sims in 4-7 days.) Discharge Diet: Soft Mechanical Discharge Activity: Increase activity as tolerated, Use walker/crutches as instructed, As per PT/OT instructions, Oxygen as instructed and Cpap/Bipap as instructed Patient Instructions: Alcohol Abuse, Amoxicillin/Clavulanate Potassium (By mouth), Nicotine (Absorbed through the skin), Lactulose (By mouth), Cardiac Stress Test (DC), How to Stop Smoking (GEN), Pneumonia (GEN), Pneumonia Stoplight Activity Restrictions/Additional Instructions: Please avoid drinking any alcohol as it may again lead to severe complications, including severe withdrawal which may be life-threatening. Please stop smoking due to risk of cardiovascular disease with heart attack, stroke, other vascular disease, risk of cancer, risk of progression of lung disease, worsening hypoxia, disability. Please never smoked near oxygen due to severe fire hazard, risk of severe airway nichols and . Oxygen 2L at rest, 4L with exertion. At night as instructed by respiratory therapy. If you experience any worsening shortness of breath, any chest pain, or any other concerning symptoms, please proceed to ER without delay. Please measure your glucose 4 times a day, avoid low blood glucose. If your sugar is below 70, please take sugary snacks. Recheck again in 15 minutes to make sure it is increasing, if not take more sugary snacks and recheck again, if still low or getting lower, please seek medical attention immediately. Please follow-up with your primary care doctor regarding if low blood glucose levels are recurrent or not resolving in which case you may need additional testing. Please follow-up to schedule stress test in about a week to additionally assess for possible coronary artery disease due to mild-moderate elevation of troponin when you were admitted to the hospital with risk factors for coronary artery disease. Please follow-up with your primary care doctor with regards to the results or any additional assessment. Please follow-up with setting up a sleep study as well within about a week to further assess for sleep apnea and titrate nighttime settings for BiPAP. Follow-up with pulmonology with regards to the results. Use oxygen at night as instructed by respiratory therapy until your sleep study. Bring your CPAP machine with you for the study. Continue mechanical soft diet. Maintain strict aspiration precautions as instructed by speech therapy. Discharge Date/Time: 05/20/20 12:59 Discharge Attestations Time Spent in Discharge Care*: greater than 30 min Quality Metrics Clinical Quality Measures During this hospital stay, did patient experience: None Coding Level of Care Code Acute [employer] Diagnoses Acute respiratory failure with hypoxia and hypercapnia J96.01; J96.02 Delirium tremens F10.231 Right lower lobe pneumonia J69.0 Aspiration pneumonia type: due to gastric secretions Pneumonia type: aspiration pneumonia COPD (chronic obstructive pulmonary disease) J44.1 COPD type: COPD with acute exacerbation Tobacco abuse Z72.0 Hypertension I10 Hypertension type: essential hypertension Acute encephalopathy G93.40 Acute kidney injury N17.9
== END 2020-05-20 12:59 | disposition home or self-care (01) | DRG 207 ==
LOC: ER 18:25 → ICU 04-30 01:31 → MEDSURG 05-18 15:38
PROVIDERS: Emergency Medicine; Family Medicine; Internal Medicine Nephrology; Student in an Organized Health Care Education/Training Program; Admitting Provider Hospitalist; PCP Family Medicine; Visit Provider Internal Medicine
DX: J96.02 Acute respiratory failure with hypercapnia (principal); J69.0 Pneumonitis due to inhalation of food and vomit; E87.4 Mixed disorder of acid-base balance; J44.1 Chronic obstructive pulmonary disease with (acute) exacerbation; N17.9 Acute kidney failure, unspecified; F10.231 Alcohol dependence with withdrawal delirium; G93.49 Other encephalopathy; I24.8 Other forms of acute ischemic heart disease; J96.01 Acute respiratory failure with hypoxia; F17.210 Nicotine dependence, cigarettes, uncomplicated; E87.5 Hyperkalemia; R73.9 Hyperglycemia, unspecified; Y90.1 Blood alcohol level of 20-39 mg/100 ml; Z20.828 Contact with and (suspected) exposure to other viral communicable diseases; I06.0 Rheumatic aortic stenosis; Z79.82 Long term (current) use of aspirin; Z87.11 Personal history of peptic ulcer disease; R60.0 Localized edema; R93.0 Abnormal findings on diagnostic imaging of skull and head, not elsewhere classified; E16.2 Hypoglycemia, unspecified; K59.00 Constipation, unspecified; R49.0 Dysphonia; E87.70 Fluid overload, unspecified; I10 Essential (primary) hypertension
CPT/HCPCS: 12345; 31500; 36415; 36416; 36569; 36592; 36600; 51702; 70450; 71045; 71250; 71260; 71275; 74177; 74230; 76770; 80051; 80053; 80074; 80307; 81001; 81003; 82140; 82436; 82550; 82803; 82805; 82810; 82962; 83516; 83605; 83615; 83735; 83880; 83986; 84100; 84133; 84145; 84300; 84443; 84478; 84484; 85025; 85378; 85384; 85610; 85730; 86038; 86060; 86140; 87040; 87070; 87086; 87205; 87426; 87493; 87635; 92507; 92523; 92526; 92610; 92611; 93005; 93306; 93970; 94002; 94003; 94640; 94660; 94669; 94799; 96372; 96375; 97110; 97116; 97161; 97166; 97530; 99285; C1751; C9113; J0456; J0610; J0696; J1100; J1630; J1650; J1815; J1940; J1956; J2060; J2250; J2270; J2543; J2704; J2920; J2930; J3010; J3370; J3411; J3475; J3486; J3490; J7030; J7040; J7050; J7608; J7626; Q3014; Q9967

== ENCOUNTER 2020-06-13 20:00 | Outpatient (CLI) | payer SELFPAY | END 2020-06-13 20:01 | disposition home or self-care (01) | LOC: SLEEP 06-14 10:19 | PROVIDERS: PCP Family Medicine; Visit Provider Family Medicine | DX: G47.33 Obstructive sleep apnea (adult) (pediatric) (principal); R40.0 Somnolence; R06.83 Snoring; R53.83 Other fatigue | CPT/HCPCS: 95810 ==

== ENCOUNTER 2020-06-14 09:34 | Outpatient (CLI) | payer SELFPAY ==
--- NOTE | 2020-06-14 10:16 | ECG_ITS ---
[facility] Test Date: 2020-06-14 Pat Name: Filemon Wong Department: Room: Gender: Male [employer] Installer: Lidyaalonso Terrell : 1965 Requested By: Jose Mayorga Order Number: [id number] Charlette MD: Yahaira Lund M.D. Interpretive Statements NAME OF STUDY: LEXISCAN SESTAMIBI STRESS TEST INDICATION: Chest Pain PROCEDURE: At the baseline, the blood pressure was 123/79 mmHg, oxygen saturation 100% with a heart rate of 69 bpm. The electrocardiogram showed. The Lexiscan was infused over a period of 20 seconds. A total of 0.4 milligrams of Lexiscan was infused. The stress phase was continued for a total of 5 minutes. Heart rate at the end of the stress phase was 90 bpm, oxygen saturation 96% with a blood pressure of 116/81 mmHg. The EKG at the peak infusion revealed sinus rhythm with rightward axis. Possible old anterior infarct. Nonspecific ST-T wave changes. Sestamibi was injected 20 seconds after the Lexiscan infusion. The study was terminated due to protocol completion. Blood pressure at the end of the recovery phase was 140/81 mmHg, oxygen saturation 94% with a heart rate of 86 beats per minute. CONCLUSION: 1. No significant EKG changes with the LexiScan infusion. 2. No LexiScan induced chest pain or cardiac arrhythmia. 3. Normal blood pressure and heart rate response. 4. Sestamibi/sestamibi perfusion scan pending; see separate report. Electronically Signed On 06-15-2020 13:00:37 CHARGE LOADER by Yahaira Lund M.D. [id number]
--- NOTE | 2020-06-14 10:17 | NMCV_ITS ---
NM hardik perf SPECT r/s* [id number] Filemon Wong Age: 54 Gender: M : 1965 Exam Date: 06/14/2020 10:28 Ordering Phys: Jose Sims MD Technologist: KARINA Dixon Exam Location: [facility] Indications: CHEST PAIN STRESS TEST Please see separate stress test report in [employer] for full findings IMAGE PROTOCOL Rest/Stress 1 Lexiscan Day Radiopharmaceutical Dose (mCi) Administration Site Administered by Rest: Tc-99m 10.8 IV KARINA Carr Sestamibi Stress:Tc-99m 32.8 IV KARINA Carr Sestamibi Rest: 06/14/2020 60 Discovery 630 Stress: 06/14/2020 30 Discovery 630 0.4mg Lexiscan. Supine position only as patient was unable to lay prone. SPECT RESULTS Technical Quality: Good Raw Data Analysis: Normal Image Corrections: No attenuation or motion correction applied Summed Stress Score: 3 Summed Rest Score: 1 Summed Difference Score: 3 PERFUSION FINDINGS Small size perfusion abnormality of mild severity of basal to mid inferior wall on rest images. There is reversible perfusion defect in mid lateral and apical rosales on stress images. FUNCTIONAL RESULTS (calculated via Gated SPECT) Stress Image LV EF (%): 63 Stress EDV (mL):137 TID: 0.85 Stress ESV (mL):51 FUNCTIONAL FINDINGS: The left ventricle is normal in size. Transient Ischemia Dilatation of 0.85. There is normal left ventricular systolic function. The left ventricular ejection fraction is normal with a value of 63%. There is normal left ventricular wall thickening. Normal end-diastolic and end-systolic volumes. IMPRESSIONS 1. Small sized fixed perfusion abnormality of mild severity of basal to mid inferior wall. This may represent attenuation artifact or old myocardial infarction in right coronary artery territory. 2. There is reversible perfusion defect in mid lateral and apical rosales on stress images. This may represent small area of ischemia in circumflex artery territory, however in absence of prone imaging attenuation artifact cannot be ruled out. 3. Overall left ventricular systolic function is normal without regional wall motion abnormalities. 4. The left ventricular ejection fraction is normal with a value of 63%. 5. No prior similar studies to compare. Yahaira Lund MD (Electronically Signed) Final Date: 15 June 2020 13:11 S
[2020-06-14 10:20] VITALS: BMI 34.2
[2020-06-14] MEDS: regadenoson 0.4 Mg/5 ml Syringe IVP (11:18)
[2020-06-14 11:19] VITALS: BP 122/77; PULSE 92
== END 2020-06-14 09:35 | disposition home or self-care (01) ==
LOC: CDL 09:35
PROVIDERS: PCP Family Medicine; Visit Provider Family Medicine
DX: R07.9 Chest pain, unspecified (principal); I48.91 Unspecified atrial fibrillation
CPT/HCPCS: 78452; 93017; A9500; J2785

== ENCOUNTER 2020-10-02 08:07 | Outpatient (CLI) | payer OTHER, SELFPAY ==
--- NOTE | 2020-10-02 08:54 | PFTS_ITS ---
Date of Study:10/02/20 Date of Dictation: MECHANICS: Forced vital capacity (FVC) is reduced. Forced expiratory volume in one second (FEV1) is reduced. FEV1/FVC is reduced. FLOW VOLUME LOOP: Narrow. LUNG VOLUMES: Total lung capacity (TLC) is reduced. Residual volume (RV) is increased. DIFFUSING CAPACITY FOR CARBON MONOXIDE: Normal. INTERPRETATION: The postbronchodilator spirometry is consistent with severe obstruction. In addition, the patient likely has restrictive ventilatory defect as well. His lung volumes are consistent with mild restriction. However, this restriction could be lower than expected in the setting of hyperinflation. Gas exchange (DLCO) is normal. MTDD
== END 2020-10-02 08:08 | disposition home or self-care (01) ==
LOC: RT 08:13
PROVIDERS: PCP Family Medicine; Visit Provider Internal Medicine Critical Care Medicine
DX: J44.1 Chronic obstructive pulmonary disease with (acute) exacerbation (principal)
CPT/HCPCS: 94060; 94726; 94729; J7611

== ENCOUNTER 2021-01-01 20:00 | Outpatient (CLI) | payer OTHER, SELFPAY | END 2021-01-01 20:01 | disposition home or self-care (01) | LOC: SLEEP 01-02 09:18 | PROVIDERS: PCP Family Medicine; Visit Provider Family Medicine | DX: G47.30 Sleep apnea, unspecified (principal) | CPT/HCPCS: 95811 ==